=== PATIENT | female | born 1965 ===

== ENCOUNTER 2018-07-28 15:35 | Inpatient (IN) | payer MEDICAID ==
[2018-07-28 15:35] VITALS: BMI 22.4
--- NOTE | 2018-07-28 16:39 | ED PDOC ---
Arrival/HPI - General Chief Complaint: Lower Extremity Problem/Injury Time Seen by Provider: 07/28/18 16:19 Historian: Patient - History of Present Illness Narrative History of Present Illness (Text): 52yo female, comes to Emergency room for evaluation, upon recommendation from Dr. Murray. Patient has gangrene of her left great toe and is scheduled for a surgical intervention tomorrow. Currently, patient denies any fever, chills, foot pain. No other complaints. Symptom Onset: Gradual Past Medical History - Provider Review Nursing Documentation Reviewed: Yes - Infectious Disease Hx of Infectious Diseases: None - Tetanus Immunization Tetanus Immunization: Unknown - Cardiac Hx Pacemaker: No - Pulmonary Hx Respiratory Disorders: No - Neurological Hx Neurological Disorder: No - HEENT Hx HEENT Disorder: No - Renal Hx Renal Disorder: No - Endocrine/Metabolic Hx Diabetes Mellitus Type 2: Yes - Hematological/Oncological Hx Cancer: No - Integumentary Hx Dermatological Disorder: Yes Other/Comment: cellulitis ball of right [id number] x2cm brown dry skin, dried skin between toes right foot, pt had sx last year i and d to right foot abcess, foot healed - Musculoskeletal/Rheumatological Hx Falls: No (last december) - Gastrointestinal Hx Gastrointestinal Disorders: Yes (constipation, gastritis) Hx Gastroesophageal Reflux: Yes - Genitourinary/Gynecological Hx Genitourinary Disorders: Yes Hx Urinary Tract Infection: Yes - Psychiatric Hx Psychophysiologic Disorder: No Hx Substance Use: No - Past Surgical History Past Surgical History: No Previous - Surgical History Hx Amputation: Yes Hx Mastectomy: No - Anesthesia Hx Anesthesia Reactions: No Hx Malignant Hyperthermia: No - Suicidal Assessment Feels Threatened In Home Enviroment: No Family/Social History - Physician Review Nursing Documentation Reviewed: Yes Family/Social History: No Known Family HX Smoking Status: Never Smoked Hx Alcohol Use: No Hx Substance Use: No Hx Substance Use Treatment: No Allergies/Home Meds Allergies/Adverse Reactions: Allergies pantoprazole Allergy (Verified 07/28/18 16:27) RASH Review of Systems - Physician Review All systems were reviewed & negative as marked: Yes - Review of Systems Constitutional: absent: Fevers Musculoskeletal: absent: Other (foot pain) Physical Exam - Physical Exam Narrative Physical Exam (Text): Gen: VS reviewed, alert, well developed, well nourished, nontoxic, mild distress. ENT: normal pharynx Eye: EOMI, PERRL Neck: no JVD, supple, no adenopathy CV: regular rate, regular rhythm, no rubs, no murmur, no gallops, S1, S2, pulses equal and strong Pulm: no distress, clear to auscultation, no wheeze, no rhonchi, breath sounds equal, no rales Abd: soft, nontender, no guarding, no rebound, no rigidity, normal bowel sounds Ext: left foot in surgical shoe with dressing; no streaking extending up the leg. RLE normal, no edema. Skin: good color, no rash, no cyanosis Psych: responds appropriately to questions, normal affect Neuro: oriented x 3, CN2-12 intact grossly, motor intact, sensation intact. Medical Decision Making ED Course and Treatment: Impression: Gangrene of great toe on left foot Plan: -- Labs -- -- Reassess and disposition Progress Notes: 07/28/18 18:[address] campbell, patient to be admitted for symptomatic anemia. at this time patient does not have any rectal bleeding or complaint of melena. - EKG Interpretation EKG Interpretation (Text): 07/28/18 18:04 1728: nsr at 71 bpm, nml qrs, nml axis, no acute sttw abn Interpreted by ED Physician: Yes - Scribe Statement The provider has reviewed the documentation as recorded by the Sherice Lange Provider Scribe Attestation: All medical record entries made by the Daveibaníbal were at my direction and personally dictated by me. I have reviewed the chart and agree that the record accurately reflects my personal performance of the history, physical exam, medical decision making, and the department course for this patient. I have also personally directed, reviewed, and agree with the discharge instructions and dis position. Disposition/Present on Arrival - Present on Arrival Any Indicators Present on Arrival: No History of DVT/PE: No History of Uncontrolled Diabetes: Yes Urinary Catheter: No History of Decub. Ulcer: No History Surgical Site Infection Following: None - Disposition Have Diagnosis and Disposition been Completed?: Yes Diagnosis: Gangrene Disposition: HOSPITALIZED Disposition Time: 09:41 Condition: STABLE
[2018-07-28 17:28] LABS: BASO # 0.06 K/mm3 (0.0-2.0); BASO % 0.7 % (0.0-3.0); EOS # 0.7 (0.0-0.7); EOS % 8.7 % (1.5-5.0); GRAN # 5.11 (1.4-6.5); GRAN % 62.7 % (50.0-68.0); HEMOGLOBIN 9.6 g/dL (12.0-16.0); LYMPH # 1.7 (1.2-3.4); LYMPH % 21.2 % (22.0-35.0); MEAN CELL VOLUME 90.3 fl (80.0-105.0); MEAN CORPUSCULAR HEMOGLOBIN 29.2 pg (25.0-35.0); MEAN CORPUSCULAR HGB CONC 32.3 g/dl (31.0-37.0); MEAN PLATELET VOLUME 8.7 fl (7.0-11.0); MONO # 0.6 (0.1-0.6); MONO % 6.7 % (1.0-6.0); RBC 3.29 10^6/uL (3.5-6.1); WHITE BLOOD COUNT 8.2 10^3/ul (4.5-11.0)
[2018-07-28 17:30] LABS: VENOUS BLOOD GAS BASE EXCESS 9.3 mmol/L (0.0-2.0); VENOUS BLOOD GAS PO2 56 mm/Hg (30-55); VENOUS BLOOD PH 7.42 (7.32-7.43)
--- NOTE | 2018-07-28 17:32 | CP.PCM.HP ---
<ErickAlbina - Last Filed: 07/28/18 18:17> History of Present Illness - History of Present Illness History of Present Illness: PGY-1 Albina Suarez H & P for Dr. Stevenson's service CC: Toe amputation surgery for diabetic foot ulcer Patient is a 52 yo female with a past medical history of congestive heart failure, diabetes mellitus, hypertension, dilated cardiomyopathy with life vest who presented to the ED at the request of Dr. Murray. Patient was in the [facility] approximately a month ago for similar situation. Patient had positive cultures for MSSA with wound culture. MRI on last admission was negative for any osteomyelitis. Patient was to continue outpatient with IV daptomycin for 4 weeks starting from negative blood cultures. Patient had a revasculrization procedure done with IR however it was complicated due to patient developing contrast induced nephropathy. Patient was to followup with Dr. Redding for restarting NOEMÍ and Aldactone because they were held after PATRICIA. Patient's foot ulcer was not healing appropriately with IV Abx (Daptomycin) use so it was planned for podiatry to have the toe amputated. Patient states she had an allergic reaction to the antibiotic after 2 weeks of use. She states her left hand skin was peeling on the distal part of her hand but most likely its due to contact dermatitis. Patient denies fevers, chills, shortness of breath, chest pain, n/v, constipation or diarrhea, dysuria. Patient admits to headaches at time. PMH- congestive heart failure, diabetes mellitus, hypertension, dilated cardiomyopathy PSH-R foot debridement in 2013 FH- Mom and dad both have HTN and DM Meds- Lasix 40mg bid, Lipitor 40mg daily, Coreg 25 bid, Lisinopril 40mg daily, Basagral 10 units bid, Prasagral 10 units bid, Plavix 75 mg daily, Hydralazine 10 tid, Pepcid 10mg Allergies- pantoprazole; no daptomycin Social- denies smoking, EtOH, or substance abuse; lives at home with her daughters PMD- Dr. Armas Code- Full Code Present on Admission - Present on Admission Any Indicators Present on Admission: No Review of Systems - Review of Systems Review of Systems: 12 point ROS obtained and noted in HPI Past Patient History - Infectious Disease Hx of Infectious Diseases: None - Tetanus Immunizations Tetanus Immunization: Unknown - Past Social History Smoking Status: Never Smoked - CARDIAC Hx Pacemaker: No - PULMONARY Hx Respiratory Disorders: No - NEUROLOGICAL Hx Neurological Disorder: No - HEENT Hx HEENT Problems: No - RENAL Hx Chronic Kidney Disease: No - ENDOCRINE/METABOLIC Hx Diabetes Mellitus Type 2: Yes - HEMATOLOGICAL/ONCOLOGICAL Hx Cancer: No - INTEGUMENTARY Hx Dermatological Problems: Yes Other/Comment: cellulitis ball of right [id number] x2cm brown dry skin, dried skin between toes right foot, pt had sx last year i and d to right foot abcess, foot healed - MUSCULOSKELETAL/RHEUMATOLOGICAL Hx Falls: No (last december) - GASTROINTESTINAL Hx Gastrointestinal Disorders: Yes (constipation, gastritis) Hx Gastroesophageal Reflux: Yes - GENITOURINARY/GYNECOLOGICAL Hx Genitourinary Disorders: Yes Hx Urinary Tract Infection: Yes - PSYCHIATRIC Hx Psychophysiologic Disorder: No Hx Substance Use: No - SURGICAL HISTORY Hx Amputation: Yes Hx Mastectomy: No - ANESTHESIA Hx Anesthesia Reactions: No Hx Malignant Hyperthermia: No Meds Allergies/Adverse Reactions: Allergies Allergy/AdvReac Type Severity Reaction Status Date / Time pantoprazole Allergy RASH Verified 07/28/18 16:27 Physical Exam - Constitutional Appears: Non-toxic, No Acute Distress - Head Exam Head Exam: NORMAL INSPECTION, NORMOCEPHALIC - Eye Exam Eye Exam: EOMI, Normal appearance. absent: Nystagmus, Scleral icterus - ENT Exam ENT Exam: Mucous Membranes Moist - Respiratory Exam Respiratory Exam: Clear to Auscultation Bilateral, NORMAL BREATHING PATTERN. absent: Rales, Rhonchi, Wheezes - Cardiovascular Exam Cardiovascular Exam: REGULAR RHYTHM, +S1, +S2 - GI/Abdominal Exam GI & Abdominal Exam: Normal Bowel Sounds, Soft. absent: Distended, Firm, Guarding, Tenderness - Extremities Exam Extremities exam: Positive for: normal inspection. Negative for: calf tenderness, pedal edema Additional comments: Right foot chronic ulcer dressed by Podiatry Inspection shows saturated dressing with sensory neuropathy as patient unable to feel - Neurological Exam Neurological exam: Alert, Oriented x3 - Psychiatric Exam Psychiatric exam: Normal Affect, Normal Mood - Skin Skin Exam: Intact, Normal Color Results - Vital Signs Recent Vital Signs: Last Vital Signs Temp 97.9 F 07/28/18 17:22 Pulse 71 07/28/18 17:22 Resp 19 07/28/18 17:22 BP 174/74 H 10/02/18 17:22 Pulse Ox 95 07/28/18 17:22 - Labs Result Diagrams: 07/28/18 17:15 07/28/18 17:15 Labs: Laboratory Results - last 24 hr 07/28/18 17:15 WBC 8.2 D RBC 3.29 L Hgb 9.6 L Hct 29.7 L MCV 90.3 MCH 29.2 MCHC 32.3 RDW 13.0 Plt Count 429 MPV 8.7 Gran % 62.7 Lymph % (Auto) 21.2 L [place] % (Auto) 6.7 H Eos % (Auto) 8.7 H Baso % (Auto) 0.7 Gran # 5.11 Lymph # (Auto) 1.7 [place] # (Auto) 0.6 Eos # (Auto) 0.7 Baso # (Auto) 0.06 Assessment & Plan - Assessment and Plan (Free Text) Assessment: Patient is a 52 yo female with a past medical history of congestive heart failure, diabetes mellitus, hypertension, dilated cardiomyopathy with life vest who presented to the ED at the request of Dr. Murray. Plan is to have surgery to amputate toe tomorrow Plan: Diabetic Foot Ulcer Podiatry Consulted- Dr. Murray- recommendations appreciated OR tomorrow for toe amputation NPO except meds starting at midnight HTN Carevdilol 25mg po bid Hydralazine 10mg po tid Lisinopril 40 mg and Lasix 40mg held in the setting of elevated Creatinine DM Levemir 5mg for 07/28 while patient NPO Will restart home dose of Levemir 10mg for 07/29 ISS - med dose; ACHS Hx of CAD Lipitor 40mg po din Hx of CHF Patient euvolemic; no signs of JVD On life vest Continue to monitor PPx DVT ppx- Heparin 5000 units sc q8h GI ppx- Pepcid 10mg po HS <Yi Stevenson - Last Filed: 07/29/18 14:27> Results - Vital Signs Recent Vital Signs: Last Vital Signs Temp 98 F 07/29/18 14:00 Pulse 74 07/29/18 14:00 Resp 18 07/29/18 14:00 BP 143/77 07/29/18 14:00 Pulse Ox 98 07/29/18 14:00 - Labs Result Diagrams: 07/29/18 06:15 07/29/18 06:15 Labs: Laboratory Results - last 24 hr 07/28/18 07/28/18 07/28/18 17:15 17:15 17:15 WBC 8.2 D RBC 3.29 L Hgb 9.6 L Hct 29.7 L MCV 90.3 MCH 29.2 MCHC 32.3 RDW 13.0 Plt Count 429 MPV 8.7 Gran % 62.7 Lymph % (Auto) 21.2 L [place] % (Auto) 6.7 H Eos % (Auto) 8.7 H Baso % (Auto) 0.7 Gran # 5.11 Lymph # (Auto) 1.7 [place] # (Auto) 0.6 Eos # (Auto) 0.7 Baso # (Auto) 0.06 PT INR APTT pO2 56 H VBG pH 7.42 VBG pCO2 55.0 VBG HCO3 35.7 H VBG Total CO2 37.4 H VBG O2 Sat (Calc) 91.9 H VBG Base Excess 9.3 H VBG Potassium 4.1 Sodium 136.0 Chloride 100.0 Glucose 227 H Lactate 0.7 FiO2 21.0 Potassium Carbon Dioxide Anion Gap BUN Creatinine Est GFR ( Amer) Est GFR (Non-Af Amer) POC Glucose (mg/dL) Random Glucose Calcium Phosphorus Magnesium Total Bilirubin AST ALT Alkaline Phosphatase Total Creatine Kinase Total Protein Albumin Globulin Albumin/Globulin Ratio Venous Blood Potassium 4.1 Blood Type AB POSITIVE Antibody Screen Negative BBK History Checked Patient has bt 07/28/18 07/28/18 07/29/18 17:15 21:39 06:15 WBC 8.8 RBC 3.58 Hgb 10.1 L Hct 32.6 L MCV 91.1 MCH 28.2 MCHC 31.0 RDW 13.1 Plt Count 477 H MPV 8.8 Gran % 65.6 Lymph % (Auto) 16.6 L [place] % (Auto) 8.0 H Eos % (Auto) 8.3 H Baso % (Auto) 1.5 Gran # 5.77 Lymph # (Auto) 1.5 [place] # (Auto) 0.7 H Eos # (Auto) 0.7 Baso # (Auto) 0.13 PT INR APTT pO2 VBG pH VBG pCO2 VBG HCO3 VBG Total CO2 VBG O2 Sat (Calc) VBG Base Excess VBG Potassium Sodium 137 Chloride 95 L Glucose Lactate FiO2 Potassium 4.1 Carbon Dioxide 32 Anion Gap 14 BUN 35 H Creatinine 2.6 H Est GFR ( Amer) 23 Est GFR (Non-Af Amer) 19 POC Glucose (mg/dL) 260 H Random Glucose 219 H Calcium 8.7 Phosphorus 4.6 H Magnesium 2.3 H Total Bilirubin 0.3 AST 14 ALT 16 Alkaline Phosphatase 103 Total Creatine Kinase Total Protein 7.3 Albumin 3.5 Globulin 3.8 Albumin/Globulin Ratio 0.9 L Venous Blood Potassium Blood Type Antibody Screen BBK History Checked 07/29/18 07/29/18 07/29/18 06:15 06:15 06:54 WBC RBC Hgb Hct MCV MCH MCHC RDW Plt Count MPV Gran % Lymph % (Auto) [place] % (Auto) Eos % (Auto) Baso % (Auto) Gran # Lymph # (Auto) [place] # (Auto) Eos # (Auto) Baso # (Auto) PT 11.9 INR 1.03 APTT 36.9 H pO2 VBG pH VBG pCO2 VBG HCO3 VBG Total CO2 VBG O2 Sat (Calc) VBG Base Excess VBG Potassium Sodium 142 Chloride 99 Glucose Lactate FiO2 Potassium 4.3 Carbon Dioxide 35 H Anion Gap 12 BUN 35 H Creatinine 2.4 H Est GFR ( Amer) 25 Est GFR (Non-Af Amer) 21 POC Glucose (mg/dL) 108 Random Glucose 137 H Calcium 9.1 Phosphorus 4.6 H Magnesium 2.6 H Total Bilirubin 0.3 AST 23 ALT 14 Alkaline Phosphatase 108 Total Creatine Kinase Total Protein 7.5 Albumin 3.5 Globulin 4.0 Albumin/Globulin Ratio 0.9 L Venous Blood Potassium Blood Type Antibody Screen BBK History Checked 07/29/18 07/29/18 07:30 10:25 WBC RBC Hgb Hct MCV MCH MCHC RDW Plt Count MPV Gran % Lymph % (Auto) [place] % (Auto) Eos % (Auto) Baso % (Auto) Gran # Lymph # (Auto) [place] # (Auto) Eos # (Auto) Baso # (Auto) PT INR APTT pO2 VBG pH VBG pCO2 VBG HCO3 VBG Total CO2 VBG O2 Sat (Calc) VBG Base Excess VBG Potassium Sodium Chloride Glucose Lactate FiO2 Potassium Carbon Dioxide Anion Gap BUN Creatinine Est GFR ( Amer) Est GFR (Non-Af Amer) POC Glucose (mg/dL) 172 H Random Glucose Calcium Phosphorus Magnesium Total Bilirubin AST ALT Alkaline Phosphatase Total Creatine Kinase 56 Total Protein Albumin Globulin Albumin/Globulin Ratio Venous Blood Potassium Blood Type Antibody Screen BBK History Checked Attending/Attestation - Attestation I have personally seen and examined this patient.: Yes I have fully participated in the care of the patient.: Yes I have reviewed all pertinent clinical information: Yes Notes (Text): 07/29/18 14:20 Medical record note made by the resident after discussion with my direction and input after the patient was personally seen and examined by me. I have reviewed the chart and agree that the record accurately reflects by personal performance of the history, physical exam, data review, and medical decision-making, in the course for the patient. I have also personally directed the plan of care. 52 year old female with past medical history of cardiomyopathy (EF 29%) on life vest, diabetes and hypertension was admitted last month with with left hallux cellulitis. MRI was negative for osteomyelitis or abscess. Initial blood cultures were positive for MRSA. Repeat cultures are negative.Wound cultures grew MSSA. Patient underwent partial toe amputation. Patient was treated with IV Daptomycin.Echo was negative for any vegetation.Repeat MRI of foot was negative for any osteomylitis or abscess.Patient was discharged home with IV Daptomycin to complete total 4 weeks of starting from negative blood cultures.Last a dmission Patient develop acute on chronic renal failure secondary likely due to contrast induced NephropathyCreatinin has improved to 2.5 from 5.4.NOEMÍ and Aldactone were on hold at the time of discharge due to renal failure is admitted with worsening foot infection and Podiatry is planning for amputation. we will continue IV Daptomycin, will repeat blood cultures and keep patient NPO after midnight .We will also get ID consult.Patient is euvolemic. Management plan was discussed in detail with patient. Education was provided. 07/29/18 14:25
[2018-07-28 17:55] LABS: ALB/GLOB RATIO 0.9 (1.1-1.8); ALBUMIN 3.5 g/dL (3.0-4.8); CALCIUM 8.7 mg/dL (8.4-10.5)
--- NOTE | 2018-07-28 21:06 | CARD ---
APPROVED REPORT Date of service: 07/28/2018 EKG Measurement Heart [id number] <Conclusion> Normal sinus rhythm Nonspecific T wave abnormality Prolonged QT Abnormal ECG
[2018-07-28] MEDS ORDERED: Insulin Detemir 100 units/ml Vial (Levemir) SC ONE (22:00)
[2018-07-28] MEDS: Insulin Lispro (humaLOG) MEDIUM Coverage SC SCH (23:33)
--- NOTE | 2018-07-29 00:49 | CP.PCM.PN ---
<Maame Terry - Last Filed: 07/29/18 00:37> Subjective - Date & Time of Evaluation Date of Evaluation: 07/29/18 Time of Evaluation: 00:37 - Subjective Subjective: PGY-[address] Livingston, Night Hospitalist RN just paged, relaying that the podiatry resident requested medical clearance for podiatry surgery tomorrow at 7am. Just now, I spoke with the podiatry resident, Dr Crys Brand, asking more information regarding the surgery. Is it an urgent surgery? Or, is it an non- emergent surgery? In case the surgery is non-emergent in nature, I recommend cardiac risk stratification for the surgery as pt EF only in 30s and she is on a life vest to decrease the risk of sudden cardiac . Dr Brand will clarify the emergency status of the surgery. I will consult cardiology Objective - Vital Signs/Intake and Output Vital Signs (last 24 hours): Temp Pulse Resp BP Pulse Ox 98.2 F 79 18 163/60 H 96 07/28/18 20:21 07/28/18 22:32 07/28/18 20:21 07/28/18 22:32 07/28/18 20:21 - Medications Medications: Current Medications Atorvastatin Calcium (Lipitor) 40 mg PO DIN [facility] Last Admin: 07/28/18 18:59 Dose: 40 mg Carvedilol (Coreg) 25 mg PO BID [facility] Last Admin: 07/28/18 18:58 Dose: 25 mg Famotidine (Pepcid) 10 mg PO HS [facility] Last Admin: 07/28/18 22:32 Dose: 10 mg Heparin Sodium (Porcine) (Heparin) 5,000 units SC Q8 [facility]; Protocol Last Admin: 07/28/18 22:33 Dose: 5,000 units Hydralazine HCl (Apresoline) 10 mg PO Q8 [facility] Last Admin: 07/28/18 22:32 Dose: 10 mg Insulin Detemir (Levemir) 10 unit SC HS [facility] Insulin Human Lispro (Humalog Med) 0 units SC ACHS [facility]; Protocol Last Admin: 07/28/18 23:33 Dose: Not Given - Labs Labs: 07/28/18 17:15 07/28/18 17:15 <Robi Livingston - Last Filed: 07/29/18 02:07> Objective - Vital Signs/Intake and Output Vital Signs (last 24 hours): Temp Pulse Resp BP Pulse Ox 98 F 79 16 163/60 H 96 07/28/18 21:00 07/28/18 22:32 07/28/18 21:00 07/28/18 22:32 07/28/18 21:00 - Medications Medications: Current Medications Atorvastatin Calcium (Lipitor) 40 mg PO DIN [facility] Last Admin: 07/28/18 18:59 Dose: 40 mg Carvedilol (Coreg) 25 mg PO BID [facility] Last Admin: 07/28/18 18:58 Dose: 25 mg Famotidine (Pepcid) 10 mg PO HS [facility] Last Admin: 07/28/18 22:32 Dose: 10 mg Heparin Sodium (Porcine) (Heparin) 5,000 units SC Q8 [facility]; Protocol Last Admin: 07/28/18 22:33 Dose: 5,000 units Hydralazine HCl (Apresoline) 10 mg PO Q8 [facility] Last Admin: 07/28/18 22:32 Dose: 10 mg Insulin Detemir (Levemir) 10 unit SC HS [facility]UEL Insulin Human Lispro (Humalog Med) 0 units SC ACHS [facility]; Protocol Last Admin: 07/28/18 23:33 Dose: Not Given - Labs Labs: 07/28/18 17:15 07/28/18 17:15 Attending/Attestation - Attestation I have personally seen and examined this patient.: No I have fully participated in the care of the patient.: No I have reviewed all pertinent clinical information, including history, physical exam and plan: No
[2018-07-29 07:08] LABS: BASO # 0.13 K/mm3 (0.0-2.0); BASO % 1.5 % (0.0-3.0); EOS # 0.7 (0.0-0.7); EOS % 8.3 % (1.5-5.0); GRAN # 5.77 (1.4-6.5); GRAN % 65.6 % (50.0-68.0); HEMOGLOBIN 10.1 g/dL (12.0-16.0); INR 1.03; LYMPH # 1.5 (1.2-3.4); LYMPH % 16.6 % (22.0-35.0); MEAN CELL VOLUME 91.1 fl (80.0-105.0); MEAN CORPUSCULAR HEMOGLOBIN 28.2 pg (25.0-35.0); MEAN PLATELET VOLUME 8.8 fl (7.0-11.0); MONO # 0.7 (0.1-0.6); PARTIAL THROMBOPLASTIN TIME 36.9 Seconds (25.1-36.5); PROTHROMBIN TIME 11.9 SECONDS (9.4-12.5); RBC 3.58 10^6/uL (3.5-6.1); RED CELL DISTRIBUTION WIDTH 13.1 % (11.5-14.5); WHITE BLOOD COUNT 8.8 10^3/ul (4.5-11.0)
[2018-07-29 07:20] LABS: ALBUMIN 3.5 g/dL (3.0-4.8); CALCIUM 9.1 mg/dL (8.4-10.5)
[2018-07-29 07:21] LABS: ALB/GLOB RATIO 0.9 (1.1-1.8)
[2018-07-29] MEDS: Insulin Lispro (humaLOG) MEDIUM Coverage SC SCH ×4 (07:44→21:43)
--- NOTE | 2018-07-29 08:22 | CP.PCM.PN ---
Addendum entered and electronically signed by Saida Mock DPM 07/29/18 15:42: Spoke with nurse Sangeeta about obtaining cardiac risk for surgery from Dr. Caldwell. Will follow up Addendum entered and electronically signed by Saida Mock DPM 07/29/18 08 :35: ID consulted; reccs appreciated Original Note: <Saida Mock - Last Filed: 07/29/18 08:32> Subjective - Date & Time of Evaluation Date of Evaluation: 07/29/18 Time of Evaluation: 08:19 - Subjective Subjective: Podiatry Progress Note for Dr. Murray: 52 yo female patient seen and evaluated at bedside s/p L partial hallux amputation (DOS: 07/09/2018). Patient was admitted to the hospital yesterday as per Dr. Murray's request for further L hallux surgical intervention. Patient is resting comfortably in bed. Surgical procedure today (07/29) was postponed and awaiting cardiology clearance. Patient states that she is in no pain today. Patient denies any other pedal complaints at this time. Denies N/V/F/SOB/CP. Objective - Vital Signs/Intake and Output Vital Signs (last 24 hours): Temp Pulse Resp BP Pulse Ox 98 F 69 18 124/65 96 07/29/18 06:00 07/29/18 06:00 07/29/18 06:00 07/29/18 06:00 07/29/18 06:00 - Medications Medications: Current Medications Atorvastatin Calcium (Lipitor) 40 mg PO DIN [facility] Last Admin: 07/28/18 18:59 Dose: 40 mg Carvedilol (Coreg) 25 mg PO BID [facility] Last Admin: 07/28/18 18:58 Dose: 25 mg Famotidine (Pepcid) 10 mg PO HS [facility] Last Admin: 07/28/18 22:32 Dose: 10 mg Heparin Sodium (Porcine) (Heparin) 5,000 units SC Q8 [facility]; Protocol Last Admin: 07/29/18 05:23 Dose: Not Given Hydralazine HCl (Apresoline) 10 mg PO Q8 [facility] Last Admin: 07/29/18 05:22 Dose: Not Given Daptomycin 340 mg/ Sodium (Chloride) 100 mls @ 200 mls/hr IV Q24H [facility]; Protocol Stop: 07/29/18 08:44 Insulin Detemir (Levemir) 10 unit SC [facility] Insulin Human Lispro (Humalog Med) 0 units SC [facility]; Protocol Last Admin: 07/29/18 07:44 Dose: Not Given - Labs Labs: 07/29/18 06:15 07/29/18 06:15 PT 11.9 SECONDS (9.4-12.5) 07/29/18 06:15 INR 1.03 07/29/18 06:15 APTT 36.9 Seconds (25.1-36.5) H 07/29/18 06:15 - Constitutional Appears: Well, Non-toxic, No Acute Distress - Head Exam Head Exam: ATRAUMATIC, NORMOCEPHALIC - Extremities Exam Additional comments: LLE focused exam: Vasc: DP/PT pulses are palpable 2/4. Skin temperature warm to warm from proximal to distal. Cap refill < 3 seconds to all digits. +1 pitting edema noted to amputation site and dorsum of the foot. Ortho: Partial left hallux amputation. Neuro: Gross and protective sensation diminished Derm: Erythema noted to left hallux partial amputation, mild dehiscence noted to surgical site, mild serous drainage, no purulence noted, distal aspect of amputation site with fibrous base, diffuse xerosis noted to dorsal aspect of left foot around surgical site. - Neurological Exam Neurological Exam: Alert, Awake, Oriented x3 - Psychiatric Exam Psychiatric exam: Normal Affect, Normal Mood Assessment and Plan - Assessment and Plan (Free Text) Assessment: 52 y/o female patient, seen and evaluated, for partial left hallux amputation wound (DOS: 07/09/2018) Plan: Patient seen and evaluated with the attending Dr. Murray Labs, chart and vitals reviewed; afebrile, absent leukocytosis (07/29) L hallux wound dressed with DSD and kerlix Please optimize patient for surgical revision of partial amputation, plan for tomorrow morning; cardiology consult placed Intraoperative wound cx: Staph Aureus, Corneybacterium (07/09) Pathology report; gangrenous amputated toe with osteomyelitis and proximal clean margins (07/09) Podiatry will continue to follow up the patient while patient in house <Reshma Murray - Last Filed: 08/02/18 18:17> Objective - Vital Signs/Intake and Output Vital Signs (last 24 hours): Temp Pulse Resp BP Pulse Ox 98.7 F 70 18 140/53 L 97 08/02/18 14:44 08/02/18 14:44 08/02/18 14:44 08/02/18 14:44 08/02/18 14:44 Intake and Output: 08/02/18 08/02/18 06:59 18:59 Intake Total 600 Balance 600 - Medications Medications: Current Medications Acetaminophen (Tylenol 325mg Tab) 650 mg PO Q4H PRN PRN Reason: Pain, Mild (1-3) Last Admin: 08/02/18 03:48 Dose: 650 mg Acetaminophen (Tylenol 325mg Tab) 650 mg PO Q6H PRN PRN Reason: Fever >100.4 F Last Admin: 08/01/18 13:34 Dose: 650 mg Aspirin (Ecotrin) 81 mg PO DAILY [facility] Last Admin: 08/02/18 10:06 Dose: 81 mg Atorvastatin Calcium (Lipitor) 40 mg PO DIN [facility] Last Admin: 08/01/18 17:58 Dose: 40 mg Carvedilol (Coreg) 25 mg PO BID [facility] Last Admin: 08/02/18 10:03 Dose: 25 mg Clopidogrel Bisulfate (Plavix) 75 mg PO DAILY [facility] Last Admin: 08/02/18 09:58 Dose: 75 mg Famotidine (Pepcid) 10 mg PO HS [facility] Last Admin: 08/01/18 22:19 Dose: 10 mg Furosemide (Lasix) 20 mg PO BID [facility] Last Admin: 08/02/18 09:59 Dose: 20 mg Heparin Sodium (Porcine) (Heparin) 5,000 units SC Q8 [facility]; Protocol Last Admin: 08/02/18 13:34 Dose: 5,000 units Hydralazine HCl (Apresoline) 10 mg PO Q8 [facility] Last Admin: 08/02/18 13:34 Dose: Not Given Daptomycin 310 mg/ Sodium (Chloride) 100 mls @ 200 mls/hr IV QOD [facility] Stop: 08/07/18 10:01 Last Admin: 08/02/18 10:08 Dose: 200 mls/hr Meropenem/Sodium Chloride (Merrem Iv 500 Mg/Ns 50 Ml) 500 mg in 50 mls @ 100 mls/hr IVPB Q12 [facility]; Protocol Last Admin: 08/02/18 09:56 Dose: 100 mls/hr Insulin Detemir (Levemir) 10 unit SC [facility] Last Admin: 08/01/18 22:18 Dose: 10 units Insulin Human Lispro (Humalog Med) 0 units SC [facility]; Protocol Last Admin: 08/02/18 12:10 Dose: 5 unit Lisinopril (Zestril) 10 mg PO DAILY [facility] Last Admin: 08/02/18 11:41 Dose: Not Given - Labs Labs: 07/31/18 06:00 07/31/18 06:00 PT 11.9 SECONDS (9.4-12.5) 07/29/18 06:15 INR 1.03 07/29/18 06:15 APTT 36.9 Seconds (25.1-36.5) H 07/29/18 06:15 Attending/Attestation - Attestation I have personally seen and examined this patient.: Yes I have fully participated in the care of the patient.: Yes I have reviewed all pertinent clinical information, including history, physical exam and plan: Yes
--- NOTE | 2018-07-29 12:55 | CP.PCM.PN ---
Subjective - Date & Time of Evaluation Date of Evaluation: 07/29/18 Time of Evaluation: 11:00 - Subjective Subjective: Florentin Allen PGY [address] Stevenson Pt was examined at bedside this morning. She had no complaints. Pt was scheduled for L hallux amputation this morning, however due to PMH required Cardio risk stratification prior to the case which is still pending. Pt reported removing her life vest because the battery needs charging. She claims her daughter will be bringing the battery from home. Pt denied any chest pain, shortness of breath, abdominal plain, nausea vomiting. Objective - Vital Signs/Intake and Output Vital Signs (last 24 hours): Temp Pulse Resp BP Pulse Ox 98 F 68 18 138/65 96 07/29/18 06:00 07/29/18 10:33 07/29/18 06:00 07/29/18 10:33 07/29/18 06:00 Intake and Output: 07/29/18 07/29/18 06:59 18:59 Intake Total 360 Balance 360 - Medications Medications: Current Medications Aspirin (Aspirin Chewable) 81 mg PO ONCE ONE Stop: 07/29/18 13:01 Atorvastatin Calcium (Lipitor) 40 mg PO DIN [facility] Last Admin: 07/28/18 18:59 Dose: 40 mg Carvedilol (Coreg) 25 mg PO BID [facility] Last Admin: 07/29/18 10:33 Dose: 25 mg Famotidine (Pepcid) 10 mg PO HS [facility] Last Admin: 07/28/18 22:32 Dose: 10 mg Heparin Sodium (Porcine) (Heparin) 5,000 units SC Q8 [facility]; Protocol Last Admin: 07/29/18 05:23 Dose: Not Given Hydralazine HCl (Apresoline) 10 mg PO Q8 [facility] Last Admin: 07/29/18 05:22 Dose: Not Given Insulin Detemir (Levemir) 10 unit SC [facility] Insulin Human Lispro (Humalog Med) 0 units SC [facility]; Protocol Last Admin: 07/29/18 12:02 Dose: 1 unit - Labs Labs: 07/29/18 06:15 07/29/18 06:15 PT 11.9 SECONDS (9.4-12.5) 07/29/18 06:15 INR 1.03 07/29/18 06:15 APTT 36.9 Seconds (25.1-36.5) H 07/29/18 06:15 - Constitutional Appears: Well, No Acute Distress - Head Exam Head Exam: ATRAUMATIC, NORMOCEPHALIC - Eye Exam Eye Exam: EOMI, Normal appearance, PERRL Pupil Exam: NORMAL ACCOMODATION - ENT Exam ENT Exam: Mucous Membranes Moist, Normal Exam - Respiratory Exam Respiratory Exam: Clear to Ausculation Bilateral, NORMAL BREATHING PATTERN. absent: Rales, Rhonchi, Wheezes - Cardiovascular Exam Cardiovascular Exam: REGULAR RHYTHM, +S1, +S2. absent: Gallop, Rubs, Murmur - GI/Abdominal Exam GI & Abdominal Exam: Soft, Normal Bowel Sounds. absent: Distended, Tenderness - Extremities Exam Extremities Exam: absent: Pedal Edema Additional comments: partial amputation of L hallux, no drainage or purulence - Neurological Exam Neurological Exam: Alert, Awake, Oriented x3 - Psychiatric Exam Psychiatric exam: Normal Affect, Normal Mood Assessment and Plan - Assessment and Plan (Free Text) Assessment: Patient is a 52 yo female with a past medical history of congestive heart f ailure, diabetes mellitus, hypertension, dilated cardiomyopathy with life vest who presented to the ED at the request of Dr. Murray. Tentative amputation for tomorrow. Plan: Diabetic Foot Ulcer - plan for OR tomorrow for L hallux amputation - NPO except meds starting at midnight - pending cardio risk stratification, Dr. Caldwell consulted - f/u recs - Podiatry Consulted- Dr. Murray- recommendations appreciated HTN - Carevdilol 25mg po bid - Hydralazine 10mg po tid - Lisinopril 40 mg and Lasix 40mg held in the setting of elevated Creatinine DM - Levemir 5mg for 07/28 while patient NPO - Will restart home dose of Levemir 10mg for 07/29 - ISS - med dose; ACHS Hx of CAD - ASA 81 for today, hold tomorrow - Lipitor 40mg po din Hx of CHF - Patient euvolemic; no signs of JVD - On life vest - Continue to monitor PPx DVT ppx- Heparin 5000 units sc q8h GI ppx- Pepcid 10mg po HS Pt seen and case reviewed with Dr. Stevenson
[2018-07-29] MEDS: Insulin Detemir 100 units/ml Vial (Levemir) SC SCH (21:36)
--- NOTE | 2018-07-29 21:57 | CON ---
DATE: 07/29/2018 LOCATION: Patient is seen in room 560, bed 1. CHIEF COMPLAINT: Big toe infection times several days. HISTORY OF PRESENT ILLNESS: This is a 52-year-old female known to me from a previous admission, who was admitted to the emergency room upon the recommendations of Dr. Murray because of a left great toe gangrene. Infectious Disease consultation requested. Patient did have MRSA bacteremia in the last admission, diabetes and hypertension and was given daptomycin because of renal toxicity and was tolerating it well. No nausea, no vomiting. No fevers, no chills. No chest pain or shortness of breath. No headaches or blurred vision. No dysuria or frequency. No abdominal pain, diarrhea or constipation. No bright red blood per rectum. No melena. REVIEW OF SYSTEMS: A 12-point review of systems is performed. PAST MEDICAL HISTORY: Significant for cardiomyopathy with ejection fraction of 35%, had a LifeVest. Patient also has diabetes, hypertension, hyperlipidemia and MRSA bacteremia, was on daptomycin as outpatient, has completed a therapy and patient also with gastritis. PAST SURGICAL HISTORY: Significant for right foot debridement, right foot abscess, incision and drainage. ALLERGIES: PATIENT IS ALLERGIC TO PANTOPRAZOLE. MEDICATIONS AT HOME: Reviewed include Apresoline and insulin. PHYSICAL EXAMINATION: GENERAL: Patient is in bed in no acute distress, answering questions appropriately. VITAL SIGNS: Temperature of 98, blood pressure is 160/60, respiratory rate of 18, heart rate of 69, patient saturating at 98% and is on room air. Patient's BMI is only 22. HEENT: Examination of HEENT is unremarkable. NECK: Supple. LUNGS: Have decreased breath sounds. HEART: Normal S1, S2. ABDOMEN: Soft, nontender. No organomegaly. No rebound. No guarding. No masses. EXTREMITIES: Examination of the left big toe reveals gangrenous big toe, appears to be dry. LABORATORY EXAMINATION: Reveals a white count of 8.2, hemoglobin of 9, platelets of 429. Coagulation is noted. Chemistries reveals a BUN of 35, creatinine is 2.4. LFTs are noted. History and physical examination is reviewed. ASSESSMENT AND PLAN: A 52-year-old female with diabetes, hypertension, hyperlipidemia with cardiomyopathy, ejection fraction of 35%, presenting now with a left big toe gangrene. Patient is going to refer to the OR for amputation. Currently with no fever, no leukocytosis, no tachycardia. We would hold off any antibiotic therapy since the patient is not septic. We will check in the OR cultures and OR pathology and make further recommendations based on that and we will follow with you. Janusz Sparks MD
--- NOTE | 2018-07-29 21:59 | CARD ---
APPROVED REPORT Date of service: 07/29/2018 EXAM: Two-dimensional and M-mode echocardiogram with Doppler and color Doppler. INDICATION Pre-Op 2D DIMENSIONS Left Atrium (2D)4.7 (1.6-4.0cm)IVSd1.5 (0.7-1.1cm) LVDd5.0 (3.9-5.9cm)PWd1.4 (0.7-1.1cm) LVDs4.2 (2.5-4.0cm)FS (%) 15.9 % LVEF (%)33.4 (>50%) M-Mode DIMENSIONS Aortic Root3.10 (2.2-3.7cm)Aortic Cusp Exc.1.90 (1.5-2.0cm) Aortic Valve AoV Peak Qcclhvqn976.0cm/Kate Peak GR.7mmHg Mitral Valve MV E Whaesyhi22.5cm/sMV A Ngkoeynp165.0cm/sE/A ratio0.7 TDI Lateral E' Peak V3.90cm/sMedial E' Peak V3.80cm/sE/Lateral E'20.1 E/Medial E'20.7 Pulmonary Valve PV Peak Xmnmmsxd77.7cm/sPV Peak Grad.2mmHg Tricuspid Valve TR Peak [id number]/sRAP [id number] Peak Gr.27mmHg [id number] LEFT VENTRICLE The left ventricle is normal size. There is mild concentric left ventricular hypertrophy. The systolic function is severely impaired. There is global hypokinesis of the left ventricle. Transmitral Doppler flow pattern is Grade I-abnormal relaxation pattern. No left ventricle thrombus noted on this study. RIGHT VENTRICLE The right ventricle is normal size. There is normal right ventricular wall thickness. The right ventricular systolic function is normal. ATRIA The left atrium is mildly dilated. The right atrium is mildly dilated. AORTIC VALVE The aortic valve is normal in structure. No aortic regurgitation is present. There is no aortic valvular stenosis. MITRAL VALVE The mitral valve is normal in structure. Mitral regurgitation is mild. There is no mitral valve stenosis. TRICUSPID VALVE The tricuspid valve is normal in structure. There is mild tricuspid regurgitation. There is mild pulmonary hypertension. GREAT VESSELS The aortic root is normal in size. PERICARDIAL EFFUSION There is a trace loculated posterior pericardial effusion. <Conclusion> The left ventricle is normal size. There is mild concentric left ventricular hypertrophy. The systolic function is severely impaired. There is global hypokinesis of the left ventricle. Transmitral Doppler flow pattern is Grade I-abnormal relaxation pattern. Mitral regurgitation is mild. There is mild tricuspid regurgitation. There is mild pulmonary hypertension.
[2018-07-30 07:15] LABS: ALB/GLOB RATIO 0.9 (1.1-1.8); ALBUMIN 3.2 g/dL (3.0-4.8); CALCIUM 8.6 mg/dL (8.4-10.5)
[2018-07-30 07:18] LABS: BASO # 0.11 K/mm3 (0.0-2.0); BASO % 1.3 % (0.0-3.0); EOS # 0.6 (0.0-0.7); EOS % 7.5 % (1.5-5.0); GRAN # 5.76 (1.4-6.5); GRAN % 67.9 % (50.0-68.0); HEMOGLOBIN 9.6 g/dL (12.0-16.0); LYMPH # 1.4 (1.2-3.4); LYMPH % 16.9 % (22.0-35.0); MEAN CELL VOLUME 90.8 fl (80.0-105.0); MEAN CORPUSCULAR HEMOGLOBIN 28.6 pg (25.0-35.0); MEAN CORPUSCULAR HGB CONC 31.5 g/dl (31.0-37.0); MONO # 0.5 (0.1-0.6); MONO % 6.4 % (1.0-6.0); RBC 3.36 10^6/uL (3.5-6.1); RED CELL DISTRIBUTION WIDTH 13.1 % (11.5-14.5); WHITE BLOOD COUNT 8.5 10^3/ul (4.5-11.0)
[2018-07-30] MEDS: Insulin Lispro (humaLOG) MEDIUM Coverage SC SCH ×4 (08:20→22:25)
--- NOTE | 2018-07-30 08:30 | CON ---
DATE: 07/30/2018 CARDIOLOGY CONSULTATION HISTORY: The patient is a 52-year-old woman who is here for lower extremity infection. The patient is for surgery today. The patient's past medical history includes documented peripheral vascular disease. Her cardiac history includes a dilated cardiomyopathy with no significant coronary artery disease documented by a cardiac catheterization done at [facility]. No ventricular arrhythmias, no ventricular tachycardia has been noted. The patient is on a LifeVest for questionable reasons. The patient's past medical history also includes a history of diabetes mellitus, hypertension and hypercholesterolemia. She is currently on Plavix at home. SOCIAL HISTORY: The patient does not smoke. REVIEW OF SYSTEMS: Fourteen-point review of systems is reviewed in detail. No angina. Exertional shortness of breath of 1-2 blocks is noted. PHYSICAL EXAMINATION: VITAL SIGNS: Blood pressure is 164/63, the heart rate is in the 70s. NECK: Negative JVD. LUNGS: Decreased breath sounds. HEART: Reveal S1, S2. EXTREMITIES: Bandage in the left lower extremity. Echocardiogram reveals an ejection fraction of 33%. There is mild pulmonary hypertension noted. LABORATORY DATA: Laboratories reveal hemoglobin of 9.6. Chemistries: BUN and creatinine 36 and 2, the glucose is 239. Troponins were not done. IMPRESSION: 1. The patient's cardiac risk is increased at a moderate rate. Her cardiac status is at its baseline. She suffers from a dilated cardiomyopathy. 2. No evidence for coronary artery disease. 3. Diabetes mellitus. 4. Renal insufficiency. 5. Hypertension. 6. Hypercholesterolemia. 7. Peripheral vascular disease. PLAN: Given these findings, the patient's cardiac status is at its maximum despite a markedly depressed LV function. Her pulmonary hypertension is mild. Rodney Caldwell MD
--- NOTE | 2018-07-30 12:34 | CP.PCM.CON ---
<Anna Trejo - Last Filed: 07/30/18 12:56> History of Present Illness - History of Present Illness History of Present Illness: Anna Trejo DO, PGY-2: Nephrology Progress Note for Dr. Redding 52 year old female with a past medical history of congestive heart failure, diabetes mellitus, hypertension, dilated cardiomyopathy with life vest who presented to the ED at the request of Dr. Murray. Patient was in the hospital approximately a month ago for similar situation. Patient had positive cultures for MSSA with wound culture. MRI on last admission was negative for any osteomyelitis. Patient was to continue outpatient with IV daptomycin for 4 weeks starting from negative blood cultures. Patient had a revasculrization procedure done with IR however it was complicated due to patient developing contrast induced nephropathy. Patient was to followup with Dr. Redding for restarting NOEMÍ and Aldactone because they were held after PATRICIA. Patient's foot ulcer was not healing appropriately with IV Abx (Daptomycin) use so it was planned for podiatry to have the toe amputated. She states her left hand skin was peeling on the distal part of her hand. Today she is about to undergo surgery with podiatry for left foot issue. Nephrology was consulted for management PATRICIA. At the time of my examination, the patient denies dysgeusia, anorexia, nausea, vomiting, dyspnea, or pruritus. She further denies fevers, chills, shortness of breath, chest pain, n/v, constipation or diarrhea, dysuria PMH- congestive heart failure, diabetes mellitus, hypertension, dilated cardiomyopathy PSH-R foot debridement in 2013 FH- Mom and dad both have HTN and DM Meds- Lasix 40mg bid, Lipitor 40mg daily, Coreg 25 bid, Lisinopril 40mg daily, Basagral 10 units bid, Prasagral 10 units bid, Plavix 75 mg daily, Hydralazine 10 tid, Pepcid 10mg Allergies- pantoprazole; no daptomycin Social- denies smoking, EtOH, or substance abuse; lives at home with her daughters PMD- Dr. Armas Code- Full Code Review of Systems - Review of Systems All systems: reviewed and no additional remarkable complaints except (as per HPI) Past Patient History - Infectious Disease Hx of Infectious Diseases: None - Tetanus Immunizations Tetanus Immunization: Unknown - Past Social History Smoking Status: Never Smoked - CARDIAC Hx Congestive Heart Failure: Yes Hx Hypertension: Yes Hx Pacemaker: No - PULMONARY Hx Respiratory Disorders: No - NEUROLOGICAL Hx Neurological Disorder: No - HEENT Hx HEENT Problems: No - RENAL Hx Chronic Kidney Disease: No - ENDOCRINE/METABOLIC Hx Diabetes Mellitus Type 2: Yes - HEMATOLOGICAL/ONCOLOGICAL Hx Cancer: No - INTEGUMENTARY Hx Dermatological Problems: Yes Other/Comment: cellulitis ball of right [id number] x2cm brown dry skin, dried skin between toes right foot, pt had sx last year i and d to right foot abcess, foot healed - MUSCULOSKELETAL/RHEUMATOLOGICAL Hx Falls: No (december) - GASTROINTESTINAL Hx Gastrointestinal Disorders: Yes (constipation, gastritis) Hx Gastroesophageal Reflux: Yes - GENITOURINARY/GYNECOLOGICAL Hx Genitourinary Disorders: Yes Hx Urinary Tract Infection: Yes - PSYCHIATRIC Hx Psychophysiologic Disorder: No - SURGICAL HISTORY Hx Surgeries: Yes - ANESTHESIA Hx Anesthesia Reactions: No Meds Allergies/Adverse Reactions: Allergies Allergy/AdvReac Type Severity Reaction Status Date / Time pantoprazole Allergy RASH Verified 07/28/18 16:27 - Medications Medications: Current Medications Atorvastatin Calcium (Lipitor) 40 mg PO DIN [facility] Last Admin: 07/29/18 17:24 Dose: 40 mg Carvedilol (Coreg) 25 mg PO BID [facility] Last Admin: 07/30/18 09:45 Dose: 25 mg Famotidine (Pepcid) 10 mg PO HS [facility] Last Admin: 07/29/18 21:39 Dose: 10 mg Heparin Sodium (Porcine) (Heparin) 5,000 units SC Q8 [facility]; Protocol Last Admin: 07/30/18 06:10 Dose: Not Given Hydralazine HCl (Apresoline) 10 mg PO Q8 [facility] Last Admin: 07/30/18 06:10 Dose: Not Given Insulin Detemir (Levemir) 10 unit SC [facility] Last Admin: 07/29/18 21:36 Dose: 10 units Insulin Human Lispro (Humalog Med) 0 units SC [facility]; Protocol Last Admin: 07/30/18 08:20 Dose: 5 unit Physical Exam - Constitutional Appears: Non-toxic, No Acute Distress - Head Exam Head Exam: ATRAUMATIC, NORMOCEPHALIC - Eye Exam Eye Exam: EOMI, Normal appearance - ENT Exam ENT Exam: Mucous Membranes Moist - Neck Exam Neck exam: Positive for: Normal Inspection - Respiratory Exam Respiratory Exam: Clear to Auscultation Bilateral, NORMAL BREATHING PATTERN. absent: Accessory Muscle Use - Cardiovascular Exam Cardiovascular Exam: RRR, +S1, +S2 - GI/Abdominal Exam GI & Abdominal Exam: Normal Bowel Sounds, Soft - Extremities Exam Extremities exam: Negative for: calf tenderness Additional comments: trace edema - Back Exam Back exam: absent: CVA tenderness (L), CVA tenderness (R) - Neurological Exam Neurological exam: Alert, CN II-XII Intact, Oriented x3 - Psychiatric Exam Psychiatric exam: Normal Affect, Normal Mood - Skin Skin Exam: Dry, Intact, Normal Color, Warm Results - Vital Signs Recent Vital Signs: Last Vital Signs Temp 98 F 07/30/18 06:00 Pulse 75 07/30/18 09:45 Resp 20 07/30/18 06:00 BP 149/60 07/30/18 09:45 Pulse Ox 100 07/30/18 06:00 - Labs Result Diagrams: 07/30/18 06:15 07/30/18 06:15 Labs: Laboratory Results - last 24 hr 07/29/18 07/29/18 07/29/18 16:26 16:54 21:29 WBC RBC Hgb Hct MCV MCH MCHC RDW Plt Count MPV Gran % Lymph % (Auto) [place] % (Auto) Eos % (Auto) Baso % (Auto) Gran # Lymph # (Auto) [place] # (Auto) Eos # (Auto) Baso # (Auto) Sodium Potassium Chloride Carbon Dioxide Anion Gap BUN Creatinine Est GFR ( Amer) Est GFR (Non-Af Amer) POC Glucose (mg/dL) 54 L 131 H 103 Random Glucose Calcium Total Bilirubin AST ALT Alkaline Phosphatase Total Protein Albumin Globulin Albumin/Globulin Ratio 07/29/18 07/30/18 07/30/18 21:39 05:18 06:15 WBC 8.5 RBC 3.36 L Hgb 9.6 L Hct 30.5 L MCV 90.8 MCH 28.6 MCHC 31.5 RDW 13.1 Plt Count 460 H MPV 9.0 Gran % 67.9 Lymph % (Auto) 16.9 L [place] % (Auto) 6.4 H Eos % (Auto) 7.5 H Baso % (Auto) 1.3 Gran # 5.76 Lymph # (Auto) 1.4 [place] # (Auto) 0.5 Eos # (Auto) 0.6 Baso # (Auto) 0.11 Sodium Potassium Chloride Carbon Dioxide Anion Gap BUN Creatinine Est GFR ( Amer) Est GFR (Non-Af Amer) POC Glucose (mg/dL) 342 H 259 H Random Glucose Calcium Total Bilirubin AST ALT Alkaline Phosphatase Total Protein Albumin Globulin Albumin/Globulin Ratio 07/30/18 07/30/18 06:15 11:36 WBC RBC Hgb Hct MCV MCH MCHC RDW Plt Count MPV Gran % Lymph % (Auto) [place] % (Auto) Eos % (Auto) Baso % (Auto) Gran # Lymph # (Auto) [place] # (Auto) Eos # (Auto) Baso # (Auto) Sodium 139 Potassium 4.4 Chloride 98 Carbon Dioxide 34 H Anion Gap 12 BUN 36 H Creatinine 2.0 H Est GFR ( Amer) 31 Est GFR (Non-Af Amer) 26 POC Glucose (mg/dL) 127 H Random Glucose 239 H Calcium 8.6 Total Bilirubin 0.3 AST 20 ALT 13 Alkaline Phosphatase 99 Total Protein 6.9 Albumin 3.2 Globulin 3.8 Albumin/Globulin Ratio 0.9 L Assessment & Plan - Assessment and Plan (Free Text) Assessment: 52 year old female with DCM, DM II, hypertension, left lower extremity issues once treated by an intravascular procedure with contrast that presents for podiatric management of the left foot. Nephrology consulted to assist in the management of CKD. Currently, agree with current medical regimen. As always, avoid nephrotoxins and if antibiotics are to be given, please dose them renally. We will follow up with urine electrolytes. As always, thank you for allowing us to participate in the care of this patient. Case reviewed and discussed with attending physician, Dr. Redding - Date & Time Date: 07/30/18 Time: 12:52 <Ke Redding - Last Filed: 07/30/18 17:40> Meds - Medications Medications: Current Medications Atorvastatin Calcium (Lipitor) 40 mg PO DIN [facility] Last Admin: 07/29/18 17:24 Dose: 40 mg Carvedilol (Coreg) 25 mg PO BID [facility] Last Admin: 07/30/18 09:45 Dose: 25 mg Famotidine (Pepcid) 10 mg PO HS [facility] Last Admin: 07/29/18 21:39 Dose: 10 mg Heparin Sodium (Porcine) (Heparin) 5,000 units SC Q8 [facility]; Protocol Last Admin: 07/30/18 13:19 Dose: Not Given Hydralazine HCl (Apresoline) 10 mg PO Q8 [facility] Last Admin: 07/30/18 13:18 Dose: 10 mg Dextrose/Sodium Chloride (Dextrose 5%/0.45% Ns 1000 Ml) 1,000 mls @ 50 mls/hr IV .Q20H [facility] Last Admin: 07/30/18 13:18 Dose: 50 mls/hr Sodium Chloride (Sodium Chloride 0.9%) 1,000 mls @ 75 mls/hr IV .[id number] [facility] Stop: 07/30/18 18:46 Insulin Detemir (Levemir) 10 unit SC HS [facility] Last Admin: 07/29/18 21:36 Dose: 10 units Insulin Human Lispro (Humalog Med) 0 units SC [facility]; Protocol Last Admin: 07/30/18 13:18 Dose: Not Given Lisinopril (Zestril) 5 mg PO DAILY [facility] Last Admin: 07/30/18 14:14 Dose: 5 mg Results - Vital Signs Recent Vital Signs: Last Vital Signs Temp 98.2 F 07/30/18 16:53 Pulse 73 07/30/18 16:53 Resp 18 07/30/18 16:53 BP 139/65 07/30/18 16:53 Pulse Ox 97 07/30/18 16:53 - Labs Result Diagrams: 07/30/18 06:15 07/30/18 06:15 Labs: Laboratory Results - last 24 hr 07/29/18 07/29/18 07/30/18 21:29 21:39 05:18 WBC RBC Hgb Hct MCV MCH MCHC RDW Plt Count MPV Gran % Lymph % (Auto) [place] % (Auto) Eos % (Auto) Baso % (Auto) Gran # Lymph # (Auto) [place] # (Auto) Eos # (Auto) Baso # (Auto) Sodium Potassium Chloride Carbon Dioxide Anion Gap BUN Creatinine Est GFR ( Amer) Est GFR (Non-Af Amer) POC Glucose (mg/dL) 103 342 H 259 H Random Glucose Calcium Total Bilirubin AST ALT Alkaline Phosphatase Total Protein Albumin Globulin Albumin/Globulin Ratio 07/30/18 07/30/18 07/30/18 06:15 06:15 11:36 WBC 8.5 RBC 3.36 L Hgb 9.6 L Hct 30.5 L MCV 90.8 MCH 28.6 MCHC 31.5 RDW 13.1 Plt Count 460 H MPV 9.0 Gran % 67.9 Lymph % (Auto) 16.9 L [place] % (Auto) 6.4 H Eos % (Auto) 7.5 H Baso % (Auto) 1.3 Gran # 5.76 Lymph # (Auto) 1.4 [place] # (Auto) 0.5 Eos # (Auto) 0.6 Baso # (Auto) 0.11 Sodium 139 Potassium 4.4 Chloride 98 Carbon Dioxide 34 H Anion Gap 12 BUN 36 H Creatinine 2.0 H Est GFR ( Amer) 31 Est GFR (Non-Af Amer) 26 POC Glucose (mg/dL) 127 H Random Glucose 239 H Calcium 8.6 Total Bilirubin 0.3 AST 20 ALT 13 Alkaline Phosphatase 99 Total Protein 6.9 Albumin 3.2 Globulin 3.8 Albumin/Globulin Ratio 0.9 L Attending/Attestation - Attestation I have personally seen and examined this patient.: Yes I have fully participated in the care of the patient.: Yes I have reviewed all pertinent clinical information: Yes Notes (Text): Patient seen and examined; I agree with the resident's note as above with the following additions/edits: 52 yo F w/ pmh of htn, uncontrolled DM, severe PAD s/p extensive lower ext angioplasty/stenting last month, s/p L hallux partial amputation with MRSA bacteremia last month, non-ischemic cardiomyopathy and CKD IIIB, admitted for surgical revision of amputation site; nephrology being consulted for advanced renal insufficiency; Patient with severe contrast induced nephropathy, toxic ATN, following lower ext angioplasty/stenting last month; was very close to requiring dialysis but then recovered renal function; was discharged home on daptomycin; Home med list reviewed and patient apparently was back on full dose NOEMÍ inhibitor as well as lasix 40 mg bid; renal function improving with both of thes e meds held; high serum bicarb also indicative of loop diuretic use; otherwise stable electrolyte status; Baseline serum creatinine 1.6 prior to last month's events; current RADHA represents combination of hemodynamic effect of meds as well as likely incomplete recovery from ATN; Hypertension currently uncontrolled with patient only on coreg 25 mg bid and hydralazine 10 mg q8h; safe to add small dose of lisinopril 10 mg daily; CHF w/ severe systolic dysfunction; currently asymptomatic and euvolemic on exam; can resume lower dose of lasix after OR, 20 mg bid from tomorrow; Mild anemia, secondary to recent illness and CKD; also with iron deficiency component and given IV iron x 5 doses last month; will repeat iron studies; may benefit from aranesp; -Agree with gentle IVF prior to OR (1/2NS at 50 cc/hr); -Avoid nephrotoxic agents (IV contrast, causative antibiotics, NSAIDS, phosphate enema, etc); -Avoid rapid dropping of BP; -Checking PTH level; Thank you for this referral, we will continue to follow closely.
[2018-07-30] MEDS ORDERED: Dextrose 5%/0.45% NS 1,000 ML IV SCH (13:00)
--- NOTE | 2018-07-30 14:04 | CP.PCM.PN ---
<Florentin Allen - Last Filed: 07/30/18 14:01> Subjective - Date & Time of Evaluation Date of Evaluation: 07/30/18 Time of Evaluation: 10:00 - Subjective Subjective: Florentin Allen PGY1 Progress Note for Dr. Stevenson Pt was examined at bedside this morning. She had no complaints. She denied any chest pain, shortness of breath, abdominal pain, nausea, vomiting, diarrhea. Objective - Vital Signs/Intake and Output Vital Signs (last 24 hours): Temp Pulse Resp BP Pulse Ox 98 F 87 18 139/65 96 07/30/18 06:00 07/30/18 13:31 07/30/18 13:31 07/30/18 13:31 07/30/18 13:31 - Medications Medications: Current Medications Atorvastatin Calcium (Lipitor) 40 mg PO DIN [facility] Last Admin: 07/29/18 17:24 Dose: 40 mg Carvedilol (Coreg) 25 mg PO BID [facility] Last Admin: 07/30/18 09:45 Dose: 25 mg Famotidine (Pepcid) 10 mg PO HS [facility] Last Admin: 07/29/18 21:39 Dose: 10 mg Heparin Sodium (Porcine) (Heparin) 5,000 units SC Q8 [facility]; Protocol Last Admin: 07/30/18 13:19 Dose: Not Given Hydralazine HCl (Apresoline) 10 mg PO Q8 [facility] Last Admin: 07/30/18 13:18 Dose: 10 mg Dextrose/Sodium Chloride (Dextrose 5%/0.45% Ns 1000 Ml) 1,000 mls @ 50 mls/hr IV .Q20H [facility] Last Admin: 07/30/18 13:18 Dose: 50 mls/hr Insulin Detemir (Levemir) 10 unit SC HS [facility] Last Admin: 07/29/18 21:36 Dose: 10 units Insulin Human Lispro (Humalog Med) 0 units SC [facility]; Protocol Last Admin: 07/30/18 13:18 Dose: Not Given Lisinopril (Zestril) 5 mg PO DAILY [facility] Last Admin: 07/30/18 13:51 Dose: Not Given - Labs Labs: 07/30/18 06:15 07/30/18 06:15 PT 11.9 SECONDS (9.4-12.5) 07/29/18 06:15 INR 1.03 07/29/18 06:15 APTT 36.9 Seconds (25.1-36.5) H 07/29/18 06:15 - Constitutional Appears: Well, No Acute Distress - Head Exam Head Exam: ATRAUMATIC, NORMOCEPHALIC - Eye Exam Eye Exam: EOMI, Normal appearance - ENT Exam ENT Exam: Mucous Membranes Moist - Neck Exam Neck Exam: Normal Inspection - Respiratory Exam Respiratory Exam: Clear to Ausculation Bilateral, NORMAL BREATHING PATTERN. absent: Rales, Rhonchi, Wheezes, Stridor - Cardiovascular Exam Cardiovascular Exam: REGULAR RHYTHM, +S1, +S2. absent: Gallop, Rubs, Murmur - GI/Abdominal Exam GI & Abdominal Exam: Soft, Normal Bowel Sounds. absent: Distended, Firm, Tenderness - Extremities Exam Extremities Exam: absent: Calf Tenderness, Pedal Edema - Neurological Exam Neurological Exam: Alert, Awake, Oriented x3 - Psychiatric Exam Psychiatric exam: Normal Affect, Normal Mood Assessment and Plan - Assessment and Plan (Free Text) Assessment: Patient is a 52 yo female with a past medical history of congestive heart failure, diabetes mellitus, hypertension, dilated cardiomyopathy with life vest who presented to the ED at the request of Dr. Murray. Pt to have L hallux amputation tomorrow. Plan: Diabetic Foot Ulcer - plan for OR tomorrow for L hallux amputation, will take cultures as per podiatry - NPO except meds - start D5W 1/2NS - pt at moderate cardiac risk, as per Dr. Caldwell - Cardio consulted, Dr. Caldwell consulted - recs appreciated - Podiatry Consulted- Dr. Murray- recommendations appreciated HTN - start lisinopril 5 daily - Carevdilol 25mg po bid - Hydralazine 10mg po tid - Lisinopril 40 mg and Lasix 40mg held in the setting of elevated Creatinine DM - Levemir 5mg for 07/28 while patient NPO - Will restart home dose of Levemir 10mg for 07/29 - ISS - med dose - FSBG q4h Hx of CAD - hold ASA 81 today - Lipitor 40mg po din Hx of CHF - Patient euvolemic; no signs of JVD - On life vest - Continue to monitor PPx DVT ppx- Heparin 5000 units sc q8h GI ppx- Pepcid 10mg po HS Pt seen and case reviewed with Dr. Stevenson <Yi Stevenson - Last Filed: 08/01/18 19:00> Objective - Vital Signs/Intake and Output Vital Signs (last 24 hours): Temp Pulse Resp BP Pulse Ox 101 F H 79 16 132/62 93 L 08/01/18 14:40 08/01/18 17:58 08/01/18 14:40 08/01/18 17:58 08/01/18 14:40 Intake and Output: 08/01/18 08/02/18 18:59 06:59 Intake Total 480 Balance 480 - Medications Medications: Current Medications Acetaminophen (Tylenol 325mg Tab) 650 mg PO Q4H PRN PRN Reason: Pain, Mild (1-3) Acetaminophen (Tylenol 325mg Tab) 650 mg PO Q6H PRN PRN Reason: Fever >100.4 F Last Admin: 08/01/18 13:34 Dose: 650 mg Aspirin (Ecotrin) 81 mg PO DAILY [facility] Last Admin: 08/01/18 10:14 Dose: 81 mg Atorvastatin Calcium (Lipitor) 40 mg PO DIN [facility] Last Admin: 08/01/18 17:58 Dose: 40 mg Carvedilol (Coreg) 25 mg PO BID [facility] Last Admin: 08/01/18 17:58 Dose: 25 mg Clopidogrel Bisulfate (Plavix) 75 mg PO DAILY [facility] Last Admin: 08/01/18 10:14 Dose: 75 mg Famotidine (Pepcid) 10 mg PO HS [facility] Last Admin: 07/31/18 21:39 Dose: 10 mg Furosemide (Lasix) 20 mg PO BID [facility] Last Admin: 08/01/18 17:58 Dose: 20 mg Heparin Sodium (Porcine) (Heparin) 5,000 units SC Q8 [facility]; Protocol Last Admin: 08/01/18 13:41 Dose: 5,000 units Hydralazine HCl (Apresoline) 10 mg PO Q8 [facility] Last Admin: 08/01/18 13:41 Dose: Not Given Daptomycin 310 mg/ Sodium (Chloride) 100 mls @ 200 mls/hr IV QOD [facility] Stop: 08/07/18 10:01 Meropenem/Sodium Chloride (Merrem Iv 500 Mg/Ns 50 Ml) 500 mg in 50 mls @ 100 mls/hr IVPB Q12 [facility]; Protocol Insulin Detemir (Levemir) 10 unit SC HS [facility] Last Admin: 07/31/18 21:39 Dose: 10 units Insulin Human Lispro (Humalog Med) 0 units SC A[facility]; Protocol Last Admin: 08/01/18 17:11 Dose: Not Given Lisinopril (Zestril) 10 mg PO DAILY [facility] Last Admin: 08/01/18 10:14 Dose: 10 mg Oxycodone/Acetaminophen (Percocet 5/325 Mg Tab) 1 tab PO Q4H PRN PRN Reason: Pain, moderate (4-7) Stop: 08/02/18 17:44 Last Admin: 07/30/18 18:15 Dose: 1 tab Oxycodone/Acetaminophen (Percocet 5/325 Mg Tab) 2 tab PO Q4H PRN PRN Reason: Pain, severe (8-10) Stop: 08/02/18 17:44 - Labs Labs: 07/31/18 06:00 07/31/18 06:00 PT 11.9 SECONDS (9.4-12.5) 07/29/18 06:15 INR 1.03 07/29/18 06:15 APTT 36.9 Seconds (25.1-36.5) H 07/29/18 06:15 Attending/Attestation - Attestation I have personally seen and examined this patient.: Yes I have fully participated in the care of the patient.: Yes I have reviewed all pertinent clinical information, including history, physical exam and plan: Yes Notes (Text): 08/01/18 19:00 Medical record note made by the resident after discussion with my direction and input after the patient was personally seen and examined by me. I have reviewed the chart and agree that the record accurately reflects by personal performance of the history, physical exam, data review, and medical decision-making, in the course for the patient. I have also personally directed the plan of care.
[2018-07-30] MEDS ORDERED: Lidocaine 2% Jelly (30 ml) ONE (15:10)
[2018-07-30] MEDS ORDERED: Lidocaine 2% PF (10 ml) Amp ONE (15:12)
[2018-07-30] MEDS ORDERED: Midazolam 2 MG/2 ML VIAL ONE (16:06)
[2018-07-30] MEDS ORDERED: Bupivacaine 0.5% 50 ML IJ ONE (16:23)
[2018-07-30] MEDS ORDERED: Phenylephrine 10 mg/ml Inj ONE (16:28)
[2018-07-30] MEDS ORDERED: Absorbable Gelatin Sponge Size 12-7 ONE (16:30)
[2018-07-30] MEDS ORDERED: Gentamicin 80 mg/2mL Inj. ONE (16:31)
[2018-07-30] MEDS ORDERED: Sodium Chloride 0.9% 1,000 ML IV SCH (16:45)
[2018-07-30] MEDS ORDERED: Oxycodone/Acetaminophen 5/325 mg Tab PO PRN ×2 (17:43)
--- NOTE | 2018-07-30 17:51 | PCM.SURG1 ---
Surgeon's Initial Post Op Note - Surgeon's Notes Surgeon: Dr. Trevor DPM Digital Marketing Manager: Dr. Saida Mock DPM Type of Anesthesia: IV Sedation, Local Anesthesia Administered By: Dr. Mercado Pre-Operative Diagnosis: Left hallux infection, non-healing Operative Findings: See dictation. I: M: 3-0 Nylon, 3-0 Vicryl Post-Operative Diagnosis: Same Operation Performed: Left hallux amputation Specimen/Specimens Removed: Bone and soft tissue Estimated Blood Loss: EBL {In ML}: 10 Blood Products Given: N/A Drains Used: No Drains Post-Op Condition: Good Date of Surgery/Procedure: 07/30/18 Time of Surgery/Procedure: 17:50
[2018-07-30] MEDS ORDERED: Oxycodone/Acetaminophen 5/325 mg Tab ONE (18:18)
[2018-07-30] MEDS: Insulin Detemir 100 units/ml Vial (Levemir) SC SCH (22:25)
--- NOTE | 2018-07-31 02:33 | PN ---
DATE: 07/30/2018 SUBJECTIVE: Patient was seen earlier this morning in room 560. No fevers. No chills. PHYSICAL EXAMINATION: VITAL SIGNS: Temperature is 98, blood pressure is 160/70, respiratory rate of 18. HEENT: Unremarkable. NECK: Supple. LUNGS: Have decreased breath sounds. HEART: Normal S1, S2. ABDOMEN: Soft. LABORATORY EXAMINATION: Reveals a white count of 8.5, hemoglobin 9. Chemistries reveals a BUN of 36, creatinine of 2. Microbiology reveals blood cultures are negative and patient is seen earlier this morning. Patient is scheduled for OR. ASSESSMENT AND PLAN: This is a 52-year-old female with diabetes mellitus, hypertension, hyperlipidemia, cardiomyopathy, ejection fraction 35%, presenting now with the left great toe gangrene. Patient is for the OR. We will check the OR cultures and OR pathology. Patient is for amputation of left great toe. We will follow with you. Janusz Sparks MD
[2018-07-31 06:54] LABS: BASO # 0.06 K/mm3 (0.0-2.0); BASO % 0.5 % (0.0-3.0); EOS # 0.7 (0.0-0.7); EOS % 5.6 % (1.5-5.0); GRAN # 8.95 (1.4-6.5); GRAN % 77.4 % (50.0-68.0); HEMOGLOBIN 9.2 g/dL (12.0-16.0); LYMPH # 1.3 (1.2-3.4); LYMPH % 11.1 % (22.0-35.0); MEAN CELL VOLUME 90.7 fl (80.0-105.0); MEAN CORPUSCULAR HEMOGLOBIN 28.5 pg (25.0-35.0); MEAN CORPUSCULAR HGB CONC 31.4 g/dl (31.0-37.0); MEAN PLATELET VOLUME 8.8 fl (7.0-11.0); MONO # 0.6 (0.1-0.6); MONO % 5.4 % (1.0-6.0); RBC 3.23 10^6/uL (3.5-6.1); RED CELL DISTRIBUTION WIDTH 13.1 % (11.5-14.5); WHITE BLOOD COUNT 11.6 10^3/ul (4.5-11.0)
[2018-07-31 07:51] LABS: ALBUMIN 3.2 g/dL (3.0-4.8); CALCIUM 8.7 mg/dL (8.4-10.5)
[2018-07-31] MEDS: Insulin Lispro (humaLOG) MEDIUM Coverage SC SCH ×4 (08:19→21:40)
--- NOTE | 2018-07-31 08:24 | CP.PCM.PN ---
<Anna Trejo - Last Filed: 07/31/18 15:05> Subjective - Date & Time of Evaluation Date of Evaluation: 07/31/18 Time of Evaluation: 08:45 - Subjective Subjective: Anna Trejo DO, PGY-2: Nephrology Progress Note for Dr. Redding Patient was seen and examined at bedside. Patient reports feeling cold since the procedure and on subsequent visit patient was noted to have oral temperature of 101 F. Patient endorsed no other complaints. Objective - Vital Signs/Intake and Output Vital Signs (last 24 hours): Temp Pulse Resp BP Pulse Ox 98.6 F 72 20 145/61 98 07/31/18 07:57 07/31/18 07:57 07/31/18 07:57 07/31/18 07:57 07/31/18 07:57 Intake and Output: 07/31/18 07/31/18 06:59 18:59 Intake Total 660 Balance 660 - Medications Medications: Current Medications Acetaminophen (Tylenol 325mg Tab) 650 mg PO Q4H PRN PRN Reason: Pain, Mild (1-3) Atorvastatin Calcium (Lipitor) 40 mg PO DIN [facility] Last Admin: 07/30/18 18:09 Dose: Not Given Carvedilol (Coreg) 25 mg PO BID [facility] Last Admin: 07/30/18 09:45 Dose: 25 mg Famotidine (Pepcid) 10 mg PO HS [facility] Last Admin: 07/30/18 22:36 Dose: 10 mg Heparin Sodium (Porcine) (Heparin) 5,000 units SC Q8 [facility]; Protocol Last Admin: 07/31/18 08:19 Dose: Not Given Hydralazine HCl (Apresoline) 10 mg PO Q8 [facility] Last Admin: 07/31/18 05:14 Dose: 10 mg Insulin Detemir (Levemir) 10 unit SC [facility] Last Admin: 07/30/18 22:25 Dose: Not Given Insulin Human Lispro (Humalog Med) 0 units SC [facility]; Protocol Last Admin: 07/31/18 08:19 Dose: Not Given Lisinopril (Zestril) 5 mg PO DAILY [facility] Last Admin: 07/30/18 14:14 Dose: 5 mg Oxycodone/Acetaminophen (Percocet 5/325 Mg Tab) 1 tab PO Q4H PRN PRN Reason: Pain, moderate (4-7) Stop: 08/02/18 17:44 Last Admin: 07/30/18 18:15 Dose: 1 tab Oxycodone/Acetaminophen (Percocet 5/325 Mg Tab) 2 tab PO Q4H PRN PRN Reason: Pain, severe (8-10) Stop: 08/02/18 17:44 - Labs Labs: 07/31/18 06:00 07/31/18 06:00 PT 11.9 SECONDS (9.4-12.5) 07/29/18 06:15 INR 1.03 07/29/18 06:15 APTT 36.9 Seconds (25.1-36.5) H 07/29/18 06:15 - Constitutional Appears: Non-toxic - Head Exam Head Exam: ATRAUMATIC, NORMOCEPHALIC - Eye Exam Eye Exam: EOMI, Normal appearance - ENT Exam ENT Exam: Mucous Membranes Moist - Neck Exam Neck Exam: Normal Inspection - Respiratory Exam Respiratory Exam: Clear to Ausculation Bilateral, NORMAL BREATHING PATTERN. absent: Accessory Muscle Use - Cardiovascular Exam Cardiovascular Exam: RRR, +S1, +S2 - GI/Abdominal Exam GI & Abdominal Exam: Soft, Normal Bowel Sounds - Extremities Exam Extremities Exam: Normal Inspection. absent: Calf Tenderness Additional comments: left foot wrapped - Neurological Exam Neurological Exam: Alert, Awake, Oriented x3 - Psychiatric Exam Psychiatric exam: Normal Affect, Normal Mood - Skin Skin Exam: Dry, Intact, Normal Color, Warm Assessment and Plan - Assessment and Plan (Free Text) Assessment: 52 year old female with DCM, DM II, hypertension, PATRICIA secondary to intravascular procedure with contrast last month who presents for podiatric management of the left foot. Nephrology consulted to assist in the management of CKD. Patient's Lasix should be 20 mg BID and her Lisinopril 10 mg PO daily. Patient's renal function is recovering with todays serum Cr at 1.7. As always, avoid nephrotoxins and if antibiotics are to be given, please dose them renally. As always, thank you for allowing us to participate in the care of this patient. Case reviewed and discussed with attending physician, Dr. Redding <Ke Redding - Last Filed: 08/01/18 03:50> Objective - Vital Signs/Intake and Output Vital Signs (last 24 hours): Temp Pulse Resp BP Pulse Ox 99.0 F 78 18 163/61 H 93 L 07/31/18 22:00 07/31/18 22:00 07/31/18 22:00 07/31/18 22:00 07/31/18 22:00 - Medications Medications: Current Medications Acetaminophen (Tylenol 325mg Tab) 650 mg PO Q4H PRN PRN Reason: Pain, Mild (1-3) Acetaminophen (Tylenol 325mg Tab) 650 mg PO Q6H PRN PRN Reason: Fever >100.4 F Last Admin: 07/31/18 12:27 Dose: 650 mg Aspirin (Ecotrin) 81 mg PO DAILY [facility] Last Admin: 07/31/18 17:18 Dose: Not Given Atorvastatin Calcium (Lipitor) 40 mg PO DIN [facility] Last Admin: 07/31/18 17:19 Dose: Not Given Carvedilol (Coreg) 25 mg PO BID [facility] Last Admin: 07/31/18 17:18 Dose: Not Given Ciprofloxacin (Cipro) 250 mg PO Q12 [facility]; Protocol Stop: 08/01/18 12:32 Last Admin: 07/31/18 21:39 Dose: 250 mg Clopidogrel Bisulfate (Plavix) 75 mg PO DAILY [facility] Famotidine (Pepcid) 10 mg PO HS [facility] Last Admin: 07/31/18 21:39 Dose: 10 mg Furosemide (Lasix) 20 mg PO BID [facility] Last Admin: 07/31/18 17:19 Dose: Not Given Heparin Sodium (Porcine) (Heparin) 5,000 units SC Q8 [facility]; Protocol Last Admin: 07/31/18 21:40 Dose: Not Given Hydralazine HCl (Apresoline) 10 mg PO Q8 [facility] Last Admin: 07/31/18 21:39 Dose: 10 mg Daptomycin 310 mg/ Sodium (Chloride) 100 mls @ 200 mls/hr IV QOD [facility] Stop: 08/07/18 10:01 Insulin Detemir (Levemir) 10 unit SC HS [facility] Last Admin: 07/31/18 21:39 Dose: 10 units Insulin Human Lispro (Humalog Med) 0 units SC ACHS [facility]; Protocol Last Admin: 07/31/18 21:40 Dose: Not Given Lisinopril (Zestril) 10 mg PO DAILY [facility] Oxycodone/Acetaminophen (Percocet 5/325 Mg Tab) 1 tab PO Q4H PRN PRN Reason: Pain, moderate (4-7) Stop: 08/02/18 17:44 Last Admin: 07/30/18 18:15 Dose: 1 tab Oxycodone/Acetaminophen (Percocet 5/325 Mg Tab) 2 tab PO Q4H PRN PRN Reason: Pain, severe (8-10) Stop: 08/02/18 17:44 - Labs Labs: 07/31/18 06:00 07/31/18 06:00 PT 11.9 SECONDS (9.4-12.5) 07/29/18 06:15 INR 1.03 07/29/18 06:15 APTT 36.9 Seconds (25.1-36.5) H 07/29/18 06:15 Attending/Attestation - Attestation I have personally seen and examined this patient.: Yes I have fully participated in the care of the patient.: Yes I have reviewed all pertinent clinical information, including history, physical exam and plan: Yes Notes (Text): Patient seen and examined; I agree with the resident's note as above with the following additions/edits: 52 yo F w/ pmh of htn, uncontrolled DM, severe PAD s/p extensive lower ext angioplasty/stenting last month, s/p L hallux partial amputation with MRSA bacteremia last month, non-ischemic cardiomyopathy and CKD IIIB, admitted for surgical revision of amputation site; nephrology following for RADHA; Renal function improving after holding diuretics; patient also received IVF in OR/post-OP; Currently euvolemic but given her severe CHF history, needs to be on standing dose of diuretic but balanced with decreased renal function; -Restarting PO lasix 20 mg bid; -Increase lisinopril to 10 mg daily; -Continue B-blockers per cardio recs; -Avoid nephrotoxic agents (NSAIDS, phosphate enemia, etc); Thank you for this referral, will continue to follow;
--- NOTE | 2018-07-31 10:14 | RAD ---
Date of service: 07/30/2018 PROCEDURE: Left Foot Radiographs. HISTORY: left foot surgery COMPARISON: None. FINDINGS: BONES: There has been amputation of the big toe. Old fracture deformity of the proximal 5th metatarsal JOINTS: Normal. SOFT TISSUES: Normal. OTHER FINDINGS: None. IMPRESSION: There has been amputation of the big toe. Old fracture deformity of the proximal 5th metatarsal
--- NOTE | 2018-07-31 10:58 | CP.PCM.PN ---
Addendum entered and electronically signed by Saida Mock DPM 07/31/18 12:56: Vitals and labs reviewed; WBC 11.6, Hgb 9.2, Hct 29.3, febrile Patient to remain NWB today Original Note: <Saida Mock - Last Filed: 07/31/18 12:55> Subjective - Date & Time of Evaluation Date of Evaluation: 07/31/18 Time of Evaluation: 10:58 - Subjective Subjective: Podiatry Progress Note for Dr. Laboy/Dr. Murray: 52 yo female patient, seen and evaluated at bedside, 1 day s/p L hallux amputation. Patient is AAOx3 and denies any acute events overnight. She notes that she is experiencing mild pain to the amputation site. She denies any N/V/F/SOB/CP. Objective - Vital Signs/Intake and Output Vital Signs (last 24 hours): Temp Pulse Resp BP Pulse Ox 98.6 F 72 20 145/61 98 07/31/18 07:57 07/31/18 10:51 07/31/18 07:57 07/31/18 10:51 07/31/18 07:57 Intake and Output: 07/31/18 07/31/18 06:59 18:59 Intake Total 660 Balance 660 - Medications Medications: Current Medications Acetaminophen (Tylenol 325mg Tab) 650 mg PO Q4H PRN PRN Reason: Pain, Mild (1-3) Atorvastatin Calcium (Lipitor) 40 mg PO DIN [facility] Last Admin: 07/30/18 18:09 Dose: Not Given Carvedilol (Coreg) 25 mg PO BID [facility] Last Admin: 07/31/18 10:51 Dose: 25 mg Famotidine (Pepcid) 10 mg PO HS [facility] Last Admin: 07/30/18 22:36 Dose: 10 mg Furosemide (Lasix) 20 mg PO BID [facility] Last Admin: 07/31/18 10:51 Dose: 20 mg Heparin Sodium (Porcine) (Heparin) 5,000 units SC Q8 [facility]; Protocol Last Admin: 07/31/18 08:19 Dose: Not Given Hydralazine HCl (Apresoline) 10 mg PO Q8 [facility] Last Admin: 07/31/18 05:14 Dose: 10 mg Insulin Detemir (Levemir) 10 unit SC HS [facility] Last Admin: 07/30/18 22:25 Dose: Not Given Insulin Human Lispro (Humalog Med) 0 units SC ACHS [facility]; Protocol Last Admin: 07/31/18 08:19 Dose: Not Given Lisinopril (Zestril) 5 mg PO DAILY [facility] Last Admin: 07/31/18 10:51 Dose: 5 mg Oxycodone/Acetaminophen (Percocet 5/325 Mg Tab) 1 tab PO Q4H PRN PRN Reason: Pain, moderate (4-7) Stop: 08/02/18 17:44 Last Admin: 07/30/18 18:15 Dose: 1 tab Oxycodone/Acetaminophen (Percocet 5/325 Mg Tab) 2 tab PO Q4H PRN PRN Reason: Pain, severe (8-10) Stop: 08/02/18 17:44 - Labs Labs: 07/31/18 06:00 07/31/18 06:00 PT 11.9 SECONDS (9.4-12.5) 07/29/18 06:15 INR 1.03 07/29/18 06:15 APTT 36.9 Seconds (25.1-36.5) H 07/29/18 06:15 - Constitutional Appears: Well, Non-toxic, No Acute Distress - Head Exam Head Exam: ATRAUMATIC, NORMOCEPHALIC - Extremities Exam Additional comments: LLE focused exam: Vasc: DP/PT pulses are palpable 2/4. Skin temperature warm to warm from proximal to distal. Cap refill < 3 seconds to all digits, no edema noted Ortho: Left hallux amputation, no tenderness upon calf compression Neuro: Gross sensation diminished, protective sensation dimished/absent Derm: Surgical site intact: sutures intact and skin edges well coapted. No evidence of purulence, no drainage, no malodor. Small opening at the proximal aspect of incision to allow for drainage; no evidence of dehiscence. No erythema present periwound. - Neurological Exam Neurological Exam: Alert, Awake, Oriented x3 - Psychiatric Exam Psychiatric exam: Normal Affect, Normal Mood Assessment and Plan - Assessment and Plan (Free Text) Assessment: 52 y/o female patient, seen and evaluated, 1 day s/p L hallux amputation Plan: Patient seen and evaluated with Dr. Narda Owens hallux amputation dressed with adaptic, ABD, DSD, NOEMÍ Intraoperative wound cx (07/30); pending Intraoperative pathology report (07/30); pending Post-op L foot x-ray (07/30); hallux amputation, old fracture deformity of proximal 5th metatarsal Rx: Cipro 250 mg BID PO Will continue to follow while in house <Jamison Laboy - Last Filed: 08/01/18 08:24> Objective - Vital Signs/Intake and Output Vital Signs (last 24 hours): Temp Pulse Resp BP Pulse Ox 98.6 F 74 18 137/60 97 08/01/18 08:00 08/01/18 08:00 08/01/18 08:00 08/01/18 08:00 08/01/18 08:00 - Medications Medications: Current Medications Acetaminophen (Tylenol 325mg Tab) 650 mg PO Q4H PRN PRN Reason: Pain, Mild (1-3) Acetaminophen (Tylenol 325mg Tab) 650 mg PO Q6H PRN PRN Reason: Fever >100.4 F Last Admin: 07/31/18 12:27 Dose: 650 mg Aspirin (Ecotrin) 81 mg PO DAILY [facility] Last Admin: 07/31/18 17:18 Dose: Not Given Atorvastatin Calcium (Lipitor) 40 mg PO DIN [facility] Last Admin: 07/31/18 17:19 Dose: Not Given Carvedilol (Coreg) 25 mg PO BID [facility] Last Admin: 07/31/18 17:18 Dose: Not Given Ciprofloxacin (Cipro) 250 mg PO Q12 [facility]; Protocol Stop: 08/01/18 12:32 Last Admin: 07/31/18 21:39 Dose: 250 mg Clopidogrel Bisulfate (Plavix) 75 mg PO DAILY [facility] Famotidine (Pepcid) 10 mg PO HS [facility] Last Admin: 07/31/18 21:39 Dose: 10 mg Furosemide (Lasix) 20 mg PO BID [facility] Last Admin: 07/31/18 17:19 Dose: Not Given Heparin Sodium (Porcine) (Heparin) 5,000 units SC Q8 [facility]; Protocol Last Admin: 08/01/18 05:06 Dose: Not Given Hydralazine HCl (Apresoline) 10 mg PO Q8 [facility] Last Admin: 08/01/18 05:06 Dose: Not Given Daptomycin 310 mg/ Sodium (Chloride) 100 mls @ 200 mls/hr IV QOD [facility] Stop: 08/07/18 10:01 Insulin Detemir (Levemir) 10 unit SC [facility] Last Admin: 07/31/18 21:39 Dose: 10 units Insulin Human Lispro (Humalog Med) 0 units SC [facility]; Protocol Last Admin: 07/31/18 21:40 Dose: Not Given Lisinopril (Zestril) 10 mg PO DAILY [facility] Oxycodone/Acetaminophen (Percocet 5/325 Mg Tab) 1 tab PO Q4H PRN PRN Reason: Pain, moderate (4-7) Stop: 08/02/18 17:44 Last Admin: 07/30/18 18:15 Dose: 1 tab Oxycodone/Acetaminophen (Percocet 5/325 Mg Tab) 2 tab PO Q4H PRN PRN Reason: Pain, severe (8-10) Stop: 08/02/18 17:44 - Labs Labs: 07/31/18 06:00 07/31/18 06:00 PT 11.9 SECONDS (9.4-12.5) 07/29/18 06:15 INR 1.03 07/29/18 06:15 APTT 36.9 Seconds (25.1-36.5) H 07/29/18 06:15 Attending/Attestation - Attestation I have personally seen and examined this patient.: Yes I have fully participated in the care of the patient.: Yes I have reviewed all pertinent clinical information, including history, physical exam and plan: Yes
--- NOTE | 2018-07-31 13:32 | CP.PCM.PN ---
Subjective - Date & Time of Evaluation Date of Evaluation: 07/31/18 Time of Evaluation: 09:10 - Subjective Subjective: Had surgery yesterday, no fevers, not in distress. No nausea or diarrhea. Objective - Vital Signs/Intake and Output Vital Signs (last 24 hours): Temp Pulse Resp BP Pulse Ox 101.2 F H 84 18 156/65 H 95 07/31/18 12:29 07/31/18 12:29 07/31/18 12:29 07/31/18 12:29 07/31/18 12:29 Intake and Output: 07/31/18 07/31/18 06:59 18:59 Intake Total 660 Balance 660 - Medications Medications: Current Medications Acetaminophen (Tylenol 325mg Tab) 650 mg PO Q4H PRN PRN Reason: Pain, Mild (1-3) Acetaminophen (Tylenol 325mg Tab) 650 mg PO Q6H PRN PRN Reason: Fever >100.4 F Last Admin: 07/31/18 12:27 Dose: 650 mg Atorvastatin Calcium (Lipitor) 40 mg PO DIN [facility] Last Admin: 07/30/18 18:09 Dose: Not Given Carvedilol (Coreg) 25 mg PO BID [facility] Last Admin: 07/31/18 10:51 Dose: 25 mg Ciprofloxacin (Cipro) 250 mg PO Q12 [facility]; Protocol Stop: 08/01/18 12:32 Daptomycin (Cubicin) 310 mg 6 mg/kg (310 mg) IV QOTHERDAY [facility]; Protocol Stop: 08/07/18 10:01 Famotidine (Pepcid) 10 mg PO HS [facility] Last Admin: 07/30/18 22:36 Dose: 10 mg Furosemide (Lasix) 20 mg PO BID [facility] Last Admin: 07/31/18 10:51 Dose: 20 mg Heparin Sodium (Porcine) (Heparin) 5,000 units SC Q8 [facility]; Protocol Last Admin: 07/31/18 08:19 Dose: Not Given Hydralazine HCl (Apresoline) 10 mg PO Q8 [facility] Last Admin: 07/31/18 05:14 Dose: 10 mg Insulin Detemir (Levemir) 10 unit SC HS [facility] Last Admin: 07/30/18 22:25 Dose: Not Given Insulin Human Lispro (Humalog Med) 0 units SC [facility]; Protocol Last Admin: 10/05/18 12:14 Dose: 5 unit Lisinopril (Zestril) 10 mg PO DAILY [facility] Oxycodone/Acetaminophen (Percocet 5/325 Mg Tab) 1 tab PO Q4H PRN PRN Reason: Pain, moderate (4-7) Stop: 08/02/18 17:44 Last Admin: 07/30/18 18:15 Dose: 1 tab Oxycodone/Acetaminophen (Percocet 5/325 Mg Tab) 2 tab PO Q4H PRN PRN Reason: Pain, severe (8-10) Stop: 08/02/18 17:44 - Labs Labs: 07/31/18 06:00 07/31/18 06:00 PT 11.9 SECONDS (9.4-12.5) 07/29/18 06:15 INR 1.03 07/29/18 06:15 APTT 36.9 Seconds (25.1-36.5) H 07/29/18 06:15 - Constitutional Appears: No Acute Distress, Chronically Ill - Head Exam Head Exam: NORMAL INSPECTION - Neck Exam Neck Exam: absent: Meningismus - Respiratory Exam Respiratory Exam: Decreased Breath Sounds - Cardiovascular Exam Cardiovascular Exam: +S1, +S2 - GI/Abdominal Exam GI & Abdominal Exam: Soft. absent: Tenderness - Extremities Exam Additional comments: left foot with bandages and dressings in place Assessment and Plan - Assessment and Plan (Free Text) Plan: Assessment sepsis due to left hallux cellulitis / gangrene with methicillin-resistant Staph aureus bacteremia, toe growing MSSA with osteomyelitis S/P amputation POD #1 cardiomyopathy with EF 35-40% DM HTN dyslipdemia Plan re-started Daptomycin - follow up CK level - completed 25 days of antibiotics - will follow up OR cultures and pathology will monitor clinically
--- NOTE | 2018-07-31 15:03 | CP.PCM.PN ---
<Romaine Henson - Last Filed: 07/31/18 15:48> Subjective - Date & Time of Evaluation Date of Evaluation: 07/31/18 Time of Evaluation: 12:00 - Subjective Subjective: Romaine Henson PGY-1 Progress Note for Hospitalist Service HPI: Patient seen and evaluated at bedside. POD #1 of L hallux amputation. Denies N/V, headaches, dizziness, chest pain, shortness of breath. Minor pain reported at sight but denies numbness and tingling of LLE. Objective - Vital Signs/Intake and Output Vital Signs (last 24 hours): Temp Pulse Resp BP Pulse Ox 101.2 F H 84 18 156/65 H 95 07/31/18 12:29 07/31/18 12:29 07/31/18 12:29 07/31/18 12:29 07/31/18 12:29 Intake and Output: 07/31/18 07/31/18 06:59 18:59 Intake Total 660 Balance 660 - Medications Medications: Current Medications Acetaminophen (Tylenol 325mg Tab) 650 mg PO Q4H PRN PRN Reason: Pain, Mild (1-3) Acetaminophen (Tylenol 325mg Tab) 650 mg PO Q6H PRN PRN Reason: Fever >100.4 F Last Admin: 07/31/18 12:27 Dose: 650 mg Atorvastatin Calcium (Lipitor) 40 mg PO DIN [facility] Last Admin: 07/30/18 18:09 Dose: Not Given Carvedilol (Coreg) 25 mg PO BID [facility] Last Admin: 07/31/18 10:51 Dose: 25 mg Ciprofloxacin (Cipro) 250 mg PO Q12 [facility]; Protocol Stop: 08/01/18 12:32 Famotidine (Pepcid) 10 mg PO HS [facility] Last Admin: 07/30/18 22:36 Dose: 10 mg Furosemide (Lasix) 20 mg PO BID [facility] Last Admin: 07/31/18 10:51 Dose: 20 mg Heparin Sodium (Porcine) (Heparin) 5,000 units SC Q8 [facility]; Protocol Last Admin: 07/31/18 08:19 Dose: Not Given Hydralazine HCl (Apresoline) 10 mg PO Q8 [facility] Last Admin: 07/31/18 05:14 Dose: 10 mg Daptomycin 310 mg/ Sodium (Chloride) 100 mls @ 200 mls/hr IV QOD [facility] Stop: 08/07/18 10:01 Insulin Detemir (Levemir) 10 unit SC [facility] Last Admin: 07/30/18 22:25 Dose: Not Given Insulin Human Lispro (Humalog Med) 0 units SC [facility]; Protocol Last Admin: 07/31/18 12:14 Dose: 5 unit Lisinopril (Zestril) 10 mg PO DAILY [facility] Oxycodone/Acetaminophen (Percocet 5/325 Mg Tab) 1 tab PO Q4H PRN PRN Reason: Pain, moderate (4-7) Stop: 08/02/18 17:44 Last Admin: 07/30/18 18:15 Dose: 1 tab Oxycodone/Acetaminophen (Percocet 5/325 Mg Tab) 2 tab PO Q4H PRN PRN Reason: Pain, severe (8-10) Stop: 08/02/18 17:44 - Labs Labs: 07/31/18 06:00 07/31/18 06:00 PT 11.9 SECONDS (9.4-12.5) 07/29/18 06:15 INR 1.03 07/29/18 06:15 APTT 36.9 Seconds (25.1-36.5) H 07/29/18 06:15 - Constitutional Appears: Well, Non-toxic, No Acute Distress - Head Exam Head Exam: ATRAUMATIC, NORMOCEPHALIC - Eye Exam Eye Exam: EOMI Pupil Exam: PERRL - Neck Exam Neck Exam: Normal Inspection Additional comments: No JVD - Respiratory Exam Respiratory Exam: Clear to Ausculation Bilateral, NORMAL BREATHING PATTERN - Cardiovascular Exam Cardiovascular Exam: RRR, +S1, +S2. absent: Tachycardia, JVD - GI/Abdominal Exam GI & Abdominal Exam: Soft, Normal Bowel Sounds. absent: Tenderness - Extremities Exam Additional comments: LL foot wrapped and bandaged. No jessica blood appreciated through dressings - Back Exam Back Exam: absent: CVA tenderness (L), CVA tenderness (R) - Neurological Exam Neurological Exam: Alert, Awake, Oriented x3 Assessment and Plan - Assessment and Plan (Free Text) Assessment: Assessment: Patient is a 52 yo female with a past medical history of congestive heart failure, diabetes mellitus, hypertension, dilated cardiomyopathy with life vest who presented to the ED at the request of Dr. Murray. Pt completed L hallux amputation. Plan: Diabetic Foot Ulcer - POD#1 L hallux amputation - HHD - Podiatry Consulted- Dr. Murray- recommendation to begin Cipro 250 mg BID PO ID consulted (Dr. Byod) - recommended Daptomycin 310 QOD and CPK level checks, will follow up OR cultures and pathology - Hgb 9.2 continue to monitor HTN - start lisinopril 5 daily, increased to 10 mg daily per nephro - Carvedilol 25mg po bid - Hydralazine 10mg po tid - Lisinopril 40 mg and Lasix 20mg BID continued in the setting of improved Creatinine per nephro. Will continue to monitor DM - home dose of Levemir 10mg for 07/29 - ISS - med dose - FSBG q4h Hx of CAD - continue ASA 81 mg today, resume plavix tomorrow - Lipitor 40mg po din Hx of CHF - Patient euvolemic; no signs of JVD - Life vest - Continue to monitor PPx DVT ppx- Heparin 5000 units sc q8h GI ppx- Pepcid 10mg po HS Disposition: Likely discharge on Friday Pt seen and case reviewed with Dr. Elva Henson, PGY-1 <Yi Stevenson - Last Filed: 08/01/18 19:00> Objective - Vital Signs/Intake and Output Vital Signs (last 24 hours): Temp Pulse Resp BP Pulse Ox 101 F H 79 16 132/62 93 L 08/01/18 14:40 08/01/18 17:58 08/01/18 14:40 08/01/18 17:58 08/01/18 14:40 Intake and Output: 08/01/18 08/01/18 06:59 18:59 Intake Total 480 Balance 480 - Medications Medications: Current Medications Acetaminophen (Tylenol 325mg Tab) 650 mg PO Q4H PRN PRN Reason: Pain, Mild (1-3) Acetaminophen (Tylenol 325mg Tab) 650 mg PO Q6H PRN PRN Reason: Fever >100.4 F Last Admin: 08/01/18 13:34 Dose: 650 mg Aspirin (Ecotrin) 81 mg PO DAILY [facility] Last Admin: 08/01/18 10:14 Dose: 81 mg Atorvastatin Calcium (Lipitor) 40 mg PO DIN [facility] Last Admin: 08/01/18 17:58 Dose: 40 mg Carvedilol (Coreg) 25 mg PO BID [facility] Last Admin: 08/01/18 17:58 Dose: 25 mg Clopidogrel Bisulfate (Plavix) 75 mg PO DAILY [facility] Last Admin: 08/01/18 10:14 Dose: 75 mg Famotidine (Pepcid) 10 mg PO HS [facility] Last Admin: 07/31/18 21:39 Dose: 10 mg Furosemide (Lasix) 20 mg PO BID [facility] Last Admin: 08/01/18 17:58 Dose: 20 mg Heparin Sodium (Porcine) (Heparin) 5,000 units SC Q8 [facility]; Protocol Last Admin: 08/01/18 13:41 Dose: 5,000 units Hydralazine HCl (Apresoline) 10 mg PO Q8 [facility] Last Admin: 08/01/18 13:41 Dose: Not Given Daptomycin 310 mg/ Sodium (Chloride) 100 mls @ 200 mls/hr IV QOD [facility] Stop: 08/07/18 10:01 Meropenem/Sodium Chloride (Merrem Iv 500 Mg/Ns 50 Ml) 500 mg in 50 mls @ 100 mls/hr IVPB Q12 [facility]; Protocol Insulin Detemir (Levemir) 10 unit SC [facility] Last Admin: 07/31/18 21:39 Dose: 10 units Insulin Human Lispro (Humalog Med) 0 units SC ACHS [facility]; Protocol Last Admin: 08/01/18 17:11 Dose: Not Given Lisinopril (Zestril) 10 mg PO DAILY [facility] Last Admin: 08/01/18 10:14 Dose: 10 mg Oxycodone/Acetaminophen (Percocet 5/325 Mg Tab) 1 tab PO Q4H PRN PRN Reason: Pain, moderate (4-7) Stop: 08/02/18 17:44 Last Admin: 07/30/18 18:15 Dose: 1 tab Oxycodone/Acetaminophen (Percocet 5/325 Mg Tab) 2 tab PO Q4H PRN PRN Reason: Pain, severe (8-10) Stop: 08/02/18 17:44 - Labs Labs: 07/31/18 06:00 07/31/18 06:00 PT 11.9 SECONDS (9.4-12.5) 07/29/18 06:15 INR 1.03 07/29/18 06:15 APTT 36.9 Seconds (25.1-36.5) H 07/29/18 06:15 Attending/Attestation - Attestation I have personally seen and examined this patient.: Yes I have fully participated in the care of the patient.: Yes I have reviewed all pertinent clinical information, including history, physical exam and plan: Yes Notes (Text): 08/01/18 18:59 Medical record note made by the resident after discussion with my direction and input after the patient was personally seen and examined by me. I have reviewed the chart and agree that the record accurately reflects by personal performance of the history, physical exam, data review, and medical decision-making, in the course for the patient. I have also personally directed the plan of care.
--- NOTE | 2018-07-31 18:51 | PN ---
DATE: 07/31/2018 CARDIOLOGY FOLLOWUP SUBJECTIVE: The patient tolerated the procedure well. PHYSICAL EXAMINATION: VITAL SIGNS: Blood pressure varies between 145 to 156 systolic, heart rate is in the 80s. NECK: Negative JVD. LUNGS: Without rales. HEART: S1, S2. EXTREMITIES: Left lower extremity is bandaged. LABORATORY DATA: Hemoglobin is 9.2. Chemistries: BUN and creatinine are 31 and 1.7. Glucose is 203. IMPRESSION: 1. Status post surgery of the lower extremities for infection. 2. Peripheral vascular disease. 3. Dilated cardiomyopathy. 4. Mild pulmonary hypertension. Given these findings, the patient is hemodynamically stable. There is no evidence for CHF. Rodney Caldwell MD
[2018-07-31] MEDS: Insulin Detemir 100 units/ml Vial (Levemir) SC SCH (21:39)
[2018-08-01] MEDS: Insulin Lispro (humaLOG) MEDIUM Coverage SC SCH ×4 (08:47→22:04)
--- NOTE | 2018-08-01 10:14 | CP.PCM.PN ---
<Femi Aiken - Last Filed: 08/01/18 10:10> Subjective - Date & Time of Evaluation Date of Evaluation: 08/01/18 Time of Evaluation: 10:10 - Subjective Subjective: Podiatry - Drs. Laboy/Trevor 52F seen and evaluated at bedside this AM POD#2 left hallux amputation. Patient resting comfortably at time of visit, hemodynamically stable and NAD. No acute events overnight. Patient reports pain to surgical site is decreasing, well- controlled. No new complaints to LLE. Denies N/V/F/D/C/SOB/ARTIA/CP. Objective - Vital Signs/Intake and Output Vital Signs (last 24 hours): Temp Pulse Resp BP Pulse Ox 98.6 F 74 18 137/60 97 08/01/18 08:00 08/01/18 08:00 08/01/18 08:00 08/01/18 08:00 08/01/18 08:00 - Medications Medications: Current Medications Acetaminophen (Tylenol 325mg Tab) 650 mg PO Q4H PRN PRN Reason: Pain, Mild (1-3) Acetaminophen (Tylenol 325mg Tab) 650 mg PO Q6H PRN PRN Reason: Fever >100.4 F Last Admin: 07/31/18 12:27 Dose: 650 mg Aspirin (Ecotrin) 81 mg PO DAILY [facility] Last Admin: 07/31/18 17:18 Dose: Not Given Atorvastatin Calcium (Lipitor) 40 mg PO DIN [facility] Last Admin: 07/31/18 17:19 Dose: Not Given Carvedilol (Coreg) 25 mg PO BID [facility] Last Admin: 07/31/18 17:18 Dose: Not Given Ciprofloxacin (Cipro) 250 mg PO Q12 [facility]; Protocol Stop: 08/01/18 12:32 Last Admin: 07/31/18 21:39 Dose: 250 mg Clopidogrel Bisulfate (Plavix) 75 mg PO DAILY [facility] Famotidine (Pepcid) 10 mg PO HS [facility] Last Admin: 07/31/18 21:39 Dose: 10 mg Furosemide (Lasix) 20 mg PO BID [facility] Last Admin: 07/31/18 17:19 Dose: Not Given Heparin Sodium (Porcine) (Heparin) 5,000 units SC Q8 [facility]; Protocol Last Admin: 08/01/18 05:06 Dose: Not Given Hydralazine HCl (Apresoline) 10 mg PO Q8 [facility] Last Admin: 08/01/18 05:06 Dose: Not Given Daptomycin 310 mg/ Sodium (Chloride) 100 mls @ 200 mls/hr IV QOD [facility] Stop: 08/07/18 10:01 Insulin Detemir (Levemir) 10 unit SC [facility] Last Admin: 07/31/18 21:39 Dose: 10 units Insulin Human Lispro (Humalog Med) 0 units SC [facility]; Protocol Last Admin: 08/01/18 08:47 Dose: Not Given Lisinopril (Zestril) 10 mg PO DAILY [facility] Oxycodone/Acetaminophen (Percocet 5/325 Mg Tab) 1 tab PO Q4H PRN PRN Reason: Pain, moderate (4-7) Stop: 08/02/18 17:44 Last Admin: 07/30/18 18:15 Dose: 1 tab Oxycodone/Acetaminophen (Percocet 5/325 Mg Tab) 2 tab PO Q4H PRN PRN Reason: Pain, severe (8-10) Stop: 08/02/18 17:44 - Labs Labs: 07/31/18 06:00 07/31/18 06:00 PT 11.9 SECONDS (9.4-12.5) 07/29/18 06:15 INR 1.03 07/29/18 06:15 APTT 36.9 Seconds (25.1-36.5) H 07/29/18 06:15 - Constitutional Appears: Well, Non-toxic, No Acute Distress - Extremities Exam Additional comments: LLE focused exam: Vasc: DP/PT pulses are palpable 2/4. Skin temperature warm to cool from proximal to distal; surgical site cool to touch. Cap refill < 3 seconds to all digits, no edema noted Ortho: Left hallux amputation, no tenderness upon calf compression Neuro: Gross sensation diminished, protective sensation dimished/absent Derm: Surgical site intact: sutures intact and skin edges well coapted. No evidence of purulence, no drainage, no malodor. Small opening at the proximal aspect of incision to allow for drainage; no evidence of dehiscence. No erythema present periwound. - Neurological Exam Neurological Exam: Alert, Awake, Oriented x3 - Psychiatric Exam Psychiatric exam: Normal Affect, Normal Mood Assessment and Plan - Assessment and Plan (Free Text) Assessment: 52F 2 day s/p L hallux amputation (DOS 07/30/18) Plan: Patient seen and evaluated alongside attending, Dr. Laboy Tmax 101.2 yesterday, afebrile overnight Intraoperative wound cx (07/30); pending Intraoperative pathology report (07/30); pending Post-op L foot x-ray (07/30); hallux amputation, old fracture deformity of proximal 5th metatarsal Continue local wound care L foot: saline cleanse, adaptic, DSD, NOEMÍ ID recs appreciated - re-started Daptomycin completed 25 days of antibiotics - will follow up OR cultures and pathology Podiatry will continue to follow <Jamison Laboy - Last Filed: 08/03/18 09:32> Objective - Vital Signs/Intake and Output Vital Signs (last 24 hours): Temp Pulse Resp BP Pulse Ox 99 F 72 18 120/60 96 08/03/18 08:25 08/03/18 09:28 08/03/18 08:25 08/03/18 09:29 08/03/18 08:25 - Medications Medications: Current Medications Acetaminophen (Tylenol 325mg Tab) 650 mg PO Q4H PRN PRN Reason: Pain, Mild (1-3) Last Admin: 08/02/18 03:48 Dose: 650 mg Acetaminophen (Tylenol 325mg Tab) 650 mg PO Q6H PRN PRN Reason: Fever >100.4 F Last Admin: 08/01/18 13:34 Dose: 650 mg Aspirin (Ecotrin) 81 mg PO DAILY [facility] Last Admin: 08/03/18 09:28 Dose: 81 mg Atorvastatin Calcium (Lipitor) 40 mg PO DIN [facility] Last Admin: 08/02/18 18:23 Dose: 40 mg Carvedilol (Coreg) 25 mg PO BID [facility] Last Admin: 08/03/18 09:28 Dose: 25 mg Clopidogrel Bisulfate (Plavix) 75 mg PO DAILY [facility] Last Admin: 08/03/18 09:29 Dose: 75 mg Famotidine (Pepcid) 10 mg PO HS [facility] Last Admin: 08/02/18 22:05 Dose: 10 mg Furosemide (Lasix) 20 mg PO BID [facility] Last Admin: 08/03/18 09:29 Dose: 20 mg Heparin Sodium (Porcine) (Heparin) 5,000 units SC Q8 [facility]; Protocol Last Admin: 08/03/18 05:24 Dose: 5,000 units Hydralazine HCl (Apresoline) 10 mg PO Q8 [facility] Last Admin: 08/03/18 05:28 Dose: Not Given Daptomycin 310 mg/ Sodium (Chloride) 100 mls @ 200 mls/hr IV QOD [facility] Stop: 08/07/18 10:01 Last Admin: 08/02/18 10:08 Dose: 200 mls/hr Meropenem/Sodium Chloride (Merrem Iv 500 Mg/Ns 50 Ml) 500 mg in 50 mls @ 100 mls/hr IVPB Q12 [facility]; Protocol Last Admin: 08/02/18 22:05 Dose: 100 mls/hr Insulin Detemir (Levemir) 10 unit SC HS [facility] Last Admin: 08/02/18 22:04 Dose: 10 units Insulin Human Lispro (Humalog Med) 0 units SC ACHS [facility]; Protocol Last Admin: 08/03/18 08:02 Dose: Not Given Lisinopril (Zestril) 10 mg PO DAILY [facility] Last Admin: 08/03/18 09:29 Dose: Not Given - Labs Labs: 08/03/18 08:15 08/03/18 08:15 PT 11.9 SECONDS (9.4-12.5) 07/29/18 06:15 INR 1.03 07/29/18 06:15 APTT 36.9 Seconds (25.1-36.5) H 07/29/18 06:15 Attending/Attestation - Attestation I have personally seen and examined this patient.: Yes I have fully participated in the care of the patient.: Yes I have reviewed all pertinent clinical information, including history, physical exam and plan: Yes
--- NOTE | 2018-08-01 13:49 | CP.PCM.PN ---
<Albina Suarez - Last Filed: 08/01/18 13:45> Subjective - Date & Time of Evaluation Date of Evaluation: 08/01/18 Time of Evaluation: 08:00 - Subjective Subjective: PGY-1 Medicine Progress Note for Dr. Stevenson's service Patient was seen and examined at bedside. Patient refused meds last night due to consistent blood work. No labs for tomorrow if patient has no acute complaints. Patient denies fevers, chills, sob, n/v, constipation or diarrhea, dysuria. Objective - Vital Signs/Intake and Output Vital Signs (last 24 hours): Temp Pulse Resp BP Pulse Ox 98.6 F 74 18 137/60 97 08/01/18 08:00 08/01/18 10:14 08/01/18 08:00 08/01/18 10:14 08/01/18 08:00 - Medications Medications: Current Medications Acetaminophen (Tylenol 325mg Tab) 650 mg PO Q4H PRN PRN Reason: Pain, Mild (1-3) Acetaminophen (Tylenol 325mg Tab) 650 mg PO Q6H PRN PRN Reason: Fever >100.4 F Last Admin: 07/31/18 12:27 Dose: 650 mg Aspirin (Ecotrin) 81 mg PO DAILY [facility] Last Admin: 08/01/18 10:14 Dose: 81 mg Atorvastatin Calcium (Lipitor) 40 mg PO DIN [facility] Last Admin: 07/31/18 17:19 Dose: Not Given Carvedilol (Coreg) 25 mg PO BID [facility] Last Admin: 08/01/18 10:13 Dose: 25 mg Clopidogrel Bisulfate (Plavix) 75 mg PO DAILY [facility] Last Admin: 08/01/18 10:14 Dose: 75 mg Famotidine (Pepcid) 10 mg PO HS [facility] Last Admin: 07/31/18 21:39 Dose: 10 mg Furosemide (Lasix) 20 mg PO BID [facility] Last Admin: 08/01/18 10:14 Dose: 20 mg Heparin Sodium (Porcine) (Heparin) 5,000 units SC Q8 [facility]; Protocol Last Admin: 08/01/18 05:06 Dose: Not Given Hydralazine HCl (Apresoline) 10 mg PO Q8 [facility] Last Admin: 08/01/18 05:06 Dose: Not Given Daptomycin 310 mg/ Sodium (Chloride) 100 mls @ 200 mls/hr IV QOD [facility] Stop: 08/07/18 10:01 Insulin Detemir (Levemir) 10 unit SC [facility] Last Admin: 07/31/18 21:39 Dose: 10 units Insulin Human Lispro (Humalog Med) 0 units SC [facility]; Protocol Last Admin: 08/01/18 11:58 Dose: Not Given Lisinopril (Zestril) 10 mg PO DAILY [facility] Last Admin: 08/01/18 10:14 Dose: 10 mg Oxycodone/Acetaminophen (Percocet 5/325 Mg Tab) 1 tab PO Q4H PRN PRN Reason: Pain, moderate (4-7) Stop: 08/02/18 17:44 Last Admin: 07/30/18 18:15 Dose: 1 tab Oxycodone/Acetaminophen (Percocet 5/325 Mg Tab) 2 tab PO Q4H PRN PRN Reason: Pain, severe (8-10) Stop: 08/02/18 17:44 - Labs Labs: 07/31/18 06:00 07/31/18 06:00 PT 11.9 SECONDS (9.4-12.5) 07/29/18 06:15 INR 1.03 07/29/18 06:15 APTT 36.9 Seconds (25.1-36.5) H 07/29/18 06:15 - Additional Findings Additional findings: - Constitutional Appears: Well, Non-toxic, No Acute Distress - Head Exam Head Exam: ATRAUMATIC, NORMOCEPHALIC - Eye Exam Eye Exam: EOMI Pupil Exam: PERRL - Neck Exam Neck Exam: Normal Inspection Additional comments: No JVD - Respiratory Exam Respiratory Exam: Clear to Ausculation Bilateral, NORMAL BREATHING PATTERN - Cardiovascular Exam Cardiovascular Exam: RRR, +S1, +S2. absent: Tachycardia, JVD - GI/Abdominal Exam GI & Abdominal Exam: Soft, Normal Bowel Sounds. absent: Tenderness - Extremities Exam Additional comments: LL foot wrapped and bandaged. No jessica blood appreciated through dressings - Back Exam Back Exam: absent: CVA tenderness (L), CVA tenderness (R) - Neurological Exam Neurological Exam: Alert, Awake, Oriented x3 Assessment and Plan - Assessment and Plan (Free Text) Assessment: Patient is a 52 yo female with a past medical history of congestive heart failure, diabetes mellitus, hypertension, dilated cardiomyopathy with life vest who presented to the ED at the request of Dr. Murray. Pt completed L hallux amputation. Pending OR cultures and pathology. Plan: Diabetic Foot Ulcer POD#2 L hallux amputation Podiatry Consulted- Dr. Murray- recommendation to begin Cipro 250 mg BID PO ID consulted (Dr. Boyd) - recommended Daptomycin 310 QOD and CPK level checks, will follow up OR cultures and pathology Ciprofloxacin Dc'ed today; Daptomycin 310 QOD starting tomorrow HTN Lisinopril 10mg daily Carvedilol 25mg po bid Hydralazine 10mg po tid Lisinopril 10 mg and Lasix 20mg BID continued in the setting of improved Creatinine per nephro DM2 home dose of Levemir 10mg for 07/29 ISS - med dose FSBG q4h Hx of CAD continue ASA 81 mg today Plavix 75mg po daily Lipitor 40mg po din Hx of CHF 07/29/18 Echo- EF of 33% On lasix 20mg po bid; carvedilol 25mg po bid; lisinopril 10mg po daily On life vest Euvolemic PPx DVT ppx- Heparin 5000 units sc q8h GI ppx- Pepcid 10mg po HS Disposition: Likely discharge on Friday Medical Management discussed with Dr. Elva Suarez PGY-1 <Yi Stevenson - Last Filed: 08/01/18 18:59> Objective - Vital Signs/Intake and Output Vital Signs (last 24 hours): Temp Pulse Resp BP Pulse Ox 101 F H 79 16 132/62 93 L 08/01/18 14:40 08/01/18 17:58 08/01/18 14:40 08/01/18 17:58 08/01/18 14:40 Intake and Output: 08/01/18 08/01/18 06:59 18:59 Intake Total 480 Balance 480 - Medications Medications: Current Medications Acetaminophen (Tylenol 325mg Tab) 650 mg PO Q4H PRN PRN Reason: Pain, Mild (1-3) Acetaminophen (Tylenol 325mg Tab) 650 mg PO Q6H PRN PRN Reason: Fever >100.4 F Last Admin: 08/01/18 13:34 Dose: 650 mg Aspirin (Ecotrin) 81 mg PO DAILY [facility] Last Admin: 08/01/18 10:14 Dose: 81 mg Atorvastatin Calcium (Lipitor) 40 mg PO DIN [facility] Last Admin: 08/01/18 17:58 Dose: 40 mg Carvedilol (Coreg) 25 mg PO BID [facility] Last Admin: 08/01/18 17:58 Dose: 25 mg Clopidogrel Bisulfate (Plavix) 75 mg PO DAILY [facility] Last Admin: 08/01/18 10:14 Dose: 75 mg Famotidine (Pepcid) 10 mg PO HS [facility] Last Admin: 07/31/18 21:39 Dose: 10 mg Furosemide (Lasix) 20 mg PO BID [facility] Last Admin: 08/01/18 17:58 Dose: 20 mg Heparin Sodium (Porcine) (Heparin) 5,000 units SC Q8 [facility]; Protocol Last Admin: 08/01/18 13:41 Dose: 5,000 units Hydralazine HCl (Apresoline) 10 mg PO Q8 [facility] Last Admin: 08/01/18 13:41 Dose: Not Given Daptomycin 310 mg/ Sodium (Chloride) 100 mls @ 200 mls/hr IV QOD [facility] Stop: 08/07/18 10:01 Meropenem/Sodium Chloride (Merrem Iv 500 Mg/Ns 50 Ml) 500 mg in 50 mls @ 100 mls/hr IVPB Q12 [facility]; Protocol Insulin Detemir (Levemir) 10 unit SC HS [facility] Last Admin: 07/31/18 21:39 Dose: 10 units Insulin Human Lispro (Humalog Med) 0 units SC ACHS [facility]; Protocol Last Admin: 08/01/18 17:11 Dose: Not Given Lisinopril (Zestril) 10 mg PO DAILY [facility] Last Admin: 08/01/18 10:14 Dose: 10 mg Oxycodone/Acetaminophen (Percocet 5/325 Mg Tab) 1 tab PO Q4H PRN PRN Reason: Pain, moderate (4-7) Stop: 08/02/18 17:44 Last Admin: 07/30/18 18:15 Dose: 1 tab Oxycodone/Acetaminophen (Percocet 5/325 Mg Tab) 2 tab PO Q4H PRN PRN Reason: Pain, severe (8-10) Stop: 08/02/18 17:44 - Labs Labs: 07/31/18 06:00 07/31/18 06:00 PT 11.9 SECONDS (9.4-12.5) 07/29/18 06:15 INR 1.03 07/29/18 06:15 APTT 36.9 Seconds (25.1-36.5) H 07/29/18 06:15 Attending/Attestation - Attestation I have personally seen and examined this patient.: Yes I have fully participated in the care of the patient.: Yes I have reviewed all pertinent clinical information, including history, physical exam and plan: Yes Notes (Text): 08/01/18 18:55 Medical record note made by the resident after discussion with my direction and input after the patient was personally seen and examined by me. I have reviewed the chart and agree that the record accurately reflects by personal performance of the history, physical exam, data review, and medical decision-making, in the course for the patient. I have also personally directed the plan of care. 52 year old female with past medical history of cardiomyopathy (EF 29%) on life vest, diabetes and hypertension was admitted last month with with left hallux cellulitis.MRI was negative for osteomyelitis or abscess. Initial blood cultures were positive for MRSA. Repeat cultures are negative. Wound cultures grew MSSA. Patient underwent partial toe amputation. Patient was treated with IV Daptomycin.Echo was negative for any vegetation.Repeat MRI of foot was negative for any osteomylitis or abscess.Patient was discharged home with IV Daptomycin to complete total 4 weeks of starting from negative blood cultures.Last admission Patient develop acute on chronic renal failure secondary likely due to contrast induced Nephropathy. Creatinin improved to 2.5 from 5.4.NOEMÍ and Aldactone were on hold at the time of discharge due to renal failure is admitted with worsening foot infection underwent Left Hallux Amputation 07/30/18 , awaiting Pathology repeort, on IV Daptomycin and Meroppenem as per ID. We will follow up Pathology repeort. Renal functions are improving.Creatinin is 1.5 , restarted on lasix and NOEMÍ. Management plan was discussed in detail with patient. Education was provided. 08/01/18 18:58
--- NOTE | 2018-08-01 16:43 | CP.PCM.PN ---
Subjective - Date & Time of Evaluation Date of Evaluation: 08/01/18 Time of Evaluation: 13:55 - Subjective Subjective: No fevers, not in distress, comfortable in bed, no increased pain in the left foot. Had fever last night. Objective - Vital Signs/Intake and Output Vital Signs (last 24 hours): Temp Pulse Resp BP Pulse Ox 98.6 F 74 18 137/60 97 08/01/18 08:00 08/01/18 10:14 08/01/18 08:00 08/01/18 10:14 08/01/18 08:00 - Medications Medications: Current Medications Acetaminophen (Tylenol 325mg Tab) 650 mg PO Q4H PRN PRN Reason: Pain, Mild (1-3) Acetaminophen (Tylenol 325mg Tab) 650 mg PO Q6H PRN PRN Reason: Fever >100.4 F Last Admin: 07/31/18 12:27 Dose: 650 mg Aspirin (Ecotrin) 81 mg PO DAILY [facility] Last Admin: 08/01/18 10:14 Dose: 81 mg Atorvastatin Calcium (Lipitor) 40 mg PO DIN [facility] Last Admin: 07/31/18 17:19 Dose: Not Given Carvedilol (Coreg) 25 mg PO BID [facility] Last Admin: 08/01/18 10:13 Dose: 25 mg Clopidogrel Bisulfate (Plavix) 75 mg PO DAILY [facility] Last Admin: 08/01/18 10:14 Dose: 75 mg Famotidine (Pepcid) 10 mg PO HS [facility] Last Admin: 07/31/18 21:39 Dose: 10 mg Furosemide (Lasix) 20 mg PO BID [facility] Last Admin: 08/01/18 10:14 Dose: 20 mg Heparin Sodium (Porcine) (Heparin) 5,000 units SC Q8 [facility]; Protocol Last Admin: 08/01/18 05:06 Dose: Not Given Hydralazine HCl (Apresoline) 10 mg PO Q8 [facility] Last Admin: 08/01/18 05:06 Dose: Not Given Daptomycin 310 mg/ Sodium (Chloride) 100 mls @ 200 mls/hr IV QOD [facility] Stop: 08/07/18 10:01 Insulin Detemir (Levemir) 10 unit SC [facility] Last Admin: 07/31/18 21:39 Dose: 10 units Insulin Human Lispro (Humalog Med) 0 units SC [facility]; Protocol Last Admin: 08/01/18 11:58 Dose: Not Given Lisinopril (Zestril) 10 mg PO DAILY [facility] Last Admin: 08/01/18 10:14 Dose: 10 mg Oxycodone/Acetaminophen (Percocet 5/325 Mg Tab) 1 tab PO Q4H PRN PRN Reason: Pain, moderate (4-7) Stop: 08/02/18 17:44 Last Admin: 07/30/18 18:15 Dose: 1 tab Oxycodone/Acetaminophen (Percocet 5/325 Mg Tab) 2 tab PO Q4H PRN PRN Reason: Pain, severe (8-10) Stop: 08/02/18 17:44 - Labs Labs: 07/31/18 06:00 07/31/18 06:00 PT 11.9 SECONDS (9.4-12.5) 07/29/18 06:15 INR 1.03 07/29/18 06:15 APTT 36.9 Seconds (25.1-36.5) H 07/29/18 06:15 - Constitutional Appears: No Acute Distress, Chronically Ill - Head Exam Head Exam: NORMAL INSPECTION - Respiratory Exam Respiratory Exam: Decreased Breath Sounds - Cardiovascular Exam Cardiovascular Exam: +S1, +S2 - GI/Abdominal Exam GI & Abdominal Exam: Soft. absent: Tenderness Assessment and Plan - Assessment and Plan (Free Text) Plan: Assessment sepsis due to left hallux cellulitis / gangrene with methicillin-resistant Staph aureus bacteremia, toe growing MSSA with osteomyelitis S/P amputation POD #2, with new onset fever/SIRS cardiomyopathy with EF 35-40% DM HTN dyslipdemia Plan continue Daptomycin and will start Merrem pending blood and urine cx - CK level is normal - 26 days of antibiotics - OR cultures showin gram negative bacilli ; follow up OR pathology will continue to monitor clinically
[2018-08-01] MEDS: MEROPENEM 500 MG in NS 500 MG/50 ML BAG IVPB SCH (22:18)
[2018-08-01] MEDS: Insulin Detemir 100 units/ml Vial (Levemir) SC SCH (22:18)
--- NOTE | 2018-08-02 06:27 | CP.PCM.PN ---
Subjective - Date & Time of Evaluation Date of Evaluation: 08/02/18 Time of Evaluation: 12:10 - Subjective Subjective: PGY-1 Medicine Progress Note for Dr. Stevenson's service Patient seen and examined at bedside. Patient reports that hydralazine causes headaches. Patient denies chest pain, sob, n/v, constipation or diarrhea, dysu katlin, fevers and chills. Objective - Vital Signs/Intake and Output Vital Signs (last 24 hours): Temp Pulse Resp BP Pulse Ox 99.8 F H 72 16 120/56 L 93 L 08/01/18 15:30 08/01/18 22:56 08/01/18 14:40 08/01/18 22:56 08/01/18 14:40 Intake and Output: 08/01/18 08/02/18 18:59 06:59 Intake Total 480 360 Balance 480 360 - Medications Medications: Current Medications Acetaminophen (Tylenol 325mg Tab) 650 mg PO Q4H PRN PRN Reason: Pain, Mild (1-3) Last Admin: 08/02/18 03:48 Dose: 650 mg Acetaminophen (Tylenol 325mg Tab) 650 mg PO Q6H PRN PRN Reason: Fever >100.4 F Last Admin: 08/01/18 13:34 Dose: 650 mg Aspirin (Ecotrin) 81 mg PO DAILY [facility] Last Admin: 08/01/18 10:14 Dose: 81 mg Atorvastatin Calcium (Lipitor) 40 mg PO DIN [facility] Last Admin: 08/01/18 17:58 Dose: 40 mg Carvedilol (Coreg) 25 mg PO BID [facility] Last Admin: 08/01/18 17:58 Dose: 25 mg Clopidogrel Bisulfate (Plavix) 75 mg PO DAILY [facility] Last Admin: 08/01/18 10:14 Dose: 75 mg Famotidine (Pepcid) 10 mg PO HS [facility] Last Admin: 08/01/18 22:19 Dose: 10 mg Furosemide (Lasix) 20 mg PO BID [facility] Last Admin: 08/01/18 17:58 Dose: 20 mg Heparin Sodium (Porcine) (Heparin) 5,000 units SC Q8 [facility]; Protocol Last Admin: 08/02/18 06:13 Dose: 5,000 units Hydralazine HCl (Apresoline) 10 mg PO Q8 [facility] Last Admin: 08/02/18 06:11 Dose: Not Given Daptomycin 310 mg/ Sodium (Chloride) 100 mls @ 200 mls/hr IV QOD [facility] Stop: 08/07/18 10:01 Meropenem/Sodium Chloride (Merrem Iv 500 Mg/Ns 50 Ml) 500 mg in 50 mls @ 100 mls/hr IVPB Q12 [facility]; Protocol Last Admin: 08/01/18 22:18 Dose: 100 mls/hr Insulin Detemir (Levemir) 10 unit SC HS [facility] Last Admin: 08/01/18 22:18 Dose: 10 units Insulin Human Lispro (Humalog Med) 0 units SC ACHS [facility]; Protocol Last Admin: 08/01/18 22:04 Dose: Not Given Lisinopril (Zestril) 10 mg PO DAILY [facility] Last Admin: 08/01/18 10:14 Dose: 10 mg Oxycodone/Acetaminophen (Percocet 5/325 Mg Tab) 1 tab PO Q4H PRN PRN Reason: Pain, moderate (4-7) Stop: 08/02/18 17:44 Last Admin: 07/30/18 18:15 Dose: 1 tab Oxycodone/Acetaminophen (Percocet 5/325 Mg Tab) 2 tab PO Q4H PRN PRN Reason: Pain, severe (8-10) Stop: 08/02/18 17:44 - Labs Labs: 07/31/18 06:00 07/31/18 06:00 PT 11.9 SECONDS (9.4-12.5) 07/29/18 06:15 INR 1.03 07/29/18 06:15 APTT 36.9 Seconds (25.1-36.5) H 07/29/18 06:15 - Additional Findings Additional findings: - Constitutional Appears: Well, Non-toxic, No Acute Distress - Head Exam Head Exam: ATRAUMATIC, NORMOCEPHALIC - Eye Exam Eye Exam: EOMI Pupil Exam: PERRL - Neck Exam Neck Exam: Normal Inspection Additional comments: No JVD - Respiratory Exam Respiratory Exam: Clear to Ausculation Bilateral, NORMAL BREATHING PATTERN - Cardiovascular Exam Cardiovascular Exam: RRR, +S1, +S2. absent: Tachycardia, JVD - GI/Abdominal Exam GI & Abdominal Exam: Soft, Normal Bowel Sounds. absent: Tenderness - Extremities Exam Additional comments: LL foot wrapped and bandaged. No jessica blood appreciated through dressings - Back Exam Back Exam: absent: CVA tenderness (L), CVA tenderness (R) - Neurological Exam Neurological Exam: Alert, Awake, Oriented x3 Assessment and Plan - Assessment and Plan (Free Text) Assessment: Patient is a 52 yo female with a past medical history of congestive heart failure, diabetes mellitus, hypertension, dilated cardiomyopathy with life vest who presented to the ED at the request of Dr. Murray. Pt completed L hallux amputation. Pending OR cultures and pathology. Plan: Diabetic Foot Ulcer POD#2 L hallux amputation Podiatry Consulted- Dr. Murray- recommendation to begin Cipro 250 mg BID PO ID consulted (Dr. Boyd) - recommended Daptomycin 310 QOD and CPK level checks, will follow up OR cultures and pathology Daptomycin 310 QOD (7); Meropenem 500mg (10-6) HTN Lisinopril 10mg daily Carvedilol 25mg po bid Hydralazine 10mg po tid Lisinopril 10 mg and Lasix 20mg BID continued in the setting of improved Cr eatinine per nephro DM2 home dose of Levemir 10mg for 07/29 ISS - med dose FSBG q4h Hx of CAD continue ASA 81 mg today Plavix 75mg po daily Lipitor 40mg po din Hx of CHF 07/29/18 Echo- EF of 33% On lasix 20mg po bid; carvedilol 25mg po bid; lisinopril 10mg po daily On life vest Euvolemic PPx DVT ppx- Heparin 5000 units sc q8h GI ppx- Pepcid 10mg po HS Disposition: Likely discharge on Friday Medical Management discussed with Dr. Elva Suarez PGY-1
[2018-08-02] MEDS: Insulin Lispro (humaLOG) MEDIUM Coverage SC SCH ×4 (09:51→22:06)
[2018-08-02] MEDS: MEROPENEM 500 MG in NS 500 MG/50 ML BAG IVPB SCH ×2 (09:56→22:05)
[2018-08-02] MEDS ORDERED: DAPTOmycin 500 mg Inj (Cubicin) IV SCH (10:00)
--- NOTE | 2018-08-02 11:53 | RAD ---
Date of service: 08/02/2018 HISTORY: rule out pneumonia COMPARISON: 07/10/2018 FINDINGS: LUNGS: No active pulmonary disease. PLEURA: No significant pleural effusion identified, no pneumothorax apparent. CARDIOVASCULAR: Mild cardiomegaly OSSEOUS STRUCTURES: No significant abnormalities. VISUALIZED UPPER ABDOMEN: Normal. OTHER FINDINGS: None. IMPRESSION: No active disease.
--- NOTE | 2018-08-02 13:05 | CP.PCM.PN ---
Subjective - Date & Time of Evaluation Date of Evaluation: 08/02/18 Time of Evaluation: 08:00 - Subjective Subjective: Podiatry - Drs. aLboy/Trevor 52F seen and evaluated at bedside this AM POD#3 left hallux amputation. Patient resting comfortably at time of visit, hemodynamically stable and NAD. No acute events overnight. Patient endorses minimal pain to surgical site however admits to occasional numbness/tingling. Patient states she has been working with physical therapy w/o issues. Dressing to LLE clean/dry/intact. Denies n/v/f/d/c/sob/lopez/cp. Objective - Vital Signs/Intake and Output Vital Signs (last 24 hours): Temp Pulse Resp BP Pulse Ox 98 F 70 18 115/68 95 08/02/18 08:09 08/02/18 10:03 08/02/18 08:09 08/02/18 10:03 08/02/18 08:09 Intake and Output: 08/02/18 08/02/18 06:59 18:59 Intake Total 600 Balance 600 - Medications Medications: Current Medications Acetaminophen (Tylenol 325mg Tab) 650 mg PO Q4H PRN PRN Reason: Pain, Mild (1-3) Last Admin: 08/02/18 03:48 Dose: 650 mg Acetaminophen (Tylenol 325mg Tab) 650 mg PO Q6H PRN PRN Reason: Fever >100.4 F Last Admin: 08/01/18 13:34 Dose: 650 mg Aspirin (Ecotrin) 81 mg PO DAILY [facility] Last Admin: 08/02/18 10:06 Dose: 81 mg Atorvastatin Calcium (Lipitor) 40 mg PO DIN [facility] Last Admin: 08/01/18 17:58 Dose: 40 mg Carvedilol (Coreg) 25 mg PO BID [facility] Last Admin: 08/02/18 10:03 Dose: 25 mg Clopidogrel Bisulfate (Plavix) 75 mg PO DAILY [facility] Last Admin: 08/02/18 09:58 Dose: 75 mg Famotidine (Pepcid) 10 mg PO HS [facility] Last Admin: 08/01/18 22:19 Dose: 10 mg Furosemide (Lasix) 20 mg PO BID [facility] Last Admin: 08/02/18 09:59 Dose: 20 mg Heparin Sodium (Porcine) (Heparin) 5,000 units SC Q8 [facility]; Protocol Last Admin: 08/02/18 06:13 Dose: 5,000 units Hydralazine HCl (Apresoline) 10 mg PO Q8 [facility] Last Admin: 08/02/18 06:11 Dose: Not Given Daptomycin 310 mg/ Sodium (Chloride) 100 mls @ 200 mls/hr IV QOD [facility] Stop: 08/07/18 10:01 Last Admin: 08/02/18 10:08 Dose: 200 mls/hr Meropenem/Sodium Chloride (Merrem Iv 500 Mg/Ns 50 Ml) 500 mg in 50 mls @ 100 mls/hr IVPB Q12 [facility]; Protocol Last Admin: 08/02/18 09:56 Dose: 100 mls/hr Insulin Detemir (Levemir) 10 unit SC HS [facility] Last Admin: 08/01/18 22:18 Dose: 10 units Insulin Human Lispro (Humalog Med) 0 units SC ACHS [facility]; Protocol Last Admin: 08/02/18 12:10 Dose: 5 unit Lisinopril (Zestril) 10 mg PO DAILY [facility] Last Admin: 08/02/18 11:41 Dose: Not Given Oxycodone/Acetaminophen (Percocet 5/325 Mg Tab) 1 tab PO Q4H PRN PRN Reason: Pain, moderate (4-7) Stop: 08/02/18 17:44 Last Admin: 07/30/18 18:15 Dose: 1 tab Oxycodone/Acetaminophen (Percocet 5/325 Mg Tab) 2 tab PO Q4H PRN PRN Reason: Pain, severe (8-10) Stop: 08/02/18 17:44 - Labs Labs: 07/31/18 06:00 07/31/18 06:00 PT 11.9 SECONDS (9.4-12.5) 07/29/18 06:15 INR 1.03 07/29/18 06:15 APTT 36.9 Seconds (25.1-36.5) H 07/29/18 06:15 - Constitutional Appears: Well, Non-toxic, No Acute Distress - Extremities Exam Additional comments: LLE focused exam: Vasc: DP/PT pulses are palpable 2/4. Skin temperature warm to cool from proximal to distal; surgical site temp warmer since yesterday. Cap refill < 3 seconds to all digits, no edema noted Ortho: Left hallux amputation, no tenderness upon calf compression Neuro: Gross sensation diminished, protective sensation diminished/absent Derm: Surgical site s/p hallux amputation intact: sutures intact and skin edges well coapted. No evidence of purulence, no drainage, no malodor. Small opening at the proximal aspect of incision to allow for drainage; no evidence of dehisc ence. No erythema present periwound. - Neurological Exam Neurological Exam: Alert, Awake, Oriented x3 - Psychiatric Exam Psychiatric exam: Normal Affect, Normal Mood Assessment and Plan - Assessment and Plan (Free Text) Assessment: 52F 3 days s/p L hallux amputation (DOS 07/30/18) Plan: Patient seen and evaluated Discussed with attending, Dr. Murray Tmax 101 yesterday Intraoperative wound cx (07/30); enterobacter aerogenes Intraoperative pathology report (07/30); pending Post-op L foot x-ray (07/30); hallux amputation, old fracture deformity of proximal 5th metatarsal Continue local wound care L foot: saline cleanse, adaptic, DSD, NOEMÍ ID recs appreciated - continue Daptomycin and will start Merrem pending blood and urine cx 27 days of abx Continue PT Podiatry will continue to follow
--- NOTE | 2018-08-02 15:03 | CP.PCM.PN ---
Subjective - Date & Time of Evaluation Date of Evaluation: 08/02/18 Time of Evaluation: 11:25 - Subjective Subjective: Patient had fever yesterday, but feeling better today, no dysuria, no cough or SOB, no headache, no diarrhea. Objective - Vital Signs/Intake and Output Vital Signs (last 24 hours): Temp Pulse Resp BP Pulse Ox 98 F 70 18 115/68 95 08/02/18 08:09 08/02/18 08:09 08/02/18 08:09 08/02/18 08:09 08/02/18 08:09 Intake and Output: 08/02/18 08/02/18 06:59 18:59 Intake Total 600 Balance 600 - Medications Medications: Current Medications Acetaminophen (Tylenol 325mg Tab) 650 mg PO Q4H PRN PRN Reason: Pain, Mild (1-3) Last Admin: 08/02/18 03:48 Dose: 650 mg Acetaminophen (Tylenol 325mg Tab) 650 mg PO Q6H PRN PRN Reason: Fever >100.4 F Last Admin: 08/01/18 13:34 Dose: 650 mg Aspirin (Ecotrin) 81 mg PO DAILY [facility] Last Admin: 08/01/18 10:14 Dose: 81 mg Atorvastatin Calcium (Lipitor) 40 mg PO DIN [facility] Last Admin: 08/01/18 17:58 Dose: 40 mg Carvedilol (Coreg) 25 mg PO BID [facility] Last Admin: 08/01/18 17:58 Dose: 25 mg Clopidogrel Bisulfate (Plavix) 75 mg PO DAILY [facility] Last Admin: 08/01/18 10:14 Dose: 75 mg Famotidine (Pepcid) 10 mg PO HS [facility] Last Admin: 08/01/18 22:19 Dose: 10 mg Furosemide (Lasix) 20 mg PO BID [facility] Last Admin: 08/01/18 17:58 Dose: 20 mg Heparin Sodium (Porcine) (Heparin) 5,000 units SC Q8 [facility]; Protocol Last Admin: 08/02/18 06:13 Dose: 5,000 units Hydralazine HCl (Apresoline) 10 mg PO Q8 [facility] Last Admin: 08/02/18 06:11 Dose: Not Given Daptomycin 310 mg/ Sodium (Chloride) 100 mls @ 200 mls/hr IV QOD [facility] Stop: 08/07/18 10:01 Meropenem/Sodium Chloride (Merrem Iv 500 Mg/Ns 50 Ml) 500 mg in 50 mls @ 100 mls/hr IVPB Q12 [facility]; Protocol Last Admin: 08/01/18 22:18 Dose: 100 mls/hr Insulin Detemir (Levemir) 10 unit SC HS [facility] Last Admin: 08/01/18 22:18 Dose: 10 units Insulin Human Lispro (Humalog Med) 0 units SC [facility]; Protocol Last Admin: 08/01/18 22:04 Dose: Not Given Lisinopril (Zestril) 10 mg PO DAILY [facility] Last Admin: 08/01/18 10:14 Dose: 10 mg Oxycodone/Acetaminophen (Percocet 5/325 Mg Tab) 1 tab PO Q4H PRN PRN Reason: Pain, moderate (4-7) Stop: 08/02/18 17:44 Last Admin: 07/30/18 18:15 Dose: 1 tab Oxycodone/Acetaminophen (Percocet 5/325 Mg Tab) 2 tab PO Q4H PRN PRN Reason: Pain, severe (8-10) Stop: 08/02/18 17:44 - Labs Labs: 07/31/18 06:00 07/31/18 06:00 PT 11.9 SECONDS (9.4-12.5) 07/29/18 06:15 INR 1.03 07/29/18 06:15 APTT 36.9 Seconds (25.1-36.5) H 07/29/18 06:15 - Constitutional Appears: No Acute Distress, Chronically Ill - Head Exam Head Exam: NORMAL INSPECTION - Neck Exam Neck Exam: absent: Meningismus - Respiratory Exam Respiratory Exam: Decreased Breath Sounds - Cardiovascular Exam Cardiovascular Exam: +S1, +S2 - GI/Abdominal Exam GI & Abdominal Exam: Soft. absent: Tenderness - Extremities Exam Additional comments: left foot with bandages and dressings in place Assessment and Plan - Assessment and Plan (Free Text) Plan: Assessment sepsis due to left hallux cellulitis / gangrene with methicillin-resistant Staph aureus bacteremia, toe growing MSSA and now also Enterobactere with osteomyelitis S/P amputation POD #3, with new onset fever/SIRS cardiomyopathy with EF 35-40% DM HTN dyslipdemia Plan continue Daptomycin and Merrem dya 2 pending repeat blood and urine cx - CK level is normal - 27 days of antibiotics - OR cultures showing Enterobacter; follow up OR pathology will continue to monitor clinically
[2018-08-02 17:38] LABS: URINE BILIRUBIN NEGATIVE (NEGATIVE); URINE BLOOD SMALL (NEGATIVE); URINE GLUCOSE (UA) NEGATIVE (NEGATIVE); URINE LEUKOCYTE ESTERASE SMALL Leu/uL (NEGATIVE); URINE PROTEIN 100 mg/dL (<30 mg/dL); URINE UROBILINOGEN 0.2 E.U./dL (<1 E.U./dL)
[2018-08-02 17:43] LABS: URINE APPEARANCE CLEAR (CLEAR); URINE COLOR YELLOW (YELLOW)
[2018-08-02 17:46] LABS: URINE AMORPHOUS SEDIMENT TRACE; URINE RBC 15 - 20 /hpf (0-2)
[2018-08-02] MEDS: Insulin Detemir 100 units/ml Vial (Levemir) SC SCH (22:04)
[2018-08-03] MEDS: Insulin Lispro (humaLOG) MEDIUM Coverage SC SCH ×4 (08:02→23:41)
[2018-08-03 08:27] LABS: BASO # 0.09 K/mm3 (0.0-2.0); BASO % 0.8 % (0.0-3.0); EOS # 0.4 (0.0-0.7); EOS % 3.4 % (1.5-5.0); GRAN # 8.51 (1.4-6.5); GRAN % 75.5 % (50.0-68.0); HEMOGLOBIN 8.8 g/dL (12.0-16.0); LYMPH # 1.2 (1.2-3.4); LYMPH % 10.3 % (22.0-35.0); MEAN CELL VOLUME 89.4 fl (80.0-105.0); MEAN CORPUSCULAR HGB CONC 32.5 g/dl (31.0-37.0); MEAN PLATELET VOLUME 8.8 fl (7.0-11.0); MONO # 1.1 (0.1-0.6); RBC 3.03 10^6/uL (3.5-6.1); RED CELL DISTRIBUTION WIDTH 13.1 % (11.5-14.5); WHITE BLOOD COUNT 11.3 10^3/ul (4.5-11.0)
[2018-08-03 08:56] LABS: ALB/GLOB RATIO 0.8 (1.1-1.8); ALBUMIN 3.3 g/dL (3.0-4.8); CALCIUM 8.3 mg/dL (8.4-10.5)
[2018-08-03] MEDS: MEROPENEM 500 MG in NS 500 MG/50 ML BAG IVPB SCH ×2 (09:38→22:24)
--- NOTE | 2018-08-03 10:58 | CP.PCM.PN ---
<Harper Ashraf - Last Filed: 08/03/18 14:07> Subjective - Date & Time of Evaluation Date of Evaluation: 08/03/18 Time of Evaluation: 08:45 - Subjective Subjective: PGY-3 Resident ID progress note for Dr. Boyd No overnight acute events. Patient c/o cough, worst when she tries to communicate, + intermittent sputum. Complaining of scratchy throat. Denies fever or chills at this time, no n/v or diarrhea. The lower extremity pain has improved. Objective - Vital Signs/Intake and Output Vital Signs (last 24 hours): Temp Pulse Resp BP Pulse Ox 99 F 72 18 120/60 96 08/03/18 08:25 08/03/18 09:28 08/03/18 08:25 08/03/18 09:29 08/03/18 08:25 - Medications Medications: Current Medications Acetaminophen (Tylenol 325mg Tab) 650 mg PO Q4H PRN PRN Reason: Pain, Mild (1-3) Last Admin: 08/02/18 03:48 Dose: 650 mg Acetaminophen (Tylenol 325mg Tab) 650 mg PO Q6H PRN PRN Reason: Fever >100.4 F Last Admin: 08/01/18 13:34 Dose: 650 mg Aspirin (Ecotrin) 81 mg PO DAILY [facility] Last Admin: 08/03/18 09:28 Dose: 81 mg Atorvastatin Calcium (Lipitor) 40 mg PO DIN [facility] Last Admin: 08/02/18 18:23 Dose: 40 mg Carvedilol (Coreg) 25 mg PO BID [facility] Last Admin: 08/03/18 09:28 Dose: 25 mg Clopidogrel Bisulfate (Plavix) 75 mg PO DAILY [facility] Last Admin: 08/03/18 09:29 Dose: 75 mg Famotidine (Pepcid) 10 mg PO HS [facility] Last Admin: 08/02/18 22:05 Dose: 10 mg Furosemide (Lasix) 20 mg PO BID [facility] Last Admin: 08/03/18 09:29 Dose: 20 mg Heparin Sodium (Porcine) (Heparin) 5,000 units SC Q8 [facility]; Protocol Last Admin: 08/03/18 05:24 Dose: 5,000 units Hydralazine HCl (Apresoline) 10 mg PO Q8 [facility] Last Admin: 08/03/18 05:28 Dose: Not Given Daptomycin 310 mg/ Sodium (Chloride) 100 mls @ 200 mls/hr IV QOD [facility] Stop: 08/07/18 10:01 Last Admin: 08/02/18 10:08 Dose: 200 mls/hr Meropenem/Sodium Chloride (Merrem Iv 500 Mg/Ns 50 Ml) 500 mg in 50 mls @ 100 mls/hr IVPB Q12 [facility]; Protocol Last Admin: 08/03/18 09:38 Dose: 100 mls/hr Insulin Detemir (Levemir) 10 unit SC HS [facility] Last Admin: 08/02/18 22:04 Dose: 10 units Insulin Human Lispro (Humalog Med) 0 units SC ACHS [facility]; Protocol Last Admin: 08/03/18 08:02 Dose: Not Given Lisinopril (Zestril) 10 mg PO DAILY [facility] Last Admin: 08/03/18 09:29 Dose: Not Given - Labs Labs: 08/03/18 08:15 08/03/18 08:15 PT 11.9 SECONDS (9.4-12.5) 07/29/18 06:15 INR 1.03 07/29/18 06:15 APTT 36.9 Seconds (25.1-36.5) H 07/29/18 06:15 - Constitutional Appears: No Acute Distress, Older Than Stated Age, Chronically Ill - Head Exam Head Exam: ATRAUMATIC, NORMAL INSPECTION, NORMOCEPHALIC - Eye Exam Eye Exam: Normal appearance - ENT Exam ENT Exam: Mucous Membranes Moist - Neck Exam Neck Exam: Normal Inspection - Respiratory Exam Respiratory Exam: Clear to Ausculation Bilateral, NORMAL BREATHING PATTERN. absent: Rales, Rhonchi, Wheezes, Respiratory Distress, Stridor - Cardiovascular Exam Cardiovascular Exam: REGULAR RHYTHM, +S1, +S2, Murmur - GI/Abdominal Exam GI & Abdominal Exam: Soft, Normal Bowel Sounds. absent: Distended, Firm, Guarding, Rigid, Tenderness - Extremities Exam Additional comments: Left lower extremity with clean dressing, normal right lower extremity. - Back Exam Back Exam: NORMAL INSPECTION - Neurological Exam Neurological Exam: Alert, Awake, Oriented x3 - Psychiatric Exam Psychiatric exam: Normal Affect, Normal Mood - Skin Skin Exam: Warm Assessment and Plan - Assessment and Plan (Free Text) Assessment: Patient is a 52 y/o female with Sepsis due to left hallux cellulitis / gangrene with methicillin-resistant Staph aureus bacteremia, toe growing MSSA and now also Enterobacter aerogenese with osteomyelitis S/P amputation POD #4, Cough with SIRS - R/O influenza cardiomyopathy with EF 33% RADHA on CKD DM HTN dyslipdemia Plan: Tmax of 99.9, repeat cultures with so far no growth, normal chest x-ray. + mild leukocytosis. Will add rapid flue for persistent cough. intra operative wound culture with enterobacter aerogenese. Continue with daptomycin and merrem pending pathology report of the amputated hallux. Medical management as per primary. Patient seen, examined and case discussed with Dr. Boyd. <Navarro Boyd - Last Filed: 08/03/18 22:03> Objective - Vital Signs/Intake and Output Vital Signs (last 24 hours): Temp Pulse Resp BP Pulse Ox 98.6 F 73 18 140/64 94 L 08/03/18 14:00 08/03/18 14:00 08/03/18 14:00 08/03/18 18:57 08/03/18 14:00 Intake and Output: 08/03/18 08/04/18 18:59 06:59 Intake Total 720 480 Balance 720 480 - Medications Medications: Current Medications Acetaminophen (Tylenol 325mg Tab) 650 mg PO Q4H PRN PRN Reason: Pain, Mild (1-3) Last Admin: 08/03/18 13:19 Dose: 650 mg Acetaminophen (Tylenol 325mg Tab) 650 mg PO Q6H PRN PRN Reason: Fever >100.4 F Last Admin: 08/01/18 13:34 Dose: 650 mg Aspirin (Ecotrin) 81 mg PO DAILY [facility] Last Admin: 08/03/18 09:28 Dose: 81 mg Atorvastatin Calcium (Lipitor) 40 mg PO DIN [facility] Last Admin: 08/03/18 18:58 Dose: 40 mg Carvedilol (Coreg) 25 mg PO BID [facility] Last Admin: 08/03/18 18:57 Dose: Not Given Clopidogrel Bisulfate (Plavix) 75 mg PO DAILY [facility] Last Admin: 08/03/18 09:29 Dose: 75 mg Famotidine (Pepcid) 10 mg PO HS [facility] Last Admin: 08/02/18 22:05 Dose: 10 mg Furosemide (Lasix) 20 mg PO BID [facility] Last Admin: 08/03/18 18:57 Dose: 20 mg Heparin Sodium (Porcine) (Heparin) 5,000 units SC Q8 [facility]; Protocol Last Admin: 08/03/18 13:20 Dose: 5,000 units Hydralazine HCl (Apresoline) 10 mg PO Q8 [facility] Last Admin: 08/03/18 13:20 Dose: 10 mg Daptomycin 310 mg/ Sodium (Chloride) 100 mls @ 200 mls/hr IV QOD [facility] Stop: 08/07/18 10:01 Last Admin: 08/02/18 10:08 Dose: 200 mls/hr Meropenem/Sodium Chloride (Merrem Iv 500 Mg/Ns 50 Ml) 500 mg in 50 mls @ 100 mls/hr IVPB Q12 [facility]; Protocol Last Admin: 08/03/18 09:38 Dose: 100 mls/hr Insulin Detemir (Levemir) 10 unit SC HS [facility] Last Admin: 08/02/18 22:04 Dose: 10 units Insulin Human Lispro (Humalog Med) 0 units SC ACHS [facility]; Protocol Last Admin: 08/03/18 17:04 Dose: Not Given Lisinopril (Zestril) 10 mg PO DAILY [facility] Last Admin: 08/03/18 09:29 Dose: Not Given - Labs Labs: 08/03/18 08:15 08/03/18 08:15 PT 11.9 SECONDS (9.4-12.5) 07/29/18 06:15 INR 1.03 07/29/18 06:15 APTT 36.9 Seconds (25.1-36.5) H 07/29/18 06:15 Assessment and Plan - Assessment and Plan (Free Text) Plan: Infectious Diseases Attending Physician Addendum Patient seen, examined, discussed with regional medical director. I have reviewed the pertinent clinical information. I agree with the above findings, assessment and plan and in addition, continue Daptomycin and Merrem day 27 for patient with left hallux osteomyelitis S/P amputation, previously grew MSSA and MRSA and now also with Enterobacter. Follow up OR pathology to determine duration of therapy. Rapid influenza test is negative.
--- NOTE | 2018-08-03 14:12 | CP.PCM.PN ---
Subjective - Date & Time of Evaluation Date of Evaluation: 08/03/18 Time of Evaluation: 14:11 - Subjective Subjective: Podiatry Progress Note for Dr. Murray: 52 yo female seen and examined at bedside 4 days s/p left hallux amputation. Patient is resting comfortably and denies any acute events overnight. She denies any pain to left surgical site. Denies any other pedal complaints at this time. Denies N/V/F/SOB. Objective - Vital Signs/Intake and Output Vital Signs (last 24 hours): Temp Pulse Resp BP Pulse Ox 99 F 72 18 146/67 96 08/03/18 08:25 08/03/18 09:28 08/03/18 08:25 08/03/18 13:20 08/03/18 08:25 - Medications Medications: Current Medications Acetaminophen (Tylenol 325mg Tab) 650 mg PO Q4H PRN PRN Reason: Pain, Mild (1-3) Last Admin: 08/03/18 13:19 Dose: 650 mg Acetaminophen (Tylenol 325mg Tab) 650 mg PO Q6H PRN PRN Reason: Fever >100.4 F Last Admin: 08/01/18 13:34 Dose: 650 mg Aspirin (Ecotrin) 81 mg PO DAILY [facility] Last Admin: 08/03/18 09:28 Dose: 81 mg Atorvastatin Calcium (Lipitor) 40 mg PO DIN [facility] Last Admin: 08/02/18 18:23 Dose: 40 mg Carvedilol (Coreg) 25 mg PO BID [facility] Last Admin: 08/03/18 09:28 Dose: 25 mg Clopidogrel Bisulfate (Plavix) 75 mg PO DAILY [facility] Last Admin: 08/03/18 09:29 Dose: 75 mg Famotidine (Pepcid) 10 mg PO HS [facility] Last Admin: 08/02/18 22:05 Dose: 10 mg Furosemide (Lasix) 20 mg PO BID [facility] Last Admin: 08/03/18 09:29 Dose: 20 mg Heparin Sodium (Porcine) (Heparin) 5,000 units SC Q8 [facility]; Protocol Last Admin: 08/03/18 13:20 Dose: 5,000 units Hydralazine HCl (Apresoline) 10 mg PO Q8 [facility] Last Admin: 08/03/18 13:20 Dose: 10 mg Daptomycin 310 mg/ Sodium (Chloride) 100 mls @ 200 mls/hr IV QOD [facility] Stop: 08/07/18 10:01 Last Admin: 08/02/18 10:08 Dose: 200 mls/hr Meropenem/Sodium Chloride (Merrem Iv 500 Mg/Ns 50 Ml) 500 mg in 50 mls @ 100 mls/hr IVPB Q12 [facility]; Protocol Last Admin: 08/03/18 09:38 Dose: 100 mls/hr Insulin Detemir (Levemir) 10 unit SC HS [facility] Last Admin: 08/02/18 22:04 Dose: 10 units Insulin Human Lispro (Humalog Med) 0 units SC ACHS [facility]; Protocol Last Admin: 08/03/18 12:47 Dose: 1 unit Lisinopril (Zestril) 10 mg PO DAILY [facility] Last Admin: 08/03/18 09:29 Dose: Not Given - Labs Labs: 08/03/18 08:15 08/03/18 08:15 PT 11.9 SECONDS (9.4-12.5) 07/29/18 06:15 INR 1.03 07/29/18 06:15 APTT 36.9 Seconds (25.1-36.5) H 07/29/18 06:15 - Constitutional Appears: Well, Non-toxic, No Acute Distress - Head Exam Head Exam: ATRAUMATIC, NORMOCEPHALIC - Extremities Exam Additional comments: LLE focused exam: Vasc: DP/PT pulses 2/4. TG WNL, Cap refill < 3 seconds to all digits, no edema noted Ortho: Left hallux amputation, no tenderness upon calf compression Neuro: Gross sensation diminished, protective sensation diminished/absent Derm: Surgical site s/p hallux amputation intact: sutures intact and skin edges well coapted. No evidence of purulence, no drainage, no malodor. Small opening at the proximal aspect of incision to allow for drainage; no evidence of dehiscence. No erythema present periwound. Mild maceration noted to the medial aspect of surgical site. - Neurological Exam Neurological Exam: Alert, Awake Assessment and Plan - Assessment and Plan (Free Text) Assessment: 52yo female, 4 days s/p L hallux amputation (DOS 07/30/18) Plan: Patient seen and evaluated with Dr. Murray Intraoperative wound cx (07/30); enterobacter aerogenes Intraoperative pathology report (07/30); pending Post-op L foot x-ray (07/30); hallux amputation, old fracture deformity of proximal 5th metatarsal Continue local wound care L foot: saline cleanse, acticoat, DSD, NOEMÍ ID recs appreciated; continue Daptomycin and will start Merrem Continue with physical therapy Podiatry will continue to follow, upon d/c patient to follow up in wound care center with Dr. Murray
--- NOTE | 2018-08-03 15:21 | CP.PCM.PN ---
Subjective - Date & Time of Evaluation Date of Evaluation: 08/03/18 Time of Evaluation: 11:20 - Subjective Subjective: PGY-1 Medicine Progress Note for Dr. John's service Patient seen and examined at bedside. Patient offers no acute complaints. Patient denies fevers, chills, chest pain, sob, n/v, constipation or diarrhea, d ysuria. Objective - Vital Signs/Intake and Output Vital Signs (last 24 hours): Temp Pulse Resp BP Pulse Ox 99 F 72 18 146/67 96 08/03/18 08:25 08/03/18 09:28 08/03/18 08:25 08/03/18 13:20 08/03/18 08:25 Intake and Output: 08/03/18 08/03/18 06:59 18:59 Intake Total 720 Balance 720 - Medications Medications: Current Medications Acetaminophen (Tylenol 325mg Tab) 650 mg PO Q4H PRN PRN Reason: Pain, Mild (1-3) Last Admin: 08/03/18 13:19 Dose: 650 mg Acetaminophen (Tylenol 325mg Tab) 650 mg PO Q6H PRN PRN Reason: Fever >100.4 F Last Admin: 08/01/18 13:34 Dose: 650 mg Aspirin (Ecotrin) 81 mg PO DAILY [facility] Last Admin: 08/03/18 09:28 Dose: 81 mg Atorvastatin Calcium (Lipitor) 40 mg PO DIN [facility] Last Admin: 08/02/18 18:23 Dose: 40 mg Carvedilol (Coreg) 25 mg PO BID [facility] Last Admin: 08/03/18 09:28 Dose: 25 mg Clopidogrel Bisulfate (Plavix) 75 mg PO DAILY [facility] Last Admin: 08/03/18 09:29 Dose: 75 mg Famotidine (Pepcid) 10 mg PO HS [facility] Last Admin: 08/02/18 22:05 Dose: 10 mg Furosemide (Lasix) 20 mg PO BID [facility] Last Admin: 08/03/18 09:29 Dose: 20 mg Heparin Sodium (Porcine) (Heparin) 5,000 units SC Q8 [facility]; Protocol Last Admin: 08/03/18 13:20 Dose: 5,000 units Hydralazine HCl (Apresoline) 10 mg PO Q8 [facility] Last Admin: 08/03/18 13:20 Dose: 10 mg Daptomycin 310 mg/ Sodium (Chloride) 100 mls @ 200 mls/hr IV QOD [facility] Stop: 08/07/18 10:01 Last Admin: 08/02/18 10:08 Dose: 200 mls/hr Meropenem/Sodium Chloride (Merrem Iv 500 Mg/Ns 50 Ml) 500 mg in 50 mls @ 100 mls/hr IVPB Q12 [facility]; Protocol Last Admin: 08/03/18 09:38 Dose: 100 mls/hr Insulin Detemir (Levemir) 10 unit SC HS [facility] Last Admin: 08/02/18 22:04 Dose: 10 units Insulin Human Lispro (Humalog Med) 0 units SC ACHS [facility]; Protocol Last Admin: 08/03/18 12:47 Dose: 1 unit Lisinopril (Zestril) 10 mg PO DAILY [facility] Last Admin: 08/03/18 09:29 Dose: Not Given - Labs Labs: 08/03/18 08:15 08/03/18 08:15 PT 11.9 SECONDS (9.4-12.5) 07/29/18 06:15 INR 1.03 07/29/18 06:15 APTT 36.9 Seconds (25.1-36.5) H 07/29/18 06:15 - Additional Findings Additional findings: - Constitutional Appears: Well, Non-toxic, No Acute Distress - Head Exam Head Exam: ATRAUMATIC, NORMOCEPHALIC - Eye Exam Eye Exam: EOMI Pupil Exam: PERRL - Neck Exam Neck Exam: Normal Inspection Additional comments: No JVD - Respiratory Exam Respiratory Exam: Clear to Ausculation Bilateral, NORMAL BREATHING PATTERN - Cardiovascular Exam Cardiovascular Exam: RRR, +S1, +S2. absent: Tachycardia, JVD - GI/Abdominal Exam GI & Abdominal Exam: Soft, Normal Bowel Sounds. absent: Tenderness - Extremities Exam Additional comments: LL foot wrapped and bandaged. No jessica blood appreciated through dressings - Back Exam Back Exam: absent: CVA tenderness (L), CVA tenderness (R) - Neurological Exam Neurological Exam: Alert, Awake, Oriented x3 Assessment and Plan - Assessment and Plan (Free Text) Assessment: Patient is a 52 yo female with a past medical history of congestive heart f ailure, diabetes mellitus, hypertension, dilated cardiomyopathy with life vest who presented to the ED at the request of Dr. Murray. Pt completed L hallux amputation. Pending OR cultures and pathology likely will be available tomorrow. Plan: Diabetic Foot Ulcer POD#2 L hallux amputation Podiatry Consulted- Dr. Murray- recommendation to begin Cipro 250 mg BID PO ID consulted (Dr. Boyd) - recommended Daptomycin 310 QOD and CPK level checks, will follow up OR cultures and pathology Daptomycin 310 QOD (10-7); Meropenem 500mg (10-6) HTN Lisinopril 10mg daily Carvedilol 25mg po bid Hydralazine 10mg po tid Lisinopril 10 mg and Lasix 20mg BID continued in the setting of improved Creatinine per nephro CKD stage III Nephro Consulted- Dr. Redding- recommendations appreciated Creatinine elevated Possible new baseline as patient Cr on admission was 2.4 and has fluctuated up and down DM2 home dose of Levemir 10mg for 07/29 ISS - med dose FSBG q4h Hx of CAD continue ASA 81 mg today Plavix 75mg po daily Lipitor 40mg po din Hx of CHF 07/29/18 Echo- EF of 33% On lasix 20mg po bid; carvedilol 25mg po bid; lisinopril 10mg po daily On life vest Euvolemic PPx DVT ppx- Heparin 5000 units sc q8h GI ppx- Pepcid 10mg po HS Disposition: Likely discharge on Friday Medical Management discussed with Dr. Dora Suarez PGY-1
--- NOTE | 2018-08-03 18:35 | PN ---
DATE: 08/03/2018 CARDIOLOGY FOLLOWUP SUBJECTIVE: The patient is in no acute distress. PHYSICAL EXAMINATION: VITAL SIGNS: Blood pressure is 146/67, heart rates in the 70s. NECK: Negative JVD. LUNGS: Without rales. HEART: S1 and S2. EXTREMITIES: Bandage on lower extremities. LABORATORY DATA: Hemoglobin is 8.8. Chemistries: BUN and creatinine is 47 and 2.4. Blood glucose of 182. IMPRESSION: 1. Dilated cardiomyopathy. 2. Status post surgery of lower extremity wounds. 3. Peripheral vascular disease. 4. Mild pulmonary hypertension. 5. Anemia. PLAN: Given these findings, the patient is hemodynamically stable at this time. Continue IV antibiotics. Rodney Caldwell MD
--- NOTE | 2018-08-03 21:30 | CP.PCM.PN ---
Subjective - Date & Time of Evaluation Date of Evaluation: 08/03/18 Time of Evaluation: 10:00 - Subjective Subjective: Denies any sob; had some dizziness earlier; Objective - Vital Signs/Intake and Output Vital Signs (last 24 hours): Temp Pulse Resp BP Pulse Ox 98.6 F 73 18 140/64 94 L 08/03/18 14:00 08/03/18 14:00 08/03/18 14:00 08/03/18 18:57 08/03/18 14:00 Intake and Output: 08/03/18 08/04/18 18:59 06:59 Intake Total 720 480 Balance 720 480 - Medications Medications: Current Medications Acetaminophen (Tylenol 325mg Tab) 650 mg PO Q4H PRN PRN Reason: Pain, Mild (1-3) Last Admin: 08/03/18 13:19 Dose: 650 mg Acetaminophen (Tylenol 325mg Tab) 650 mg PO Q6H PRN PRN Reason: Fever >100.4 F Last Admin: 08/01/18 13:34 Dose: 650 mg Aspirin (Ecotrin) 81 mg PO DAILY [facility] Last Admin: 08/03/18 09:28 Dose: 81 mg Atorvastatin Calcium (Lipitor) 40 mg PO DIN [facility] Last Admin: 08/03/18 18:58 Dose: 40 mg Carvedilol (Coreg) 25 mg PO BID [facility] Last Admin: 08/03/18 18:57 Dose: Not Given Clopidogrel Bisulfate (Plavix) 75 mg PO DAILY [facility] Last Admin: 08/03/18 09:29 Dose: 75 mg Famotidine (Pepcid) 10 mg PO HS [facility] Last Admin: 08/02/18 22:05 Dose: 10 mg Furosemide (Lasix) 20 mg PO BID [facility] Last Admin: 08/03/18 18:57 Dose: 20 mg Heparin Sodium (Porcine) (Heparin) 5,000 units SC Q8 [facility]; Protocol Last Admin: 08/03/18 13:20 Dose: 5,000 units Hydralazine HCl (Apresoline) 10 mg PO Q8 [facility] Last Admin: 08/03/18 13:20 Dose: 10 mg Daptomycin 310 mg/ Sodium (Chloride) 100 mls @ 200 mls/hr IV QOD [facility] Stop: 08/07/18 10:01 Last Admin: 08/02/18 10:08 Dose: 200 mls/hr Meropenem/Sodium Chloride (Merrem Iv 500 Mg/Ns 50 Ml) 500 mg in 50 mls @ 100 mls/hr IVPB Q12 [facility]; Protocol Last Admin: 08/03/18 09:38 Dose: 100 mls/hr Insulin Detemir (Levemir) 10 unit SC HS [facility] Last Admin: 08/02/18 22:04 Dose: 10 units Insulin Human Lispro (Humalog Med) 0 units SC ACHS [facility]; Protocol Last Admin: 08/03/18 17:04 Dose: Not Given Lisinopril (Zestril) 10 mg PO DAILY [facility] Last Admin: 08/03/18 09:29 Dose: Not Given - Labs Labs: 08/03/18 08:15 08/03/18 08:15 PT 11.9 SECONDS (9.4-12.5) 07/29/18 06:15 INR 1.03 07/29/18 06:15 APTT 36.9 Seconds (25.1-36.5) H 07/29/18 06:15 - Constitutional Appears: Non-toxic, No Acute Distress - Eye Exam Eye Exam: Normal appearance - Respiratory Exam Respiratory Exam: Clear to Ausculation Bilateral. absent: Respiratory Distress - Cardiovascular Exam Cardiovascular Exam: RRR, +S1, +S2. absent: Gallop - GI/Abdominal Exam GI & Abdominal Exam: Soft. absent: Distended, Tenderness - Extremities Exam Additional comments: no leg edema; - Neurological Exam Neurological Exam: Alert, Awake - Psychiatric Exam Psychiatric exam: Normal Mood. absent: Agitated - Skin Skin Exam: Warm. absent: Cyanosis Assessment and Plan (1) Acute kidney injury Assessment & Plan: Increase in serum creatinine from baseline, likely hemodynamically mediated from over-diuresis despite being on relatively low doses of lasix; need to balance diuretics in the setting of dilated cardiomyopathy and CKD; -continue lasix 20 mg daily in am, will change pm dose to q48h; -avoid nephrotoxic agents; Status: Acute (2) Anemia of renal disease Assessment & Plan: Hgb below goal; still awaiting iron studies; will give dose of aranesp; Status: Acute (3) Hypertensive CKD (chronic kidney disease) Assessment & Plan: BP lower than usual, perhaps due to decreased PO intake; decreasing diuretic as above; consider holding hydralazine altogether (patient has been refusing meds anyway); Status: Chronic (4) CHF (congestive heart failure) Assessment & Plan: Euvolemic on exam, see above; Status: Chronic
[2018-08-03] MEDS: Insulin Detemir 100 units/ml Vial (Levemir) SC SCH (22:25)
[2018-08-04 07:57] VITALS: RESP 18
[2018-08-04] MEDS ORDERED: Darbepoetin Alfa 60 mcg/ml Inj SC ONE (08:05)
[2018-08-04] MEDS: Insulin Lispro (humaLOG) MEDIUM Coverage SC SCH ×3 (08:28→17:07)
--- NOTE | 2018-08-04 09:06 | CP.PCM.PN ---
Objective - Vital Signs/Intake and Output Vital Signs (last 24 hours): Temp Pulse Resp BP Pulse Ox 97.6 F 74 18 115/59 L 96 08/04/18 06:00 08/04/18 06:00 08/04/18 06:00 08/04/18 06:00 08/04/18 06:00 Intake and Output: 08/04/18 08/04/18 06:59 18:59 Intake Total 660 Balance 660 - Medications Medications: Current Medications Acetaminophen (Tylenol 325mg Tab) 650 mg PO Q4H PRN PRN Reason: Pain, Mild (1-3) Last Admin: 08/03/18 13:19 Dose: 650 mg Acetaminophen (Tylenol 325mg Tab) 650 mg PO Q6H PRN PRN Reason: Fever >100.4 F Last Admin: 08/01/18 13:34 Dose: 650 mg Aspirin (Ecotrin) 81 mg PO DAILY [facility] Last Admin: 08/03/18 09:28 Dose: 81 mg Atorvastatin Calcium (Lipitor) 40 mg PO DIN [facility] Last Admin: 08/03/18 18:58 Dose: 40 mg Carvedilol (Coreg) 25 mg PO BID [facility] Last Admin: 08/03/18 18:57 Dose: Not Given Clopidogrel Bisulfate (Plavix) 75 mg PO DAILY [facility] Last Admin: 08/03/18 09:29 Dose: 75 mg Famotidine (Pepcid) 10 mg PO HS [facility] Last Admin: 08/03/18 22:25 Dose: 10 mg Furosemide (Lasix) 20 mg PO DAILY [facility] Furosemide (Lasix) 20 mg PO Q48H [facility] Heparin Sodium (Porcine) (Heparin) 5,000 units SC Q8 [facility]; Protocol Last Admin: 08/04/18 05:04 Dose: Not Given Hydralazine HCl (Apresoline) 10 mg PO Q8 [facility] Last Admin: 08/04/18 05:04 Dose: Not Given Daptomycin 310 mg/ Sodium (Chloride) 100 mls @ 200 mls/hr IV QOD [facility] Stop: 08/07/18 10:01 Last Admin: 08/02/18 10:08 Dose: 200 mls/hr Meropenem/Sodium Chloride (Merrem Iv 500 Mg/Ns 50 Ml) 500 mg in 50 mls @ 100 mls/hr IVPB Q12 [facility]; Protocol Last Admin: 08/03/18 22:24 Dose: 100 mls/hr Insulin Detemir (Levemir) 10 unit SC [facility] Last Admin: 08/03/18 22:25 Dose: 10 units Insulin Human Lispro (Humalog Med) 0 units SC [facility]; Protocol Last Admin: 08/04/18 08:28 Dose: 1 unit Lisinopril (Zestril) 10 mg PO DAILY [facility] Last Admin: 08/03/18 09:29 Dose: Not Given - Labs Labs: 08/03/18 08:15 08/03/18 08:15 PT 11.9 SECONDS (9.4-12.5) 07/29/18 06:15 INR 1.03 07/29/18 06:15 APTT 36.9 Seconds (25.1-36.5) H 07/29/18 06:15
[2018-08-04] MEDS: MEROPENEM 500 MG in NS 500 MG/50 ML BAG IVPB SCH (11:50)
--- NOTE | 2018-08-04 12:39 | CP.PCM.PN ---
<Saida Mock - Last Filed: 08/04/18 12:49> Subjective - Date & Time of Evaluation Date of Evaluation: 08/04/18 Time of Evaluation: 12:36 - Subjective Subjective: Podiatry Progress Note for Dr. Laboy: 52 yo female, seen and evaluated at bedside 5 days s/p left hallux amputation. Patient is AAOx3 and resting comfortably. Patient denies any acute events overnight. Denies any pain to LLE. Denies N/V/F/SOB. Objective - Vital Signs/Intake and Output Vital Signs (last 24 hours): Temp Pulse Resp BP Pulse Ox 97.6 F 74 18 150/67 96 08/04/18 06:00 08/04/18 06:00 08/04/18 06:00 08/04/18 11:12 08/04/18 06:00 Intake and Output: 08/04/18 08/04/18 06:59 18:59 Intake Total 660 Balance 660 - Medications Medications: Current Medications Acetaminophen (Tylenol 325mg Tab) 650 mg PO Q4H PRN PRN Reason: Pain, Mild (1-3) Last Admin: 08/03/18 13:19 Dose: 650 mg Acetaminophen (Tylenol 325mg Tab) 650 mg PO Q6H PRN PRN Reason: Fever >100.4 F Last Admin: 08/01/18 13:34 Dose: 650 mg Aspirin (Ecotrin) 81 mg PO DAILY [facility] Last Admin: 08/04/18 11:09 Dose: 81 mg Atorvastatin Calcium (Lipitor) 40 mg PO DIN [facility] Last Admin: 08/03/18 18:58 Dose: 40 mg Carvedilol (Coreg) 25 mg PO BID [facility] Last Admin: 08/04/18 11:11 Dose: Not Given Clopidogrel Bisulfate (Plavix) 75 mg PO DAILY [facility] Last Admin: 08/04/18 11:09 Dose: 75 mg Famotidine (Pepcid) 10 mg PO HS [facility] Last Admin: 08/03/18 22:25 Dose: 10 mg Furosemide (Lasix) 20 mg PO DAILY [facility] Last Admin: 08/04/18 11:12 Dose: 20 mg Furosemide (Lasix) 20 mg PO Q48H [facility] Heparin Sodium (Porcine) (Heparin) 5,000 units SC Q8 [facility]; Protocol Last Admin: 08/04/18 05:04 Dose: Not Given Hydralazine HCl (Apresoline) 10 mg PO Q8 [facility] Last Admin: 08/04/18 05:04 Dose: Not Given Daptomycin 310 mg/ Sodium (Chloride) 100 mls @ 200 mls/hr IV QOD [facility] Stop: 08/07/18 10:01 Last Admin: 08/04/18 11:11 Dose: 200 mls/hr Meropenem/Sodium Chloride (Merrem Iv 500 Mg/Ns 50 Ml) 500 mg in 50 mls @ 100 mls/hr IVPB Q12 [facility]; Protocol Last Admin: 08/04/18 11:50 Dose: 100 mls/hr Insulin Detemir (Levemir) 10 unit SC HS [facility] Last Admin: 08/03/18 22:25 Dose: 10 units Insulin Human Lispro (Humalog Med) 0 units SC ACHS [facility]; Protocol Last Admin: 08/04/18 11:49 Dose: Not Given Lisinopril (Zestril) 10 mg PO DAILY [facility] Last Admin: 08/04/18 11:10 Dose: 10 mg - Labs Labs: 08/03/18 08:15 08/03/18 08:15 PT 11.9 SECONDS (9.4-12.5) 07/29/18 06:15 INR 1.03 07/29/18 06:15 APTT 36.9 Seconds (25.1-36.5) H 07/29/18 06:15 - Constitutional Appears: Well, Non-toxic, No Acute Distress - Head Exam Head Exam: ATRAUMATIC, NORMOCEPHALIC - Extremities Exam Additional comments: LLE focused exam: Vasc: DP/PT pulses palpable. TG WNL, Cap refill < 3 seconds to all remaining digits, no edema noted to surgical site Ortho: Left hallux amputation, no tenderness upon calf compression, no tenderness/pain upon palpation of surgical site Neuro: Gross sensation diminished, protective sensation diminished/absent Derm: Surgical site s/p hallux amputation intact: sutures intact and skin edges well coapted. No evidence of purulence, mild serous drainaged noted from medial aspect of surgical site. Small .5x.5x.5 dehiscence noted to medial aspect of incision site. Mild erythema periwound. - Neurological Exam Neurological Exam: Alert, Awake, Oriented x3 - Psychiatric Exam Psychiatric exam: Normal Affect, Normal Mood Assessment and Plan - Assessment and Plan (Free Text) Assessment: 52yo female 5 days s/p L hallux amputation (DOS 07/30/18) Plan: Patient seen and evaluated with Dr. Narda MART, WBC 11.3 (08/03) Intraoperative wound cx (07/30); enterobacter aerogenes Intraoperative pathology report clean margin (07/30); Benign bone with no evidence of actue OM Post-op L foot x-ray (07/30); hallux amputation, old fracture deformity of proximal 5th metatarsal Continue local wound care L foot: saline cleanse, acticoat, DSD, NOEMÍ Per ID: Daptomycin [id number] QOD and CPK level checks, will follow up OR cultures and pathology Continue with physical therapy Upon d/c patient to follow up in wound care center on with Dr. Murray <Jamison Laboy - Last Filed: 08/04/18 17:04> Objective - Vital Signs/Intake and Output Vital Signs (last 24 hours): Temp Pulse Resp BP Pulse Ox 98.5 F 75 18 122/53 L 97 08/04/18 14:00 08/04/18 14:00 08/04/18 14:00 08/04/18 14:00 08/04/18 14:00 Intake and Output: 08/04/18 08/04/18 06:59 18:59 Intake Total 660 480 Balance 660 480 - Medications Medications: Current Medications Acetaminophen (Tylenol 325mg Tab) 650 mg PO Q4H PRN PRN Reason: Pain, Mild (1-3) Last Admin: 08/04/18 13:03 Dose: 650 mg Acetaminophen (Tylenol 325mg Tab) 650 mg PO Q6H PRN PRN Reason: Fever >100.4 F Last Admin: 08/01/18 13:34 Dose: 650 mg Aspirin (Ecotrin) 81 mg PO DAILY [facility] Last Admin: 08/04/18 11:09 Dose: 81 mg Atorvastatin Calcium (Lipitor) 40 mg PO DIN [facility] Last Admin: 08/03/18 18:58 Dose: 40 mg Carvedilol (Coreg) 25 mg PO BID [facility] Last Admin: 08/04/18 11:11 Dose: Not Given Clopidogrel Bisulfate (Plavix) 75 mg PO DAILY [facility] Last Admin: 08/04/18 11:09 Dose: 75 mg Famotidine (Pepcid) 10 mg PO HS [facility] Last Admin: 08/03/18 22:25 Dose: 10 mg Furosemide (Lasix) 20 mg PO DAILY [facility] Last Admin: 08/04/18 11:12 Dose: 20 mg Furosemide (Lasix) 20 mg PO Q48H [facility] Heparin Sodium (Porcine) (Heparin) 5,000 units SC Q8 [facility]; Protocol Last Admin: 08/04/18 13:03 Dose: 5,000 units Hydralazine HCl (Apresoline) 10 mg PO Q8 [facility] Last Admin: 08/04/18 13:03 Dose: 10 mg Daptomycin 310 mg/ Sodium (Chloride) 100 mls @ 200 mls/hr IV QOD [facility] Stop: 08/07/18 10:01 Last Admin: 08/04/18 11:11 Dose: 200 mls/hr Meropenem/Sodium Chloride (Merrem Iv 500 Mg/Ns 50 Ml) 500 mg in 50 mls @ 100 mls/hr IVPB Q12 [facility]; Protocol Last Admin: 08/04/18 11:50 Dose: 100 mls/hr Insulin Detemir (Levemir) 10 unit SC HS [facility] Last Admin: 08/03/18 22:25 Dose: 10 units Insulin Human Lispro (Humalog Med) 0 units SC ACHS [facility]; Protocol Last Admin: 08/04/18 11:49 Dose: Not Given Lisinopril (Zestril) 10 mg PO DAILY [facility] Last Admin: 08/04/18 11:10 Dose: 10 mg - Labs Labs: 08/03/18 08:15 08/03/18 08:15 PT 11.9 SECONDS (9.4-12.5) 07/29/18 06:15 INR 1.03 07/29/18 06:15 APTT 36.9 Seconds (25.1-36.5) H 07/29/18 06:15 Attending/Attestation - Attestation I have personally seen and examined this patient.: Yes I have fully participated in the care of the patient.: Yes I have reviewed all pertinent clinical information, including history, physical exam and plan: Yes
--- NOTE | 2018-08-04 13:17 | CP.PCM.PN ---
<Harper Ashraf - Last Filed: 08/04/18 14:09> Subjective - Date & Time of Evaluation Date of Evaluation: 08/04/18 Time of Evaluation: 09:00 - Subjective Subjective: PGY-3 Resident ID progress note for Dr. Boyd Patient states the cough has improved, still with scratchy throat. Fever free for over 24 hours. Tolerating po, no nausea, vomiting or diarrhea. Left extremity pain improved. Objective - Vital Signs/Intake and Output Vital Signs (last 24 hours): Temp Pulse Resp BP Pulse Ox 97.6 F 74 18 135/61 96 08/04/18 06:00 08/04/18 06:00 08/04/18 06:00 08/04/18 13:03 08/04/18 06:00 Intake and Output: 08/04/18 08/04/18 06:59 18:59 Intake Total 660 Balance 660 - Medications Medications: Current Medications Acetaminophen (Tylenol 325mg Tab) 650 mg PO Q4H PRN PRN Reason: Pain, Mild (1-3) Last Admin: 08/04/18 13:03 Dose: 650 mg Acetaminophen (Tylenol 325mg Tab) 650 mg PO Q6H PRN PRN Reason: Fever >100.4 F Last Admin: 08/01/18 13:34 Dose: 650 mg Aspirin (Ecotrin) 81 mg PO DAILY [facility] Last Admin: 08/04/18 11:09 Dose: 81 mg Atorvastatin Calcium (Lipitor) 40 mg PO DIN [facility] Last Admin: 08/03/18 18:58 Dose: 40 mg Carvedilol (Coreg) 25 mg PO BID [facility] Last Admin: 08/04/18 11:11 Dose: Not Given Clopidogrel Bisulfate (Plavix) 75 mg PO DAILY [facility] Last Admin: 08/04/18 11:09 Dose: 75 mg Famotidine (Pepcid) 10 mg PO HS [facility] Last Admin: 08/03/18 22:25 Dose: 10 mg Furosemide (Lasix) 20 mg PO DAILY [facility] Last Admin: 08/04/18 11:12 Dose: 20 mg Furosemide (Lasix) 20 mg PO Q48H [facility] Heparin Sodium (Porcine) (Heparin) 5,000 units SC Q8 [facility]; Protocol Last Admin: 08/04/18 13:03 Dose: 5,000 units Hydralazine HCl (Apresoline) 10 mg PO Q8 [facility] Last Admin: 08/04/18 13:03 Dose: 10 mg Daptomycin 310 mg/ Sodium (Chloride) 100 mls @ 200 mls/hr IV QOD [facility] Stop: 08/07/18 10:01 Last Admin: 08/04/18 11:11 Dose: 200 mls/hr Meropenem/Sodium Chloride (Merrem Iv 500 Mg/Ns 50 Ml) 500 mg in 50 mls @ 100 mls/hr IVPB Q12 [facility]; Protocol Last Admin: 08/04/18 11:50 Dose: 100 mls/hr Insulin Detemir (Levemir) 10 unit SC HS [facility] Last Admin: 08/03/18 22:25 Dose: 10 units Insulin Human Lispro (Humalog Med) 0 units SC ACHS [facility]; Protocol Last Admin: 08/04/18 11:49 Dose: Not Given Lisinopril (Zestril) 10 mg PO DAILY [facility] Last Admin: 08/04/18 11:10 Dose: 10 mg - Labs Labs: 08/03/18 08:15 08/03/18 08:15 PT 11.9 SECONDS (9.4-12.5) 07/29/18 06:15 INR 1.03 07/29/18 06:15 APTT 36.9 Seconds (25.1-36.5) H 07/29/18 06:15 - Constitutional Appears: No Acute Distress - Head Exam Head Exam: ATRAUMATIC, NORMAL INSPECTION - Eye Exam Eye Exam: Normal appearance - ENT Exam ENT Exam: Mucous Membranes Moist - Neck Exam Neck Exam: Normal Inspection - Respiratory Exam Respiratory Exam: Clear to Ausculation Bilateral, NORMAL BREATHING PATTERN. absent: Rales, Rhonchi, Wheezes, Respiratory Distress, Stridor - Cardiovascular Exam Cardiovascular Exam: REGULAR RHYTHM, RRR, +S1, +S2 - GI/Abdominal Exam GI & Abdominal Exam: Soft, Normal Bowel Sounds. absent: Distended, Firm, Guarding, Rigid, Tenderness - Extremities Exam Additional comments: Left lower extremity with clean dressing. - Back Exam Back Exam: NORMAL INSPECTION - Neurological Exam Neurological Exam: Alert, Awake, Oriented x3 - Psychiatric Exam Psychiatric exam: Normal Affect, Normal Mood Assessment and Plan - Assessment and Plan (Free Text) Assessment: Patient is a 52 y/o female with: Sepsis due to left hallux cellulites/gangrene with methicillin-resistant Staph aureus bacteremia, toe growing MSSA and now also Enterobacter aerogenese with osteomyelitis S/P amputation with clean margin POD #5, Cough with SIRS - influenza negative cardiomyopathy with EF 33% RADHA on CKD DM HTN dyslipdemia Plan: Afebrile, repeat cultures with so far no growth, normal chest x-ray. + mild l eukocytosis. Urine culture with gram negative enrique, however patient is asymptomatic. influenza negative. S/p daptomycin and merrem for 28 days total. Pathology report of the amputated toe with clean margin, viable and free of inflammation. Will discontinue IV antibiotic. Patient will have to follow up with podiatry for wound care. Medical management as per primary. Patient seen, examined and case discussed with Dr. Boyd. <Navarro Boyd - Last Filed: 08/04/18 21:11> Objective - Vital Signs/Intake and Output Vital Signs (last 24 hours): Temp Pulse Resp BP Pulse Ox 98.5 F 75 18 122/53 L 97 08/04/18 14:00 08/04/18 14:00 08/04/18 14:00 08/04/18 14:00 08/04/18 14:00 Intake and Output: 08/04/18 08/05/18 18:59 06:59 Intake Total 480 Balance 480 - Labs Labs: 08/03/18 08:15 08/03/18 08:15 PT 11.9 SECONDS (9.4-12.5) 07/29/18 06:15 INR 1.03 07/29/18 06:15 APTT 36.9 Seconds (25.1-36.5) H 07/29/18 06:15 Assessment and Plan - Assessment and Plan (Free Text) Plan: Infectious Diseases Attending Physician Addendum Patient seen, examined, discussed with medical physics professor. I have reviewed the pe rtinent clinical information. I agree with the above findings, assessment and plan and in addition, OR pathology is showing clear bone margins - patient has had enough antibiotics - may d/c antibiotics and patient needs to follow up at the wound center with Dr. Murray.
[2018-08-04 15:18] VITALS: BP 122/53; PULSE 75; TEMP 98.5; O2SAT 97
--- NOTE | 2018-08-04 15:45 | OP ---
PROCEDURE DATE: 07/28/2018 SURGEON: Reshma Murray DPM PRECISION MACHINE OPERATOR: Saida Brown, PGY-1. ANESTHESIOLOGIST: Dr. Mercado. ANESTHESIA: IV sedation with local. PREOPERATIVE DIAGNOSIS: Left hallux gangrene with nonhealing previous amputation site. POSTOPERATIVE DIAGNOSIS: Left hallux gangrene with nonhealing previous amputation site. NAME OF PROCEDURE: Left hallux amputation. INDICATIONS: The patient is a 52-year-old female with the above diagnosis. The patient has exhausted all conservative treatments at this time and now required surgical intervention. The patient signed the consent after careful explanation, risks, benefits, complications, and alternatives for surgical procedure. No guarantees were given nor implied. N.p.o. status was confirmed prior to taking the patient to operating room. PREPARATION: The patient was brought to the operating room and placed on the operating room table in the supine position. Time-out was performed for identification of the correct patient and procedure. After induction of IV sedation, the patient received a total of 20 mL of 2% lidocaine plain in a digital block fashion to the left hallux. The left foot was then prepped and draped in the normal sterile manner when procedure began. No tourniquet was utilized during the procedure. PROCEDURE: Attention was drawn to the distal tip of the left hallux where a distal circumferential racquet-type incision was made using #15 blade at the level of the metatarsophalangeal joint. The incision was then extended down to the subcutaneous layers down to the level of bone extending into the metatarsophalangeal joint. Using a bone clamp, stabilized the hallux with proximal phalanx from the first level of the metatarsophalangeal joint and sent to pathology. Using sagittal saw, the cutter was first metatarsal head which was dissected and passed off from the operating field and sent to pathology as a clear margin. Using a #15 blade, all necrotic and nonviable tissue was then excisionally debrided from the surgical site with additional soft tissue removed to allow for adequate skin closure without tension. The wound was then copiously flushed with sterile saline, mixed with gentamicin with a pulse lavage. At this time, a wound closure was began. The surgical site was then sutured close using 3-0 Vicryl subcutaneous sutures and 3-0 nylon skin sutures. The surgical site was then dressed with Adaptic, 4 x 4, gauze, and Kerlix. POSTOPERATIVE CONDITION: The patient tolerated the anesthesia and procedure well and escorted to the recovery room with all vital signs stable and neurovascular status intact in the left foot. The patient is to remain partial weightbearing to the left lower extremity, tolerating the surgical shoe and crutches. The patient is to return to the floor, and Podiatry will continue to follow the patient. On discharge, the patient will follow up with Dr. Murray in her office. SAIDA BROWN Reshma Murray DPM
--- NOTE | 2018-08-04 16:01 | CP.PCM.DIS ---
Provider - Provider Date of Admission: 07/28/18 18:28 Attending physician: Yi Stevenson MD Primary care physician: Diana Armas DO Consults: Dr. Vahid Murray Time Spent in preparation of Discharge (in minutes): 45 Hospital Course - Lab Results Lab Results: Micro Results 08/01/18 14:10 Blood-Venous Blood Culture - Preliminary NO GROWTH AFTER 3 DAYS 08/01/18 13:45 Blood-Venous Blood Culture - Preliminary NO GROWTH AFTER 3 DAYS 08/02/18 17:30 Urine,Catheterized Urine Culture - Preliminary Gram Negative Evaristo Yeast Species 07/29/18 06:10 Blood-Venous Blood Culture - Final NO GROWTH AFTER 5 DAYS 07/29/18 06:10 Blood-Venous Gram Stain - Final TEST NOT PERFORMED 07/29/18 06:20 Blood-Venous Blood Culture - Final NO GROWTH AFTER 5 DAYS 07/29/18 06:20 Blood-Venous Gram Stain - Final TEST NOT PERFORMED 07/30/18 17:49 Other: Please Indicate Gram Stain - Final 07/30/18 17:49 Other: Please Indicate Wound Culture - Final Enterobacter Aerogenes Most Recent Lab Values WBC 11.3 10^3/ul (4.5-11.0) H 08/03/18 08:15 RBC 3.03 10^6/uL (3.5-6.1) L 08/03/18 08:15 Hgb 8.8 g/dL (12.0-16.0) L 08/03/18 08:15 Hct 27.1 % (36.0-48.0) L 08/03/18 08:15 MCV 89.4 fl (80.0-105.0) 08/03/18 08:15 MCH 29.0 pg (25.0-35.0) 08/03/18 08:15 MCHC 32.5 g/dl (31.0-37.0) 08/03/18 08:15 RDW 13.1 % (11.5-14.5) 08/03/18 08:15 Plt Count 523 10^3/uL (120.0-450.0) H 08/03/18 08:15 MPV 8.8 fl (7.0-11.0) 08/03/18 08:15 Gran % 75.5 % (50.0-68.0) H 08/03/18 08:15 Lymph % (Auto) 10.3 % (22.0-35.0) L 08/03/18 08:15 [place] % (Auto) 10.0 % (1.0-6.0) H 08/03/18 08:15 Eos % (Auto) 3.4 % (1.5-5.0) 08/03/18 08:15 Baso % (Auto) 0.8 % (0.0-3.0) 08/03/18 08:15 Gran # 8.51 (1.4-6.5) H 08/03/18 08:15 Lymph # (Auto) 1.2 (1.2-3.4) 08/03/18 08:15 [place] # (Auto) 1.1 (0.1-0.6) H 08/03/18 08:15 Eos # (Auto) 0.4 (0.0-0.7) 08/03/18 08:15 Baso # (Auto) 0.09 K/mm3 (0.0-2.0) 08/03/18 08:15 PT 11.9 SECONDS (9.4-12.5) 07/29/18 06:15 INR 1.03 07/29/18 06:15 APTT 36.9 Seconds (25.1-36.5) H 07/29/18 06:15 pO2 56 mm/Hg (30-55) H 07/28/18 17:15 VBG pH 7.42 (7.32-7.43) 07/28/18 17:15 VBG pCO2 55.0 (40-60) 07/28/18 17:15 VBG HCO3 35.7 mmol/l (21-28) H 07/28/18 17:15 VBG Total CO2 37.4 mmol.L (22-28) H 07/28/18 17:15 VBG O2 Sat (Calc) 91.9 % (40-65) H 07/28/18 17:15 VBG Base Excess 9.3 mmol/L (0.0-2.0) H 07/28/18 17:15 VBG Potassium 4.1 mmol/L (3.6-5.2) 07/28/18 17:15 Sodium 136.0 mmol/L (132-148) 07/28/18 17:15 Chloride 100.0 mmol/L (98-107) 07/28/18 17:15 Glucose 227 mg/dl (65-105) H 07/28/18 17:15 Lactate 0.7 mmol/L (0.7-2.1) 07/28/18 17:15 FiO2 21.0 % 07/28/18 17:15 Sodium 139 mmol/L (132-148) 08/03/18 08:15 Potassium 4.0 mmol/L (3.6-5.0) 08/03/18 08:15 Chloride 98 mmol/L (98-107) 08/03/18 08:15 Carbon Dioxide 32 mmol/L (21-33) 08/03/18 08:15 Anion Gap 13 (10-20) 08/03/18 08:15 BUN 47 mg/dL (7-21) H 08/03/18 08:15 Creatinine 2.4 mg/dl (0.7-1.2) H 08/03/18 08:15 Est GFR ( Amer) 25 08/03/18 08:15 Est GFR (Non-Af Amer) 21 08/03/18 08:15 POC Glucose (mg/dL) 148 mg/dL (65-110) H 08/04/18 15:49 Random Glucose 71 mg/dL (70-110) 08/03/18 08:15 Calcium 8.3 mg/dL (8.4-10.5) L 08/03/18 08:15 Phosphorus 4.6 mg/dL (2.5-4.5) H 07/29/18 06:15 Magnesium 2.6 mg/dL (1.7-2.2) H 07/29/18 06:15 Total Bilirubin 0.5 mg/dL (0.2-1.3) 08/03/18 08:15 AST 22 U/L (14-36) 08/03/18 08:15 ALT 16 U/L (7-56) 08/03/18 08:15 Alkaline Phosphatase 110 U/L (38-126) 08/03/18 08:15 Total Creatine Kinase 56 U/L (35-230) 07/29/18 07:30 Total Protein 7.3 g/dL (5.8-8.3) 08/03/18 08:15 Albumin 3.3 g/dL (3.0-4.8) 08/03/18 08:15 Globulin 3.9 gm/dL 08/03/18 08:15 Albumin/Globulin Ratio 0.8 (1.1-1.8) L 08/03/18 08:15 Venous Blood Potassium 4.1 mmol/L (3.6-5.2) 07/28/18 17:15 Urine Color Yellow (YELLOW) 08/02/18 17:30 Urine Appearance Clear (CLEAR) 08/02/18 17:30 Urine pH 6.0 (4.7-8.0) 08/02/18 17:30 Ur Specific [place] 1.020 (1.005-1.035) 08/02/18 17:30 Urine Protein 100 mg/dL (<30 mg/dL) H 08/02/18 17:30 Urine Glucose (UA) Negative mg/dL (NEGATIVE) 08/02/18 17:30 Urine Ketones Negative mg/dL (NEGATIVE) 08/02/18 17:30 Urine Blood Small (NEGATIVE) H 08/02/18 17:30 Urine Nitrate Positive (NEGATIVE) H 08/02/18 17:30 Urine Bilirubin Negative (NEGATIVE) 08/02/18 17:30 Urine Urobilinogen 0.2 E.U./dL (<1 E.U./dL) 08/02/18 17:30 Ur Leukocyte Esterase Small Estefanía/uL (NEGATIVE) H 08/02/18 17:30 Urine RBC 15 - 20 /hpf (0-2) 08/02/18 17:30 Urine WBC 5 - 10 /hpf (0-6) 08/02/18 17:30 Ur Epithelial Cells 10 - 12 /hpf (0-5) 08/02/18 17:30 Amorphous Sediment Trace 08/02/18 17:30 Ur Random Urea Nitrogn 456 mg/dL 08/02/18 17:30 Influenza Typ A,B (EIA) Negative for flu a/b (NEGATIVE) 08/03/18 15:16 Blood Type AB POSITIVE 07/28/18 17:15 Antibody Screen Negative 07/28/18 17:15 BBK History Checked Patient has bt 07/28/18 17:15 - Hospital Course Hospital Course: Upon admission Patient is a 52 yo female with a past medical history of congestive heart failure, diabetes mellitus, hypertension, dilated cardiomyopathy with life vest who presented to the ED at the request of Dr. Murray. Patient was in the hospital approximately a month ago for similar situation. Patient had positive cultures for MSSA with wound culture. MRI on last admission was negative for any osteomyelitis. Patient was to continue outpatient with IV daptomycin for 4 weeks starting from negative blood cultures. Patient had a revasculrization procedure done with IR however it was complicated due to patient developing contrast induced nephropathy. Patient was to followup with Dr. Redding for restarting NOEMÍ and Aldactone because they were held after PATRICIA. Patient's foot ulcer was not healing appropriately with IV Abx (Daptomycin) use so it was planned for podiatry to have the toe amputated. Patient states she had an allergic reaction to the antibiotic after 2 weeks of use. She states her left hand skin was peeling on the distal part of her hand but most likely its due to contact dermatitis. Patient denies fevers, chills, shortness of breath, chest pain, n/v, constipation or diarrhea, dysuria. Patient admits to headaches at time. Hospital Course 52 year old female admitted for left hallux amputation. Due to cardiac history, cardiology was consulted. Echo performed on 07/29/2018 resulted cardiomyopathy with EF 35-40%. Patient stratified as moderate risk for toe amputation procedure. Nephrology was consulted to assist in management of CKD. Nephrology noted improvement in renal function, recommended that patient be on 20mg Lasix BID and 10 mg Lisinopril, and that all abx be renally dosed. Podiatry, Dr. Murray, consulted. Patient had left hallux amputation on 07/30/2018. Podiatry recommended beginning 250 mg Cipro BID PO. ID was consulted for sepsis due to left hallux cellulitis/gangrene with MRSA bacteremia, toe growing MSSA with osteomyelitis s/p amputation post-op day 1; recommended re-starting Daptomycin and CPK level checks. Cipro was discontinued after 1 day. Patient was started on Daptomycin on 08/02/2018 and Meropenem 500mg 08/01/2018. Patient was given 28 days of Daptomycin and Merrem. Blood cultures resulted no growth. Wound culture from operation resulted Enterobacter Aerogenes. ID recommended discontinuing IV abx as intraoperative pathology resulted clean margin (07/30); benign bone with no evidence of acute OM. Post-op foot XR resulted hallux amputation, old fracture deformity of proximal 5th metatarsal. CXR performed on 08/02 resulted no active disease. On 08/02/2018, UA resulted gram negative rods, yeast species. As per ID, patient is asymptomatic and does not abx. Nephrology re-evaluated patient post-op and noted an increase in serum creatinine from baseline, likely hemodynamically from over-diuresis; continue Lasix 20 mg daily in am, change evening Lasix dose to q48h, patient given dose of Aranesp; recommended holding hydralazine because patients BP lower than usual. Patient cleared for discharge by cardiology, podiatry, nephrology, and ID. Patient was seen by PT, and cleared for discharge. Discharge plan Patient is stable for discharge to home as per Dr. John. She was counseled to return to the emergency department if symptoms return or worsen. Patient is to follow up with primary medical doctor, Dr. Diana Armas, within 3-5 days of discharge. Patient is to follow up with podiatry, Dr. Murray, within 3-5 days of discharge. Patient is to follow up with nephrology, Dr. Redding, as scheduled. Patient to follow up with cardiology, Dr. Caldwell, as scheduled. Patient counseled on wound care and keeping dressing clean. Patient is to take home medications as prescribed and instructed in discharge instructions. Reviewed all medications with patient, and she understands instructions. Patient understands and agrees with discharge plan. Disclaimer: Written above is a synopsis of patients current hospital admission. For full admission refer to EMR. Discharge Exam - Additional Findings Additional findings: - Constitutional Appears: Well, Non-toxic, No Acute Distress - Head Exam Head Exam: ATRAUMATIC, NORMOCEPHALIC - Eye Exam Eye Exam: EOMI Pupil Exam: PERRL - Neck Exam Neck Exam: Normal Inspection Additional comments: No JVD - Respiratory Exam Respiratory Exam: Clear to Ausculation Bilateral, NORMAL BREATHING PATTERN - Cardiovascular Exam Cardiovascular Exam: RRR, +S1, +S2. absent: Tachycardia, JVD - GI/Abdominal Exam GI & Abdominal Exam: Soft, Normal Bowel Sounds. absent: Tenderness - Extremities Exam Additional comments: LL foot wrapped and bandaged. No jessica blood appreciated through dressings - Back Exam Back Exam: absent: CVA tenderness (L), CVA tenderness (R) - Neurological Exam Neurological Exam: Alert, Awake, Oriented x3 Discharge Plan - Discharge Medications Prescriptions: RX: Lisinopril [Prinivil] 10 mg PO DAILY #30 tablet - Follow Up Plan Condition: STABLE Disposition: HOME/ ROUTINE Instructions: Heart Healthy Diet, Methicillin-Resistant Staphylococcus aureus (MRSA), Heart Failure, Adult (DC), Wound Care (DC), Pneumococcal Polysaccharide Vaccine (23-Valent), Flu Vaccine Additional Instructions: 1. Patient is stable for discharge as per Dr. John 2. Patient is to followup with primary medical doctor, Dr. Armas, within 3-7 days of discharge from hospital. Patient is to followup with podiatry, Dr. Murray, within 3-7 days of discharge from hospital. Patient is to followup with cloth seconds sorter, Dr. Redding, within 3-7 days of discharge from hospital for continued management. 3. Patient will continue the following medications as listed: Aspirin 81mg once by mouth daily, Lipitor 40mg once by mouth daily, Carvedilol 25mg twice by mouth daily, Ergocalciferol 1 cap by mouth once a week, Pepcid 40mg by mouth once daily, Lasix 20mg in the morning once daily, Lasix 20mg at night every other day, Home insulin as prescribed, Lisinopril 10mg by mouth once daily. Patient will not continue taking her hydralazine. Patient will not require oral antibiotics based on ID recommendations and final OR pathology report. 4. Patient will return to the hospital if symptoms worsen or recur. 5. Patient understands the plan as above and agrees. Referrals: Reshma Murray DPM [Staff Provider] - Ke Redding MD [Staff Provider] - Diana Armas DO [Primary Care Provider] -
[2018-08-04] MEDS ORDERED: Influenza Vaccine 60 mcg/0.5 mL SYR (4YR UP) IM ONE (16:19)
== END 2018-08-04 18:15 | disposition home or self-care (01) | DRG 550 ==
LOC: ED 15:35 → ERH 18:28 → 5RNO 21:55
PROVIDERS: ADMIT Internal Medicine; ATTEND Internal Medicine
PROC: 0Y6Q0Z0 Detachment at Left 1st Toe, Complete, Open Approach (ICD-10-PCS; principal; 2018-07-30 07:30)
DX: E11.52 Type 2 diabetes mellitus with diabetic peripheral angiopathy with gangrene (principal); M86.172 Other acute osteomyelitis, left ankle and foot; I50.20 Unspecified systolic (congestive) heart failure; N17.9 Acute kidney failure, unspecified; R65.10 Systemic inflammatory response syndrome (SIRS) of non-infectious origin without acute organ dysfunction; I13.0 Hypertensive heart and chronic kidney disease with heart failure and stage 1 through stage 4 chronic kidney disease, or unspecified chronic kidney disease; N18.3 Chronic kidney disease, stage 3 (moderate); I42.0 Dilated cardiomyopathy; L97.529 Non-pressure chronic ulcer of other part of left foot with unspecified severity; E11.621 Type 2 diabetes mellitus with foot ulcer; E11.69 Type 2 diabetes mellitus with other specified complication; E11.22 Type 2 diabetes mellitus with diabetic chronic kidney disease; D63.1 Anemia in chronic kidney disease; L03.032 Cellulitis of left toe; E78.00 Pure hypercholesterolemia, unspecified; I27.20 Pulmonary hypertension, unspecified; D50.9 Iron deficiency anemia, unspecified; K21.9 Gastro-esophageal reflux disease without esophagitis; L25.9 Unspecified contact dermatitis, unspecified cause; K29.70 Gastritis, unspecified, without bleeding; E78.5 Hyperlipidemia, unspecified; B96.89 Other specified bacterial agents as the cause of diseases classified elsewhere; Z79.4 Long term (current) use of insulin; Z86.14 Personal history of Methicillin resistant Staphylococcus aureus infection; Z87.410 Personal history of cervical dysplasia; Z79.02 Long term (current) use of antithrombotics/antiplatelets; Z82.49 Family history of ischemic heart disease and other diseases of the circulatory system; Z83.3 Family history of diabetes mellitus

== ENCOUNTER 2018-09-01 11:12 | Inpatient (IN) | payer MEDICAID ==
--- NOTE | 2018-09-01 12:35 | ED PDOC ---
Arrival/HPI - General Chief Complaint: Lower Extremity Problem/Injury Time Seen by Provider: 09/01/18 11:52 Historian: Patient - History of Present Illness Narrative History of Present Illness (Text): 09/01/18 13:05 52-year-old female with a history of diabetes and left great toe amputation presents today sent in by Dr. Murray for admission for a nonhealing wound to the left great toe. Patient was being followed in the wound care center and was advised to come to the emergency room for admission for diabetic nonhealing wound. Patient denies pain. Denies fevers or chills. Patient states she is a diabetic and forgot to take her insulin today. She denies chest pain or shortness of breath. Patient states that she has a life vest. Past Medical History - Provider Review Nursing Documentation Reviewed: Yes - Travel History Have you recently traveled outside [place] w/in the past 3 mons?: No - Infectious Disease Hx of Infectious Diseases: None - Tetanus Immunization Tetanus Immunization: Unknown - Cardiac Hx Cardiac Disorders: Yes Hx Congestive Heart Failure: Yes - Pulmonary Hx Respiratory Disorders: No - Neurological Hx Neurological Disorder: No - HEENT Hx HEENT Disorder: No - Renal Hx Renal Disorder: No - Endocrine/Metabolic Hx Endocrine Disorders: Yes Hx Diabetes Mellitus Type 2: Yes - Hematological/Oncological Hx Blood Disorders: No - Integumentary Hx Dermatological Disorder: Yes Other/Comment: cellulitis ball of right [id number] x2cm brown dry skin, dried skin between toes right foot, pt had sx last year i and d to right foot abcess, foot healed - Musculoskeletal/Rheumatological Hx Musculoskeletal Disorders: Yes Hx Falls: Yes (last december) - Gastrointestinal Hx Gastrointestinal Disorders: Yes (constipation, gastritis) Hx Gastroesophageal Reflux: Yes - Genitourinary/Gynecological Hx Genitourinary Disorders: Yes Hx Urinary Tract Infection: Yes - Psychiatric Hx Psychophysiologic Disorder: No Hx Substance Use: No - Past Surgical History Past Surgical History: No Previous - Surgical History Hx Amputation: Yes - Anesthesia Hx Anesthesia Reactions: No Hx Malignant Hyperthermia: No - Suicidal Assessment Feels Threatened In Home Enviroment: No Family/Social History - Physician Review Nursing Documentation Reviewed: Yes Family/Social History: Unknown Family HX Smoking Status: Never Smoked Hx Alcohol Use: No Hx Substance Use: No Hx Substance Use Treatment: No Allergies/Home Meds Allergies/Adverse Reactions: Allergies pantoprazole Allergy (Verified 09/01/18 11:52) RASH Review of Systems - Review of Systems Constitutional: absent: Fatigue, Fevers Respiratory: absent: SOB, Cough Cardiovascular: absent: Chest Pain, Palpitations Gastrointestinal: absent: Abdominal Pain, Constipation, Diarrhea, Nausea, Vomiting Genitourinary Female: absent: Dysuria, Frequency Musculoskeletal: absent: Arthralgias, Back Pain, Neck Pain Skin: Other (wound) Neurological: absent: Headache, Dizziness Psychiatric: absent: Anxiety, Depression Physical Exam Vital Signs Reviewed: Yes Vital Signs Temp Pulse Resp BP Pulse Ox 09/01/18 11:46 99.3 F 92 H 18 164/83 H 97 Temperature: Afebrile Blood Pressure: Hypertensive Pulse: Regular Respiratory Rate: Normal Appearance: Positive for: Well-Appearing, Non-Toxic, Comfortable Pain Distress: None Mental Status: Positive for: Alert and Oriented X 3 - Systems Exam Head: Present: Atraumatic Mouth: Present: Moist Mucous Membranes Respiratory/Chest: Present: Clear to Auscultation Cardiovascular: Present: Regular Rate and Rhythm Abdomen: No: Tenderness, Rebound, Guarding Lower Extremity: Present: NORMAL PULSES, Tenderness (left foot; there is a wound noted to the left 1st MTP with erythema and discharge. + warmth. DP papable. cap refill <2. no ankle tenderness. ), Swelling, Erythema, Neurovascularly Intact, Capillary Refill < 2 s. No: CALF TENDERNESS Neurological: Present: GCS=15, Speech Normal Skin: Present: Warm, Dry Psychiatric: Present: Alert, Oriented x 3 Medical Decision Making ED Course and Treatment: 09/01/18 13:49 52-year-old diabetic female sent in by music therapy specialist for admission for a nonhealing wound to the left foot. CBC: wbc; 13.9 CMP: glucose; 239 Blood cultures pending; pending ekg: Normal sinus rhythm at 86 bpm normal axis no ST elevations X-rays of the left foot: no fracture Case discussed with Dr. Murray and the podiatry resident anahi. will start teflaro IV. consult dr. woo and dr. baker. pt was seen by dr. Laboy at bedside. will admit patient to tele as she has life vest. case discussed with dr. Greenwood who accepts admission. impression; diabetic, foot wound, foot infection admit to tele - RAD Interpretation Radiology Orders: 09/01/18 12:17 FOOT LEFT 3 VIEWS ROUTINE [RAD] Stat 09/01/18 12:25 CHEST PORTABLE [RAD] Stat Disposition/Present on Arrival - Present on Arrival Any Indicators Present on Arrival: Yes History of DVT/PE: No History of Uncontrolled Diabetes: Yes Urinary Catheter: No History of Decub. Ulcer: No History Surgical Site Infection Following: None - Disposition Have Diagnosis and Disposition been Completed?: Yes Diagnosis: Foot infection, Wound, open, foot Disposition: HOSPITALIZED Disposition Time: 12:45 Patient Plan: Admission Patient Problems: Current Active Problems Problem Status Onset Foot infection Acute Wound, open, foot Acute Condition: FAIR
[2018-09-01 13:30] LABS: BASO # 0.13 K/mm3 (0.0-2.0); BASO % 0.9 % (0.0-3.0); EOS # 0.6 (0.0-0.7); EOS % 4.1 % (1.5-5.0); GRAN # 10.36 (1.4-6.5); GRAN % 74.5 % (50.0-68.0); LYMPH # 2.1 (1.2-3.4); LYMPH % 15.3 % (22.0-35.0); MEAN CORPUSCULAR HEMOGLOBIN 28.1 pg (25.0-35.0); MEAN CORPUSCULAR HGB CONC 31.3 g/dl (31.0-37.0); MEAN PLATELET VOLUME 8.8 fl (7.0-11.0); MONO # 0.7 (0.1-0.6); MONO % 5.2 % (1.0-6.0); RBC 3.2 10^6/uL (3.5-6.1); RED CELL DISTRIBUTION WIDTH 14.1 % (11.5-14.5); WHITE BLOOD COUNT 13.9 10^3/uL (4.5-11.0)
[2018-09-01 14:51] LABS: ALB/GLOB RATIO 0.9 (1.1-1.8); ALBUMIN 3.4 g/dL (3.0-4.8); CALCIUM 8.6 mg/dL (8.4-10.5)
--- NOTE | 2018-09-01 14:56 | CP.PCM.CON ---
<Guy Hester - Last Filed: 09/01/18 14:51> History of Present Illness - History of Present Illness History of Present Illness: 52 yo female with pmhx of congestive heart failure, diabetes mellitus, hypertension, dilated cardiomyopathy presents to the ED with a wound on the distal aspect of her left foot s/p left great toe amputation. She was seen by Dr. Murray in the wound care clinic yesterday and was told to present to the ED to be admitted as there is evidence of infection and dehiscence. She understands she will need to be taken to the OR for debridement. She states that she is in some pain to the area and she does feel a little cold but denies N/V/F/C/SOB. Denies any acute events overnight and has no other pedal complaints. PMHx - congestive heart failure, diabetes mellitus, hypertension, dilated cardiomyopathy PSHx- L great toe amputation All - pantoprazole Past Patient History - Infectious Disease Hx of Infectious Diseases: None - Tetanus Immunizations Tetanus Immunization: Unknown - Past Social History Smoking Status: Never Smoked - CARDIAC Hx Cardiac Disorders: Yes Hx Congestive Heart Failure: Yes - PULMONARY Hx Respiratory Disorders: No - NEUROLOGICAL Hx Neurological Disorder: No - HEENT Hx HEENT Problems: No - RENAL Hx Chronic Kidney Disease: No - ENDOCRINE/METABOLIC Hx Endocrine Disorders: Yes Hx Diabetes Mellitus Type 2: Yes - HEMATOLOGICAL/ONCOLOGICAL Hx Blood Disorders: No - INTEGUMENTARY Hx Dermatological Problems: Yes Other/Comment: cellulitis ball of right [id number] x2cm brown dry skin, dried skin between toes right foot, pt had sx last year i and d to right foot abcess, foot healed - MUSCULOSKELETAL/RHEUMATOLOGICAL Hx Musculoskeletal Disorders: Yes Hx Falls: Yes (last december) - GASTROINTESTINAL Hx Gastrointestinal Disorders: Yes (constipation, gastritis) Hx Gastroesophageal Reflux: Yes - GENITOURINARY/GYNECOLOGICAL Hx Genitourinary Disorders: Yes Hx Urinary Tract Infection: Yes - PSYCHIATRIC Hx Psychophysiologic Disorder: No Hx Substance Use: No - SURGICAL HISTORY Hx Amputation: Yes - ANESTHESIA Hx Anesthesia Reactions: No Hx Malignant Hyperthermia: No Meds Allergies/Adverse Reactions: Allergies Allergy/AdvReac Type Severity Reaction Status Date / Time pantoprazole Allergy RASH Verified 09/01/18 11:52 Physical Exam - Constitutional Appears: Well, Non-toxic, No Acute Distress - Head Exam Head Exam: ATRAUMATIC, NORMOCEPHALIC - Extremities Exam Additional comments: LLE focused exam: Vasc: DP/PT pulses palpable. TG WNL, Cap refill < 3 seconds to all remaining digits, no edema noted to surgical site Ortho: Left hallux amputation, no tenderness upon calf compression, mild tenderness upon palpation of surgical site Neuro: Gross sensation diminished, protective sensation diminished/absent Derm: hallux amputation site shows evidence of dehiscence, 100% fibrotic with purulent discharge and slough present, erythema present periwound with no streaking present, probe to bone positive, no tunneling or tracking noted - Neurological Exam Neurological exam: Alert, Oriented x3 - Psychiatric Exam Psychiatric exam: Normal Affect, Normal Mood Results - Vital Signs Recent Vital Signs: Last Vital Signs Temp 99.3 F 09/01/18 11:46 Pulse 92 H 09/01/18 11:46 Resp 18 09/01/18 11:46 BP 164/83 H 09/01/18 11:46 Pulse Ox 97 09/01/18 11:46 - Labs Result Diagrams: 09/01/18 12:52 Labs: Laboratory Results - last 24 hr 09/01/18 12:52 WBC 13.9 H RBC 3.20 L Hgb 9.0 L Hct 28.8 L MCV 90.0 MCH 28.1 MCHC 31.3 RDW 14.1 Plt Count 602 H MPV 8.8 Gran % 74.5 H Lymph % (Auto) 15.3 L [place] % (Auto) 5.2 Eos % (Auto) 4.1 Baso % (Auto) 0.9 Gran # 10.36 H Lymph # (Auto) 2.1 [place] # (Auto) 0.7 H Eos # (Auto) 0.6 Baso # (Auto) 0.13 Assessment & Plan - Assessment and Plan (Free Text) Assessment: 52 yo female with pmhx of congestive heart failure, diabetes mellitus, hypertension, dilated cardiomyopathy seen and evaluated for left foot diabetic ulceration and dehiscence Plan: Patient seen and evaluated with Dr. Laboy at bedside Charts and labs reviewed: leukocytosis present, afebrile Wound cleansed with sterile saline and dressed with xeroform and DSD X-rays of foot taken - f/u OR 09/03 at 7:30AM for debridement of left hallux amputation site Dr. Morin vascular on consult - evaluate for patency of vascular procedure site in left leg, rec appreciated Dr. Caldwell consulted cardio - clearance for surgery f/u, recs appreciated Patient will be followed in house by podiatry - Date & Time Date: 09/01/18 Time: 15:06 <Jamison Laboy - Last Filed: 09/01/18 15:30> Meds - Medications Medications: Current Medications Ceftaroline Fosamil 400 mg/ (Sodium Chloride) 100 mls @ 100 mls/hr IVPB STAT ONE Stop: 09/01/18 16:14 Results - Vital Signs Recent Vital Signs: Last Vital Signs Temp 99 F 09/01/18 14:13 Pulse 84 09/01/18 14:13 Resp 18 09/01/18 14:13 BP 162/85 H 09/01/18 14:13 Pulse Ox 98 09/01/18 14:13 - Labs Result Diagrams: 09/01/18 12:52 09/01/18 14:30 Labs: Laboratory Results - last 24 hr 09/01/18 09/01/18 09/01/18 12:52 14:30 14:40 WBC 13.9 H RBC 3.20 L Hgb 9.0 L Hct 28.8 L MCV 90.0 MCH 28.1 MCHC 31.3 RDW 14.1 Plt Count 602 H MPV 8.8 Gran % 74.5 H Lymph % (Auto) 15.3 L [place] % (Auto) 5.2 Eos % (Auto) 4.1 Baso % (Auto) 0.9 Gran # 10.36 H Lymph # (Auto) 2.1 [place] # (Auto) 0.7 H Eos # (Auto) 0.6 Baso # (Auto) 0.13 Sodium 140 Potassium 5.2 H Chloride 108 H Carbon Dioxide 25 Anion Gap 13 BUN 21 Creatinine 1.2 Est GFR ( Amer) 57 Est GFR (Non-Af Amer) 47 Random Glucose 239 H Calcium 8.6 Total Bilirubin 0.3 AST 17 ALT 22 Alkaline Phosphatase 129 H Total Protein 7.3 Albumin 3.4 Globulin 3.8 Albumin/Globulin Ratio 0.9 L Urine Color Yellow Urine Appearance Clear Urine pH 6.5 Ur Specific [place] 1.020 Urine Protein 100 H Urine Glucose (UA) >=1000 Urine Ketones Negative Urine Blood Small H Urine Nitrate Positive H Urine Bilirubin Negative Urine Urobilinogen 0.2 Ur Leukocyte Esterase Trace H Attending/Attestation - Attestation I have personally seen and examined this patient.: Yes I have fully participated in the care of the patient.: Yes I have reviewed all pertinent clinical information: Yes
[2018-09-01 15:02] LABS: PH,URINE 6.5 (4.7-8.0); URINE APPEARANCE CLEAR (CLEAR); URINE BILIRUBIN NEGATIVE (NEGATIVE); URINE BLOOD SMALL (NEGATIVE); URINE COLOR YELLOW (YELLOW); URINE GLUCOSE (UA) >=1000 mg/dL (NEGATIVE); URINE LEUKOCYTE ESTERASE TRACE Leu/uL (NEGATIVE); URINE PROTEIN 100 mg/dL (<30 mg/dL); URINE UROBILINOGEN 0.2 E.U./dL (<1 E.U./dL)
[2018-09-01] MEDS ORDERED: Ceftaroline 400 mg Inj IVPB STA (15:05)
[2018-09-01 15:36] LABS: URINE BACTERIA LARGE (NEG)
--- NOTE | 2018-09-01 16:00 | CP.PCM.HP ---
<Maame Terry - Last Filed: 09/01/18 19:03> History of Present Illness - History of Present Illness History of Present Illness: PGY-[address] Greenwood CC: Non healing surgical wound in uncontrolled dm Ms Hernandez, 52 F, PMHx diabetes and left great toe amputation, uncontrolled DM, severe cardiomyopathy on life vest, CKD stage 3, PAD s/p stents LLE recently, sent in by Dr. Murray for nonhealing wound to the left great toe. Pt sustained a minor cut on L toe in Jun 2018, which turned gangrene 2 days later. She went to hospital, got i&D, and discharged home with 4 weeks of IV daptomycin. Haysaníbal angulo, her L great toe got reinfected, failed daptomycin, and she was admitted to hospital again in Jul 2018 for MSSA with wound culture. She had L toe amputation in Jul 2018. She was discharged without any antibiotics per ID and OR culture. She has been following up with Dr Murray, podiatry, for 1 month. The wound has not healed well. For the past 3 days, she noticed heavy drainage from the wound with increased smell. Today she visited Dr Murray for routine dressing change, and Dr Murray sent her to hospital for surgical wound infection. Pt uses insulin at home. Patient states she is a diabetic and forgot to take her insulin today. She checks sugar at least twice daily. AM sugar in low 100, and it may dip to 50-60. HS sugar in high 200s. She had eye doctor visit last year and will do diabetic eye exam soon. T 99.3. HR 92. 164/83. POx 97. CBC: WBC 13.9 with granulocute, Hb 9 (baseline 9), MCV 90. Plt 602 Coag is normal CMP: Na 140, K 5.2, Cl 108, bicarb 25, BUN 21, cre 1.2 (last cre was 2.4), glucose 239 U/A: Epithelial 4-5, WBC 5-10, Estefanía est (+), nitrate (+) ED obtained U Cx, B Cx. Give cetraroline CXR _normal pending offical read_ EKG NSR 86. No specific ST/TW changes. QTc 447. L foot x-ray. - Pending read Arterial doppler LE - Pending ROS - Denies pain. Denies fevers or chills. Denies chest pain or shortness of breath. Denies N/V/D. (+) constipation, last BM 4 days ago. (+) n/t on legs, chronic. (+) urinary freuqntcy, chronic. denies dysura PMH Systolic congestive heart failure due to dilated cardiomyopathy requiring life vest since December 2017 (Echo 07/2018, LVEF 33, RVSP 37) (Life vest never fired. Outpt Cardiology renewed her life vest for now for the next 3 month. No immediate plan to do AICD) HTN Insulin dependent diabetes s/p L toe amputatuin, A1C 9.5 (07/13/2018) CKD stage 3; Hx contrast nephropathy Hx unsteady gait. Denied falls constipation, gastritis Hx abnormal SPEP (high [place] and lambda) PSH LLE Drug eluting stents (JAMES) placement at distal L SFA, popliteal, anterior tibial, and perineal artery, Jun 2018 L great toe amputation Jul 2018 R foot debridement in 2013 FH Mom and dad both have HTN and DM SH denies smoking, EtOH, or substance abuse; lives at home with her daughters Ambulating rollator All Protonix - rash Med Lisinopril 10 daily Basaglar kwikpen 10 BID Novolog flexpen 3 AC Pepcid 40 HS Ergocalfiderol [id number] Weekly plavix lipitor 40 HS ASA [address] Armas Nephro: Mughni Card: Dr Castillo, [place] Glass Sander: Dr Cotter, [address] [place] [address] Present on Admission - Present on Admission Any Indicators Present on Admission: No History of Uncontrolled Diabetes: Yes Past Patient History - Infectious Disease Hx of Infectious Diseases: None - Tetanus Immunizations Tetanus Immunization: Unknown - Past Social History Smoking Status: Never Smoked - CARDIAC Hx Cardiac Disorders: Yes Hx Congestive Heart Failure: Yes - PULMONARY Hx Respiratory Disorders: No - NEUROLOGICAL Hx Neurological Disorder: No - HEENT Hx HEENT Problems: No - RENAL Hx Chronic Kidney Disease: No - ENDOCRINE/METABOLIC Hx Endocrine Disorders: Yes Hx Diabetes Mellitus Type 2: Yes - HEMATOLOGICAL/ONCOLOGICAL Hx Blood Disorders: No - INTEGUMENTARY Hx Dermatological Problems: Yes Other/Comment: cellulitis ball of right [id number] x2cm brown dry skin, dried skin between toes right foot, pt had sx last year i and d to right foot abcess, foot healed - MUSCULOSKELETAL/RHEUMATOLOGICAL Hx Musculoskeletal Disorders: Yes Hx Falls: Yes (last december) - GASTROINTESTINAL Hx Gastrointestinal Disorders: Yes (constipation, gastritis) Hx Gastroesophageal Reflux: Yes - GENITOURINARY/GYNECOLOGICAL Hx Genitourinary Disorders: Yes Hx Urinary Tract Infection: Yes - PSYCHIATRIC Hx Psychophysiologic Disorder: No Hx Substance Use: No - SURGICAL HISTORY Hx Amputation: Yes - ANESTHESIA Hx Anesthesia Reactions: No Hx Malignant Hyperthermia: No Meds Allergies/Adverse Reactions: Allergies Allergy/AdvReac Type Severity Reaction Status Date / Time pantoprazole Allergy RASH Verified 09/01/18 11:52 Physical Exam - Constitutional Appears: No Acute Distress - Head Exam Head Exam: ATRAUMATIC, NORMAL INSPECTION, NORMOCEPHALIC - Eye Exam Eye Exam: EOMI, Normal appearance - ENT Exam ENT Exam: Mucous Membranes Moist - Neck Exam Neck exam: Positive for: Normal Inspection - Respiratory Exam Respiratory Exam: Clear to Auscultation Bilateral, NORMAL BREATHING PATTERN. absent: Rales, Rhonchi, Wheezes - Cardiovascular Exam Cardiovascular Exam: REGULAR RHYTHM, +S1, +S2. absent: Systolic Murmur Additional comments: S3 - GI/Abdominal Exam GI & Abdominal Exam: Normal Bowel Sounds, Soft. absent: Distended, Firm, Guarding, Rigid, Tenderness - Extremities Exam Extremities exam: Positive for: normal capillary refill, pedal pulses present. Negative for: calf tenderness, pedal edema, tenderness Additional comments: LLE dressing d/c/i, no strike-through - Back Exam Back exam: absent: CVA tenderness (L), CVA tenderness (R) - Neurological Exam Neurological exam: Alert, CN II-XII Intact, Oriented x3, Reflexes Normal Additional comments: motor sensory grossing intact motor 5/5 all extremities - Psychiatric Exam Psychiatric exam: Normal Affect, Normal Mood - Skin Skin Exam: Dry, Warm Results - Vital Signs Recent Vital Signs: Last Vital Signs Temp 99 F 09/01/18 14:13 Pulse 89 09/01/18 15:28 Resp 18 09/01/18 15:28 BP 167/71 H 09/01/18 15:28 Pulse Ox 97 09/01/18 15:28 - Labs Result Diagrams: 09/01/18 12:52 09/01/18 14:30 Labs: Laboratory Results - last 24 hr 09/01/18 09/01/18 09/01/18 12:52 14:30 14:40 WBC 13.9 H RBC 3.20 L Hgb 9.0 L Hct 28.8 L MCV 90.0 MCH 28.1 MCHC 31.3 RDW 14.1 Plt Count 602 H MPV 8.8 Gran % 74.5 H Lymph % (Auto) 15.3 L [place] % (Auto) 5.2 Eos % (Auto) 4.1 Baso % (Auto) 0.9 Gran # 10.36 H Lymph # (Auto) 2.1 [place] # (Auto) 0.7 H Eos # (Auto) 0.6 Baso # (Auto) 0.13 Sodium 140 Potassium 5.2 H Chloride 108 H Carbon Dioxide 25 Anion Gap 13 BUN 21 Creatinine 1.2 Est GFR ( Amer) 57 Est GFR (Non-Af Amer) 47 Random Glucose 239 H Calcium 8.6 Total Bilirubin 0.3 AST 17 ALT 22 Alkaline Phosphatase 129 H Total Protein 7.3 Albumin 3.4 Globulin 3.8 Albumin/Globulin Ratio 0.9 L Urine Color Yellow Urine Appearance Clear Urine pH 6.5 Ur Specific [place] 1.020 Urine Protein 100 H Urine Glucose (UA) >=1000 Urine Ketones Negative Urine Blood Small H Urine Nitrate Positive H Urine Bilirubin Negative Urine Urobilinogen 0.2 Ur Leukocyte Esterase Trace H Urine RBC 10 - 15 Urine WBC 5 - 10 Ur Epithelial Cells 4 - 5 Urine Bacteria Large Urine Other Uyeast Assessment & Plan - Assessment and Plan (Free Text) Plan: Ms Hernandez, 52 F, PMHx uncontrolled diabetes s/p left great toe amputation, severe cardiomyopathy on life vest since December 2017, CKD 3, peripheral artery disease s/p recent JAMES(s) placement at [facility] admitted for nonhealing surgical wound s/p left great toe amputation (Jul 2018) possibly due to uncontrolled diabetes and poor circulation secondary to PAD. The non-healing wound recently got infected with heavy exudates, causing wound dehiscence. She will require IV antibiotics & I&D for cellulitis R/O osteomyelitis. E Cellulitis R/O osteomyelitis with leukocytosis (SIRS 1/4) - Teflaro renal dose - ID consult - follow on blood culture - trend WBC. Thrombocytosis likely reactive to infection - To R/O Osteomyelitis: ESR, CRP; follow on LLE x-ray; Ask podiatry whether the wound dishiscence probed to bone or not - OR for debridement on 09/03 at 7:30AM, per podiatry - No urinary symptoms, follow on urine culture Non-healing wound possibly due to poor circulation Peripheral artery disease s/p JAMES placement - Follow on arterial doppler LLE - Consult Dr. Morin vascular to evaluate for patency of vascular procedure site in left leg Severe Cardiomyopathy on life vest - Dr. Caldwell consulted for [facility] risk assessment for surgery - Telemetry - For HTN: Continue home lisinopril, lasix - For PAD s/p recent JAMES stents: continue ASA, plavix, lipitor CKD stage 3 Creatinine clearance 38 - Continue to trend creatinine - If creatinine decreases, will consult nephro Uncontrolled DM, A1C 9 - ISSS; Diabetic education; dietitian consult PAD s/p recent JAMES stents - continue ASA, plavix, lipitor Constipation - Senokot-S daily. Will consider Lactulose PRN if necessary (pt states that this works for her in the past) Unstead gait - Will consult PT after I&D; Check with podiatry re: wt bearing status K 5.2 - recheck cmp tomorrow. PVX - heparin SC, pepcid BID s/r/d/w Dr Greenwood <Tessy Greenwood R - Last Filed: 09/02/18 15:53> Results - Vital Signs Recent Vital Signs: Last Vital Signs Temp 97.1 F L 09/02/18 12:00 Pulse 75 09/02/18 12:00 Resp 20 09/02/18 12:00 BP 180/84 H 09/02/18 12:00 Pulse Ox 100 09/02/18 06:00 - Labs Result Diagrams: 09/02/18 06:50 09/01/18 14:30 Labs: Laboratory Results - last 24 hr 09/01/18 09/01/18 09/02/18 12:47 22:11 05:00 WBC RBC Hgb Hct MCV MCH MCHC RDW Plt Count MPV Gran % Lymph % (Auto) [place] % (Auto) Eos % (Auto) Baso % (Auto) Gran # Lymph # (Auto) [place] # (Auto) Eos # (Auto) Baso # (Auto) ESR PT INR APTT POC Glucose (mg/dL) 293 H 193 H C-Reactive Protein 16.10 H 09/02/18 09/02/18 09/02/18 06:50 08:11 09:00 WBC 10.1 D RBC 3.00 L Hgb 8.3 L Hct 26.5 L MCV 88.3 MCH 27.7 MCHC 31.3 RDW 14.3 Plt Count 545 H MPV 8.4 Gran % 72.7 H Lymph % (Auto) 15.2 L [place] % (Auto) 7.3 H Eos % (Auto) 4.3 Baso % (Auto) 0.5 Gran # 7.32 H Lymph # (Auto) 1.5 [place] # (Auto) 0.7 H Eos # (Auto) 0.4 Baso # (Auto) 0.05 ESR 104 H PT 12.3 INR 1.07 APTT 42.4 H POC Glucose (mg/dL) 130 H C-Reactive Protein 09/02/18 11:18 WBC RBC Hgb Hct MCV MCH MCHC RDW Plt Count MPV Gran % Lymph % (Auto) [place] % (Auto) Eos % (Auto) Baso % (Auto) Gran # Lymph # (Auto) [place] # (Auto) Eos # (Auto) Baso # (Auto) ESR PT INR APTT POC Glucose (mg/dL) 175 H C-Reactive Protein Attending/Attestation - Attestation I have personally seen and examined this patient.: Yes I have fully participated in the care of the patient.: Yes I have reviewed all pertinent clinical information: Yes Notes (Text): Patient seen and examined by me with resident at 4:30PM with resident 09/01/18. Case including HPI, physical exam, and assessment and plan discussed with resident. Agree with above with following additions/corrections. Patient is a 52-year-old female with past medical history significant for diabetes and left great toe amputation, insulin-dependent type 2 diabetes, severe cardiomyopathy with LifeVest, systolic CHF, hypertension, chronic kidney disease stage III, and peripheral artery disease status post stents of left lower extremity that presented to the emergency room after being sent in by her cigarette lighter repairer, Dr. Murray, for a nonhealing wound of the left great toe. Patient states that this all began in June 2018. States that she had a little cut from using a nailer machine on her left great toe. She states it then became black and she came to the hospital for for I&D and antibiotics. Patient then had the great toe amputated in July 2018. At that time, patient went home on no antibiotics. Patient states since then, her daughter has been helping her with dressing changes daily. She states that she went for a routine check up with her cigarette lighter repairer yesterday 08/31/18. At that time she states the cigarette lighter repairer noticed bone and drainage from the site. Patient states that her cigarette lighter repairer also noticed a foul smell from the area. Patient states that prior to her check up on 08/31/18, patient noticed approximately 3 days of drainage on her dressing . No blood. She denies any pain in the area. However, she states she is having "tingling and numbness" in the areas. Patient states that she uses a walker at home to walk. Patient also complains of some constipation since 08/29/2018. She denies any chest pain or shortness of breath. No nausea, vomiting, abdominal pain. No fevers or chills. No headaches or dizziness. No neck pain or back pain. No dysuria. Patient does state that she tends to take her LifeVest off when she is at home and puts it back on when she goes out. Importance of keeping her LifeVest on at all times was discussed at length with patient. 12 point review of systems reviewed by me. See above HPI, all other systems negative. Family History. Mother and father both and both had diabetes and hypertension. Physical exam: General: Awake and lying in bed in no acute distress HEENT: Normocephalic, atraumatic. Extraocular muscles intact, pupils equal and r eactive, no scleral icterus. Oropharynx is pink. Positive dry mucous membranes. Neck is supple. Hearing grossly intact. Ears and nose externally unremarkable. Cardiovascular: Regular rhythm. Normal S1 and S2. Positive S3. No murmurs, rubs, or gallops appreciated Pulmonary: Normal respiratory effort. No rhonchi, rales, or wheezing appreciated. Gastrointestinal: Soft, nondistended. Nontender. Positive bowel sounds all 4 quadrants. No guarding. Musculoskeletal: Moves all extremities. No calf tenderness. No CVA tenderness. Positive LLE edema. Positive left foot dressing clean, dry, and intact. Central nervous system: AAO x3, CN 2-12 grossly intact. Dermatologic: Skin warm and dry. LifeVest in place. Assessment and plan: Patient is a 52-year-old female with past medical history significant for diabetes and left great toe amputation, insulin-dependent type 2 diabetes, severe cardiomyopathy with LifeVest, systolic CHF, hypertension, chronic kidney disease stage III, and peripheral artery disease status post stents of left lower extremity that presented to the emergency room after being sent in by her cigarette lighter repairer, Dr. Murray, for a nonhealing wound of the left great toe. 1. Nonhealing wound of left great toe. Likely with osteomylelitis. Started on Teflaro as recommended by patient's cigarette lighter repairer Dr. Moore. Podiatry consulted, recommendations appreciated. ID consulted, follow up recommendations. Left foot xray per radiologist showed probable osteomyelitis in the head of the first metatarsal. Follow-up arterial Doppler of left lower extremity. Interventional radiologist, Dr. Morin, consulted, follow-up recommendations. Patient for possible OR 09/03/18 for debridement. Follow up blood cultures. Follow up ESR and CRP. 2. Thrombocytosis. Likely reactive secondary to infection. Continue to monitor. 3. Leukocytosis. Likely secondary to #1. Started on Teflaro. Blood cultures pending. Patient afebrile. Continue to monitor. 4. PAD S/P stent placement. IR consulted, follow up recommendations. Continue home ASA, plavix, and lipitor. 5. Severe cardiomyopathy. Chronic systolic CHF. Continue with LifeVest. Continue home Coreg, Lasix, Lipitor, and Lisinopril. Monitor on telemetry 6. Insulin-dependent type 2 diabetes. Placed on insulind sliding scale. Monitor accuchecks and add long acting insulin if needed. 7. CKD Stage 3. BUN/Cr 21/1.2. Improved from previous. Continue to monitor for now. 8. Constipation. Patient started on Senokot. Monitor for bowel movement. 9. Essential Hypertnsion. Continue home lasix, coreg, and lisinopril. 10. GI/DVT prophylaxis. Pepcid/Heparin 11. Patient is a full code. Case was discussed in detail with the patient regarding current diagnosis and treatment plan. All questions answered.
--- NOTE | 2018-09-01 16:54 | RAD ---
Date of service: 09/01/2018 HISTORY: foot infection, admission COMPARISON: 08/02/2018 FINDINGS: LUNGS: No active pulmonary disease. PLEURA: No significant pleural effusion identified, no pneumothorax apparent. CARDIOVASCULAR: Aortic calcification Moderate cardiomegaly no pulmonary vascular congestion. OSSEOUS STRUCTURES: No significant abnormalities. VISUALIZED UPPER ABDOMEN: Normal. OTHER FINDINGS: None. IMPRESSION: No active disease.
--- NOTE | 2018-09-01 16:57 | RAD ---
Date of service: 09/01/2018 PROCEDURE: Left Foot Radiographs. HISTORY: left foot infection, 1st MTP COMPARISON: 07/30/2018 FINDINGS: BONES: There is new lucency in the head of the 1st metatarsal suspicious for osteomyelitis. A surgical dressing is seen at this site. Previous amputation at this site JOINTS: Normal. SOFT TISSUES: Normal. OTHER FINDINGS: None. IMPRESSION: Probable osteomyelitis in the head of the 1st metatarsal
--- NOTE | 2018-09-01 19:30 | US ---
PROCEDURE: Lower extremity SURJIT exam HISTORY: Severe peripheral vascular disease. Previous left lower extremity intervention. Left great toe amputation. Failure to heal PHYSICIAN(S): Rodney Morin MD. FINDINGS: The left resting SURJIT is borderline normal, 0.92. The right resting SURJIT is mildly abnormal, 0.7 The brachial systolic pressures are symmetric. The high thigh pressures are noncompressible. The high thigh PVR waveforms are normal and symmetric The calf PVR waveforms are relatively normal and symmetric. The left ankle and metatarsal PVR waveforms are much improved compared to the prior study. The right ankle and metatarsal waveforms are severely blunted. Findings are consistent with right popliteal, trifurcation, and tibial occlusive disease IMPRESSION: 1. The left resting SURJIT and distal waveforms are much improved from the pre intervention images in 2018
--- NOTE | 2018-09-01 19:48 | CARD ---
APPROVED REPORT Date of service: 09/01/2018 EKG Measurement Heart [id number] <Conclusion> Normal sinus rhythm Nonspecific ST and T wave abnormality Abnormal ECG
[2018-09-01] MEDS: Insulin Reg-MEDIUM-Coverage SC SCH (22:17)
[2018-09-02 00:20] VITALS: BMI 21.7
[2018-09-02] MEDS ORDERED: Piperacillin/Tazobact 3.375 gm 100 ML IVPB SCH (06:30)
[2018-09-02 07:14] LABS: BASO # 0.05 K/mm3 (0.0-2.0); BASO % 0.5 % (0.0-3.0); EOS # 0.4 (0.0-0.7); EOS % 4.3 % (1.5-5.0); GRAN # 7.32 (1.4-6.5); GRAN % 72.7 % (50.0-68.0); HEMOGLOBIN 8.3 g/dL (12.0-16.0); LYMPH # 1.5 (1.2-3.4); LYMPH % 15.2 % (22.0-35.0); MEAN CELL VOLUME 88.3 fl (80.0-105.0); MEAN CORPUSCULAR HEMOGLOBIN 27.7 pg (25.0-35.0); MEAN CORPUSCULAR HGB CONC 31.3 g/dl (31.0-37.0); MEAN PLATELET VOLUME 8.4 fl (7.0-11.0); MONO # 0.7 (0.1-0.6); MONO % 7.3 % (1.0-6.0); RED CELL DISTRIBUTION WIDTH 14.3 % (11.5-14.5); WHITE BLOOD COUNT 10.1 10^3/uL (4.5-11.0)
[2018-09-02 09:28] LABS: INR 1.07; PROTHROMBIN TIME 12.3 SECONDS (9.4-12.5)
[2018-09-02 09:29] LABS: PARTIAL THROMBOPLASTIN TIME 42.4 Seconds (25.1-36.5)
[2018-09-02] MEDS: Linezolid 600 mg in D5W 300 ml 600 MG/300 ML BAG IVPB SCH ×2 (10:50→22:22)
[2018-09-02] MEDS: Docusate-Senna 50 mg-8.6 mg Tab PO SCH (10:55)
--- NOTE | 2018-09-02 11:12 | CP.PCM.PN ---
<Guy Hester - Last Filed: 09/02/18 10:44> Subjective - Date & Time of Evaluation Date of Evaluation: 09/02/18 Time of Evaluation: 10:32 - Subjective Subjective: Podiatry progress note for Dr. Murray 52 yo female seen and evaluated at bedside with Dr. Murray resting comfortably. States she was seen by Dr. Morin regarding her past blood flow procedure. States she is in no pain today. Reports no ambulation out of bed and has no acute complaints today. She denies N/V/F/C/SOB/CP Objective - Vital Signs/Intake and Output Vital Signs (last 24 hours): Temp Pulse Resp BP Pulse Ox 98.2 F 82 18 174/85 H 100 09/02/18 06:00 09/02/18 06:00 09/02/18 06:00 09/02/18 06:00 09/02/18 06:00 Intake and Output: 09/02/18 09/02/18 06:59 18:59 Intake Total 120 Output Total 400 Balance -280 - Medications Medications: Current Medications Aspirin (Aspirin Chewable) 81 mg PO DAILY [facility] Atorvastatin Calcium (Lipitor) 40 mg PO DIN [facility] Carvedilol (Coreg) 25 mg PO BID [facility] Clopidogrel Bisulfate (Plavix) 75 mg PO DAILY [facility] Famotidine (Pepcid) 10 mg PO 1000,2200 [facility] Last Admin: 09/01/18 22:14 Dose: 10 mg Furosemide (Lasix) 20 mg PO DAILY [facility] Heparin Sodium (Porcine) (Heparin) 5,000 units SC Q8 [facility]; Protocol Last Admin: 09/02/18 06:28 Dose: 5,000 units Linezolid (Zyvox 600mg/300ml D5w) 600 mg in 300 mls @ 200 mls/hr IVPB Q12 [facility]; Protocol Stop: 09/09/18 06:27 Piperacillin Sod/Tazobactam Sod (Zosyn 3.375 In Ns 100ml) 100 mls @ 25 mls/hr IVPB Q8 [facility]; Protocol Stop: 09/09/18 06:31 Last Admin: 09/02/18 06:45 Dose: 25 mls/hr Insulin Human Regular (Humulin R Med) 0 units SC ACHS [facility]; Protocol Last Admin: 09/01/18 22:17 Dose: Not Given Lisinopril (Zestril) 10 mg PO DAILY [facility] Senna/Docusate Sodium (Senokot S 50 Mg-8.6 Mg) 1 tab PO DAILY [facility] - Labs Labs: 09/02/18 06:50 09/01/18 14:30 PT 12.3 SECONDS (9.4-12.5) 09/02/18 09:00 INR 1.07 09/02/18 09:00 APTT 42.4 Seconds (25.1-36.5) H 09/02/18 09:00 - Constitutional Appears: Well, Non-toxic, No Acute Distress - Head Exam Head Exam: ATRAUMATIC, NORMOCEPHALIC - Extremities Exam Additional comments: LLE focused exam: Vasc: DP/PT pulses palpable. TG WNL, Cap refill < 3 seconds to all remaining digits, no edema noted to surgical site Ortho: Left hallux amputation, no tenderness upon calf compression, mild tenderness upon palpation of surgical site Neuro: Gross sensation diminished, protective sensation diminished/absent Derm: hallux amputation site shows evidence of dehiscence, 100% fibrotic with purulent discharge and slough present, erythema present periwound with no streaking present, probe to bone positive, no tunneling or tracking noted - Neurological Exam Neurological Exam: Alert, Awake, Oriented x3 - Psychiatric Exam Psychiatric exam: Normal Affect, Normal Mood Assessment and Plan - Assessment and Plan (Free Text) Assessment: 52 yo female evaluated for left foot diabetic ulceration and surgical site dehiscence Plan: Patient seen and evaluated at bedside with Dr. Murray Charts and labs reviewed - afebrile, absent leukocytosis Discussed surgical revision of previous amputation site including resecting a small portion of bone and debriding the tissue at the site Patient demonstrated understanding Patient aware surgery cannot be performed until 5 days after stopping Plavix Dr. Rodney Morin consulted - spoke with Dr. Murray, aware of the extent of revision, gave OK to stop Plavix today for sx Friday - Dr. Greenwood and medicine team aware Plan for OR Friday 09/07 in afternoon Can resume diet Wound cleansed with normal saline and dressed with betadine and DSD Can weight bear to LLE Continue medications per medicine Will continue to follow patient while in house <Reshma Murray - Last Filed: 09/03/18 11:38> Objective - Vital Signs/Intake and Output Vital Signs (last 24 hours): Temp Pulse Resp BP Pulse Ox 98.4 F 66 19 150/60 100 09/03/18 06:00 09/03/18 06:00 09/03/18 00:01 09/03/18 10:30 09/02/18 06:00 Intake and Output: 09/03/18 09/03/18 06:59 18:59 Intake Total 540 Output Total 1600 Balance -1060 - Medications Medications: Current Medications Aspirin (Aspirin Chewable) 81 mg PO DAILY [facility] Last Admin: 09/03/18 10:29 Dose: 81 mg Atorvastatin Calcium (Lipitor) 40 mg PO DIN [facility] Last Admin: 09/02/18 18:50 Dose: 40 mg Carvedilol (Coreg) 25 mg PO BID [facility] Last Admin: 09/03/18 10:29 Dose: Not Given Famotidine (Pepcid) 10 mg PO 1000,2200 [facility] Last Admin: 09/03/18 10:31 Dose: 10 mg Furosemide (Lasix) 20 mg PO DAILY [facility] Last Admin: 09/03/18 10:30 Dose: 20 mg Gabapentin (Neurontin) 100 mg PO TID [facility]; Protocol Last Admin: 09/03/18 10:31 Dose: 100 mg Heparin Sodium (Porcine) (Heparin) 5,000 units SC Q8 [facility]; Protocol Last Admin: 09/03/18 05:49 Dose: 5,000 units Linezolid (Zyvox 600mg/300ml D5w) 600 mg in 300 mls @ 200 mls/hr IVPB Q12 [facility]; Protocol Stop: 09/09/18 06:27 Last Admin: 09/03/18 10:32 Dose: 200 mls/hr Piperacillin Sod/Tazobactam Sod (Zosyn 2.25 Gm In 0.9% 100 Ml) 2.25 gm in 100 mls @ 100 mls/hr IVPB Q8H [facility]; Protocol Last Admin: 09/03/18 05:48 Dose: 100 mls/hr Insulin Human Regular (Humulin R Med) 0 units SC ACHS [facility]; Protocol Last Admin: 09/03/18 08:17 Dose: 3 units Lactulose (Enulose) 10 gm PO STAT [facility] Last Admin: 09/02/18 18:47 Dose: 10 gm Lisinopril (Zestril) 20 mg PO DAILY [facility] Last Admin: 09/03/18 10:32 Dose: 20 mg Polyethylene Glycol (Miralax) 17 gm PO BID PRN PRN Reason: Constipation Senna/Docusate Sodium (Senokot S 50 Mg-8.6 Mg) 1 tab PO DAILY [facility] Last Admin: 09/03/18 10:32 Dose: 1 tab - Labs Labs: 09/03/18 06:00 09/03/18 06:00 PT 12.3 SECONDS (9.4-12.5) 09/02/18 09:00 INR 1.07 09/02/18 09:00 APTT 42.4 Seconds (25.1-36.5) H 09/02/18 09:00 Attending/Attestation - Attestation I have personally seen and examined this patient.: Yes I have fully participated in the care of the patient.: Yes I have reviewed all pertinent clinical information, including history, physical exam and plan: Yes
[2018-09-02] MEDS: Insulin Reg-MEDIUM-Coverage SC SCH ×4 (11:30→22:21)
--- NOTE | 2018-09-02 12:28 | CP.PCM.CON ---
<Shabnam Wing - Last Filed: 09/02/18 12:12> History of Present Illness - History of Present Illness History of Present Illness: Infectious Disease Consult Note for Anabela Covarrubias PGY3 This is a 52yo female with past medical history of IDDM, dilated cardiomopathy- has life vest since 12/2017, HTN, CKD IIIb, Osteomyelitis of L 1st toe + for Klebsiella/Enterobacter who came to ED for drainage and foul smell of L first toe stump x 3 days. Patient has had osteomyelitis in that toe before with partial amputation and IV antibiotics with daptomycin. She failed therapy and was hospitalized again for MSSA in the same toe and had further amputation. She has been seeing Dr. Murray as outpatient regularly. She denies recent travel, working outside and reports she has been taking care of the area as well. She denies fever/chills, chest pain, shortness of breath, nausea/vomiting/diarrhea, numbness/tingling, dysuria or hematuria. Past medical history: IDDM, dilated cardiomopathy- has life vest since 12/2017, HTN, CKD IIIb, Osteomyelitis of L 1st toe + for Klebsiella/Enterobacter Past surgical history: L 1st toe amputation, multiple stent in L LE Home meds: Reviewed Allergies: Pantoprazole Social history: Denies EtOH, drug or tobacco use Family history: HTN, DM Review of Systems - Review of Systems All systems: reviewed and no additional remarkable complaints except Review of Systems: 12 point ROS reviewed as per HPI and is otherwise negative. Past Patient History - Infectious Disease Hx of Infectious Diseases: None - Tetanus Immunizations Tetanus Immunization: Unknown - Past Social History Smoking Status: Never Smoked - CARDIAC Hx Cardiac Disorders: Yes (severe cardiomyopathy, life vest) Hx Angina: No Hx Cardia Arrhythmia: No Hx Circulatory Problems: No Hx Congestive Heart Failure: Yes Hx Heart Murmur: No Hx Heart Transplant: No Hx Hypercholesterolemia: Yes Hx Hypertension: Yes Hx Internal Defibrillator: No Hx Mitral Valve Prolapse: No Hx Pacemaker: No Hx Peripheral Edema: No Hx Peripheral Vascular Disease: No - PULMONARY Hx Respiratory Disorders: No Hx Asthma: No Hx Bronchitis: No Hx Chronic Obstructive Pulmonary Disease (COPD): No Hx Emphysema: No Hx Pneumonia: No Hx Respiratory Aspiration: No Hx Respiratory Tract Infection: No Hx Sleep Apnea: No Hx Tuberculosis: No - NEUROLOGICAL Hx Neurological Disorder: No Hx Alzheimer's Disease: No HX Cerebrovascular Accident: No Hx Dementia: No Hx Dizziness: No Hx Meningitis: No Hx Migraine: No Hx Parkinson's Disease: No Hx Seizures: No Hx Transient Ischemic Attacks (TIA): No - HEENT Hx HEENT Problems: Yes (blurred vision in right eye) Hx Blind: No Hx Cataracts: Yes Hx Deafness: No Hx Difficulty Chewing: No Hx Epistaxis: No Hx Glaucoma: No Hx Macular Degeneration: No - RENAL Hx Chronic Kidney Disease: No Hx Dialysis: No Hx Kidney Stones: No Hx Neurogenic Bladder: No Hx Pyelonephritis: No Hx Renal (Kidney) Cancer: No Hx Renal Failure: No - ENDOCRINE/METABOLIC Hx Endocrine Disorders: Yes Hx Adrenal Cancer: No Hx Diabetes Insipidus: No Hx Diabetes Mellitus Type 1: No Hx Diabetes Mellitus Type 2: Yes Hx Hyperthyroidism: No Hx Hypothyroidism: No Hx Systemic Lupus Erythematosus: No - HEMATOLOGICAL/ONCOLOGICAL Hx Blood Disorders: Yes Hx AIDS: No Hx Anemia: Yes Hx Cancer: No Hx Chemotherapy: No Hx Cirrhosis: No Hx Hemophilia: No Hx Hepatitis A: No Hx Hepatitis B: No Hx Hepatitis C: No Hx Human Immunodeficiency Virus (HIV): No Hx Metastesis: No Hx Shingles: No Hx Sickle Cell Disease: No Hx Unexplained Bleeding: No - INTEGUMENTARY Hx Dermatological Problems: Yes (non healing foot wound left foot) Hx Basil Cell: No Hx Eczema: No Hx Melanoma: No Hx Psoriasis: No Hx Squamous Cell: No - MUSCULOSKELETAL/RHEUMATOLOGICAL Hx Musculoskeletal Disorders: Yes Hx Arthritis: No Hx Back Pain: No Hx Degenerative Joint Disease: No Hx Falls: No Hx Fractures: No Hx Gout: No Hx Herniated Disk: No Hx Myasthenia Gravis: No Hx Osteoarthritis: No Hx Osteomyelitis: Yes Hx Osteoporosis: No Hx Rhabdomyolysis: No Hx Spinal Stenosis: No Hx Unsteady Gait: No - GASTROINTESTINAL Hx Gastrointestinal Disorders: Yes (gastriris) Hx Colostomy: No Hx Crohn's Disease: No Hx Diverticulitis: No Hx Gall Bladder Disease: No Hx Gastroesophageal Reflux: Yes Hx Ileostomy: No Hx Liver Failure: No Hx Pancreatitis: No HX Swallowing Problems: No Hx Ulcer: No - GENITOURINARY/GYNECOLOGICAL Hx Genitourinary Disorders: Yes Hx Hematuria: No Hx Incontinence: No Hx Sexually Transmitted Disorders: No Hx Urinary Tract Infection: Yes - PSYCHIATRIC Hx Psychophysiologic Disorder: No Hx Anxiety: No Hx Bipolar Disorder: No Hx Depression: No Hx Emotional Abuse: No Hx Hallucinations: No Hx Panic Symptoms: No Hx Paranoia: No Hx Post Traumatic Stress Disorder: No Hx Psychosis: No Hx Physical Abuse: No Hx Schizophrenia: No Hx Sexual Abuse: No - SURGICAL HISTORY Hx Surgeries: Yes Hx Amputation: Yes (great toe left foot) Hx Appendectomy: No Hx Cardiac Catheterization: No Hx Cholecystectomy: No Hx Coronary Stent: No Hx Gastric Bypass Surgery: No Hx Hysterectomy: No Hx Joint Replacement: No Hx Kidney Transplant: No Hx Liver Transplant: No Hx Mastectomy: No Hx Musculoskeletal Surgery: No Hx Open Heart Surgery: No Hx Orthopedic Surgery: No Hx Splenectomy: No Hx Valve Replacement: No - ANESTHESIA Hx Anesthesia Reactions: No Hx Malignant Hyperthermia: No Meds Allergies/Adverse Reactions: Allergies Allergy/AdvReac Type Severity Reaction Status Date / Time pantoprazole Allergy RASH Verified 09/01/18 11:52 - Medications Medications: Current Medications Aspirin (Aspirin Chewable) 81 mg PO DAILY [facility] Last Admin: 09/02/18 10:55 Dose: 81 mg Atorvastatin Calcium (Lipitor) 40 mg PO DIN [facility] Carvedilol (Coreg) 25 mg PO BID [facility] Last Admin: 09/02/18 10:55 Dose: 25 mg Famotidine (Pepcid) 10 mg PO 1000,2200 [facility] Last Admin: 09/02/18 10:55 Dose: 10 mg Furosemide (Lasix) 20 mg PO DAILY [facility] Last Admin: 09/02/18 10:55 Dose: 20 mg Heparin Sodium (Porcine) (Heparin) 5,000 units SC Q8 [facility]; Protocol Last Admin: 09/02/18 06:28 Dose: 5,000 units Linezolid (Zyvox 600mg/300ml D5w) 600 mg in 300 mls @ 200 mls/hr IVPB Q12 [facility]; Protocol Stop: 09/09/18 06:27 Last Admin: 09/02/18 10:50 Dose: 200 mls/hr Piperacillin Sod/Tazobactam Sod (Zosyn 3.375 In Ns 100ml) 100 mls @ 25 mls/hr IVPB Q8 [facility]; Protocol Stop: 09/09/18 06:31 Last Admin: 09/02/18 06:45 Dose: 25 mls/hr Insulin Human Regular (Humulin R Med) 0 units SC ACHS [facility]; Protocol Last Admin: 09/02/18 11:30 Dose: Not Given Lisinopril (Zestril) 10 mg PO DAILY [facility] Last Admin: 09/02/18 10:55 Dose: 10 mg Senna/Docusate Sodium (Senokot S 50 Mg-8.6 Mg) 1 tab PO DAILY [facility] Last Admin: 09/02/18 10:55 Dose: 1 tab Physical Exam - Constitutional Appears: No Acute Distress - Head Exam Head Exam: ATRAUMATIC, NORMAL INSPECTION, NORMOCEPHALIC - Eye Exam Eye Exam: Normal appearance, PERRL Pupil Exam: NORMAL ACCOMODATION, PERRL - ENT Exam ENT Exam: Mucous Membranes Moist - Neck Exam Neck exam: Positive for: Normal Inspection - Respiratory Exam Respiratory Exam: Clear to Auscultation Bilateral, NORMAL BREATHING PATTERN. absent: Rales, Rhonchi, Wheezes - Cardiovascular Exam Cardiovascular Exam: REGULAR RHYTHM, +S1, +S2. absent: Gallop, Rubs, Systolic Murmur Additional comments: L vest in place - GI/Abdominal Exam GI & Abdominal Exam: Normal Bowel Sounds, Soft. absent: Mass, Rebound, Rigid, T enderness - Extremities Exam Additional comments: L toe shows bone with pus drainage - Neurological Exam Neurological exam: Alert, CN II-XII Intact, Oriented x3 - Psychiatric Exam Psychiatric exam: Normal Affect, Normal Mood - Skin Skin Exam: Dry, Warm Results - Vital Signs Recent Vital Signs: Last Vital Signs Temp 98.2 F 09/02/18 06:00 Pulse 79 09/02/18 10:55 Resp 18 09/02/18 06:00 BP 172/86 H 09/02/18 10:55 Pulse Ox 100 09/02/18 06:00 - Labs Result Diagrams: 09/02/18 06:50 09/01/18 14:30 Labs: Laboratory Results - last 24 hr 09/01/18 09/01/18 09/01/18 12:47 12:52 14:30 WBC 13.9 H RBC 3.20 L Hgb 9.0 L Hct 28.8 L MCV 90.0 MCH 28.1 MCHC 31.3 RDW 14.1 Plt Count 602 H MPV 8.8 Gran % 74.5 H Lymph % (Auto) 15.3 L [place] % (Auto) 5.2 Eos % (Auto) 4.1 Baso % (Auto) 0.9 Gran # 10.36 H Lymph # (Auto) 2.1 [place] # (Auto) 0.7 H Eos # (Auto) 0.6 Baso # (Auto) 0.13 ESR PT INR APTT Sodium 140 Potassium 5.2 H Chloride 108 H Carbon Dioxide 25 Anion Gap 13 BUN 21 Creatinine 1.2 Est GFR ( Amer) 57 Est GFR (Non-Af Amer) 47 POC Glucose (mg/dL) 293 H Random Glucose 239 H Calcium 8.6 Total Bilirubin 0.3 AST 17 ALT 22 Alkaline Phosphatase 129 H Total Protein 7.3 Albumin 3.4 Globulin 3.8 Albumin/Globulin Ratio 0.9 L Urine Color Urine Appearance Urine pH Ur Specific [place] Urine Protein Urine Glucose (UA) Urine Ketones Urine Blood Urine Nitrate Urine Bilirubin Urine Urobilinogen Ur Leukocyte Esterase Urine RBC Urine WBC Ur Epithelial Cells Urine Bacteria Urine Other 09/01/18 09/01/18 09/02/18 14:40 22:11 06:50 WBC 10.1 D RBC 3.00 L Hgb 8.3 L Hct 26.5 L MCV 88.3 MCH 27.7 MCHC 31.3 RDW 14.3 Plt Count 545 H MPV 8.4 Gran % 72.7 H Lymph % (Auto) 15.2 L [place] % (Auto) 7.3 H Eos % (Auto) 4.3 Baso % (Auto) 0.5 Gran # 7.32 H Lymph # (Auto) 1.5 [place] # (Auto) 0.7 H Eos # (Auto) 0.4 Baso # (Auto) 0.05 ESR 104 H PT INR APTT Sodium Potassium Chloride Carbon Dioxide Anion Gap BUN Creatinine Est GFR ( Amer) Est GFR (Non-Af Amer) POC Glucose (mg/dL) 193 H Random Glucose Calcium Total Bilirubin AST ALT Alkaline Phosphatase Total Protein Albumin Globulin Albumin/Globulin Ratio Urine Color Yellow Urine Appearance Clear Urine pH 6.5 Ur Specific [place] 1.020 Urine Protein 100 H Urine Glucose (UA) >=1000 Urine Ketones Negative Urine Blood Small H Urine Nitrate Positive H Urine Bilirubin Negative Urine Urobilinogen 0.2 Ur Leukocyte Esterase Trace H Urine RBC 10 - 15 Urine WBC 5 - 10 Ur Epithelial Cells 4 - 5 Urine Bacteria Large Urine Other Uyeast 09/02/18 09/02/18 09/02/18 08:11 09:00 11:18 WBC RBC Hgb Hct MCV MCH MCHC RDW Plt Count MPV Gran % Lymph % (Auto) [place] % (Auto) Eos % (Auto) Baso % (Auto) Gran # Lymph # (Auto) [place] # (Auto) Eos # (Auto) Baso # (Auto) ESR PT 12.3 INR 1.07 APTT 42.4 H Sodium Potassium Chloride Carbon Dioxide Anion Gap BUN Creatinine Est GFR ( Amer) Est GFR (Non-Af Amer) POC Glucose (mg/dL) 130 H 175 H Random Glucose Calcium Total Bilirubin AST ALT Alkaline Phosphatase Total Protein Albumin Globulin Albumin/Globulin Ratio Urine Color Urine Appearance Urine pH Ur Specific [place] Urine Protein Urine Glucose (UA) Urine Ketones Urine Blood Urine Nitrate Urine Bilirubin Urine Urobilinogen Ur Leukocyte Esterase Urine RBC Urine WBC Ur Epithelial Cells Urine Bacteria Urine Other Assessment & Plan - Assessment and Plan (Free Text) Assessment: 1. Osteomyelitis of 1st toe stump - XR showed osteo and is clinically osteomyelitis 2. IDDM 3. HTN 4. Dilated cardiomyopathy 5. CKD IIIb Plan: Labs and imagine reviewed. Podiatry plans for surgical debridement and bone biopsy for culture and pathology. Cultures reviewed which showed Enterobacter and staph aureus (+MSSA). Will continue Zosyn and Zyvox renally dosed. Will follow clinically. Case seen, discussed and reviewed with Dr. Deb Wing PGY3 - Date & Time Date: 09/02/18 Time: 12:44 <Navarro Boyd - Last Filed: 09/02/18 17:27> Meds - Medications Medications: Current Medications Aspirin (Aspirin Chewable) 81 mg PO DAILY [facility] Last Admin: 09/02/18 10:55 Dose: 81 mg Atorvastatin Calcium (Lipitor) 40 mg PO DIN [facility] Carvedilol (Coreg) 25 mg PO BID [facility] Last Admin: 09/02/18 10:55 Dose: 25 mg Famotidine (Pepcid) 10 mg PO 1000,2200 [facility] Last Admin: 09/02/18 10:55 Dose: 10 mg Furosemide (Lasix) 20 mg PO DAILY [facility] Last Admin: 09/02/18 10:55 Dose: 20 mg Gabapentin (Neurontin) 100 mg PO TID [facility]; Protocol Last Admin: 09/02/18 14:54 Dose: 100 mg Heparin Sodium (Porcine) (Heparin) 5,000 units SC Q8 [facility]; Protocol Last Admin: 09/02/18 14:54 Dose: 5,000 units Linezolid (Zyvox 600mg/300ml D5w) 600 mg in 300 mls @ 200 mls/hr IVPB Q12 [facility]; Protocol Stop: 09/09/18 06:27 Last Admin: 09/02/18 10:50 Dose: 200 mls/hr Piperacillin Sod/Tazobactam Sod (Zosyn 2.25 Gm In 0.9% 100 Ml) 2.25 gm in 100 mls @ 100 mls/hr IVPB Q8H [facility]; Protocol Last Admin: 09/02/18 14:55 Dose: 100 mls/hr Insulin Human Regular (Humulin R Med) 0 units SC ACHS [facility]; Protocol Last Admin: 09/02/18 12:33 Dose: 1 units Lactulose (Enulose) 10 gm PO STAT [facility] Lisinopril (Zestril) 20 mg PO DAILY [facility] Polyethylene Glycol (Miralax) 17 gm PO BID PRN PRN Reason: Constipation Senna/Docusate Sodium (Senokot S 50 Mg-8.6 Mg) 1 tab PO DAILY [facility] Last Admin: 09/02/18 10:55 Dose: 1 tab Results - Vital Signs Recent Vital Signs: Last Vital Signs Temp 97.1 F L 09/02/18 12:00 Pulse 75 09/02/18 12:00 Resp 20 09/02/18 12:00 BP 180/84 H 09/02/18 12:00 Pulse Ox 100 09/02/18 06:00 - Labs Result Diagrams: 09/02/18 06:50 09/01/18 14:30 Labs: Laboratory Results - last 24 hr 09/01/18 09/01/18 09/02/18 12:47 22:11 05:00 WBC RBC Hgb Hct MCV MCH MCHC RDW Plt Count MPV Gran % Lymph % (Auto) [place] % (Auto) Eos % (Auto) Baso % (Auto) Gran # Lymph # (Auto) [place] # (Auto) Eos # (Auto) Baso # (Auto) ESR PT INR APTT POC Glucose (mg/dL) 293 H 193 H C-Reactive Protein 16.10 H 09/02/18 09/02/18 09/02/18 06:50 08:11 09:00 WBC 10.1 D RBC 3.00 L Hgb 8.3 L Hct 26.5 L MCV 88.3 MCH 27.7 MCHC 31.3 RDW 14.3 Plt Count 545 H MPV 8.4 Gran % 72.7 H Lymph % (Auto) 15.2 L [place] % (Auto) 7.3 H Eos % (Auto) 4.3 Baso % (Auto) 0.5 Gran # 7.32 H Lymph # (Auto) 1.5 [place] # (Auto) 0.7 H Eos # (Auto) 0.4 Baso # (Auto) 0.05 ESR 104 H PT 12.3 INR 1.07 APTT 42.4 H POC Glucose (mg/dL) 130 H C-Reactive Protein 09/02/18 11:18 WBC RBC Hgb Hct MCV MCH MCHC RDW Plt Count MPV Gran % Lymph % (Auto) [place] % (Auto) Eos % (Auto) Baso % (Auto) Gran # Lymph # (Auto) [place] # (Auto) Eos # (Auto) Baso # (Auto) ESR PT INR APTT POC Glucose (mg/dL) 175 H C-Reactive Protein Assessment & Plan - Assessment and Plan (Free Text) Plan: Infectious Diseases Attending Physician Attestation Patient seen and examined, discussed with medical device assembler. I have reviewed the patient's history of present illness, past medical, family and social histories, personal history, physical exam, lab findings and imaging studies. I agree with the above findings, assessment and plan. In addition, we have started Zyvox and Zosyn for left first toe stump cellulitis with clinical osteomyelitis. Follow up wound and blood cx and patient is for OR.
[2018-09-02] MEDS: Piperacillin/Tazobact 2.25gm 2.25 GM/100 ML BAG IVPB SCH ×2 (14:55→20:47)
--- NOTE | 2018-09-02 15:02 | CON ---
DATE: 09/02/2018 TIME: 10 a.m. CHIEF COMPLAINT AND HISTORY OF PRESENT ILLNESS: I am familiar with Ms. Hernandez from an arteriogram performed in June 2018. At that time she had nonhealing ulcer and early gangrene of her left great toe. She underwent a complex left trifurcation and tibial intervention. She had two-vessel runoff with significant small vessel disease in the foot. Subsequently she underwent a left great toe amputation. She has been followed by Dr. Laboy and Dr. Murray. Her wound has not healed and looks ischemic. She has been readmitted for further evaluation. Her SURJIT/PVR exam on this admission is much improved compared to her previous study (before the June arteriogram). Her SURJIT is 0.92 and significantly increased. Her left PVR waveforms are normal to the ankle and the metatarsal waveforms are pulsatile. PHYSICAL EXAMINATION: She has a palpable left dorsalis pedis pulse which is the primary supply to her foot. I do not think a repeat arteriogram is necessary at this point given the SURJIT results and physical exam. Her failure to heal is likely related to small vessel disease and diabetes. I believe revision of the amputation site and conservative treatment are appropriate this time. I will speak with Dr. Laboy and Dr. Murray. Rodney Morin MD MTDD
--- NOTE | 2018-09-02 16:00 | CP.PCM.PN ---
<Cyril Del Cid - Last Filed: 09/02/18 15:53> Subjective - Date & Time of Evaluation Date of Evaluation: 09/02/18 Time of Evaluation: 15:54 - Subjective Subjective: Resident Cyril Del Cid DO PGY-1 Hospitalist Progress Note for Dr. Tiburcio Greenwood: Pt was seen and examined this morning at bedside. Pt is having no acute complaints and states that she is here because her doctor told her to come and that she might need to have surgery. She states that she is currently not having any chest pain, fevers, chills, n/v, c/d, abd pain, dysuria, hematuria, frequency or L foot pain. She denies any acute overnight events. Objective - Vital Signs/Intake and Output Vital Signs (last 24 hours): Temp Pulse Resp BP Pulse Ox 97.1 F L 75 20 180/84 H 100 09/02/18 12:00 09/02/18 12:00 09/02/18 12:00 09/02/18 12:00 09/02/18 06:00 Intake and Output: 09/02/18 09/02/18 06:59 18:59 Intake Total 120 Output Total 400 Balance -280 - Medications Medications: Current Medications Aspirin (Aspirin Chewable) 81 mg PO DAILY [facility] Last Admin: 09/02/18 10:55 Dose: 81 mg Atorvastatin Calcium (Lipitor) 40 mg PO DIN [facility] Carvedilol (Coreg) 25 mg PO BID [facility] Last Admin: 09/02/18 10:55 Dose: 25 mg Famotidine (Pepcid) 10 mg PO 1000,2200 [facility] Last Admin: 09/02/18 10:55 Dose: 10 mg Furosemide (Lasix) 20 mg PO DAILY [facility] Last Admin: 09/02/18 10:55 Dose: 20 mg Gabapentin (Neurontin) 100 mg PO TID [facility]; Protocol Last Admin: 09/02/18 14:54 Dose: 100 mg Heparin Sodium (Porcine) (Heparin) 5,000 units SC Q8 [facility]; Protocol Last Admin: 09/02/18 14:54 Dose: 5,000 units Linezolid (Zyvox 600mg/300ml D5w) 600 mg in 300 mls @ 200 mls/hr IVPB Q12 [facility]; Protocol Stop: 09/09/18 06:27 Last Admin: 09/02/18 10:50 Dose: 200 mls/hr Piperacillin Sod/Tazobactam Sod (Zosyn 2.25 Gm In 0.9% 100 Ml) 2.25 gm in 100 mls @ 100 mls/hr IVPB Q8H [facility]; Protocol Last Admin: 09/02/18 14:55 Dose: 100 mls/hr Insulin Human Regular (Humulin R Med) 0 units SC ACHS [facility]; Protocol Last Admin: 09/02/18 12:33 Dose: 1 units Lisinopril (Zestril) 20 mg PO DAILY [facility] Senna/Docusate Sodium (Senokot S 50 Mg-8.6 Mg) 1 tab PO DAILY [facility] Last Admin: 09/02/18 10:55 Dose: 1 tab - Labs Labs: 09/02/18 06:50 PT 12.3 SECONDS (9.4-12.5) 09/02/18 09:00 INR 1.07 09/02/18 09:00 APTT 42.4 Seconds (25.1-36.5) H 09/02/18 09:00 - Constitutional Appears: Well, Non-toxic, No Acute Distress - Head Exam Head Exam: ATRAUMATIC, NORMAL INSPECTION, NORMOCEPHALIC - Eye Exam Eye Exam: EOMI, Normal appearance, PERRL - ENT Exam ENT Exam: Mucous Membranes Moist - Respiratory Exam Respiratory Exam: Clear to Ausculation Bilateral, NORMAL BREATHING PATTERN. absent: Accessory Muscle Use, Rales, Rhonchi, Wheezes, Respiratory Distress - Cardiovascular Exam Cardiovascular Exam: Gallop (S3 gallop noted), REGULAR RHYTHM, +S1, +S2. absent: Rubs - GI/Abdominal Exam GI & Abdominal Exam: Soft, Normal Bowel Sounds. absent: Firm, Guarding, Rigid, Tenderness - Extremities Exam Extremities Exam: absent: Calf Tenderness Additional comments: Pt has covering over L foot and is s/p L transmetatarsal amputation, no edema noted at ankle and dressing is clean, dry and intact. - Back Exam Back Exam: NORMAL INSPECTION. absent: CVA tenderness (L), CVA tenderness (R) - Neurological Exam Neurological Exam: Alert, Awake, Oriented x3 - Psychiatric Exam Psychiatric exam: Normal Affect, Normal Mood - Skin Skin Exam: Dry, Intact (except where noted above), Normal Color, Warm Assessment and Plan - Assessment and Plan (Free Text) Assessment: Ms Hernandez, 52 F, PMHx uncontrolled diabetes s/p left great toe amputation, severe cardiomyopathy on life vest since December 2017, CKD 3, peripheral artery disease s/p recent JAMES(s) placement at [facility] admitted for nonhealing surgical wound s/p left great toe amputation (Jul 2018) possibly due to uncontrolled diabetes and poor circulation secondary to PAD. The non-healing wound recently got infected with heavy exudates, causing wound dehiscence. She will require IV antibiotics & I&D for cellulitis R/O osteomyelitis. L foot XR came back probably for osteo in the head of the 1st metatarsal. Plan: 1. LLE Cellulitis R/O osteomyelitis with leukocytosis s/p L transmetatarsal surgery - Teflaro renal dose - ID consult - Follow on blood culture - Trend WBC. Thrombocytosis likely reactive to infection - L Foot XR: Probable osteo at head of 1st metatarsal - OR for debridement on Friday 09/07 per podiatry 2. Non-healing wound possibly due to poor circulation - Extermity US: report states that L SURJIT is improved from previous ones on record. - IR: Dr. Morin consulted 3. Severe Cardiomyopathy on life vest - Dr. Caldwell consulted for [facility] risk assessment for surgery - Telemetry 4. HTN: - Continue home lisinopril, lasix 5.PAD s/p recent JAMES stents: - continue ASA, plavix, lipitor 6. CKD stage 3 - Cr clearance 38 - Continue to trend creatinine - If creatinine decreases, will consult nephro 7. Uncontrolled DM: - A1C 9 - ISSS - Diabetic education - Dietitian consult 8. Constipation - Senokot-S daily. - Will consider Lactulose PRN if necessary (pt states that this works for her in the past) 9. Hyperkalemia: - K 5.2 - Will recheck cmp tomorrow. 10. PPX: DVT: heparin SC GI: pepcid BID Case seen and discussed with Dr. Tiburcio Del Cid DO PGY1 <Tessy Greenwood R - Last Filed: 09/04/18 07:15> Objective - Vital Signs/Intake and Output Vital Signs (last 24 hours): Temp Pulse Resp BP Pulse Ox 98.0 F 76 18 172/73 H 96 09/04/18 01:15 09/04/18 01:15 09/04/18 01:15 09/04/18 01:15 09/04/18 01:15 Intake and Output: 09/04/18 09/04/18 06:59 18:59 Intake Total 1200 Output Total 1250 Balance -50 - Medications Medications: Current Medications Aspirin (Aspirin Chewable) 81 mg PO DAILY [facility] Last Admin: 09/03/18 10:29 Dose: 81 mg Atorvastatin Calcium (Lipitor) 40 mg PO DIN [facility] Last Admin: 09/03/18 17:54 Dose: 40 mg Carvedilol (Coreg) 25 mg PO BID [facility] Last Admin: 09/03/18 17:53 Dose: Not Given Famotidine (Pepcid) 10 mg PO 1000,2200 [facility] Last Admin: 09/03/18 22:27 Dose: 10 mg Furosemide (Lasix) 20 mg PO DAILY [facility] Last Admin: 09/03/18 10:30 Dose: 20 mg Gabapentin (Neurontin) 200 mg PO TID [facility]; Protocol Last Admin: 09/03/18 17:54 Dose: 200 mg Heparin Sodium (Porcine) (Heparin) 5,000 units SC Q8 [facility]; Protocol Last Admin: 09/04/18 05:49 Dose: 5,000 units Linezolid (Zyvox 600mg/300ml D5w) 600 mg in 300 mls @ 200 mls/hr IVPB Q12 [facility]; Protocol Stop: 09/09/18 06:27 Last Admin: 09/03/18 22:29 Dose: 200 mls/hr Piperacillin Sod/Tazobactam Sod (Zosyn 2.25 Gm In 0.9% 100 Ml) 2.25 gm in 100 mls @ 100 mls/hr IVPB Q8H [facility]; Protocol Last Admin: 09/04/18 04:31 Dose: 100 mls/hr Insulin Human Regular (Humulin R Med) 0 units SC ACHS [facility]; Protocol Last Admin: 09/04/18 00:56 Dose: Not Given Lactulose (Enulose) 10 gm PO STAT [facility] Last Admin: 09/03/18 17:53 Dose: 10 gm Lisinopril (Zestril) 20 mg PO DAILY [facility] Last Admin: 09/03/18 10:32 Dose: 20 mg Polyethylene Glycol (Miralax) 17 gm PO BID PRN PRN Reason: Constipation Senna/Docusate Sodium (Senokot S 50 Mg-8.6 Mg) 1 tab PO DAILY [facility] Last Admin: 09/03/18 10:32 Dose: 1 tab - Labs Labs: 09/03/18 06:00 09/04/18 05:00 PT 12.3 SECONDS (9.4-12.5) 09/02/18 09:00 INR 1.07 09/02/18 09:00 APTT 42.4 Seconds (25.1-36.5) H 09/02/18 09:00 Attending/Attestation - Attestation I have personally seen and examined this patient.: Yes I have fully participated in the care of the patient.: Yes I have reviewed all pertinent clinical information, including history, physical exam and plan: Yes Notes (Text): Patient seen and examined by me with resident at 10:10AM with resident 09/02/18. Case including HPI, physical exam, and assessment and plan discussed with resident. Agree with above with following additions/corrections. Patient is a 52-year-old female with past medical history significant for diabetes and left great toe amputation, insulin-dependent type 2 diabetes, severe cardiomyopathy with LifeVest, systolic CHF, hypertension, chronic kidney disease stage III, and peripheral artery disease status post stents of left lower extremity that presented to the emergency room after being sent in by her editor index, Dr. Murray, for a nonhealing wound of the left great toe. Patient states she is feeling ok. States she still has some numbness and tingling in her left foot. She denies any pain in her left foot. No chest pain or shortness of breath. No nausea, vomiting, or abdominal pain. No headaches or dizziness. No fevers or chills. No dysuria. Patient states she has not had a bowel movement. Physical exam: General: Awake and lying in bed in no acute distress HEENT: Normocephalic, atraumatic. Extraocular muscles intact, pupils equal and reactive, no scleral icterus. Oropharynx is pink and moist. Neck is supple. Cardiovascular: Regular rhythm. Normal S1 and S2. Positive S3. No murmurs, rubs, or gallops appreciated Pulmonary: Normal respiratory effort. No rhonchi, rales, or wheezing appreciated. Gastrointestinal: Soft, nondistended. Nontender. Positive bowel sounds all 4 quadrants. No guarding. Musculoskeletal: Moves all extremities. No calf tenderness. No CVA tenderness. Positive LLE edema. Positive left foot dressing clean, dry, and intact. Central nervous system: AAO x3, CN 2-12 grossly intact. Dermatologic: Skin warm and dry. LifeVest in place. Assessment and plan: Patient is a 52-year-old female with past medical history significant for diabetes and left great toe amputation, insulin-dependent type 2 diabetes, severe cardiomyopathy with LifeVest, systolic CHF, hypertension, chronic kidney disease stage III, and peripheral artery disease status post stents of left lower extremity that presented to the emergency room after being sent in by her editor index, Dr. Murray, for a nonhealing wound of the left great toe. 1. Nonhealing wound of left great toe. Likely with osteomylelitis. Podiatry following, Dr. Murray, recommendations appreciated. ID following, recommendations appreciated. Continue Zosyn and Zyvox. Patient likely for OR on Friday09/07/18 for debridement. Left foot xray per radiologist showed probable osteomyelitis in the head of the first metatarsal. Arterial Doppler of left lower extremity per radiologist showed left resting SURJIT and distal waveforms are much improved from preintervention images in 2018. Interventional radiologist, Dr. Morin, following, recommendations appreciated. Blood cultures with no growth to date. ESR 104. 2. Thrombocytosis. Likely reactive secondary to infection. Improving. Continue to monitor. 3. Leukocytosis. Likely secondary to #1. Resolved. Blood cultures with no growth to date. Urine culture pending. Patient afebrile. Continue Zyvox and Zosyn. Continue to monitor. 4. PAD S/P stent placement. Continue home ASA, plavix, and lipitor. 5. Severe cardiomyopathy. Chronic systolic CHF. Continue with LifeVest. Continue home Coreg, Lasix, Lipitor, and Lisinopril. Continue to monitor on telemetry 6. Insulin-dependent type 2 diabetes. Continue insulin sliding scale. Continue to monitor accuchecks and add long acting insulin if needed. 7. CKD Stage 3. Improved from previous renal function. Continue to monitor for now. 8. Constipation. Patient started on Senokot. Paitent given lactulose. Continue to monitor for bowel movement. 9. Essential Hypertnsion. Continue home lasix, coreg, and lisinopril. 10. GI/DVT prophylaxis. Pepcid/Heparin 11. Patient is a full code. Case was discussed in detail with the patient regarding current diagnosis and treatment plan. All questions answered.
[2018-09-02] MEDS ORDERED: POLYETHYLENE GLYCOL 3350 17 GM/Dose PACKET PO PRN (16:07)
--- NOTE | 2018-09-02 20:02 | CON ---
DATE: 09/02/2018 CARDIOLOGY CONSULTATION HISTORY OF PRESENT ILLNESS: The patient is a 52-year-old woman who presents with unhealed foot ulcer. PAST MEDICAL HISTORY: Includes dilated cardiomyopathy, nonischemic; diabetes mellitus; hypertension; hypercholesterolemia and severe peripheral vascular disease. According to her, the cardiac catheterization done at [place] revealed no significant coronary artery disease. She was placed on a LifeVest, which intent was to be on for 3 months to evaluate ventricular arrhythmias. She has had it on over 6 months in which she has not been followed up by her garment mender who ordered to test. There have been no documented shocks. No arrhythmias noted. SOCIAL HISTORY: The patient does not smoke. REVIEW OF SYSTEMS: A 14-point review of systems is reviewed in detail. No dyspnea. No syncope. No palpitations. No edema in the lower extremities noted. PHYSICAL EXAMINATION: VITAL SIGNS: Blood pressure is 180/84, heart rates in the 70s. NECK: Negative JVD. LUNGS: Without rales. HEART: With S1 and S2. EXTREMITIES: No edema noted. LABORATORY DATA: BUN and creatinine is 21 and 1.2. Troponins are negative. Hemoglobin is 8.3. IMPRESSION: 1. Unhealed foot ulcer. 2. Peripheral vascular disease. 3. Dilated cardiomyopathy. 4. Severe pulmonary hypertension. 5. Anemia. 6. Hypertension. 7. Hypercholesterolemia. 8. Diabetes mellitus. 9. No evidence for ventricular tachycardia. PLAN: Given these findings, the patient's blood pressure needs better control. We will increase her lisinopril. We will discontinue her LifeVest. have LifeVest whether the patient had any cardiac arrhythmias. Rodney Caldwell MD
[2018-09-03] MEDS: Piperacillin/Tazobact 2.25gm 2.25 GM/100 ML BAG IVPB SCH ×3 (05:48→22:28)
--- NOTE | 2018-09-03 06:51 | CP.PCM.PN ---
<Shabnam Wing - Last Filed: 09/03/18 08:29> Subjective - Date & Time of Evaluation Date of Evaluation: 09/03/18 Time of Evaluation: 07:00 - Subjective Subjective: Infectious Disease Progress Note for Anabela Covarrubisa PGY3 Patient seen and examined at bedside. There were no acute overnight events as per nursing staff. Patient reports feeling well. Denies pain in feet, chest pain, nausea/vomiting/diarrhea, dysuria, hematuria or urinary frequency. Patient does complain of constipation. Objective - Vital Signs/Intake and Output Vital Signs (last 24 hours): Temp Pulse Resp BP Pulse Ox 98.4 F 66 19 167/92 H 100 09/03/18 06:00 09/03/18 06:00 09/03/18 00:01 09/03/18 06:00 09/02/18 06:00 Intake and Output: 09/02/18 09/03/18 18:59 06:59 Intake Total 700 540 Output Total 1600 Balance 700 -1060 - Medications Medications: Current Medications Aspirin (Aspirin Chewable) 81 mg PO DAILY [facility] Last Admin: 09/02/18 10:55 Dose: 81 mg Atorvastatin Calcium (Lipitor) 40 mg PO DIN [facility] Last Admin: 09/02/18 18:50 Dose: 40 mg Carvedilol (Coreg) 25 mg PO BID [facility] Last Admin: 09/02/18 18:46 Dose: 25 mg Famotidine (Pepcid) 10 mg PO 1000,2200 [facility] Last Admin: 09/02/18 22:22 Dose: 10 mg Furosemide (Lasix) 20 mg PO DAILY [facility] Last Admin: 09/02/18 10:55 Dose: 20 mg Gabapentin (Neurontin) 100 mg PO TID [facility]; Protocol Last Admin: 09/02/18 18:51 Dose: 100 mg Heparin Sodium (Porcine) (Heparin) 5,000 units SC Q8 [facility]; Protocol Last Admin: 09/03/18 05:49 Dose: 5,000 units Linezolid (Zyvox 600mg/300ml D5w) 600 mg in 300 mls @ 200 mls/hr IVPB Q12 [facility]; Protocol Stop: 09/09/18 06:27 Last Admin: 09/02/18 22:22 Dose: 200 mls/hr Piperacillin Sod/Tazobactam Sod (Zosyn 2.25 Gm In 0.9% 100 Ml) 2.25 gm in 100 mls @ 100 mls/hr IVPB Q8H [facility]; Protocol Last Admin: 09/03/18 05:48 Dose: 100 mls/hr Insulin Human Regular (Humulin R Med) 0 units SC ACHS [facility]; Protocol Last Admin: 09/02/18 22:21 Dose: Not Given Lactulose (Enulose) 10 gm PO STAT [facility] Last Admin: 09/02/18 18:47 Dose: 10 gm Lisinopril (Zestril) 20 mg PO DAILY [facility] Polyethylene Glycol (Miralax) 17 gm PO BID PRN PRN Reason: Constipation Senna/Docusate Sodium (Senokot S 50 Mg-8.6 Mg) 1 tab PO DAILY [facility] Last Admin: 09/02/18 10:55 Dose: 1 tab - Labs Labs: 09/02/18 06:50 PT 12.3 SECONDS (9.4-12.5) 09/02/18 09:00 INR 1.07 09/02/18 09:00 APTT 42.4 Seconds (25.1-36.5) H 09/02/18 09:00 - Constitutional Appears: No Acute Distress - Head Exam Head Exam: ATRAUMATIC, NORMAL INSPECTION, NORMOCEPHALIC - Eye Exam Eye Exam: Normal appearance, PERRL Pupil Exam: NORMAL ACCOMODATION, PERRL - ENT Exam ENT Exam: Mucous Membranes Moist - Respiratory Exam Respiratory Exam: Clear to Ausculation Bilateral, NORMAL BREATHING PATTERN. absent: Rales, Rhonchi, Wheezes - Cardiovascular Exam Cardiovascular Exam: REGULAR RHYTHM, +S1, +S2. absent: Gallop, Rubs, Murmur - GI/Abdominal Exam GI & Abdominal Exam: Soft, Normal Bowel Sounds. absent: Rigid, Tenderness, Mass, Rebound - Extremities Exam Extremities Exam: absent: Calf Tenderness, Pedal Edema Additional comments: R foot dressing in place- clean and dry - Neurological Exam Neurological Exam: Alert, Awake - Psychiatric Exam Psychiatric exam: Normal Affect, Normal Mood - Skin Skin Exam: Dry, Warm Assessment and Plan - Assessment and Plan (Free Text) Assessment: 1. Osteomyelitis of 1st toe stump - XR showed osteo and is clinically osteomyelitis 2. UTI 3. IDDM 4. HTN 5. Dilated cardiomyopathy 6. CKD IIIb Plan: Labs and imagine reviewed. Urine culture positive for gram negative enrique. Awaiting final result. Wound cultures showed Enterobacter and staph aureus (+MSSA). Continue Zosyn and Zyvox day # 2 renally dosed. Patient will have d ebridement and bone biopsy on Friday. Will need pathology on specimen once procedure is done. Will continue to follow clinically. Case seen, discussed and reviewed with Dr. Deb Wing PGY3 <Navarro Boyd - Last Filed: 09/03/18 14:56> Objective - Vital Signs/Intake and Output Vital Signs (last 24 hours): Temp Pulse Resp BP Pulse Ox 98.6 F 70 18 175/74 H 100 09/03/18 12:00 09/03/18 12:00 09/03/18 12:00 09/03/18 12:00 09/02/18 06:00 Intake and Output: 09/03/18 09/03/18 06:59 18:59 Intake Total 540 Output Total 1600 Balance -1060 - Medications Medications: Current Medications Aspirin (Aspirin Chewable) 81 mg PO DAILY [facility] Last Admin: 09/03/18 10:29 Dose: 81 mg Atorvastatin Calcium (Lipitor) 40 mg PO DIN [facility] Last Admin: 09/02/18 18:50 Dose: 40 mg Carvedilol (Coreg) 25 mg PO BID [facility] Last Admin: 09/03/18 10:29 Dose: Not Given Famotidine (Pepcid) 10 mg PO 1000,2200 [facility] Last Admin: 09/03/18 10:31 Dose: 10 mg Furosemide (Lasix) 20 mg PO DAILY [facility] Last Admin: 09/03/18 10:30 Dose: 20 mg Gabapentin (Neurontin) 200 mg PO TID [facility]; Protocol Last Admin: 09/03/18 14:14 Dose: 200 mg Heparin Sodium (Porcine) (Heparin) 5,000 units SC Q8 [facility]; Protocol Last Admin: 09/03/18 14:13 Dose: 5,000 units Linezolid (Zyvox 600mg/300ml D5w) 600 mg in 300 mls @ 200 mls/hr IVPB Q12 [facility]; Protocol Stop: 09/09/18 06:27 Last Admin: 09/03/18 10:32 Dose: 200 mls/hr Piperacillin Sod/Tazobactam Sod (Zosyn 2.25 Gm In 0.9% 100 Ml) 2.25 gm in 100 mls @ 100 mls/hr IVPB Q8H [facility]; Protocol Last Admin: 09/03/18 14:14 Dose: 100 mls/hr Insulin Human Regular (Humulin R Med) 0 units SC ACHS [facility]; Protocol Last Admin: 09/03/18 12:23 Dose: 3 units Lactulose (Enulose) 10 gm PO STAT [facility] Last Admin: 09/02/18 18:47 Dose: 10 gm Lisinopril (Zestril) 20 mg PO DAILY [facility] Last Admin: 09/03/18 10:32 Dose: 20 mg Polyethylene Glycol (Miralax) 17 gm PO BID PRN PRN Reason: Constipation Senna/Docusate Sodium (Senokot S 50 Mg-8.6 Mg) 1 tab PO DAILY [facility] Last Admin: 09/03/18 10:32 Dose: 1 tab - Labs Labs: 09/03/18 06:00 09/03/18 06:00 PT 12.3 SECONDS (9.4-12.5) 09/02/18 09:00 INR 1.07 09/02/18 09:00 APTT 42.4 Seconds (25.1-36.5) H 09/02/18 09:00 Assessment and Plan - Assessment and Plan (Free Text) Plan: Infectious Diseases Attending Physician Attestation Patient seen and examined, discussed with medical insurance biller. I have reviewed the patient's history of present illness, past medical, family and social histories, personal history, physical exam, lab findings and imaging studies. I agree with the above findings, assessment and plan. In addition, we will continue Zyvox and Zosyn for left first toe stump cellulitis with clinical osteomyelitis. Follow up wound and blood cx and patient is for OR - more importantly will await for OR cx prior to de-escalating antibiotics.
[2018-09-03 06:54] LABS: BASO # 0.06 K/mm3 (0.0-2.0); BASO % 0.6 % (0.0-3.0); EOS # 0.5 (0.0-0.7); EOS % 5.4 % (1.5-5.0); GRAN # 7.12 (1.4-6.5); GRAN % 73.8 % (50.0-68.0); HEMOGLOBIN 8.5 g/dL (12.0-16.0); LYMPH # 1.3 (1.2-3.4); LYMPH % 13.8 % (22.0-35.0); MEAN CELL VOLUME 88.7 fl (80.0-105.0); MEAN CORPUSCULAR HEMOGLOBIN 28.2 pg (25.0-35.0); MEAN CORPUSCULAR HGB CONC 31.8 g/dl (31.0-37.0); MEAN PLATELET VOLUME 8.7 fl (7.0-11.0); MONO # 0.6 (0.1-0.6); MONO % 6.4 % (1.0-6.0); RBC 3.01 10^6/uL (3.5-6.1); RED CELL DISTRIBUTION WIDTH 14.1 % (11.5-14.5); WHITE BLOOD COUNT 9.7 10^3/uL (4.5-11.0)
[2018-09-03 07:19] LABS: ALB/GLOB RATIO 0.8 (1.1-1.8); ALBUMIN 2.9 g/dL (3.0-4.8); CALCIUM 8.3 mg/dL (8.4-10.5)
[2018-09-03] MEDS: Insulin Reg-MEDIUM-Coverage SC SCH ×3 (08:17→17:27)
[2018-09-03] MEDS: Docusate-Senna 50 mg-8.6 mg Tab PO SCH (10:32)
[2018-09-03] MEDS: Linezolid 600 mg in D5W 300 ml 600 MG/300 ML BAG IVPB SCH ×2 (10:32→22:29)
--- NOTE | 2018-09-03 10:50 | PN ---
DATE: 09/03/2018 CARDIOLOGY FOLLOWUP SUBJECTIVE: The patient is comfortable. There are no arrhythmias noted on her monitor. Echocardiogram performed in 06/2018 reveals an ejection fraction of 31%. PHYSICAL EXAMINATION: VITAL SIGNS: Blood pressure is 148/66, heart rate is in the 60s. NECK: Negative JVD. LUNGS: Without rales. HEART: Reveals S1, S2. EXTREMITIES: Bandage on the lower extremities. LABORATORY DATA: Hemoglobin is 8.5, BUN and creatinine are 23 and 16 with a glucose of 219. IMPRESSION: 1. Cardiomyopathy. 2. Diabetes mellitus. 3. Renal insufficiency. 4. Foot ulcers. PLAN: Given these findings, the patient has been on a LifeVest for more than 9 months for questionable reasons. We will discontinue the LifeVest. There has been no arrhythmias noted. We will discontinue telemetry today. I have instructed the patient to follow up with her cryptanalyst who placed her on the LifeVest. Rodney Caldwell MD
--- NOTE | 2018-09-03 11:40 | CP.PCM.PN ---
Subjective - Date & Time of Evaluation Date of Evaluation: 09/03/18 Time of Evaluation: 11:37 - Subjective Subjective: Podiatry progress note for Dr. Murray 52 yo female seen and evaluated at bedside with Dr. Murray. Seen resting comfortably. States she is in no pain to the her left digit and denies any systemic symptoms of infection. Denies N/V/F/C/SOB. Is aware of surgery for Monday 09/03. Reports no other acute pedal complaints today. Objective - Vital Signs/Intake and Output Vital Signs (last 24 hours): Temp Pulse Resp BP Pulse Ox 98.4 F 66 19 150/60 100 09/03/18 06:00 09/03/18 06:00 09/03/18 00:01 09/03/18 10:30 09/02/18 06:00 Intake and Output: 09/03/18 09/03/18 06:59 18:59 Intake Total 540 Output Total 1600 Balance -1060 - Medications Medications: Current Medications Aspirin (Aspirin Chewable) 81 mg PO DAILY [facility] Last Admin: 09/03/18 10:29 Dose: 81 mg Atorvastatin Calcium (Lipitor) 40 mg PO DIN [facility] Last Admin: 09/02/18 18:50 Dose: 40 mg Carvedilol (Coreg) 25 mg PO BID [facility] Last Admin: 09/03/18 10:29 Dose: Not Given Famotidine (Pepcid) 10 mg PO 1000,2200 [facility] Last Admin: 09/03/18 10:31 Dose: 10 mg Furosemide (Lasix) 20 mg PO DAILY [facility] Last Admin: 09/03/18 10:30 Dose: 20 mg Gabapentin (Neurontin) 100 mg PO TID [facility]; Protocol Last Admin: 09/03/18 10:31 Dose: 100 mg Heparin Sodium (Porcine) (Heparin) 5,000 units SC Q8 [facility]; Protocol Last Admin: 09/03/18 05:49 Dose: 5,000 units Linezolid (Zyvox 600mg/300ml D5w) 600 mg in 300 mls @ 200 mls/hr IVPB Q12 [facility]; Protocol Stop: 09/09/18 06:27 Last Admin: 09/03/18 10:32 Dose: 200 mls/hr Piperacillin Sod/Tazobactam Sod (Zosyn 2.25 Gm In 0.9% 100 Ml) 2.25 gm in 100 mls @ 100 mls/hr IVPB Q8H [facility]; Protocol Last Admin: 09/03/18 05:48 Dose: 100 mls/hr Insulin Human Regular (Humulin R Med) 0 units SC ACHS [facility]; Protocol Last Admin: 09/03/18 08:17 Dose: 3 units Lactulose (Enulose) 10 gm PO STAT [facility] Last Admin: 09/02/18 18:47 Dose: 10 gm Lisinopril (Zestril) 20 mg PO DAILY [facility] Last Admin: 09/03/18 10:32 Dose: 20 mg Polyethylene Glycol (Miralax) 17 gm PO BID PRN PRN Reason: Constipation Senna/Docusate Sodium (Senokot S 50 Mg-8.6 Mg) 1 tab PO DAILY [facility] Last Admin: 09/03/18 10:32 Dose: 1 tab - Labs Labs: 09/03/18 06:00 09/03/18 06:00 PT 12.3 SECONDS (9.4-12.5) 09/02/18 09:00 INR 1.07 09/02/18 09:00 APTT 42.4 Seconds (25.1-36.5) H 09/02/18 09:00 - Constitutional Appears: Well, Non-toxic, No Acute Distress - Head Exam Head Exam: ATRAUMATIC, NORMOCEPHALIC - Extremities Exam Additional comments: LLE focused exam: Vasc: DP/PT pulses palpable. TG WNL, Cap refill < 3 seconds to all remaining digits, no edema noted to surgical site Ortho: Left hallux amputation, no tenderness upon calf compression, mild tenderness upon palpation of surgical site Neuro: Gross sensation diminished, protective sensation diminished/absent Derm: hallux amputation site shows evidence of dehiscence, 100% fibrotic with purulent discharge and slough present, erythema present periwound with no streaking present, probe to bone positive, no tunneling or tracking noted - Neurological Exam Neurological Exam: Alert, Awake, Oriented x3 - Psychiatric Exam Psychiatric exam: Normal Affect, Normal Mood Assessment and Plan - Assessment and Plan (Free Text) Assessment: 52 yo female evaluated for left foot diabetic ulceration and surgical site dehiscence Plan: Patient seen and evaluated at bedside with Dr. Murray Charts and labs reviewed - afebrile, absent leukocytosis Plavix stopped 09/02 - Dr. Greenwood and medicine team aware Plan for OR Friday 09/07 in afternoon Wound cleansed with normal saline and dressed with betadine and DSD Can weight bear to LLE Continue medications per medicine Will continue to follow patient while in house
--- NOTE | 2018-09-03 17:49 | CP.PCM.PN ---
<Cyril Del Cid - Last Filed: 09/03/18 17:45> Subjective - Date & Time of Evaluation Date of Evaluation: 09/03/18 Time of Evaluation: 17:45 - Subjective Subjective: Resident Cyril Del Cid DO PGY-1 Hospitalist Progress Note for Dr. Tiburcio Greenwood: Pt was seen and examined this morning at bedside. She denies any acute overnight events. She states that she is currently not having any chest pain, fevers, chills, n/v, c/d, abd pain, dysuria, hematuria, frequency or L foot pain. She states that her pins and needles sensation is improved since being on the gabapentin. Objective - Vital Signs/Intake and Output Vital Signs (last 24 hours): Temp Pulse Resp BP Pulse Ox 98.6 F 70 18 175/74 H 100 09/03/18 12:00 09/03/18 12:00 09/03/18 12:00 09/03/18 12:00 09/02/18 06:00 Intake and Output: 09/03/18 09/03/18 06:59 18:59 Intake Total 540 Output Total 1600 Balance -1060 - Medications Medications: Current Medications Aspirin (Aspirin Chewable) 81 mg PO DAILY [facility] Last Admin: 09/03/18 10:29 Dose: 81 mg Atorvastatin Calcium (Lipitor) 40 mg PO DIN [facility] Last Admin: 09/02/18 18:50 Dose: 40 mg Carvedilol (Coreg) 25 mg PO BID [facility] Last Admin: 09/03/18 10:29 Dose: Not Given Famotidine (Pepcid) 10 mg PO 1000,2200 [facility] Last Admin: 09/03/18 10:31 Dose: 10 mg Furosemide (Lasix) 20 mg PO DAILY [facility] Last Admin: 09/03/18 10:30 Dose: 20 mg Gabapentin (Neurontin) 200 mg PO TID [facility]; Protocol Last Admin: 09/03/18 14:14 Dose: 200 mg Heparin Sodium (Porcine) (Heparin) 5,000 units SC Q8 [facility]; Protocol Last Admin: 09/03/18 14:13 Dose: 5,000 units Linezolid (Zyvox 600mg/300ml D5w) 600 mg in 300 mls @ 200 mls/hr IVPB Q12 [facility]; Protocol Stop: 09/09/18 06:27 Last Admin: 09/03/18 10:32 Dose: 200 mls/hr Piperacillin Sod/Tazobactam Sod (Zosyn 2.25 Gm In 0.9% 100 Ml) 2.25 gm in 100 mls @ 100 mls/hr IVPB Q8H [facility]; Protocol Last Admin: 09/03/18 14:14 Dose: 100 mls/hr Insulin Human Regular (Humulin R Med) 0 units SC ACHS [facility]; Protocol Last Admin: 09/03/18 17:27 Dose: Not Given Lactulose (Enulose) 10 gm PO STAT [facility] Last Admin: 09/02/18 18:47 Dose: 10 gm Lisinopril (Zestril) 20 mg PO DAILY [facility] Last Admin: 09/03/18 10:32 Dose: 20 mg Polyethylene Glycol (Miralax) 17 gm PO BID PRN PRN Reason: Constipation Senna/Docusate Sodium (Senokot S 50 Mg-8.6 Mg) 1 tab PO DAILY [facility] Last Admin: 09/03/18 10:32 Dose: 1 tab - Labs Labs: 09/03/18 06:00 09/03/18 06:00 PT 12.3 SECONDS (9.4-12.5) 09/02/18 09:00 INR 1.07 09/02/18 09:00 APTT 42.4 Seconds (25.1-36.5) H 09/02/18 09:00 - Constitutional Appears: Well, Non-toxic, No Acute Distress - Head Exam Head Exam: ATRAUMATIC, NORMAL INSPECTION, NORMOCEPHALIC - Eye Exam Eye Exam: EOMI, Normal appearance, PERRL - ENT Exam ENT Exam: Mucous Membranes Moist - Respiratory Exam Respiratory Exam: Clear to Ausculation Bilateral, NORMAL BREATHING PATTERN. absent: Accessory Muscle Use, Rales, Rhonchi, Wheezes, Respiratory Distress, Stridor - Cardiovascular Exam Cardiovascular Exam: Gallop (S3), RRR, +S1, +S2. absent: Rubs - GI/Abdominal Exam GI & Abdominal Exam: Soft, Normal Bowel Sounds. absent: Tenderness - Extremities Exam Additional comments: Pt has covering over L foot and is s/p L transmetatarsal amputation, no edema noted at ankle and dressing shows yellow discoloration and odor 2/2 discharge. - Back Exam Back Exam: NORMAL INSPECTION. absent: CVA tenderness (L), CVA tenderness (R) - Neurological Exam Neurological Exam: Alert, Awake, Oriented x3 - Psychiatric Exam Psychiatric exam: Normal Affect, Normal Mood - Skin Skin Exam: Dry, Intact (except where noted above), Normal Color, Warm Assessment and Plan - Assessment and Plan (Free Text) Assessment: Ms Hernandez, 52 F, PMHx uncontrolled diabetes s/p left great toe amputation, severe cardiomyopathy on life vest since December 2017, CKD 3, peripheral artery disease s/p recent JAMES(s) placement at [facility] admitted for nonhealing surgical wound s/p left great toe amputation (Jul 2018) possibly due to uncontrolled diabetes and poor circulation secondary to PAD. \She will require IV antibiotics & I&D for cellulitis. L foot XR came back probable for osteo in the head of the 1st metatarsal. Will undergo surgery per podiatry on friday. Plan: 1. LLE Cellulitis R/O osteomyelitis with leukocytosis s/p L transmetatarsal surgery - Zyvoc and zosyn on board - ID consult - Follow on blood culture - Trend WBC. Thrombocytosis improving - L Foot XR: Probable osteo at head of 1st metatarsal - OR for debridement on Friday 09/07 per podiatry 2. Non-healing wound possibly due to poor circulation - Extermity US: report states that L SURJIT is improved from previous ones on record. - IR: Dr. Morin consulted 3. Severe Cardiomyopathy on life vest - Dr. Caldwell: D/tiffanie life vest, consulted for [facility] risk assessment for surgery - Telemetry 4. 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 HTN: - Continue home lisinopril, lasix 6.PAD s/p recent JAMES stents: - d/c plavix for surgery 7. CKD stage 3 - Cr clearance 38 - Continue to trend creatinine - If creatinine decreases, will consult nephro 8. Uncontrolled DM: - A1C 9 - ISSS - Diabetic education - Dietitian consult 9. Constipation - Senokot-S daily. - Will consider Lactulose PRN if necessary (pt states that this works for her in the past) 10. Hyperkalemia: - K 5.2 - Will recheck cmp tomorrow. 11. PPX: DVT: heparin SC GI: pepcid BID Case seen and discussed with Dr. Tiburcio Del Cid DO PGY1 <Tessy Greenwood R - Last Filed: 09/04/18 07:23> Objective - Vital Signs/Intake and Output Vital Signs (last 24 hours): Temp Pulse Resp BP Pulse Ox 98.0 F 76 18 172/73 H 96 09/04/18 01:15 09/04/18 01:15 09/04/18 01:15 09/04/18 01:15 09/04/18 01:15 Intake and Output: 09/04/18 09/04/18 06:59 18:59 Intake Total 1200 Output Total 1250 Balance -50 - Medications Medications: Current Medications Aspirin (Aspirin Chewable) 81 mg PO DAILY [facility] Last Admin: 09/03/18 10:29 Dose: 81 mg Atorvastatin Calcium (Lipitor) 40 mg PO DIN [facility] Last Admin: 09/03/18 17:54 Dose: 40 mg Carvedilol (Coreg) 25 mg PO BID [facility] Last Admin: 09/03/18 17:53 Dose: Not Given Famotidine (Pepcid) 10 mg PO 1000,2200 [facility] Last Admin: 09/03/18 22:27 Dose: 10 mg Furosemide (Lasix) 20 mg PO DAILY [facility] Last Admin: 09/03/18 10:30 Dose: 20 mg Gabapentin (Neurontin) 200 mg PO TID [facility]; Protocol Last Admin: 09/03/18 17:54 Dose: 200 mg Heparin Sodium (Porcine) (Heparin) 5,000 units SC Q8 [facility]; Protocol Last Admin: 09/04/18 05:49 Dose: 5,000 units Linezolid (Zyvox 600mg/300ml D5w) 600 mg in 300 mls @ 200 mls/hr IVPB Q12 [facility]; Protocol Stop: 09/09/18 06:27 Last Admin: 09/03/18 22:29 Dose: 200 mls/hr Piperacillin Sod/Tazobactam Sod (Zosyn 2.25 Gm In 0.9% 100 Ml) 2.25 gm in 100 m ls @ 100 mls/hr IVPB Q8H [facility]; Protocol Last Admin: 09/04/18 04:31 Dose: 100 mls/hr Insulin Human Regular (Humulin R Med) 0 units SC ACHS [facility]; Protocol Last Admin: 09/04/18 00:56 Dose: Not Given Lactulose (Enulose) 10 gm PO STAT [facility] Last Admin: 09/03/18 17:53 Dose: 10 gm Lisinopril (Zestril) 20 mg PO DAILY [facility] Last Admin: 09/03/18 10:32 Dose: 20 mg Polyethylene Glycol (Miralax) 17 gm PO BID PRN PRN Reason: Constipation Senna/Docusate Sodium (Senokot S 50 Mg-8.6 Mg) 1 tab PO DAILY [facility] Last Admin: 09/03/18 10:32 Dose: 1 tab - Labs Labs: 09/03/18 06:00 09/04/18 05:00 PT 12.3 SECONDS (9.4-12.5) 09/02/18 09:00 INR 1.07 09/02/18 09:00 APTT 42.4 Seconds (25.1-36.5) H 09/02/18 09:00 Attending/Attestation - Attestation I have personally seen and examined this patient.: Yes I have fully participated in the care of the patient.: Yes I have reviewed all pertinent clinical information, including history, physical exam and plan: Yes Notes (Text): Patient seen and examined by me with resident at 9:35AM with resident 09/03/18. Case including HPI, physical exam, and assessment and plan discussed with resid ent. Agree with above with following additions/corrections. Patient is a 52-year-old female with past medical history significant for diabetes and left great toe amputation, insulin-dependent type 2 diabetes, severe cardiomyopathy with LifeVest, systolic CHF, hypertension, chronic kidney disease stage III, and peripheral artery disease status post stents of left lower extremity that presented to the emergency room after being sent in by her stores assistant, Dr. Murray, for a nonhealing wound of the left great toe. Patient states she is feeling better. Tingling and numbness in the left foot has improved with gabapentin. Patients lifevest was removed by cardiology. Patient states she feels much better with it off as it felt heavy and made her sweat. Patient denies any pain in her left foot. She denies chest pain or shortness of breath. No nausea, vomiting, or abdominal pain. No headaches or dizziness. No fevers or chills. No dysuria. Still with no bowel movement. Physical exam: General: Awake and lying in bed in no acute distress HEENT: Normocephalic, atraumatic. Extraocular muscles intact, pupils equal and reactive, no scleral icterus. Oropharynx is pink and moist. Neck is supple. Cardiovascular: Regular rhythm. Normal S1 and S2. Positive S3. No murmurs, rubs, or gallops appreciated Pulmonary: Normal respiratory effort. No rhonchi, rales, or wheezing appreciated. Gastrointestinal: Soft, nondistended. Nontender. Positive bowel sounds all 4 quadrants. No guarding. Musculoskeletal: Moves all extremities. No calf tenderness. No CVA tenderness. Positive LLE edema. Positive left foot dressing clean, dry, and intact. Central nervous system: AAO x3, CN 2-12 grossly intact. Dermatologic: Skin warm and dry. Assessment and plan: Patient is a 52-year-old female with past medical history significant for diabetes and left great toe amputation, insulin-dependent type 2 diabetes, severe cardiomyopathy with LifeVest, systolic CHF, hypertension, chronic kidney disease stage III, and peripheral artery disease status post stents of left lower extremity that presented to the emergency room after being sent in by her stores assistant, Dr. Murray, for a nonhealing wound of the left great toe. 1. Nonhealing wound of left great toe. Likely with osteomylelitis. Podiatry following, Dr. Murray, recommendations appreciated. ID following, recommendations appreciated. Continue Zosyn and Zyvox. Patient likely for OR on Friday09/07/18 for debridement. Wound culture pending. ESR 104. Patient afebrile. No leukocytosis. Left foot xray per radiologist showed probable osteomyelitis in the head of the first metatarsal. Arterial Doppler of left lower extremity per radiologist showed left resting SURJIT and distal waveforms are much improved from preintervention images in 2018. Interventional radiologist, Dr. Morin, following, recommendations appreciated. Blood cultures with no growth to date. 2. Thrombocytosis. Likely reactive secondary to infection. Downtrending. Continue to monitor. 3. Leukocytosis. Likely secondary to #1. Resolved. Blood cultures with no growth to date. Urine culture positive for E. Coli. Patient afebrile. Continue Zyvox and Zosyn. Continue to monitor. 4. PAD S/P stent placement. Continue home ASA and lipitor. PLavix held by podiatry. 5. Severe cardiomyopathy. Chronic systolic CHF. LifeVest stopped by cardiology Dr. Caldwell. Continue home Coreg, Lasix, Lipitor, and Lisinopril. Continue to monitor on telemetry 6. Insulin-dependent type 2 diabetes. Continue insulin sliding scale. Continue to monitor accuchecks and add long acting insulin if needed. 7. CKD Stage 3. Creatinine uptrending. Continue to monitor for now. 8. Constipation. Continue Senokot and miralax. Paitent given lactulose. Continue to monitor for bowel movement. 9. Essential Hypertnsion. Continue home lasix, coreg, and lisinopril. 10. GI/DVT prophylaxis. Pepcid/Heparin 11. Patient is a full code. Case was discussed in detail with the patient regarding current diagnosis and treatment plan. All questions answered.
[2018-09-04] MEDS: Insulin Reg-MEDIUM-Coverage SC SCH ×5 (00:56→22:14)
[2018-09-04] MEDS: Piperacillin/Tazobact 2.25gm 2.25 GM/100 ML BAG IVPB SCH ×3 (04:31→21:06)
--- NOTE | 2018-09-04 06:34 | CP.PCM.PN ---
<Shabnam Wing - Last Filed: 09/04/18 11:36> Subjective - Date & Time of Evaluation Date of Evaluation: 09/04/18 Time of Evaluation: 07:00 - Subjective Subjective: Infectious Disease Progress Note for Anabela Covarrubias PGY3 Patient seen and examined at bedside. Patient is resting comfortably in bed. She is complaining of diarrhea. She was having constipation yesterday and was given lactulose. Otherwise she feels well. She is afebrile with no other complaints. Objective - Vital Signs/Intake and Output Vital Signs (last 24 hours): Temp Pulse Resp BP Pulse Ox 98.0 F 76 18 172/73 H 96 09/04/18 01:15 09/04/18 01:15 09/04/18 01:15 09/04/18 01:15 09/04/18 01:15 Intake and Output: 09/03/18 09/04/18 18:59 06:59 Intake Total 1200 Output Total 1250 Balance -50 - Medications Medications: Current Medications Aspirin (Aspirin Chewable) 81 mg PO DAILY [facility] Last Admin: 09/03/18 10:29 Dose: 81 mg Atorvastatin Calcium (Lipitor) 40 mg PO DIN [facility] Last Admin: 09/03/18 17:54 Dose: 40 mg Carvedilol (Coreg) 25 mg PO BID [facility] Last Admin: 09/03/18 17:53 Dose: Not Given Famotidine (Pepcid) 10 mg PO 1000,2200 [facility] Last Admin: 09/03/18 22:27 Dose: 10 mg Furosemide (Lasix) 20 mg PO DAILY [facility] Last Admin: 09/03/18 10:30 Dose: 20 mg Gabapentin (Neurontin) 200 mg PO TID [facility]; Protocol Last Admin: 09/03/18 17:54 Dose: 200 mg Heparin Sodium (Porcine) (Heparin) 5,000 units SC Q8 [facility]; Protocol Last Admin: 09/04/18 05:49 Dose: 5,000 units Linezolid (Zyvox 600mg/300ml D5w) 600 mg in 300 mls @ 200 mls/hr IVPB Q12 [facility]; Protocol Stop: 09/09/18 06:27 Last Admin: 09/03/18 22:29 Dose: 200 mls/hr Piperacillin Sod/Tazobactam Sod (Zosyn 2.25 Gm In 0.9% 100 Ml) 2.25 gm in 100 mls @ 100 mls/hr IVPB Q8H [facility]; Protocol Last Admin: 09/04/18 04:31 Dose: 100 mls/hr Insulin Human Regular (Humulin R Med) 0 units SC ACHS [facility]; Protocol Last Admin: 09/04/18 00:56 Dose: Not Given Lactulose (Enulose) 10 gm PO STAT [facility] Last Admin: 09/03/18 17:53 Dose: 10 gm Lisinopril (Zestril) 20 mg PO DAILY [facility] Last Admin: 09/03/18 10:32 Dose: 20 mg Polyethylene Glycol (Miralax) 17 gm PO BID PRN PRN Reason: Constipation Senna/Docusate Sodium (Senokot S 50 Mg-8.6 Mg) 1 tab PO DAILY [facility] Last Admin: 09/03/18 10:32 Dose: 1 tab - Labs Labs: 09/03/18 06:00 09/03/18 06:00 PT 12.3 SECONDS (9.4-12.5) 09/02/18 09:00 INR 1.07 09/02/18 09:00 APTT 42.4 Seconds (25.1-36.5) H 09/02/18 09:00 - Constitutional Appears: No Acute Distress - Head Exam Head Exam: ATRAUMATIC, NORMAL INSPECTION, NORMOCEPHALIC - Eye Exam Eye Exam: Normal appearance, PERRL Pupil Exam: NORMAL ACCOMODATION, PERRL - ENT Exam ENT Exam: Mucous Membranes Moist - Respiratory Exam Respiratory Exam: Clear to Ausculation Bilateral, NORMAL BREATHING PATTERN. absent: Rales, Rhonchi, Wheezes - Cardiovascular Exam Cardiovascular Exam: REGULAR RHYTHM, +S1, +S2. absent: Gallop, Rubs, Murmur - GI/Abdominal Exam GI & Abdominal Exam: Soft, Hyperactive Bowel Sounds. absent: Rigid, Tenderness, Mass, Rebound - Extremities Exam Extremities Exam: absent: Calf Tenderness, Pedal Edema Additional comments: L foot dressing in place- clean and dry - Neurological Exam Neurological Exam: Alert, Awake, CN II-XII Intact, Oriented x3 - Psychiatric Exam Psychiatric exam: Normal Affect, Normal Mood - Skin Skin Exam: Dry, Warm Assessment and Plan - Assessment and Plan (Free Text) Assessment: 1. Osteomyelitis of 1st toe stump - XR showed osteo and is clinically osteomyelitis 2. UTI 3. IDDM 4. HTN 5. Dilated cardiomyopathy 6. CKD IIIb Plan: Labs and imagine reviewed. Urine culture + for E.Coli. Wound cultures showed Enterobacter and staph aureus (+MSSA). Will continue Zosyn and Zyvox day # 3. Awaiting OR on Friday. Will need pathology and cultures of specimen to determine length of antibiotic regimen. Will d/c lactulose. If diarrhea continues, will check for C.diff. Will continue to monitor clinically. Case seen, discussed and reviewed with Dr. Deb Wing PGY3 <Navarro Boyd S - Last Filed: 09/04/18 14:00> Objective - Vital Signs/Intake and Output Vital Signs (last 24 hours): Temp Pulse Resp BP Pulse Ox 98 F 72 20 171/64 H 95 09/04/18 06:00 09/04/18 06:00 09/04/18 06:00 09/04/18 09:37 09/04/18 06:00 Intake and Output: 09/04/18 09/04/18 06:59 18:59 Intake Total 1200 Output Total 1250 Balance -50 - Medications Medications: Current Medications Aspirin (Aspirin Chewable) 81 mg PO DAILY [facility] Last Admin: 09/04/18 09:36 Dose: 81 mg Atorvastatin Calcium (Lipitor) 40 mg PO DIN [facility] Last Admin: 09/03/18 17:54 Dose: 40 mg Carvedilol (Coreg) 25 mg PO BID [facility] Last Admin: 09/04/18 09:37 Dose: Not Given Famotidine (Pepcid) 10 mg PO 1000,2200 [facility] Last Admin: 09/04/18 09:36 Dose: 10 mg Furosemide (Lasix) 20 mg PO DAILY [facility] Last Admin: 09/04/18 09:37 Dose: 20 mg Gabapentin (Neurontin) 200 mg PO TID [facility]; Protocol Last Admin: 09/04/18 09:36 Dose: 200 mg Heparin Sodium (Porcine) (Heparin) 5,000 units SC Q8 [facility]; Protocol Last Admin: 09/04/18 05:49 Dose: 5,000 units Hydralazine HCl (Apresoline) 10 mg PO QID PRN PRN Reason: Systolic Blood Pressure Linezolid (Zyvox 600mg/300ml D5w) 600 mg in 300 mls @ 200 mls/hr IVPB Q12 [facility]; Protocol Stop: 09/09/18 06:27 Last Admin: 09/04/18 09:35 Dose: 200 mls/hr Piperacillin Sod/Tazobactam Sod (Zosyn 2.25 Gm In 0.9% 100 Ml) 2.25 gm in 100 mls @ 100 mls/hr IVPB Q8H [facility]; Protocol Last Admin: 09/04/18 04:31 Dose: 100 mls/hr Sodium Chloride (Sodium Chloride 0.9%) 1,000 mls @ 75 mls/hr IV .[id number] [facility] Stop: 09/05/18 01:04 Last Admin: 09/04/18 11:54 Dose: 75 mls/hr Insulin Human Regular (Humulin R Med) 0 units SC ACHS [facility]; Protocol Last Admin: 09/04/18 11:54 Dose: 5 units Insulin Human Regular (Humulin R High) 0 units SC ACHS [facility]; Protocol Lactulose (Enulose) 10 gm PO STAT [facility] Last Admin: 09/03/18 17:53 Dose: 10 gm Lactulose (Enulose) 10 gm PO DAILY PRN PRN Reason: Constipation Lisinopril (Zestril) 20 mg PO DAILY [facility] Last Admin: 09/04/18 09:37 Dose: 20 mg Non-Formulary Medication (Insulin Glargine,Hum.Rec.Anlog [Basaglar Kwikpen U- 100]) 10 unit SQ BID [facility] - Labs Labs: 09/04/18 05:00 09/04/18 05:00 PT 12.3 SECONDS (9.4-12.5) 09/02/18 09:00 INR 1.07 09/02/18 09:00 APTT 42.4 Seconds (25.1-36.5) H 09/02/18 09:00 Assessment and Plan - Assessment and Plan (Free Text) Plan: Infectious Diseases Attending Physician Attestation Patient seen and examined, discussed with medical economics consultant. I have reviewed the patient's history of present illness, past medical, family and social histories, personal history, physical exam, lab findings and imaging studies. I agree with the above findings, assessment and plan. In addition, we will continue Zyvox and Zosyn for left first toe stump cellulitis with clinical osteomyelitis. Follow up wound and blood cx and patient is for OR next week - more importantly will await for OR cx prior to de-escalating antibiotics.
[2018-09-04 06:40] LABS: ALB/GLOB RATIO 0.8 (1.1-1.8); CALCIUM 8.5 mg/dL (8.4-10.5)
[2018-09-04 07:20] LABS: BASO # 0.08 K/mm3 (0.0-2.0); BASO % 0.8 % (0.0-3.0); EOS # 0.6 (0.0-0.7); EOS % 5.8 % (1.5-5.0); GRAN # 7.62 (1.4-6.5); GRAN % 74.3 % (50.0-68.0); HEMOGLOBIN 8.4 g/dL (12.0-16.0); LYMPH # 1.4 (1.2-3.4); LYMPH % 13.1 % (22.0-35.0); MEAN CELL VOLUME 89.5 fl (80.0-105.0); MEAN CORPUSCULAR HEMOGLOBIN 27.6 pg (25.0-35.0); MEAN CORPUSCULAR HGB CONC 30.9 g/dl (31.0-37.0); MEAN PLATELET VOLUME 8.9 fl (7.0-11.0); MONO # 0.6 (0.1-0.6); RBC 3.04 10^6/uL (3.5-6.1); RED CELL DISTRIBUTION WIDTH 14.3 % (11.5-14.5); WHITE BLOOD COUNT 10.3 10^3/uL (4.5-11.0)
[2018-09-04] MEDS: Linezolid 600 mg in D5W 300 ml 600 MG/300 ML BAG IVPB SCH ×2 (09:35→22:15)
[2018-09-04] MEDS: Docusate-Senna 50 mg-8.6 mg Tab PO SCH (09:36)
--- NOTE | 2018-09-04 09:52 | CP.PCM.PN ---
Subjective - Date & Time of Evaluation Date of Evaluation: 09/04/18 Time of Evaluation: 09:50 - Subjective Subjective: Podiatry progress note for Dr. Murray 52 yo female seen and evaluated at bedside with Dr. Murray. Seen resting comfortably. States she is in no pain to the her left digit and denies any systemic symptoms of infection. Denies N/V/F/C/SOB. Is aware of surgery for Monday 09/03. Reports no other acute pedal complaints today. Objective - Vital Signs/Intake and Output Vital Signs (last 24 hours): Temp Pulse Resp BP Pulse Ox 98 F 72 20 171/64 H 95 09/04/18 06:00 09/04/18 06:00 09/04/18 06:00 09/04/18 09:37 09/04/18 06:00 Intake and Output: 09/04/18 09/04/18 06:59 18:59 Intake Total 1200 Output Total 1250 Balance -50 - Medications Medications: Current Medications Aspirin (Aspirin Chewable) 81 mg PO DAILY [facility] Last Admin: 09/04/18 09:36 Dose: 81 mg Atorvastatin Calcium (Lipitor) 40 mg PO DIN [facility] Last Admin: 09/03/18 17:54 Dose: 40 mg Carvedilol (Coreg) 25 mg PO BID [facility] Last Admin: 09/04/18 09:37 Dose: Not Given Famotidine (Pepcid) 10 mg PO 1000,2200 [facility] Last Admin: 09/04/18 09:36 Dose: 10 mg Furosemide (Lasix) 20 mg PO DAILY [facility] Last Admin: 09/04/18 09:37 Dose: 20 mg Gabapentin (Neurontin) 200 mg PO TID [facility]; Protocol Last Admin: 09/04/18 09:36 Dose: 200 mg Heparin Sodium (Porcine) (Heparin) 5,000 units SC Q8 [facility]; Protocol Last Admin: 09/04/18 05:49 Dose: 5,000 units Hydralazine HCl (Apresoline) 10 mg PO QID PRN PRN Reason: Systolic Blood Pressure Linezolid (Zyvox 600mg/300ml D5w) 600 mg in 300 mls @ 200 mls/hr IVPB Q12 [facility]; Protocol Stop: 09/09/18 06:27 Last Admin: 09/04/18 09:35 Dose: 200 mls/hr Piperacillin Sod/Tazobactam Sod (Zosyn 2.25 Gm In 0.9% 100 Ml) 2.25 gm in 100 mls @ 100 mls/hr IVPB Q8H [facility]; Protocol Last Admin: 09/04/18 04:31 Dose: 100 mls/hr Insulin Human Regular (Humulin R Med) 0 units SC ACHS [facility]; Protocol Last Admin: 09/04/18 08:48 Dose: 3 units Lactulose (Enulose) 10 gm PO STAT [facility] Last Admin: 09/03/18 17:53 Dose: 10 gm Lisinopril (Zestril) 20 mg PO DAILY [facility] Last Admin: 09/04/18 09:37 Dose: 20 mg Polyethylene Glycol (Miralax) 17 gm PO BID PRN PRN Reason: Constipation Senna/Docusate Sodium (Senokot S 50 Mg-8.6 Mg) 1 tab PO DAILY [facility] Last Admin: 09/04/18 09:36 Dose: 1 tab - Labs Labs: 09/04/18 05:00 09/04/18 05:00 PT 12.3 SECONDS (9.4-12.5) 09/02/18 09:00 INR 1.07 09/02/18 09:00 APTT 42.4 Seconds (25.1-36.5) H 09/02/18 09:00 - Constitutional Appears: Well, Non-toxic, No Acute Distress - Extremities Exam Additional comments: LLE focused exam: Vasc: DP/PT pulses palpable. TG WNL, Cap refill < 3 seconds to all remaining digits, no edema noted to surgical site Ortho: Left hallux amputation, no tenderness upon calf compression, mild tend erness upon palpation of surgical site Neuro: Gross sensation diminished, protective sensation diminished/absent Derm: hallux amputation site shows evidence of dehiscence, 100% fibrotic with purulent discharge and slough present, erythema present periwound with no streaking present, probe to bone positive, no tunneling or tracking noted - Neurological Exam Neurological Exam: Alert, Awake, Oriented x3 - Psychiatric Exam Psychiatric exam: Normal Affect, Normal Mood Assessment and Plan - Assessment and Plan (Free Text) Assessment: 52 yo female evaluated for left foot diabetic ulceration and surgical site dehiscence Plan: Patient seen and evaluated at bedside with Dr. Murray Charts and labs reviewed - afebrile, absent leukocytosis Plavix stopped 11/7, can stop ASA 09/05 - medicine team aware Plan for OR Friday 09/07 in afternoon Wound cleansed with normal saline and dressed with DSD Can weight bear to LLE Continue medications per medicine Will continue to follow patient while in house
--- NOTE | 2018-09-04 11:29 | CP.PCM.CON ---
<Poncho Carolina - Last Filed: 09/04/18 20:26> History of Present Illness - History of Present Illness History of Present Illness: Nephrology Consult Note for Dr. Westbrook covering for Dr. Redding Patient is a 52 yo F with PMH of left hallux amputation, uncontrolled DM, severe dilated cardiomyopathy, CHFrEF (33%), CKD IIIB, PAD s/p stents LLE, and HTN presented to [facility] due to outpatient antibiotic failure on daptomycin for osteomyelitis of the left hallux s/p partial amputation. Nephrology is being consulted for acute renal failure. Patient was admitted twice in Jun/Jul of this year for osteomyelitis of the left hallux that was complicated by severe contrast induced nephropathy and toxic ATN following lower extremity angioplasty, which was nearly required dialysis, but renal function recovered. On the second admission, RADHA was likely a combination of hemodynamic effect of medications as well as likely incomplete recovery from ATN. Prior to these events baseline creatinine was ~1.6. Currently, patient offers no complaints. Patient denies CP, SOB, n/v/d, abdominal pain, fever, chills, ARITA, or dizziness. PMH: Left hallux amputation, uncontrolled DM, severe dilated cardiomyopathy, CHFrEF (33%), CKD IIIB, contrast-induced nephropathy, PAD s/p stents LLE, and HTN Surg: LLE Drug eluting stents (JAMES) placement at distal L SFA, popliteal, anterior tibial, and perineal artery, L great toe amputation, R foot debridement All: Protonix SH: Denied tobacco, EtOH, and illicit drug use FHx: Mom and dad both have HTN and DM Review of Systems - Review of Systems All systems: reviewed and no additional remarkable complaints except (12 point ROS reviewed and is negative other than what is stated in HPI.) Past Patient History - Infectious Disease Hx of Infectious Diseases: None - Tetanus Immunizations Tetanus Immunization: Unknown - Past Social History Smoking Status: Never Smoked - CARDIAC Hx Cardiac Disorders: Yes (severe cardiomyopathy, life vest) Hx Congestive Heart Failure: Yes Hx Hypercholesterolemia: Yes Hx Hypertension: Yes - PULMONARY Hx Chronic Obstructive Pulmonary Disease (COPD): No - NEUROLOGICAL HX Cerebrovascular Accident: No - HEENT Hx HEENT Problems: Yes (blurred vision in right eye) Hx Blind: No Hx Cataracts: Yes Hx Deafness: No Hx Difficulty Chewing: No Hx Epistaxis: No Hx Glaucoma: No Hx Macular Degeneration: No - RENAL Hx Renal Failure: No - ENDOCRINE/METABOLIC Hx Diabetes Mellitus Type 1: No Hx Diabetes Mellitus Type 2: Yes Hx Hypothyroidism: No - HEMATOLOGICAL/ONCOLOGICAL Hx Blood Disorders: Yes Hx AIDS: No Hx Anemia: Yes Hx Cancer: No Hx Chemotherapy: No Hx Cirrhosis: No Hx Hemophilia: No Hx Hepatitis A: No Hx Hepatitis B: No Hx Hepatitis C: No Hx Human Immunodeficiency Virus (HIV): No Hx Metastesis: No Hx Shingles: No Hx Sickle Cell Disease: No Hx Unexplained Bleeding: No - INTEGUMENTARY Hx Dermatological Problems: Yes (non healing foot wound left foot) Hx Basil Cell: No Hx Eczema: No Hx Melanoma: No Hx Psoriasis: No Hx Squamous Cell: No - MUSCULOSKELETAL/RHEUMATOLOGICAL Hx Arthritis: No - GASTROINTESTINAL Hx Gastrointestinal Disorders: Yes (gastriris) Hx Colostomy: No Hx Crohn's Disease: No Hx Diverticulitis: No Hx Gall Bladder Disease: No Hx Gastroesophageal Reflux: Yes Hx Ileostomy: No Hx Liver Failure: No Hx Pancreatitis: No HX Swallowing Problems: No Hx Ulcer: No - GENITOURINARY/GYNECOLOGICAL Hx Genitourinary Disorders: Yes Hx Hematuria: No Hx Incontinence: No Hx Sexually Transmitted Disorders: No Hx Urinary Tract Infection: Yes - PSYCHIATRIC Hx Psychophysiologic Disorder: No Hx Anxiety: No Hx Bipolar Disorder: No Hx Depression: No Hx Emotional Abuse: No Hx Hallucinations: No Hx Panic Symptoms: No Hx Paranoia: No Hx Post Traumatic Stress Disorder: No Hx Psychosis: No Hx Physical Abuse: No Hx Schizophrenia: No Hx Sexual Abuse: No - SURGICAL HISTORY Hx Surgeries: Yes - ANESTHESIA Hx Anesthesia Reactions: No Hx Malignant Hyperthermia: No Meds Allergies/Adverse Reactions: Allergies Allergy/AdvReac Type Severity Reaction Status Date / Time pantoprazole Allergy RASH Verified 09/01/18 11:52 - Medications Medications: Current Medications Aspirin (Aspirin Chewable) 81 mg PO DAILY [facility] Last Admin: 09/04/18 09:36 Dose: 81 mg Atorvastatin Calcium (Lipitor) 40 mg PO DIN [facility] Last Admin: 09/03/18 17:54 Dose: 40 mg Carvedilol (Coreg) 25 mg PO BID [facility] Last Admin: 09/04/18 09:37 Dose: Not Given Famotidine (Pepcid) 10 mg PO 1000,2200 [facility] Last Admin: 09/04/18 09:36 Dose: 10 mg Furosemide (Lasix) 20 mg PO DAILY [facility] Last Admin: 09/04/18 09:37 Dose: 20 mg Gabapentin (Neurontin) 200 mg PO TID [facility]; Protocol Last Admin: 09/04/18 09:36 Dose: 200 mg Heparin Sodium (Porcine) (Heparin) 5,000 units SC Q8 [facility]; Protocol Last Admin: 09/04/18 05:49 Dose: 5,000 units Hydralazine HCl (Apresoline) 10 mg PO QID PRN PRN Reason: Systolic Blood Pressure Linezolid (Zyvox 600mg/300ml D5w) 600 mg in 300 mls @ 200 mls/hr IVPB Q12 [facility]; Protocol Stop: 09/09/18 06:27 Last Admin: 09/04/18 09:35 Dose: 200 mls/hr Piperacillin Sod/Tazobactam Sod (Zosyn 2.25 Gm In 0.9% 100 Ml) 2.25 gm in 100 mls @ 100 mls/hr IVPB Q8H [facility]; Protocol Last Admin: 09/04/18 04:31 Dose: 100 mls/hr Insulin Human Regular (Humulin R Med) 0 units SC ACHS [facility]; Protocol Last Admin: 09/04/18 08:48 Dose: 3 units Lactulose (Enulose) 10 gm PO STAT [facility] Last Admin: 09/03/18 17:53 Dose: 10 gm Lactulose (Enulose) 10 gm PO DAILY PRN PRN Reason: Constipation Lisinopril (Zestril) 20 mg PO DAILY [facility] Last Admin: 09/04/18 09:37 Dose: 20 mg Physical Exam - Constitutional Appears: No Acute Distress - Head Exam Head Exam: NORMAL INSPECTION - Eye Exam Eye Exam: Normal appearance - ENT Exam ENT Exam: Mucous Membranes Moist - Neck Exam Neck exam: Positive for: Normal Inspection - Respiratory Exam Respiratory Exam: Clear to Auscultation Bilateral. absent: Rales, Rhonchi, Whee zes - Cardiovascular Exam Cardiovascular Exam: RRR, +S1, +S2. absent: Gallop, Rubs, Systolic Murmur - GI/Abdominal Exam GI & Abdominal Exam: Soft. absent: Distended, Guarding, Rebound, Tenderness - Extremities Exam Additional comments: LLE dressing c/d/i - Back Exam Back exam: NORMAL INSPECTION - Neurological Exam Neurological exam: Alert, Oriented x3 - Psychiatric Exam Psychiatric exam: Normal Affect, Normal Mood - Skin Skin Exam: Normal Color, Warm Results - Vital Signs Recent Vital Signs: Last Vital Signs Temp 98 F 09/04/18 06:00 Pulse 72 09/04/18 06:00 Resp 20 09/04/18 06:00 BP 171/64 H 09/04/18 09:37 Pulse Ox 95 09/04/18 06:00 - Labs Result Diagrams: 09/04/18 05:00 09/04/18 05:00 Labs: Laboratory Results - last 24 hr 09/03/18 09/03/18 09/03/18 11:06 16:29 21:15 WBC RBC Hgb Hct MCV MCH MCHC RDW Plt Count MPV Gran % Lymph % (Auto) [place] % (Auto) Eos % (Auto) Baso % (Auto) Gran # Lymph # (Auto) [place] # (Auto) Eos # (Auto) Baso # (Auto) Sodium Potassium Chloride Carbon Dioxide Anion Gap BUN Creatinine Est GFR ( Amer) Est GFR (Non-Af Amer) POC Glucose (mg/dL) 222 H 125 H 203 H Random Glucose Calcium Total Bilirubin AST ALT Alkaline Phosphatase Total Protein Albumin Globulin Albumin/Globulin Ratio 09/04/18 09/04/18 09/04/18 05:00 05:00 06:48 WBC 10.3 RBC 3.04 L Hgb 8.4 L Hct 27.2 L MCV 89.5 MCH 27.6 MCHC 30.9 L RDW 14.3 Plt Count 530 H MPV 8.9 Gran % 74.3 H Lymph % (Auto) 13.1 L [place] % (Auto) 6.0 Eos % (Auto) 5.8 H Baso % (Auto) 0.8 Gran # 7.62 H Lymph # (Auto) 1.4 [place] # (Auto) 0.6 Eos # (Auto) 0.6 Baso # (Auto) 0.08 Sodium 141 Potassium 5.0 Chloride 107 Carbon Dioxide 29 Anion Gap 9 L BUN 20 Creatinine 1.8 H Est GFR ( Amer) 35 Est GFR (Non-Af Amer) 29 POC Glucose (mg/dL) 225 H Random Glucose 255 H Calcium 8.5 Total Bilirubin 0.3 AST 21 ALT 17 Alkaline Phosphatase 98 Total Protein 6.5 Albumin 3.0 Globulin 3.5 Albumin/Globulin Ratio 0.8 L Assessment & Plan - Assessment and Plan (Free Text) Assessment: 52 yo F with PMH of left hallux amputation, uncontrolled DM, severe dilated cardiomyopathy, CHFrEF (33%), CKD IIIB, PAD s/p stents LLE, and HTN admitted to [facility] for failed outpatient antibiotic therapy for left hallux osteomyelitis. Nephrology consulted for acute renal failure. Plan: 1. Acute Renal Failure on CKD stage IIIB - Hold Lasix - NS at 75 cc/hr x 1 L - Avoid nephrotoxic agents 2. LLE osteomyelitis - Scheduled for OR on Friday - Abx per ID - ID and podiatry following 3. Hypertensive CKD - Cont Coreg and Lisinopril - Lower BP slowly and avoid acute drops in BP as hypoperfusion could occur due to her chronic HTN 4. IDDM - A1c 9% - Cont medical management per primary 5. CHFrEF - Currently holding lasix - Euvolemic on exam - Cardiology following Patient discussed in detail with attending. Jez Carolina, DO PGY2 <Vicente Westbrook - Last Filed: 09/05/18 10:51> Meds - Medications Medications: Current Medications Aspirin (Aspirin Chewable) 81 mg PO DAILY [facility] Last Admin: 09/05/18 09:48 Dose: Not Given Atorvastatin Calcium (Lipitor) 40 mg PO DIN [facility] Last Admin: 09/04/18 17:12 Dose: 40 mg Carvedilol (Coreg) 25 mg PO BID [facility] Last Admin: 09/05/18 09:46 Dose: Not Given Famotidine (Pepcid) 10 mg PO 1000,2200 [facility] Last Admin: 09/05/18 09:49 Dose: 10 mg Furosemide (Lasix) 20 mg PO DAILY [facility] Last Admin: 09/04/18 09:37 Dose: 20 mg Gabapentin (Neurontin) 200 mg PO TID [facility]; Protocol Last Admin: 09/05/18 09:48 Dose: 200 mg Heparin Sodium (Porcine) (Heparin) 5,000 units SC Q8 [facility]; Protocol Last Admin: 09/05/18 07:12 Dose: 5,000 units Hydralazine HCl (Apresoline) 10 mg PO QID PRN PRN Reason: Systolic Blood Pressure Last Admin: 09/04/18 17:13 Dose: 10 mg Linezolid (Zyvox 600mg/300ml D5w) 600 mg in 300 mls @ 200 mls/hr IVPB Q12 [facility]; Protocol Stop: 09/09/18 06:27 Last Admin: 09/05/18 09:50 Dose: 200 mls/hr Piperacillin Sod/Tazobactam Sod (Zosyn 2.25 Gm In 0.9% 100 Ml) 2.25 gm in 100 mls @ 100 mls/hr IVPB Q8H [facility]; Protocol Last Admin: 09/05/18 07:11 Dose: 100 mls/hr Insulin Human Regular (Humulin R Med) 0 units SC ACHS [facility]; Protocol Last Admin: 09/05/18 08:12 Dose: 1 units Lactulose (Enulose) 10 gm PO DAILY PRN PRN Reason: Constipation Lisinopril (Zestril) 20 mg PO BID [facility] Results - Vital Signs Recent Vital Signs: Last Vital Signs Temp 98.0 F 09/05/18 06:00 Pulse 75 09/05/18 09:49 Resp 20 09/05/18 06:00 BP 169/74 H 09/05/18 09:49 Pulse Ox 96 09/05/18 06:00 - Labs Result Diagrams: 09/05/18 07:00 09/05/18 07:00 Labs: Laboratory Results - last 24 hr 09/04/18 09/04/18 09/04/18 11:17 16:15 18:40 WBC RBC Hgb Hct MCV MCH MCHC RDW Plt Count MPV Gran % Lymph % (Auto) [place] % (Auto) Eos % (Auto) Baso % (Auto) Gran # Lymph # (Auto) [place] # (Auto) Eos # (Auto) Baso # (Auto) Sodium Potassium Chloride Carbon Dioxide Anion Gap BUN Creatinine Est GFR ( Amer) Est GFR (Non-Af Amer) POC Glucose (mg/dL) 265 H 74 114 H Random Glucose Calcium Total Bilirubin AST ALT Alkaline Phosphatase Total Protein Albumin Globulin Albumin/Globulin Ratio 09/04/18 09/05/18 09/05/18 21:27 06:38 07:00 WBC 8.2 D RBC 3.00 L Hgb 8.6 L Hct 26.7 L MCV 89.0 MCH 28.7 MCHC 32.2 RDW 14.2 Plt Count 482 H MPV 8.7 Gran % 62.8 Lymph % (Auto) 21.1 L [place] % (Auto) 6.4 H Eos % (Auto) 8.2 H Baso % (Auto) 1.5 Gran # 5.14 Lymph # (Auto) 1.7 [place] # (Auto) 0.5 Eos # (Auto) 0.7 Baso # (Auto) 0.12 Sodium Potassium Chloride Carbon Dioxide Anion Gap BUN Creatinine Est GFR ( Amer) Est GFR (Non-Af Amer) POC Glucose (mg/dL) 134 H 165 H Random Glucose Calcium Total Bilirubin AST ALT Alkaline Phosphatase Total Protein Albumin Globulin Albumin/Globulin Ratio 09/05/18 07:00 WBC RBC Hgb Hct MCV MCH MCHC RDW Plt Count MPV Gran % Lymph % (Auto) [place] % (Auto) Eos % (Auto) Baso % (Auto) Gran # Lymph # (Auto) [place] # (Auto) Eos # (Auto) Baso # (Auto) Sodium 139 Potassium 4.5 Chloride 104 Carbon Dioxide 29 Anion Gap 10 BUN 18 Creatinine 1.6 H Est GFR ( Amer) 41 Est GFR (Non-Af Amer) 34 POC Glucose (mg/dL) Random Glucose 153 H Calcium 8.4 Total Bilirubin 0.2 AST 27 ALT 22 Alkaline Phosphatase 95 Total Protein 6.5 Albumin 3.0 Globulin 3.5 Albumin/Globulin Ratio 0.8 L Assessment & Plan - Assessment and Plan (Free Text) Plan: Pt seen and examined by me. I reviewed the note of the biomedical manager and agree with it. I reviewed the labs and medications. See also my note from today.
[2018-09-04] MEDS ORDERED: Sodium Chloride 0.9% 1,000 ML IV SCH (11:45)
--- NOTE | 2018-09-04 14:31 | PN ---
DATE: 09/04/2018 FOLLOWUP SUBJECTIVE: The patient denies any chest pain. Shortness of breath has improved. PHYSICAL EXAMINATION: VITAL SIGNS: Blood pressure 171/64, heart rate 72, temperature 98, respirations 20. HEENT: Pale conjunctivae. CHEST: Clear. HEART: S1 and S2 regular. EXTREMITIES: Dressings applied to the left foot cellulitis. LABORATORY DATA: Hemoglobin and hematocrit 8.4 and 27.2, white count 10.3, platelet count 530,000. Today's SMA-7 is within normal limit except for glucose of 255, anion gap of 9 and creatinine of 1.8. ASSESSMENT: 1. Cardiomyopathy. 2. Uncontrolled diabetes mellitus. 3. Chronic renal insufficiency. 4. Left foot ulcer. RECOMMENDATIONS: Continue hydralazine 10 mg four times a day p.r.n. Continue Coreg 25 mg twice a day, aspirin 81 mg once a day, subcutaneous heparin 5000 units every 8 hours, Lasix 20 mg p.o. once a day, Zestril 20 mg once a day. Continue IV Zyvox and IV Zosyn. The patient can go for debridement from the cardiac point of view on Friday. Nba Fajardo MD
[2018-09-04] MEDS ORDERED: Insulin Reg-HIGH-Coverage SC SCH (16:30)
--- NOTE | 2018-09-04 17:13 | CP.PCM.PN ---
<Cyril Del Cid - Last Filed: 09/04/18 18:05> Subjective - Date & Time of Evaluation Date of Evaluation: 09/04/18 Time of Evaluation: 17:09 - Subjective Subjective: Resident Cyril Del Cid DO PGY-1 Hospitalist Progress Note for Dr. Tiburcio Greenwood: Pt was seen and examined this morning at bedside. She denies any acute overnight events. She states that she is currently not having any chest pain, fevers, chills, n/v, c/d, abd pain, dysuria, hematuria, frequency or L foot pain. She states that her pins and needles sensation is improved since being on the gabapentin. She was able to have a BM today using lactulose. Objective - Vital Signs/Intake and Output Vital Signs (last 24 hours): Temp Pulse Resp BP Pulse Ox 98.0 F 78 18 174/76 H 97 09/04/18 14:00 09/04/18 14:00 09/04/18 14:00 09/04/18 14:00 09/04/18 14:00 Intake and Output: 09/04/18 09/04/18 06:59 18:59 Intake Total 1200 Output Total 1250 Balance -50 - Medications Medications: Current Medications Aspirin (Aspirin Chewable) 81 mg PO DAILY [facility] Last Admin: 09/04/18 09:36 Dose: 81 mg Atorvastatin Calcium (Lipitor) 40 mg PO DIN [facility] Last Admin: 09/03/18 17:54 Dose: 40 mg Carvedilol (Coreg) 25 mg PO BID [facility] Last Admin: 09/04/18 09:37 Dose: Not Given Famotidine (Pepcid) 10 mg PO 1000,2200 [facility] Last Admin: 09/04/18 09:36 Dose: 10 mg Furosemide (Lasix) 20 mg PO DAILY [facility] Last Admin: 09/04/18 09:37 Dose: 20 mg Gabapentin (Neurontin) 200 mg PO TID [facility]; Protocol Last Admin: 09/04/18 13:57 Dose: 200 mg Heparin Sodium (Porcine) (Heparin) 5,000 units SC Q8 [facility]; Protocol Last Admin: 09/04/18 13:58 Dose: 5,000 units Hydralazine HCl (Apresoline) 10 mg PO QID PRN PRN Reason: Systolic Blood Pressure Linezolid (Zyvox 600mg/300ml D5w) 600 mg in 300 mls @ 200 mls/hr IVPB Q12 [facility]; Protocol Stop: 09/09/18 06:27 Last Admin: 09/04/18 09:35 Dose: 200 mls/hr Piperacillin Sod/Tazobactam Sod (Zosyn 2.25 Gm In 0.9% 100 Ml) 2.25 gm in 100 mls @ 100 mls/hr IVPB Q8H [facility]; Protocol Last Admin: 09/04/18 13:57 Dose: 100 mls/hr Sodium Chloride (Sodium Chloride 0.9%) 1,000 mls @ 75 mls/hr IV .[id number] [facility] Stop: 09/05/18 01:04 Last Admin: 09/04/18 11:54 Dose: 75 mls/hr Insulin Human Regular (Humulin R Med) 0 units SC ACHS [facility]; Protocol Last Admin: 09/04/18 16:31 Dose: Not Given Lactulose (Enulose) 10 gm PO DAILY PRN PRN Reason: Constipation Lisinopril (Zestril) 20 mg PO DAILY [facility] Last Admin: 09/04/18 09:37 Dose: 20 mg - Labs Labs: 09/04/18 05:00 09/04/18 05:00 PT 12.3 SECONDS (9.4-12.5) 09/02/18 09:00 INR 1.07 09/02/18 09:00 APTT 42.4 Seconds (25.1-36.5) H 09/02/18 09:00 - Constitutional Appears: Well, Non-toxic, No Acute Distress - Head Exam Head Exam: ATRAUMATIC, NORMAL INSPECTION, NORMOCEPHALIC - Eye Exam Eye Exam: EOMI, Normal appearance, PERRL - Respiratory Exam Respiratory Exam: Clear to Ausculation Bilateral, NORMAL BREATHING PATTERN. absent: Accessory Muscle Use, Decreased Breath Sounds, Rales, Rhonchi, Wheezes, Respiratory Distress, Stridor - Cardiovascular Exam Cardiovascular Exam: Gallop (S3), REGULAR RHYTHM, +S1, +S2. absent: Rubs - GI/Abdominal Exam GI & Abdominal Exam: Soft, Normal Bowel Sounds. absent: Guarding, Rigid, Tenderness - Extremities Exam Additional comments: Pt has covering over L foot and is s/p L transmetatarsal amputation, no edema noted at ankle and dressing shows yellow discoloration and odor 2/2 discharge. - Back Exam Back Exam: NORMAL INSPECTION. absent: CVA tenderness (L), CVA tenderness (R) - Neurological Exam Neurological Exam: Alert, Awake, Oriented x3 - Psychiatric Exam Psychiatric exam: Normal Affect, Normal Mood - Skin Skin Exam: Dry, Intact (except where noted above), Normal Color, Warm Assessment and Plan - Assessment and Plan (Free Text) Assessment: Ms Hernandez, 52 F, PMHx uncontrolled diabetes s/p left great toe amputation, severe cardiomyopathy on life vest since December 2017, CKD 3, peripheral artery disease s/p recent JAMES(s) placement at [facility] admitted for nonhealing surgical wound s/p left great toe amputation (Jul 2018) possibly due to uncontrolled diabetes and poor circulation secondary to PAD. She will require IV antibiotics & I&D for cellulitis. L foot XR came back probable for osteo in the head of the 1st metatarsal. Will undergo surgery per podiatry on friday. Plan: 1. LLE Cellulitis R/O osteomyelitis with leukocytosis s/p L transmetatarsal surg zaida - Zyvoc and zosyn on board - ID consult - Follow on blood culture - Trend WBC. WBC is 10.3 and wnl now - L Foot XR: Probable osteo at head of 1st metatarsal - Arterial doppler of L lower extremity shows improvement compared to prior studies. - OR for debridement on Friday 09/07 per podiatry 2. Non-healing wound possibly due to poor circulation - Extermity US: report states that L SURJIT is improved from previous ones on record. - IR: Dr. Morin consulted 3. Severe Cardiomyopathy on life vest - Dr. Caldwell: D/tiffanie life vest, consulted for [facility] risk assessment for surgery - Telemetry 4. 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 HTN: - Continue home lisinopril, lasix 6.PAD s/p recent JAMES stents: - d/c plavix for surgery 7. CKD stage 3 - Cr clearance 38 - Continue to trend creatinine - If creatinine decreases, will consult nephro 8. Uncontrolled DM: - A1C 9 - ISSS - Diabetic education - Dietitian consult 9. Constipation - Pt responded to lactulose, will D/C other bowel regiment but lactulose 10. Hyperkalemia: Improving - K 5.0 - Will recheck cmp tomorrow. 11. PPX: DVT: heparin SC GI: pepcid BID Case seen and discussed with Dr. Tiburcio Del Cid DO PGY1 <Tessy Greenwood R - Last Filed: 09/05/18 13:57> Objective - Vital Signs/Intake and Output Vital Signs (last 24 hours): Temp Pulse Resp BP Pulse Ox 98.0 F 75 20 169/74 H 96 09/05/18 06:00 09/05/18 09:49 09/05/18 06:00 09/05/18 09:49 09/05/18 06:00 Intake and Output: 09/05/18 09/05/18 06:59 18:59 Intake Total 200 Balance 200 - Medications Medications: Current Medications Aspirin (Aspirin Chewable) 81 mg PO DAILY [facility] Last Admin: 09/05/18 09:48 Dose: Not Given Atorvastatin Calcium (Lipitor) 40 mg PO DIN [facility] Last Admin: 09/04/18 17:12 Dose: 40 mg Carvedilol (Coreg) 25 mg PO BID [facility] Last Admin: 09/05/18 09:46 Dose: Not Given Famotidine (Pepcid) 10 mg PO 1000,2200 [facility] Last Admin: 09/05/18 09:49 Dose: 10 mg Furosemide (Lasix) 20 mg PO DAILY [facility] Last Admin: 09/04/18 09:37 Dose: 20 mg Gabapentin (Neurontin) 200 mg PO TID [facility]; Protocol Last Admin: 09/05/18 09:48 Dose: 200 mg Heparin Sodium (Porcine) (Heparin) 5,000 units SC Q8 [facility]; Protocol Last Admin: 09/05/18 07:12 Dose: 5,000 units Hydralazine HCl (Apresoline) 10 mg PO QID PRN PRN Reason: Systolic Blood Pressure Last Admin: 09/04/18 17:13 Dose: 10 mg Linezolid (Zyvox 600mg/300ml D5w) 600 mg in 300 mls @ 200 mls/hr IVPB Q12 [facility]; Protocol Stop: 09/09/18 06:27 Last Admin: 09/05/18 09:50 Dose: 200 mls/hr Insulin Human Regular (Humulin R Med) 0 units SC ACHS [facility]; Protocol Last Admin: 09/05/18 12:32 Dose: 5 units Lactulose (Enulose) 10 gm PO DAILY PRN PRN Reason: Constipation Lisinopril (Zestril) 20 mg PO BID [facility] - Labs Labs: 09/05/18 07:00 09/05/18 07:00 PT 12.3 SECONDS (9.4-12.5) 09/02/18 09:00 INR 1.07 09/02/18 09:00 APTT 42.4 Seconds (25.1-36.5) H 09/02/18 09:00 Attending/Attestation - Attestation I have personally seen and examined this patient.: Yes I have fully participated in the care of the patient.: Yes I have reviewed all pertinent clinical information, including history, physical exam and plan: Yes Notes (Text): Patient seen and examined by me with resident at 10:25AM with resident 09/04/18. Case including HPI, physical exam, and assessment and plan discussed with resident. Agree with above with following additions/corrections. Patient is a 52-year-old female with past medical history significant for diabetes and left great toe amputation, insulin-dependent type 2 diabetes, severe cardiomyopathy with LifeVest, systolic CHF, hypertension, chronic kidney disease stage III, and peripheral artery disease status post stents of left lower extremity that presented to the emergency room after being sent in by her assembly hand, Dr. Murray, for a nonhealing wound of the left great toe. Patient states she is feels ok. Tingling and numbness in the left foot is much better. Patient states that the gabapentin is really helping. Patient states she is also having bowel movements with the lactulose. She denies pain in her left foot. No chest pain or shortness of breath. No nausea, vomiting, or abdominal pain. No headaches or dizziness. No fevers or chills. No dysuria. Physical exam: General: Awake and lying in bed in no acute distress HEENT: Normocephalic, atraumatic. Extraocular muscles intact, pupils equal and reactive, no scleral icterus. Oropharynx is pink and moist. Neck is supple. Cardiovascular: Regular rhythm. Normal S1 and S2. Positive S3. No murmurs, rubs, or gallops appreciated Pulmonary: Normal respiratory effort. No rhonchi, rales, or wheezing appreciated. Gastrointestinal: Soft, nondistended. Nontender. Positive bowel sounds all 4 quadrants. No guarding. Musculoskeletal: Moves all extremities. No calf tenderness. No CVA tenderness. Positive LLE edema. Positive left foot dressing clean, dry, and intact. Central nervous system: AAO x3, CN 2-12 grossly intact. Dermatologic: Skin warm and dry. Assessment and plan: Patient is a 52-year-old female with past medical history significant for diabetes and left great toe amputation, insulin-dependent type 2 diabetes, severe cardiomyopathy with LifeVest, systolic CHF, hypertension, chronic kidney disease stage III, and peripheral artery disease status post stents of left lower extremity that presented to the emergency room after being sent in by her assembly hand, Dr. Murray, for a nonhealing wound of the left great toe. 1. Nonhealing wound of left great toe. Likely with osteomylelitis. Podiatry following, Dr. Murray, recommendations appreciated. ID following, recommendat ions appreciated. Continue Zosyn and Zyvox. Patient likely for OR on Friday09/07/18 for debridement. Continue gabapentin for neuropathic pain. ESR 104. Patient afebrile. No leukocytosis. Left foot xray per radiologist showed probable osteomyelitis in the head of the first metatarsal. Arterial Doppler of left lower extremity per radiologist showed left resting SURJIT and distal waveforms are much improved from preintervention images in 2018. Interventional radiologist, Dr. Morin, following, recommendations appreciated. Blood cultures with no growth to date. 2. Thrombocytosis. Likely reactive secondary to infection. Stable. Continue to monitor. 3. Leukocytosis. Likely secondary to #1. Resolved. Blood cultures with no growth to date. Urine culture positive for E. Coli. Patient afebrile. Continue Zyvox and Zosyn. Continue to monitor. 4. PAD S/P stent placement. Continue lipitor. ASA and Plavix on hold for OR. 5. Severe cardiomyopathy. Chronic systolic CHF. LifeVest stopped by cardiology Magdalena Caldwell. Continue home Coreg, Lasix, Lipitor, and Lisinopril. Continue to monitor on telemetry 6. Insulin-dependent type 2 diabetes. Continue insulin sliding scale. Continue to monitor accuchecks and add long acting insulin if needed. 7. CKD Stage 3. Creatinine uptrending. Nephrology consulted, follow up recommendations. Continue to monitor. 8. Constipation. Resolved. Continue Lactulose as needed. Continue to monitor 9. Essential Hypertnsion. Continue Lasix, coreg, and lisinopril. 10. GI/DVT prophylaxis. Pepcid/Heparin 11. Patient is a full code. Case was discussed in detail with the patient regarding current diagnosis and treatment plan. All questions answered.
[2018-09-04] MEDS ORDERED: [UNRECOGNIZED DRUG - OTHER] SQ SCH (18:00)
[2018-09-04] MEDS ORDERED: INSULIN GLARGINE HUM REC ANLOG 10 UNIT SQ SCH (18:00)
[2018-09-05] MEDS: Piperacillin/Tazobact 2.25gm 2.25 GM/100 ML BAG IVPB SCH ×2 (07:11→12:33)
[2018-09-05 08:03] LABS: BASO # 0.12 K/mm3 (0.0-2.0); BASO % 1.5 % (0.0-3.0); EOS # 0.7 (0.0-0.7); EOS % 8.2 % (1.5-5.0); GRAN # 5.14 (1.4-6.5); GRAN % 62.8 % (50.0-68.0); HEMOGLOBIN 8.6 g/dL (12.0-16.0); LYMPH # 1.7 (1.2-3.4); LYMPH % 21.1 % (22.0-35.0); MEAN CORPUSCULAR HEMOGLOBIN 28.7 pg (25.0-35.0); MEAN CORPUSCULAR HGB CONC 32.2 g/dl (31.0-37.0); MEAN PLATELET VOLUME 8.7 fl (7.0-11.0); MONO # 0.5 (0.1-0.6); MONO % 6.4 % (1.0-6.0); RED CELL DISTRIBUTION WIDTH 14.2 % (11.5-14.5); WHITE BLOOD COUNT 8.2 10^3/uL (4.5-11.0)
[2018-09-05] MEDS: Insulin Reg-MEDIUM-Coverage SC SCH ×4 (08:12→22:02)
[2018-09-05 08:17] LABS: ALB/GLOB RATIO 0.8 (1.1-1.8); CALCIUM 8.4 mg/dL (8.4-10.5)
[2018-09-05] MEDS: Linezolid 600 mg in D5W 300 ml 600 MG/300 ML BAG IVPB SCH ×2 (09:50→22:53)
--- NOTE | 2018-09-05 11:55 | CP.PCM.PN ---
Subjective - Date & Time of Evaluation Date of Evaluation: 09/05/18 Time of Evaluation: 11:49 - Subjective Subjective: Podiatry progress note for Dr. Murray 52 yo female seen and evaluated at bedside with Dr. Murray. Patient seen resting comfortably in bed and NAD. She states she is in no pain to the her left foot. She denies any other pedal complaint. She denies any overnight N/V/F/C/SOB. Patient is aware of surgery for Monday 09/03. Objective - Vital Signs/Intake and Output Vital Signs (last 24 hours): Temp Pulse Resp BP Pulse Ox 98.0 F 75 20 169/74 H 96 09/05/18 06:00 09/05/18 09:49 09/05/18 06:00 09/05/18 09:49 09/05/18 06:00 Intake and Output: 09/05/18 09/05/18 06:59 18:59 Intake Total 200 Balance 200 - Medications Medications: Current Medications Aspirin (Aspirin Chewable) 81 mg PO DAILY [facility] Last Admin: 09/05/18 09:48 Dose: Not Given Atorvastatin Calcium (Lipitor) 40 mg PO DIN [facility] Last Admin: 09/04/18 17:12 Dose: 40 mg Carvedilol (Coreg) 25 mg PO BID [facility] Last Admin: 09/05/18 09:46 Dose: Not Given Famotidine (Pepcid) 10 mg PO 1000,2200 [facility] Last Admin: 09/05/18 09:49 Dose: 10 mg Furosemide (Lasix) 20 mg PO DAILY [facility] Last Admin: 09/04/18 09:37 Dose: 20 mg Gabapentin (Neurontin) 200 mg PO TID [facility]; Protocol Last Admin: 09/05/18 09:48 Dose: 200 mg Heparin Sodium (Porcine) (Heparin) 5,000 units SC Q8 [facility]; Protocol Last Admin: 09/05/18 07:12 Dose: 5,000 units Hydralazine HCl (Apresoline) 10 mg PO QID PRN PRN Reason: Systolic Blood Pressure Last Admin: 09/04/18 17:13 Dose: 10 mg Linezolid (Zyvox 600mg/300ml D5w) 600 mg in 300 mls @ 200 mls/hr IVPB Q12 [facility]; Protocol Stop: 09/09/18 06:27 Last Admin: 09/05/18 09:50 Dose: 200 mls/hr Piperacillin Sod/Tazobactam Sod (Zosyn 2.25 Gm In 0.9% 100 Ml) 2.25 gm in 100 mls @ 100 mls/hr IVPB Q8H [facility]; Protocol Last Admin: 09/05/18 07:11 Dose: 100 mls/hr Insulin Human Regular (Humulin R Med) 0 units SC ACHS [facility]; Protocol Last Admin: 09/05/18 08:12 Dose: 1 units Lactulose (Enulose) 10 gm PO DAILY PRN PRN Reason: Constipation Lisinopril (Zestril) 20 mg PO BID [facility] - Labs Labs: 09/05/18 07:00 09/05/18 07:00 PT 12.3 SECONDS (9.4-12.5) 09/02/18 09:00 INR 1.07 09/02/18 09:00 APTT 42.4 Seconds (25.1-36.5) H 09/02/18 09:00 - Constitutional Appears: Well, Non-toxic, No Acute Distress - Head Exam Head Exam: ATRAUMATIC, NORMOCEPHALIC - Extremities Exam Additional comments: LLE focused exam: Vasc: DP/PT pulses palpable. Temp gradient warm to cool from proximal to distal, Cap refill < 3 seconds to all remaining digits, no edema noted to surgical site. Neuro: Gross sensation diminished, protective sensation diminished/absent Derm: hallux amputation site shows evidence of dehiscence, 100% fibrotic with purulent discharge and slough present, erythema present periwound with no s treaking present, probe to bone positive, no tunneling or tracking noted. No malodor as well MSK: Left hallux amputation, no tenderness upon calf compression, mild tenderness upon palpation of surgical site. Muscle power intact 5/5 to all groups. - Neurological Exam Neurological Exam: Alert, Awake, Oriented x3 - Psychiatric Exam Psychiatric exam: Normal Affect, Normal Mood Assessment and Plan - Assessment and Plan (Free Text) Assessment: 52 yo female evaluated for left foot diabetic ulceration and surgical site dehis cence Plan: Patient seen and evaluated at bedside Plan discussed with attending Dr. Murray Charts and labs reviewed - afebrile, absent leukocytosis Medicine team aware Plan for OR Friday 09/07 in afternoon for partial L 1st met resection. Wound cleansed with betadine and dressed with DSD Can weight bear to LLE in a surgical shoe ASA put on hold starting from today (09/05) Podiatry will continue to follow up the patient while in house
--- NOTE | 2018-09-05 13:09 | PCM.FALL ---
<Stepan Nair - Last Filed: 09/05/18 13:05> Post Fall Progress Note - Post Fall Fall Date: 09/05/18 Fall Time: 01:45 Description of Fall: Patient was attempting to get of bed and use the camode next to the bed and slid to the ground. She states she fell slowly by bracing her back against the mattress and landed on one knee onto the floor. She states that she did not fall and denies any traumatic impact on the ground. She did not hit her head or neck and denies any complaints at this time. She denies headaches, chest pain, SOB, back pain, numbness, tingling, swelling, urinary complaints, knee pain, back pain, leg pain or any other MSK tenderness at this time. - Post Fall Exam Vital Sign: Temp Pulse Resp BP Pulse Ox 98.0 F 75 20 169/74 H 96 09/05/18 06:00 09/05/18 09:49 09/05/18 06:00 09/05/18 09:49 09/05/18 06:00 Skull Exam: Negative for: Scalp wound, Scalp hematoma Eye Exam: Positive for: Pupils equal Ear Exam: Negative for: Bleeding Nose Exam: Negative for: Bleeding Skin Exam: Negative for: Lacerations, Bruising Mouth Exam: Negative for: Tongue bitten Neck Exam: Negative for: Tenderness Spinal Exam: Negative for: Tenderness Chest Exam: Negative for: Difficulty breathing Abdomen Exam: Negative for: Tenderness Pelvic Exam: Negative for: Tenderness Arm Exam: Negative for: Deformity, Alteration in range of movement Leg Exam: Negative for: Deformity, Alteration in range of movement Other pertinent findings: No knee tenderness appreciated B/L, sensation in tact B/L in upper and lower extremities, muscle strength 5/5 in upper and lower extremities B/L Impression/Plan: Due to non traumatic event, stability of patient and no acute complaints from patient, there is no concern for acute injury or concern at this time. Please continue to medically treat patient as per medical care team. <Tessy Greenwood - Last Filed: 09/07/18 16:01> Post Fall Progress Note - Post Fall Exam Vital Sign: Temp Pulse Resp BP Pulse Ox 98.2 F 75 18 141/69 98 09/07/18 14:00 09/07/18 14:00 09/07/18 14:00 09/07/18 14:00 09/07/18 14:00 Attending/Attestation - Attestation I have personally seen and examined this patient.: Yes I have fully participated in the care of the patient.: Yes I have reviewed all pertinent clinical information, including history, physical exam and plan: Yes Notes (Text): Patient seen and examined by me with resident at 1:47PM on 09/05/18. Case discussed with resident. Agree with above with following additions/corrections. Called for fall. Patient states she was on the bedside commode and tried to get up on her own. She states her dressing on her left foot was "slippery" and she slid on her knees. She denies any trauma or pain. No loss of consciousness. Patient did not feel dizzy or lightheaded at time of fall. Patient helped back to bed with no issues. Continue to maintain fall precautions.
--- NOTE | 2018-09-05 13:36 | CON ---
DATE: 09/05/2018 NEPHROLOGY CONSULTATION This is a coverage for Dr. Redding. CHIEF COMPLAINT AND HISTORY OF PRESENT ILLNESS: This is a Nephrology consultation requested by Dr. Greenwood for acute kidney injury. Briefly the patient is a 52-year-old who had the left hallux amputation, has uncontrolled diabetes. She has CHF with EF of 33%. The patient had failed outpatient therapy with her antibiotics and is going to the OR for amputation. The patient has worsening of her creatinine, but the patient does have underlying CKD. The baseline creatinine is 1.6; the patient's creatinine had increased to 1.8. She had been on diabetic therapy. Overnight the patient was given IV fluids and the creatinine has improved this morning. I did review the consultation that was done by the resident yesterday. I went over the case. I reviewed the patient's history, medications, labs. I agree with the assessment and plan. Please refer to the initial consultation that was done yesterday on 09/04/2018. Patient is currently optimized for her procedure. Patient's blood pressure is mildly elevated. We will continue to address the blood pressure by adjusting the patient's medications. Vicente Westbrook MD
--- NOTE | 2018-09-05 14:40 | CP.PCM.PN ---
Subjective - Date & Time of Evaluation Date of Evaluation: 09/05/18 Time of Evaluation: 12:35 - Subjective Subjective: No fevers, not in distress, less pain in the left foot. Objective - Vital Signs/Intake and Output Vital Signs (last 24 hours): Temp Pulse Resp BP Pulse Ox 98 F 72 20 171/64 H 95 09/04/18 06:00 09/04/18 06:00 09/04/18 06:00 09/04/18 09:37 09/04/18 06:00 Intake and Output: 09/04/18 09/04/18 06:59 18:59 Intake Total 1200 Output Total 1250 Balance -50 - Medications Medications: Current Medications Aspirin (Aspirin Chewable) 81 mg PO DAILY [facility] Last Admin: 09/04/18 09:36 Dose: 81 mg Atorvastatin Calcium (Lipitor) 40 mg PO DIN [facility] Last Admin: 09/03/18 17:54 Dose: 40 mg Carvedilol (Coreg) 25 mg PO BID [facility] Last Admin: 09/04/18 09:37 Dose: Not Given Famotidine (Pepcid) 10 mg PO 1000,2200 [facility] Last Admin: 09/04/18 09:36 Dose: 10 mg Furosemide (Lasix) 20 mg PO DAILY [facility] Last Admin: 09/04/18 09:37 Dose: 20 mg Gabapentin (Neurontin) 200 mg PO TID [facility]; Protocol Last Admin: 09/04/18 09:36 Dose: 200 mg Heparin Sodium (Porcine) (Heparin) 5,000 units SC Q8 [facility]; Protocol Last Admin: 09/04/18 05:49 Dose: 5,000 units Hydralazine HCl (Apresoline) 10 mg PO QID PRN PRN Reason: Systolic Blood Pressure Linezolid (Zyvox 600mg/300ml D5w) 600 mg in 300 mls @ 200 mls/hr IVPB Q12 [facility]; Protocol Stop: 09/09/18 06:27 Last Admin: 09/04/18 09:35 Dose: 200 mls/hr Piperacillin Sod/Tazobactam Sod (Zosyn 2.25 Gm In 0.9% 100 Ml) 2.25 gm in 100 mls @ 100 mls/hr IVPB Q8H [facility]; Protocol Last Admin: 09/04/18 04:31 Dose: 100 mls/hr Sodium Chloride (Sodium Chloride 0.9%) 1,000 mls @ 75 mls/hr IV .[id number] [facility] Stop: 09/05/18 01:04 Last Admin: 09/04/18 11:54 Dose: 75 mls/hr Insulin Human Regular (Humulin R Med) 0 units SC ACHS [facility]; Protocol Last Admin: 09/04/18 11:54 Dose: 5 units Insulin Human Regular (Humulin R High) 0 units SC ACHS [facility]; Protocol Lactulose (Enulose) 10 gm PO STAT [facility] Last Admin: 09/03/18 17:53 Dose: 10 gm Lactulose (Enulose) 10 gm PO DAILY PRN PRN Reason: Constipation Lisinopril (Zestril) 20 mg PO DAILY [facility] Last Admin: 09/04/18 09:37 Dose: 20 mg Non-Formulary Medication (Insulin Glargine,Hum.Rec.Anlog [Basaglar Kwikpen U- 100]) 10 unit SQ BID [facility] - Labs Labs: 09/04/18 05:00 09/04/18 05:00 PT 12.3 SECONDS (9.4-12.5) 09/02/18 09:00 INR 1.07 09/02/18 09:00 APTT 42.4 Seconds (25.1-36.5) H 09/02/18 09:00 - Constitutional Appears: Chronically Ill - Head Exam Head Exam: NORMAL INSPECTION - ENT Exam ENT Exam: Mucous Membranes Moist - Neck Exam Neck Exam: absent: Meningismus - Respiratory Exam Respiratory Exam: Decreased Breath Sounds - Cardiovascular Exam Cardiovascular Exam: +S1, +S2 - GI/Abdominal Exam GI & Abdominal Exam: Soft. absent: Tenderness - Extremities Exam Additional comments: left foot with dressings in place Assessment and Plan - Assessment and Plan (Free Text) Plan: Assessment left first toe stump cellulitis with clinical osteomyelitis history of sepsis due to left hallux cellulitis / gangrene with methicillin- resistant Staph aureus bacteremia, toe growing MSSA and now also Enterobactere with osteomyelitis S/P amputation cardiomyopathy with EF 35-40% DM HTN dyslipdemia Plan continue Zyvox and Zosyn Follow up wound and blood cx and patient is for OR next week - more importantly will await for OR cx prior to de-escalating antibiotics
--- NOTE | 2018-09-05 15:25 | CP.PCM.PN ---
<Stepan Nair - Last Filed: 09/05/18 15:22> Subjective - Date & Time of Evaluation Date of Evaluation: 09/05/18 Time of Evaluation: 10:45 - Subjective Subjective: Stepan Nair, PGY 1 Medicine Progress Note Patient seen and examined at bedside this morning. No acute events overnight. Patient is having regular bowel movements and is tolerating food well. Code star called today for patient sliding off bed; no trauma or acute injury noted. Offers no new complaints at this time. Numbness and tingling improved with gabapentin. Denies CP, SOB, fevers, urinary complaints, swelling, cough, abdominal pain, numbness and tingling. Objective - Vital Signs/Intake and Output Vital Signs (last 24 hours): Temp Pulse Resp BP Pulse Ox 98.0 F 75 20 169/74 H 96 09/05/18 06:00 09/05/18 09:49 09/05/18 06:00 09/05/18 09:49 09/05/18 06:00 Intake and Output: 09/05/18 09/05/18 06:59 18:59 Intake Total 200 Balance 200 - Medications Medications: Current Medications Aspirin (Aspirin Chewable) 81 mg PO DAILY [facility] Last Admin: 09/05/18 09:48 Dose: Not Given Atorvastatin Calcium (Lipitor) 40 mg PO DIN [facility] Last Admin: 09/04/18 17:12 Dose: 40 mg Carvedilol (Coreg) 25 mg PO BID [facility] Last Admin: 09/05/18 09:46 Dose: Not Given Famotidine (Pepcid) 10 mg PO 1000,2200 [facility] Last Admin: 09/05/18 09:49 Dose: 10 mg Furosemide (Lasix) 20 mg PO DAILY [facility] Last Admin: 09/04/18 09:37 Dose: 20 mg Gabapentin (Neurontin) 200 mg PO TID [facility]; Protocol Last Admin: 09/05/18 14:40 Dose: 200 mg Heparin Sodium (Porcine) (Heparin) 5,000 units SC Q8 [facility]; Protocol Last Admin: 09/05/18 14:51 Dose: Not Given Hydralazine HCl (Apresoline) 10 mg PO QID PRN PRN Reason: Systolic Blood Pressure Last Admin: 09/04/18 17:13 Dose: 10 mg Linezolid (Zyvox 600mg/300ml D5w) 600 mg in 300 mls @ 200 mls/hr IVPB Q12 [facility]; Protocol Stop: 09/09/18 06:27 Last Admin: 09/05/18 09:50 Dose: 200 mls/hr Insulin Human Regular (Humulin R Med) 0 units SC ACHS [facility]; Protocol Last Admin: 09/05/18 12:32 Dose: 5 units Lactulose (Enulose) 10 gm PO DAILY PRN PRN Reason: Constipation Lisinopril (Zestril) 20 mg PO BID [facility] - Labs Labs: 09/05/18 07:00 09/05/18 07:00 PT 12.3 SECONDS (9.4-12.5) 09/02/18 09:00 INR 1.07 09/02/18 09:00 APTT 42.4 Seconds (25.1-36.5) H 09/02/18 09:00 - Additional Findings Additional findings: - Constitutional Appears: Well, Non-toxic, No Acute Distress - Head Exam Head Exam: ATRAUMATIC, NORMAL INSPECTION, NORMOCEPHALIC - Eye Exam Eye Exam: EOMI, Normal appearance, PERRL - Respiratory Exam Respiratory Exam: Clear to Ausculation Bilateral, NORMAL BREATHING PATTERN. absent: Accessory Muscle Use, Decreased Breath Sounds, Wheezes, Respiratory Distress - Cardiovascular Exam Cardiovascular Exam: Gallop (S3), REGULAR RHYTHM, +S1, +S2. - GI/Abdominal Exam GI & Abdominal Exam: Soft, Normal Bowel Sounds. absent: Guarding, Rigid, Tende rness - Extremities Exam Additional comments: Left foot has dressing that is no bleeding/draining/puss appreciated. S/p L transmetatarsal amputation - Back Exam Back Exam: NORMAL INSPECTION. absent: CVA tenderness (L), CVA tenderness (R) - Neurological Exam Neurological Exam: Alert, Awake, Oriented x3 - Psychiatric Exam Psychiatric exam: Normal Affect, Normal Mood - Skin Skin Exam: Dry, Intact (except where noted above), Normal Color, Warm Assessment and Plan - Assessment and Plan (Free Text) Assessment: Ms Hernandez, 52 F, PMHx uncontrolled diabetes s/p left great toe amputation, severe cardiomyopathy on life vest since December 2017, CKD 3, peripheral artery disease s/p recent JAMES(s) placement at [facility] admitted for nonhealing surgical wound s/p left great toe amputation (Jul 2018) possibly due to uncontrolled diabetes and poor circulation secondary to PAD. She will require IV antibiotics & I&D for cellulitis. L foot XR came back probable for osteo in the head of the 1st metatarsal. Plan for surgery by podiatry on Friday for debridement. Plan: LLE non healing wound s/[ transmetatarsal surgery -L Foot XR: Probable osteo at head of 1st metatarsal -ESR is 104 -continue Zyvoc and zosyn -ID on consult -Follow on blood culture -WBC is 8.2 today, afebrile -Doppler of LLE showed left resting SURJIT and distal waveforms are much improved from preintervention images in 2018. -Plan for OR debridement on Friday 09/07, Dr. 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: -continue gabapentin to 200mg TID -patient's neuropathy symptoms are improved today PAD s/p recent JAMES stents: -holding plavix, ASA for planned surgery on friday -continue lipitor CKD stage 3 -monitoring creatinine, 1.6 today from 1.8 yesterday -holding lasix for now -consider nephrology consult if worsening Constipation -responding well to lactulase -endorses regular BM Hx of DM: -insulin regular ACHS -A1C 9 -Diabetic education, solar resource assessor eval Severe Cardiomyopathy -Cardiology discontinues life vest, HTN: -Continue home lisinopril, coreg Hyperkalemia -K 4.5 today -continue to monitor PPX with pepcid and heparin Patient seen and case discussed with attending, Dr. Tessy Greenwood <Tessy Greenwood R - Last Filed: 09/06/18 07:52> Objective - Vital Signs/Intake and Output Vital Signs (last 24 hours): Temp Pulse Resp BP Pulse Ox 97.6 F 71 16 153/78 H 96 09/05/18 22:00 09/05/18 22:00 09/05/18 22:00 09/05/18 22:00 09/05/18 22:00 Intake and Output: 09/06/18 09/06/18 06:59 18:59 Intake Total 180 Balance 180 - Medications Medications: Current Medications Aspirin (Aspirin Chewable) 81 mg PO DAILY [facility] Last Admin: 09/05/18 09:48 Dose: Not Given Atorvastatin Calcium (Lipitor) 40 mg PO DIN [facility] Last Admin: 09/05/18 18:13 Dose: 40 mg Carvedilol (Coreg) 25 mg PO BID [facility] Last Admin: 09/05/18 18:14 Dose: Not Given Famotidine (Pepcid) 10 mg PO 1000,2200 [facility] Last Admin: 09/05/18 22:54 Dose: 10 mg Furosemide (Lasix) 20 mg PO DAILY [facility] Last Admin: 09/04/18 09:37 Dose: 20 mg Gabapentin (Neurontin) 200 mg PO TID [facility]; Protocol Last Admin: 09/05/18 18:07 Dose: 200 mg Heparin Sodium (Porcine) (Heparin) 5,000 units SC Q8 [facility]; Protocol Last Admin: 09/06/18 06:11 Dose: Not Given Hydralazine HCl (Apresoline) 10 mg PO QID PRN PRN Reason: Systolic Blood Pressure Last Admin: 09/04/18 17:13 Dose: 10 mg Linezolid (Zyvox 600mg/300ml D5w) 600 mg in 300 mls @ 200 mls/hr IVPB Q12 [facility]; Protocol Stop: 09/09/18 06:27 Last Admin: 09/05/18 22:53 Dose: 200 mls/hr Insulin Human Regular (Humulin R Med) 0 units SC ACHS [facility]; Protocol Last Admin: 09/05/18 18:01 Dose: 1 units Lactulose (Enulose) 10 gm PO DAILY PRN PRN Reason: Constipation Lisinopril (Zestril) 20 mg PO BID [facility] Last Admin: 09/05/18 18:07 Dose: 20 mg - Labs Labs: 09/05/18 07:00 09/05/18 07:00 PT 12.3 SECONDS (9.4-12.5) 09/02/18 09:00 INR 1.07 09/02/18 09:00 APTT 42.4 Seconds (25.1-36.5) H 09/02/18 09:00 Attending/Attestation - Attestation I have personally seen and examined this patient.: Yes I have fully participated in the care of the patient.: Yes I have reviewed all pertinent clinical information, including history, physical exam and plan: Yes Notes (Text): Patient seen and examined by me with resident at 10:30AM with resident 09/05/18. Case including HPI, physical exam, and assessment and plan discussed with resi dent. Agree with above with following additions/corrections. Patient is a 52-year-old female with past medical history significant for diabetes and left great toe amputation, insulin-dependent type 2 diabetes, severe cardiomyopathy with LifeVest, systolic CHF, hypertension, chronic kidney disease stage III, and peripheral artery disease status post stents of left lower extremity that presented to the emergency room after being sent in by her scalp specialist, Dr. Murray, for a nonhealing wound of the left great toe. Patient states she is feeling ok. Tingling and numbness in the left foot is better with gabapentin. Patient states is having bowel movements with the lactulose. No pain in her left foot. No chest pain or shortness of breath. No nausea, vomiting, or abdominal pain. No headaches or dizziness. No fevers or chills. No dysuria. Physical exam: General: Awake and lying in bed in no acute distress HEENT: Normocephalic, atraumatic. Extraocular muscles intact, pupils equal and reactive, no scleral icterus. Oropharynx is pink and moist. Neck is supple. Cardiovascular: Regular rhythm. Normal S1 and S2. Positive S3. No murmurs, rubs, or gallops appreciated Pulmonary: Normal respiratory effort. No rhonchi, rales, or wheezing appreciated. Gastrointestinal: Soft, nondistended. Nontender. Positive bowel sounds all 4 quadrants. No guarding. Musculoskeletal: Moves all extremities. No calf tenderness. No CVA tenderness. Positive LLE edema. Positive left foot dressing clean, dry, and intact. Central nervous system: AAO x3, CN 2-12 grossly intact. Dermatologic: Skin warm and dry. Assessment and plan: Patient is a 52-year-old female with past medical history significant for diabetes and left great toe amputation, insulin-dependent type 2 diabetes, severe cardiomyopathy with LifeVest, systolic CHF, hypertension, chronic kidney disease stage III, and peripheral artery disease status post stents of left lower extremity that presented to the emergency room after being sent in by her scalp specialist, Dr. Murray, for a nonhealing wound of the left great toe. 1. Nonhealing wound of left great toe. Likely with osteomyelitis. Podiatry following, Dr. Murray, recommendations appreciated. ID following, recommendations appreciated. Continue Zosyn and Zyvox. Patient for OR on Friday09/07/18 for debridement. ASA and plavix held. Continue gabapentin for neuropathic pain. ESR 104. Patient afebrile. No leukocytosis. Left foot xray per radiologist showed probable osteomyelitis in the head of the first metatarsal. Arterial Doppler of left lower extremity per radiologist showed left resting SURJIT and distal waveforms are much improved from preintervention images in 2018. Interventional radiologist, Dr. Morin, following, recommendations appreciated. Blood cultures with no growth to date. 2. Thrombocytosis. Likely reactive secondary to infection. Downtrending. Continue to monitor. 3. Leukocytosis. Likely secondary to #1. Resolved. Blood cultures with no growth to date. Urine culture positive for E. Coli. Patient afebrile. Continue Zyvox and Zosyn. Continue to monitor. 4. PAD S/P stent placement. Continue lipitor. ASA and Plavix on hold for OR. 5. Severe cardiomyopathy. Chronic systolic CHF. LifeVest stopped by cardiology Dr. Caldwell. Continue home Coreg, Lipitor, and Lisinopril. Lasix held. Continue to monitor on telemetry 6. Insulin-dependent type 2 diabetes. Continue insulin sliding scale. Continue to monitor accuchecks and add long acting insulin if needed. 7. CKD Stage 3. Creatinine downtrending. Nephrology follwing, recommendations appreciated. Lasix held. Continue to monitor. 8. Constipation. Resolved. Continue Lactulose as needed. Continue to monitor 9. Essential Hypertnsion. Continue Coreg. Lisinopril dose increased. Lasix held. 10. GI/DVT prophylaxis. Pepcid/Heparin 11. Patient is a full code. Case was discussed in detail with the patient regarding current diagnosis and treatment plan. All questions answered.
--- NOTE | 2018-09-05 19:03 | PN ---
DATE: 09/05/2018 SUBJECTIVE: The patient denies any chest pain or shortness of breath. PHYSICAL EXAMINATION VITAL SIGNS: Blood pressure 169/74, heart rate 75, temperature 98, respirations 20. HEENT: Pale conjunctivae. CHEST: Clear. HEART: S1 and S2 regular. EXTREMITIES: Bracing is applied to the left foot. LABORATORY DATA: Hemoglobin and hematocrit 8.6 and 26.7, white count 8.2, platelet count 482,000. Today's SMA-7 is within normal limits except for glucose of 153 and creatinine of 1.6. ASSESSMENT: 1. Cardiomyopathy. 2. Left foot ulcer. 3. Uncontrolled diabetes mellitus. 4. Chronic renal insufficiency. RECOMMENDATIONS: Continue current hydralazine 10 mg q.i.d. p.r.n., Coreg 25 mg twice a day, subcutaneous heparin 5000 units every 8 hours, Lasix 20 mg p.o. once a day, Zestril 20 mg once a day, Zyvox 600 mg intravenously every 12 hours. Nba Fajardo MD
[2018-09-06 08:13] LABS: BASO # 0.08 K/mm3 (0.0-2.0); BASO % 0.9 % (0.0-3.0); EOS # 0.4 (0.0-0.7); EOS % 4.9 % (1.5-5.0); GRAN # 6.09 (1.4-6.5); GRAN % 68.6 % (50.0-68.0); LYMPH # 1.8 (1.2-3.4); LYMPH % 20.2 % (22.0-35.0); MEAN CELL VOLUME 89.3 fl (80.0-105.0); MEAN CORPUSCULAR HEMOGLOBIN 28.4 pg (25.0-35.0); MEAN CORPUSCULAR HGB CONC 31.8 g/dl (31.0-37.0); MEAN PLATELET VOLUME 8.7 fl (7.0-11.0); MONO # 0.5 (0.1-0.6); MONO % 5.4 % (1.0-6.0); RBC 3.17 10^6/uL (3.5-6.1); RED CELL DISTRIBUTION WIDTH 14.3 % (11.5-14.5); WHITE BLOOD COUNT 8.9 10^3/uL (4.5-11.0)
[2018-09-06 08:50] LABS: ALB/GLOB RATIO 0.8 (1.1-1.8); ALBUMIN 3.1 g/dL (3.0-4.8); CALCIUM 8.7 mg/dL (8.4-10.5)
[2018-09-06] MEDS: Linezolid 600 mg in D5W 300 ml 600 MG/300 ML BAG IVPB SCH ×2 (09:21→21:31)
[2018-09-06] MEDS: Insulin Reg-MEDIUM-Coverage SC SCH ×4 (09:22→22:30)
--- NOTE | 2018-09-06 12:12 | CP.PCM.PN ---
Subjective - Date & Time of Evaluation Date of Evaluation: 09/06/18 Time of Evaluation: 12:10 - Subjective Subjective: Podiatry progress note for Dr. Murray 52 yo female seen and evaluated at bedside with Dr. Murray. Patient seen resting comfortably in bed and NAD. She states she is in no pain to the her left foot. She denies any other pedal complaint. She denies any overnight N/V/F/C/SOB. Patient is aware of surgery for Monday 09/03. Objective - Vital Signs/Intake and Output Vital Signs (last 24 hours): Temp Pulse Resp BP Pulse Ox 98.4 F 76 18 162/80 H 97 09/06/18 08:04 09/06/18 09:19 09/06/18 08:04 09/06/18 09:19 09/06/18 08:04 Intake and Output: 09/06/18 09/06/18 06:59 18:59 Intake Total 180 Balance 180 - Medications Medications: Current Medications Aspirin (Aspirin Chewable) 81 mg PO DAILY [facility] Last Admin: 09/05/18 09:48 Dose: Not Given Atorvastatin Calcium (Lipitor) 40 mg PO DIN [facility] Last Admin: 09/05/18 18:13 Dose: 40 mg Carvedilol (Coreg) 25 mg PO BID [facility] Last Admin: 09/06/18 09:18 Dose: 25 mg Famotidine (Pepcid) 10 mg PO 1000,2200 [facility] Last Admin: 09/06/18 09:18 Dose: 10 mg Furosemide (Lasix) 20 mg PO DAILY [facility] Last Admin: 09/04/18 09:37 Dose: 20 mg Gabapentin (Neurontin) 200 mg PO TID [facility]; Protocol Last Admin: 09/06/18 09:18 Dose: 200 mg Heparin Sodium (Porcine) (Heparin) 5,000 units SC Q8 [facility]; Protocol Last Admin: 09/06/18 06:11 Dose: Not Given Hydralazine HCl (Apresoline) 10 mg PO QID PRN PRN Reason: Systolic Blood Pressure Last Admin: 09/04/18 17:13 Dose: 10 mg Linezolid (Zyvox 600mg/300ml D5w) 600 mg in 300 mls @ 200 mls/hr IVPB Q12 [facility]; Protocol Stop: 09/09/18 06:27 Last Admin: 09/06/18 09:21 Dose: 200 mls/hr Insulin Human Regular (Humulin R Med) 0 units SC ACHS [facility]; Protocol Last Admin: 09/06/18 11:55 Dose: 3 units Lactulose (Enulose) 10 gm PO DAILY PRN PRN Reason: Constipation Lisinopril (Zestril) 20 mg PO BID [facility] Last Admin: 09/06/18 09:19 Dose: 20 mg - Labs Labs: 09/06/18 07:00 09/06/18 07:00 PT 12.3 SECONDS (9.4-12.5) 09/02/18 09:00 INR 1.07 09/02/18 09:00 APTT 42.4 Seconds (25.1-36.5) H 09/02/18 09:00 - Constitutional Appears: Well, Non-toxic, No Acute Distress - Head Exam Head Exam: ATRAUMATIC, NORMOCEPHALIC - Extremities Exam Additional comments: LLE focused exam: Vasc: DP/PT pulses palpable. Temp gradient warm to cool from proximal to distal, Cap refill < 3 seconds to all remaining digits, no edema noted to surgical site. Neuro: Gross sensation diminished, protective sensation diminished/absent Derm: hallux amputation site shows evidence of dehiscence, 100% fibrotic with purulent discharge and slough present, Mild erythema present periwound with no streaking present, probe to bone positive, no tunneling or tracking noted. No malodor as well MSK: Left hallux amputation, no tenderness upon calf compression, mild tenderness upon palpation of surgical site. Muscle power intact 5/5 to all groups. - Neurological Exam Neurological Exam: Alert, Awake, Oriented x3 - Psychiatric Exam Psychiatric exam: Normal Affect, Normal Mood Assessment and Plan - Assessment and Plan (Free Text) Assessment: 52 yo female evaluated for left foot diabetic ulceration and surgical site dehiscence Plan: Patient seen and evaluated at bedside Plan discussed with attending Dr. Murray Charts and labs reviewed - afebrile, absent leukocytosis Medicine team aware Plan for OR Friday 09/07 in afternoon for partial L 1st met resection. Pending medicine/cardiac clearance Wound cleansed with betadine and dressed with DSD Can weight bear to LLE in a surgical shoe ASA put on hold starting from today (09/05) Heparin ASA put on hold starting from today (09/06) Podiatry will continue to follow up the patient while in house
[2018-09-06 12:14] LABS: IRON 90 ug/dL (45-180)
[2018-09-06 12:23] LABS: % IRON SATURATION 46 % (20-55); TOTAL IRON BINDING CAPACITY 196 ug/dL (265-497)
--- NOTE | 2018-09-06 13:43 | CP.PCM.PN ---
Subjective - Date & Time of Evaluation Date of Evaluation: 09/06/18 Time of Evaluation: 12:05 - Subjective Subjective: No fevers, no increased pain in her left foot, no nausea or diarrhea. Objective - Vital Signs/Intake and Output Vital Signs (last 24 hours): Temp Pulse Resp BP Pulse Ox 98.0 F 75 20 169/74 H 96 09/05/18 06:00 09/05/18 09:49 09/05/18 06:00 09/05/18 09:49 09/05/18 06:00 Intake and Output: 09/05/18 09/05/18 06:59 18:59 Intake Total 200 Balance 200 - Medications Medications: Current Medications Aspirin (Aspirin Chewable) 81 mg PO DAILY [facility] Last Admin: 09/05/18 09:48 Dose: Not Given Atorvastatin Calcium (Lipitor) 40 mg PO DIN [facility] Last Admin: 09/04/18 17:12 Dose: 40 mg Carvedilol (Coreg) 25 mg PO BID [facility] Last Admin: 09/05/18 09:46 Dose: Not Given Famotidine (Pepcid) 10 mg PO 1000,2200 [facility] Last Admin: 09/05/18 09:49 Dose: 10 mg Furosemide (Lasix) 20 mg PO DAILY [facility] Last Admin: 09/04/18 09:37 Dose: 20 mg Gabapentin (Neurontin) 200 mg PO TID [facility]; Protocol Last Admin: 09/05/18 09:48 Dose: 200 mg Heparin Sodium (Porcine) (Heparin) 5,000 units SC Q8 [facility]; Protocol Last Admin: 09/05/18 07:12 Dose: 5,000 units Hydralazine HCl (Apresoline) 10 mg PO QID PRN PRN Reason: Systolic Blood Pressure Last Admin: 09/04/18 17:13 Dose: 10 mg Linezolid (Zyvox 600mg/300ml D5w) 600 mg in 300 mls @ 200 mls/hr IVPB Q12 [facility]; Protocol Stop: 09/09/18 06:27 Last Admin: 09/05/18 09:50 Dose: 200 mls/hr Insulin Human Regular (Humulin R Med) 0 units SC ACHS [facility]; Protocol Last Admin: 09/05/18 12:32 Dose: 5 units Lactulose (Enulose) 10 gm PO DAILY PRN PRN Reason: Constipation Lisinopril (Zestril) 20 mg PO BID [facility] - Labs Labs: 09/05/18 07:00 09/05/18 07:00 PT 12.3 SECONDS (9.4-12.5) 09/02/18 09:00 INR 1.07 09/02/18 09:00 APTT 42.4 Seconds (25.1-36.5) H 09/02/18 09:00 - Constitutional Appears: Chronically Ill - Head Exam Head Exam: NORMAL INSPECTION - Neck Exam Neck Exam: absent: Meningismus - Respiratory Exam Respiratory Exam: Decreased Breath Sounds - Cardiovascular Exam Cardiovascular Exam: +S1, +S2 - GI/Abdominal Exam GI & Abdominal Exam: Soft. absent: Tenderness Assessment and Plan - Assessment and Plan (Free Text) Plan: Assessment left first toe stump cellulitis with clinical osteomyelitis history of sepsis due to left hallux cellulitis / gangrene with methicillin- resistant Staph aureus bacteremia, toe growing MSSA and now also Enterobactere with osteomyelitis S/P amputation cardiomyopathy with EF 35-40% DM HTN dyslipdemia Plan continue Zyvox and Zosyn Follow up wound and blood cx and patient is for OR this week - more importantly will await for OR cx prior to de-escalating antibiotics
--- NOTE | 2018-09-06 14:42 | PN ---
DATE: 09/06/2018 SUBJECTIVE: The patient has no complaints of any chest pain. No shortness of breath. No headache. T- 98.6 P 84 RR 12 GENERAL: The patient is lying in bed, flat, comfortable. HEENT: No oral lesion. Anicteric sclerae. Moist mucosa. NECK: No JVD, adenopathy, or thyromegaly. CARDIOVASCULAR: S1 and S2, regular. No murmurs, rubs, or gallops. LUNGS: Clear to auscultation bilaterally. No wheeze, rales, or rhonchi. ABDOMEN: Bowel sounds are positive, soft, nontender and nondistended. EXTREMITIES: No cyanosis or edema. LABORATORY DATA: Hemoglobin is 9.0. Creatinine is 1.8. ASSESSMENT: 1. Diabetic nephropathy. 2. Chronic kidney disease, last stage. 3. Left first toe osteomyelitis. 4. Diabetes type 2 with neuropathy. 5. Peripheral arterial disease. 6. Hypertension. PLAN: The patient is currently comfortable. The patient has a baseline creatinine, stable. She is currently on carvedilol. She is on heparin for DVT prophylaxis. She is on medication for neuropathy. She is on lisinopril for her hypertension and CKD. We will get iron studies. Vicente Westbrook MD MTDD
[2018-09-06] MEDS: Piperacillin/Tazobact 3.375 gm 100 ML IVPB SCH ×2 (14:58→21:30)
--- NOTE | 2018-09-06 16:27 | CP.PCM.PN ---
<Stepan Nair - Last Filed: 09/06/18 16:18> Subjective - Date & Time of Evaluation Date of Evaluation: 09/06/18 Time of Evaluation: 10:00 - Subjective Subjective: Stepan Nair, PGY 1 Medicine Progress Note Patient seen and examined at bedside this morning. No acute events overnight. Patient is tolerating food well. Plan for surgery debridement tomorrow by podiatry. Denies CP, SOB, fevers, urinary complaints, swelling, cough, abdominal pain, numbness and tingling. Objective - Vital Signs/Intake and Output Vital Signs (last 24 hours): Temp Pulse Resp BP Pulse Ox 98.4 F 76 18 169/68 H 99 09/06/18 14:43 09/06/18 14:43 09/06/18 14:43 09/06/18 14:43 09/06/18 14:43 Intake and Output: 09/06/18 09/06/18 06:59 18:59 Intake Total 180 Balance 180 - Medications Medications: Current Medications Aspirin (Aspirin Chewable) 81 mg PO DAILY [facility] Last Admin: 09/05/18 09:48 Dose: Not Given Atorvastatin Calcium (Lipitor) 40 mg PO DIN [facility] Last Admin: 09/05/18 18:13 Dose: 40 mg Carvedilol (Coreg) 25 mg PO BID [facility] Last Admin: 09/06/18 09:18 Dose: 25 mg Famotidine (Pepcid) 10 mg PO 1000,2200 [facility] Last Admin: 09/06/18 09:18 Dose: 10 mg Furosemide (Lasix) 20 mg PO DAILY [facility] Last Admin: 09/04/18 09:37 Dose: 20 mg Gabapentin (Neurontin) 200 mg PO TID [facility]; Protocol Last Admin: 09/06/18 13:40 Dose: 200 mg Heparin Sodium (Porcine) (Heparin) 5,000 units SC Q8 [facility]; Protocol Last Admin: 09/06/18 14:58 Dose: Not Given Hydralazine HCl (Apresoline) 10 mg PO QID PRN PRN Reason: Systolic Blood Pressure Last Admin: 09/04/18 17:13 Dose: 10 mg Linezolid (Zyvox 600mg/300ml D5w) 600 mg in 300 mls @ 200 mls/hr IVPB Q12 [facility]; Protocol Stop: 11/14/18 06:27 Last Admin: 09/06/18 09:21 Dose: 200 mls/hr Piperacillin Sod/Tazobactam Sod (Zosyn 3.375 In Ns 100ml) 100 mls @ 25 mls/hr IVPB Q8 [facility]; Protocol Stop: 09/13/18 14:01 Last Admin: 09/06/18 14:58 Dose: 25 mls/hr Insulin Human Regular (Humulin R Med) 0 units SC ACHS [facility]; Protocol Last Admin: 09/06/18 11:55 Dose: 3 units Lactulose (Enulose) 10 gm PO DAILY PRN PRN Reason: Constipation Lisinopril (Zestril) 20 mg PO BID [facility] Last Admin: 09/06/18 09:19 Dose: 20 mg - Labs Labs: 09/06/18 07:00 09/06/18 07:00 PT 12.3 SECONDS (9.4-12.5) 09/02/18 09:00 INR 1.07 09/02/18 09:00 APTT 42.4 Seconds (25.1-36.5) H 09/02/18 09:00 - Additional Findings Additional findings: - Constitutional Appears: Well, Non-toxic, No Acute Distress - Head Exam Head Exam: ATRAUMATIC, NORMAL INSPECTION, NORMOCEPHALIC - Eye Exam Eye Exam: EOMI, Normal appearance, PERRL - Respiratory Exam Respiratory Exam: Clear to Ausculation Bilateral, NORMAL BREATHING PATTERN. absent: Accessory Muscle Use, Decreased Breath Sounds, Wheezes, Respiratory Distress - Cardiovascular Exam Cardiovascular Exam: Gallop (S3), REGULAR RHYTHM, +S1, +S2. - GI/Abdominal Exam GI & Abdominal Exam: Soft, Normal Bowel Sounds. absent: Guarding, Rigid, Tenderness - Extremities Exam Additional comments: Left foot has dressing that is no bleeding/draining/puss appreciated. S/p L transmetatarsal amputation - Back Exam Back Exam: NORMAL INSPECTION. absent: CVA tenderness (L), CVA tenderness (R) - Neurological Exam Neurological Exam: Alert, Awake, Oriented x3 - Psychiatric Exam Psychiatric exam: Normal Affect, Normal Mood - Skin Skin Exam: Dry, Intact (except where noted above), Normal Color, Warm Assessment and Plan - Assessment and Plan (Free Text) Assessment: This is a 52 year old female with PMH of uncontrolled diabetes s/p left great t oe amputation, severe cardiomyopathy on life vest since December 2017, CKD 3, peripheral artery disease s/p recent JAMES(s) placement at [facility] admitted for nonhealing surgical wound s/p left great toe amputation (Jul 2018) possibly due to uncontrolled diabetes and poor circulation secondary to PAD. She will require IV antibiotics & I&D for cellulitis. L foot XR came back probable for osteo in the head of the 1st metatarsal. Plan for surgery by podiatry on Friday for surgery debridement of foot. Plan: LLE non healing wound -s/p transmetatarsal surgery -scheduled for surgery debridement tomorrow on Friday 09/[address] Murray -aspirin, heparin on hold for now -L Foot XR: Probable osteo at head of 1st metatarsal -continue Zyvoc and zosyn -ID on consult -blood culture shows no growth after 5 days -WBC is 8.9 today, afebrile -Doppler of LLE showed left resting SURJIT and distal waveforms are much improved from preintervention images in 2018. 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: -continue gabapentin to 200mg TID -patient's neuropathy symptoms are improved today PAD s/p recent JAMES stents: -holding plavix, ASA for planned surgery on friday -continue lipitor CKD stage 3 -monitoring creatinine, 1.6 today from 1.8 yesterday -holding lasix for now -consider nephrology consult if worsening Constipation -admits to regular bowel movements -responding to lactulase Hx of DM: -insulin regular ACHS -A1C 9%, given diabetic education and discount clerk sarah Severe Cardiomyopathy -Cardiology discontinued life vest HTN: -Continue home lisinopril, coreg Hyperkalemia -K WNL today, continue to monitor PPX with pepcid and heparin Patient seen and case discussed with attending, Dr. Tessy Greenwood <Tessy Greenwood R - Last Filed: 09/06/18 17:20> Objective - Vital Signs/Intake and Output Vital Signs (last 24 hours): Temp Pulse Resp BP Pulse Ox 98.4 F 76 18 169/68 H 99 09/06/18 14:43 09/06/18 14:43 09/06/18 14:43 09/06/18 14:43 09/06/18 14:43 Intake and Output: 09/06/18 09/06/18 06:59 18:59 Intake Total 180 Balance 180 - Medications Medications: Current Medications Aspirin (Aspirin Chewable) 81 mg PO DAILY [facility] Last Admin: 09/05/18 09:48 Dose: Not Given Atorvastatin Calcium (Lipitor) 40 mg PO DIN [facility] Last Admin: 09/05/18 18:13 Dose: 40 mg Carvedilol (Coreg) 25 mg PO BID [facility] Last Admin: 09/06/18 09:18 Dose: 25 mg Famotidine (Pepcid) 10 mg PO 1000,2200 [facility] Last Admin: 09/06/18 09:18 Dose: 10 mg Furosemide (Lasix) 20 mg PO DAILY [facility] Last Admin: 09/04/18 09:37 Dose: 20 mg Gabapentin (Neurontin) 200 mg PO TID [facility]; Protocol Last Admin: 09/06/18 13:40 Dose: 200 mg Heparin Sodium (Porcine) (Heparin) 5,000 units SC Q8 [facility]; Protocol Last Admin: 09/06/18 14:58 Dose: Not Given Hydralazine HCl (Apresoline) 10 mg PO QID PRN PRN Reason: Systolic Blood Pressure Last Admin: 09/04/18 17:13 Dose: 10 mg Linezolid (Zyvox 600mg/300ml D5w) 600 mg in 300 mls @ 200 mls/hr IVPB Q12 [facility]; Protocol Stop: 09/09/18 06:27 Last Admin: 09/06/18 09:21 Dose: 200 mls/hr Piperacillin Sod/Tazobactam Sod (Zosyn 3.375 In Ns 100ml) 100 mls @ 25 mls/hr IVPB Q8 [facility]; Protocol Stop: 09/13/18 14:01 Last Admin: 09/06/18 14:58 Dose: 25 mls/hr Insulin Human Regular (Humulin R Med) 0 units SC ACHS [facility]; Protocol Last Admin: 09/06/18 11:55 Dose: 3 units Lactulose (Enulose) 10 gm PO DAILY PRN PRN Reason: Constipation Lisinopril (Zestril) 20 mg PO BID [facility] Last Admin: 09/06/18 09:19 Dose: 20 mg - Labs Labs: 09/06/18 07:00 09/06/18 07:00 PT 12.3 SECONDS (9.4-12.5) 09/02/18 09:00 INR 1.07 09/02/18 09:00 APTT 42.4 Seconds (25.1-36.5) H 09/02/18 09:00 Attending/Attestation - Attestation I have personally seen and examined this patient.: Yes I have fully participated in the care of the patient.: Yes I have reviewed all pertinent clinical information, including history, physical exam and plan: Yes Notes (Text): Patient seen and examined by me with resident at 10 AM with resident 09/06/18. Case including HPI, physical exam, and assessment and plan discussed with resident. Agree with above with following additions/corrections. Patient is a 52-year-old female with past medical history significant for diabetes and left great toe amputation, insulin-dependent type 2 diabetes, severe cardiomyopathy with LifeVest, systolic CHF, hypertension, chronic kidney disease stage III, and peripheral artery disease status post stents of left lower extremity that presented to the emergency room after being sent in by her government affairs specialist, Dr. Murray, for a nonhealing wound of the left great toe. Patient states she is feels ok. States she can no longer get out of bed by herself. Patient states that yesterday, she was on the bedside commode and tried to get up on her own. She states her dressing on her left foot was "slippery" and she slid on her knees. She denies any trauma or pain. Tingling and numbness resolved with gabapentin. No bowel movements today. No pain in her left foot. No chest pain or shortness of breath. No nausea, vomiting, or abdominal pain. No headaches or dizziness. No fevers or chills. No dysuria. Physical exam: General: Awake and lying in bed in no acute distress HEENT: Normocephalic, atraumatic. Extraocular muscles intact, pupils equal and reactive, no scleral icterus. Oropharynx is pink and moist. Neck is supple. Cardiovascular: Regular rhythm. Normal S1 and S2. Positive S3. No murmurs, rubs, or gallops appreciated Pulmonary: Normal respiratory effort. No rhonchi, rales, or wheezing appreciated. Gastrointestinal: Soft, nondistended. Nontender. Positive bowel sounds all 4 quadrants. No guarding. Musculoskeletal: Moves all extremities. No calf tenderness. No CVA tenderness. Positive LLE edema. Positive left foot dressing clean, dry, and intact. Central nervous system: AAO x3, CN 2-12 grossly intact. Dermatologic: Skin warm and dry. Assessment and plan: Patient is a 52-year-old female with past medical history significant for diabetes and left great toe amputation, insulin-dependent type 2 diabetes, severe cardiomyopathy with LifeVest, systolic CHF, hypertension, chronic kidney disease stage III, and peripheral artery disease status post stents of left lower extremity that presented to the emergency room after being sent in by her government affairs specialist, Dr. Murray, for a nonhealing wound of the left great toe. 1. Nonhealing wound of left great toe. Likely has osteomylelitis. Podiatry fo demarco, recommendations appreciated. ID following, recommendations appreciated. Continue Zosyn and Zyvox. Patient for OR tomorrow Friday09/07/18 for debridement. ASA and plavix held. Continue gabapentin for neuropathic pain. ESR 104. Patient afebrile. No leukocytosis. Left foot xray per radiologist showed probable osteomyelitis in the head of the first metatarsal. Arterial Doppler of left lower extremity per radiologist showed left resting SURJIT and distal waveforms are much improved from preintervention images in 2018. Interventional radiologist, Dr. Morin, following, recommendations appreciated. Blood cultures with no growth to date. 2. Thrombocytosis. Likely reactive secondary to infection. Uptrending today. Continue to monitor. 3. Leukocytosis. Likely secondary to #1. Resolved. Blood cultures with no growth to date. Urine culture positive for E. Coli. Patient afebrile. Continue Zyvox and Zosyn. Continue to monitor. 4. PAD S/P stent placement. Continue lipitor. ASA and Plavix on hold for OR tomorrow. 5. Severe cardiomyopathy. Chronic systolic CHF. LifeVest stopped by cardiology Dr. Caldwell. Continue home Coreg, Lipitor, and Lisinopril. Lasix held. Continue to monitor on telemetry 6. Insulin-dependent type 2 diabetes. Continue insulin sliding scale. Continue to monitor accuchecks and add long acting insulin if needed. 7. CKD Stage 3. Creatinine stable. Nephrology following, recommendations appreciated. Lasix held. Continue to monitor. 8. Constipation. Continue Lactulose as needed. Continue to monitor 9. Essential Hypertnsion. Continue Coreg. Continue lisinopril. Lasix held. 10. GI/DVT prophylaxis. Pepcid/Heparin 11. Patient is a full code. According to the revised cardiac risk index for preoperative risk, patient has a class III risk with a 6.6% risk of major cardiac event for noncardiac surgery. Case was discussed in detail with the patient regarding current diagnosis and treatment plan. All questions answered.
[2018-09-07] MEDS: Piperacillin/Tazobact 3.375 gm 100 ML IVPB SCH ×3 (06:21→22:05)
[2018-09-07 07:54] LABS: BASO # 0.09 K/mm3 (0.0-2.0); EOS # 0.5 (0.0-0.7); EOS % 5.4 % (1.5-5.0); GRAN # 5.88 (1.4-6.5); LYMPH # 1.6 (1.2-3.4); LYMPH % 18.8 % (22.0-35.0); MEAN CELL VOLUME 89.4 fl (80.0-105.0); MEAN CORPUSCULAR HGB CONC 31.3 g/dl (31.0-37.0); MEAN PLATELET VOLUME 8.7 fl (7.0-11.0); MONO # 0.6 (0.1-0.6); MONO % 6.8 % (1.0-6.0); RBC 3.22 10^6/uL (3.5-6.1); RED CELL DISTRIBUTION WIDTH 14.3 % (11.5-14.5); WHITE BLOOD COUNT 8.7 10^3/uL (4.5-11.0)
[2018-09-07 08:08] LABS: ALB/GLOB RATIO 0.8 (1.1-1.8); ALBUMIN 3.1 g/dL (3.0-4.8)
--- NOTE | 2018-09-07 08:28 | PN ---
DATE: 09/06/2018 SUBJECTIVE: The patient denies any chest pain or shortness of breath. PHYSICAL EXAMINATION VITAL SIGNS: Blood pressure 162/80, heart rate 76, temperature 98.4, and respirations 18. HEENT: Normocephalic. CHEST: Minimal rhonchi. HEART: S1 and S2 regular. EXTREMITIES: Bracing is applied to the left foot. LABORATORY DATA: Hemoglobin and hematocrit 9 and 28.3, platelet count is 504,000. SMA-7 is within normal limit, except glucose of 154 and creatinine 1.8. ASSESSMENT: 1. Cardiomyopathy. 2. Left foot ulcer. 3. Uncontrolled diabetes mellitus. 4. Chronic renal insufficiency. RECOMMENDATIONS: Continue hydralazine 10 mg q.i.d. Heparin 5000 units every 8 hours, has been hold. Continue Lasix 20 mg orally daily. Lipitor 20 mg once a day. Zestril 20 mg orally daily. Zyvox 600 mg intravenous every 12 hours. The patient can undergo debridement tomorrow from the cardiac point. Nba Fajardo MD
[2018-09-07] MEDS ORDERED: Sod Polystyrene Sulf 15 gm/60 ml Susp PO ONE (09:10)
[2018-09-07] MEDS: Insulin Reg-MEDIUM-Coverage SC SCH ×4 (10:14→22:03)
[2018-09-07] MEDS ORDERED: Darbepoetin Alfa 100 mcg/ml Inj SC ONE (10:50)
--- NOTE | 2018-09-07 12:27 | CP.PCM.PN ---
Subjective - Date & Time of Evaluation Date of Evaluation: 09/07/18 Time of Evaluation: 12:25 - Subjective Subjective: Nephrology Progress Note for Dr. Red[place] Patient seen and examined at bedside. No acute overnight events. Patient scheduled for surgical debridment of left hallux today. Patient denies CP, SOB, n/v/d, abdominal pain, fever, chills. Objective - Vital Signs/Intake and Output Vital Signs (last 24 hours): Temp Pulse Resp BP Pulse Ox 98.2 F 76 18 150/76 98 09/07/18 06:00 09/07/18 06:00 09/07/18 06:00 09/07/18 10:17 09/07/18 12:13 Intake and Output: 09/07/18 09/07/18 06:59 18:59 Intake Total 240 Balance 240 - Medications Medications: Current Medications Aspirin (Aspirin Chewable) 81 mg PO DAILY [facility] Last Admin: 09/05/18 09:48 Dose: Not Given Atorvastatin Calcium (Lipitor) 40 mg PO DIN [facility] Last Admin: 09/06/18 17:51 Dose: 40 mg Carvedilol (Coreg) 25 mg PO BID [facility] Last Admin: 09/07/18 10:19 Dose: Not Given Famotidine (Pepcid) 10 mg PO 1000,2200 [facility] Last Admin: 09/07/18 10:10 Dose: 10 mg Furosemide (Lasix) 20 mg PO DAILY [facility] Last Admin: 09/04/18 09:37 Dose: 20 mg Gabapentin (Neurontin) 200 mg PO TID [facility]; Protocol Last Admin: 09/07/18 10:10 Dose: 200 mg Heparin Sodium (Porcine) (Heparin) 5,000 units SC Q8 [facility]; Protocol Last Admin: 09/06/18 14:58 Dose: Not Given Hydralazine HCl (Apresoline) 10 mg PO QID PRN PRN Reason: Systolic Blood Pressure Last Admin: 09/04/18 17:13 Dose: 10 mg Piperacillin Sod/Tazobactam Sod (Zosyn 3.375 In Ns 100ml) 100 mls @ 25 mls/hr IVPB Q8 [facility]; Protocol Stop: 09/13/18 14:01 Last Admin: 09/07/18 06:21 Dose: 25 mls/hr Insulin Human Regular (Humulin R Med) 0 units SC ACHS [facility]; Protocol Last Admin: 09/07/18 10:14 Dose: 1 units Lactulose (Enulose) 10 gm PO DAILY PRN PRN Reason: Constipation Lisinopril (Zestril) 20 mg PO DAILY [facility] - Labs Labs: 09/07/18 07:20 09/07/18 07:20 PT 12.3 SECONDS (9.4-12.5) 09/02/18 09:00 INR 1.07 09/02/18 09:00 APTT 42.4 Seconds (25.1-36.5) H 09/02/18 09:00 - Constitutional Appears: No Acute Distress - Head Exam Head Exam: NORMAL INSPECTION - Eye Exam Eye Exam: Normal appearance - ENT Exam ENT Exam: Mucous Membranes Moist, Normal Exam - Neck Exam Neck Exam: Normal Inspection - Respiratory Exam Respiratory Exam: Clear to Ausculation Bilateral. absent: Rales, Rhonchi, Wheezes - Cardiovascular Exam Cardiovascular Exam: RRR. absent: Gallop, Rubs, Murmur - GI/Abdominal Exam GI & Abdominal Exam: Soft. absent: Distended, Guarding, Tenderness, Rebound - Extremities Exam Extremities Exam: Normal Inspection - Neurological Exam Neurological Exam: Alert, Awake, Oriented x3 - Psychiatric Exam Psychiatric exam: Normal Affect, Normal Mood - Skin Skin Exam: Dry, Intact, Normal Color, Warm Assessment and Plan - Assessment and Plan (Free Text) Assessment: 52 yo F with PMH of left hallux amputation, uncontrolled DM, severe dilated cardiomyopathy, CHFrEF (33%), CKD IIIB, PAD s/p stents LLE, and HTN admitted to [facility] [place] for failed outpatient antibiotic therapy for left hallux osteomyelitis. Nephrology consulted for acute renal failure. Plan: 1. CKD stage IIIB - Cont to hold Lasix - Creatinine at baseline, will continue to monitor - Will assess for CKD mineral bone disease; PTH, phos, vitamin D ordered - Avoid nephrotoxic agents 2. LLE osteomyelitis - Scheduled for OR today - Abx per ID - ID and podiatry following 3. Hyperkalemia - K 5.5 - Likely 2/2 to increased dose of Lisinopril - Lisinopril dose decreased - One dose of kayexelate given, would avoid frequent use due to high sodium content in HTN, CHF patient - Cont to monitor 4. Hypertensive CKD - Cont Coreg - Lisinopril dose lowered to daily dosing to avoid hyperkalemia; will take some time for BP to be therapeutic on Lisinopril 5. IDDM - A1c 9% - Cont medical management per primary 6. CHFrEF - Currently holding lasix - Euvolemic on exam - Cardiology following 7. Anemia of Renal Disease - Iron studies consistent with chronic disease - Hemoglobin stable - Will likely give a dose of Aranesp tomorrow Patient discussed in detail with attending. Jez Carolina, DO PGY2
--- NOTE | 2018-09-07 13:59 | PN ---
DATE: 09/07/2018 CARDIOLOGY FOLLOWUP SUBJECTIVE: The patient is scheduled for foot surgery. The patient denies shortness of breath. Denies chest pain. PHYSICAL EXAMINATION: VITAL SIGNS: Stable. NECK: Negative JVD. LUNGS: Without rales. HEART: Reveals S1, S2. EXTREMITIES: Bandaged. LABORATORY DATA: Hemoglobin is 9, BUN and creatinine are 23 and 1.5. IMPRESSION: 1. Foot ulcers. 2. Peripheral vascular disease. 3. Diabetes mellitus. 4. Cardiomyopathy. 5. Hypercholesterolemia. 6. Severe pulmonary hypertension. 7. Anemia. 8. Hypercholesterolemia. PLAN: Given these findings, the patient is hemodynamically stable. Her anesthesia and operative risks are high given her cardiac and pulmonary issues. However, the patient is at her optimum at this time. Rodney Caldwell MD
--- NOTE | 2018-09-07 14:26 | CP.PCM.PN ---
<Cyril Del Cid - Last Filed: 09/07/18 14:23> Subjective - Date & Time of Evaluation Date of Evaluation: 09/07/18 Time of Evaluation: 14:26 - Subjective Subjective: Resident Cyril Del Cid DO PGY-1 Hospitalist Progress Note for Dr. Cesar: Pt was seen and examined this morning at bedside. She denies any acute overnight events. She states that she is currently not having any chest pain, fevers, chil ls, n/v, c/d, abd pain, dysuria, hematuria, frequency or L foot pain. She states that her pins and needles sensation is improved since being on the gabapentin. She will be going to OR today (09/07) at 3:30 PM with podiatry. Objective - Vital Signs/Intake and Output Vital Signs (last 24 hours): Temp Pulse Resp BP Pulse Ox 98.2 F 76 18 150/76 98 09/07/18 06:00 09/07/18 06:00 09/07/18 06:00 09/07/18 10:17 09/07/18 12:13 Intake and Output: 09/07/18 09/07/18 06:59 18:59 Intake Total 240 Balance 240 - Medications Medications: Current Medications Aspirin (Aspirin Chewable) 81 mg PO DAILY [facility] Last Admin: 09/05/18 09:48 Dose: Not Given Atorvastatin Calcium (Lipitor) 40 mg PO DIN [facility] Last Admin: 09/06/18 17:51 Dose: 40 mg Carvedilol (Coreg) 25 mg PO BID [facility] Last Admin: 09/07/18 10:19 Dose: Not Given Famotidine (Pepcid) 10 mg PO 1000,2200 [facility] Last Admin: 09/07/18 10:10 Dose: 10 mg Furosemide (Lasix) 20 mg PO DAILY [facility] Last Admin: 09/04/18 09:37 Dose: 20 mg Gabapentin (Neurontin) 200 mg PO TID [facility]; Protocol Last Admin: 09/07/18 13:34 Dose: Not Given Heparin Sodium (Porcine) (Heparin) 5,000 units SC Q8 [facility]; Protocol Last Admin: 09/06/18 14:58 Dose: Not Given Hydralazine HCl (Apresoline) 10 mg PO QID PRN PRN Reason: Systolic Blood Pressure Last Admin: 09/04/18 17:13 Dose: 10 mg Piperacillin Sod/Tazobactam Sod (Zosyn 3.375 In Ns 100ml) 100 mls @ 25 mls/hr IVPB Q8 [facility]; Protocol Stop: 09/13/18 14:01 Last Admin: 09/07/18 13:34 Dose: 25 mls/hr Insulin Human Regular (Humulin R Med) 0 units SC ACHS [facility]; Protocol Last Admin: 09/07/18 13:38 Dose: 3 units Lactulose (Enulose) 10 gm PO DAILY PRN PRN Reason: Constipation Lisinopril (Zestril) 20 mg PO DAILY [facility] - Labs Labs: 09/07/18 07:20 09/07/18 07:20 PT 12.3 SECONDS (9.4-12.5) 09/02/18 09:00 INR 1.07 09/02/18 09:00 APTT 42.4 Seconds (25.1-36.5) H 09/02/18 09:00 - Constitutional Appears: Well, Non-toxic, No Acute Distress - Head Exam Head Exam: ATRAUMATIC, NORMAL INSPECTION, NORMOCEPHALIC - Eye Exam Eye Exam: EOMI, Normal appearance, PERRL - Respiratory Exam Respiratory Exam: Clear to Ausculation Bilateral, NORMAL BREATHING PATTERN. absent: Accessory Muscle Use, Decreased Breath Sounds, Rales, Rhonchi, Wheezes, Respiratory Distress, Stridor - Cardiovascular Exam Cardiovascular Exam: RRR, +S1, +S2. absent: Gallop, Rubs - GI/Abdominal Exam GI & Abdominal Exam: Soft, Normal Bowel Sounds. absent: Guarding, Rigid, Tenderness - Extremities Exam Additional comments: Pt has covering over L foot and is s/p L transmetatarsal amputation, no edema noted at ankle and dressing shows yellow discoloration and odor 2/2 discharge. - Back Exam Back Exam: NORMAL INSPECTION. absent: CVA tenderness (L), CVA tenderness (R) - Neurological Exam Neurological Exam: Alert, Awake, Oriented x3 - Psychiatric Exam Psychiatric exam: Normal Affect, Normal Mood - Skin Skin Exam: Dry, Intact (except where noted above.), Normal Color, Warm Assessment and Plan - Assessment and Plan (Free Text) Assessment: Ms Hernnadez, 52 F, PMHx uncontrolled diabetes s/p left great toe amputation, severe cardiomyopathy on life vest since December 2017, CKD 3, peripheral artery disease s/p recent JAMES(s) placement at [facility] admitted for nonhealing surgical wound s/p left great toe amputation (Jul 2018) possibly due to uncontrolled diabetes and poor circulation secondary to PAD. She will require IV antibiotics & I&D for cellulitis. L foot XR came back probable for osteo in the head of the 1st metatarsal. Will undergo surgery per podiatry today 09/07. Plan: 1. LLE Cellulitis R/O osteomyelitis with leukocytosis s/p L transmetatarsal surgery - Zyvoc and zosyn on board - ID consult - Follow on blood culture - Trend WBC. WBC is 10.3 and wnl now - L Foot XR: Probable osteo at head of 1st metatarsal - Arterial doppler of L lower extremity shows improvement compared to prior studies. - As per cardio pt is high risk given her cardiac and pulm issues, but is optimized at this time for OR. - OR for debridement today 09/07 @ 3:30 pm per podiatry 2. Non-healing wound possibly due to poor circulation - Extermity US: report states that L SURJIT is improved from previous ones on record. - IR: Dr. Morin consulted 3. Severe Cardiomyopathy on life vest - Dr. Caldwell: D/tiffanie life vest, consulted for [facility] risk assessment for surgery - Telemetry 4. 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 HTN: - Continue home lisinopril, lasix 6.PAD s/p recent JAMES stents: - d/c plavix for surgery 7. CKD stage 3 - Cr clearance 38 - Continue to trend creatinine - If creatinine decreases, will consult nephro 8. Uncontrolled DM: - A1C 9 - ISSS - Diabetic education - Dietitian consult 9. Constipation - Pt responded to lactulose, will D/C other bowel regiment but lactulose 10. Hyperkalemia: - K 5.5 - Kayexalate given - Will recheck cmp tomorrow. 11. PPX: DVT: heparin SC GI: pepcid BID Case seen and discussed with Dr. Arsenio Del Cid DO PGY1 <Ihsan Cesar - Last Filed: 09/07/18 18:05> Objective - Vital Signs/Intake and Output Vital Signs (last 24 hours): Temp Pulse Resp BP Pulse Ox 98.2 F 75 18 141/69 98 09/07/18 14:00 09/07/18 14:00 09/07/18 14:00 09/07/18 14:00 09/07/18 14:00 Intake and Output: 09/07/18 09/07/18 06:59 18:59 Intake Total 240 Balance 240 - Medications Medications: Current Medications Aspirin (Aspirin Chewable) 81 mg PO DAILY [facility] Last Admin: 09/05/18 09:48 Dose: Not Given Atorvastatin Calcium (Lipitor) 40 mg PO DIN [facility] Last Admin: 09/06/18 17:51 Dose: 40 mg Carvedilol (Coreg) 25 mg PO BID [facility] Last Admin: 09/07/18 10:19 Dose: Not Given Famotidine (Pepcid) 10 mg PO 1000,2200 [facility] Last Admin: 09/07/18 10:10 Dose: 10 mg Furosemide (Lasix) 20 mg PO DAILY [facility] Last Admin: 09/04/18 09:37 Dose: 20 mg Gabapentin (Neurontin) 200 mg PO TID [facility]; Protocol Last Admin: 09/07/18 13:34 Dose: Not Given Heparin Sodium (Porcine) (Heparin) 5,000 units SC Q8 [facility]; Protocol Last Admin: 09/06/18 14:58 Dose: Not Given Hydralazine HCl (Apresoline) 10 mg PO QID PRN PRN Reason: Systolic Blood Pressure Last Admin: 09/04/18 17:13 Dose: 10 mg Piperacillin Sod/Tazobactam Sod (Zosyn 3.375 In Ns 100ml) 100 mls @ 25 mls/hr IVPB Q8 [facility]; Protocol Stop: 09/13/18 14:01 Last Admin: 09/07/18 13:34 Dose: 25 mls/hr Insulin Human Regular (Humulin R Med) 0 units SC ACHS [facility]; Protocol Last Admin: 09/07/18 13:38 Dose: 3 units Lactulose (Enulose) 10 gm PO DAILY PRN PRN Reason: Constipation Lisinopril (Zestril) 20 mg PO DAILY [facility] - Labs Labs: 09/07/18 07:20 09/07/18 07:20 PT 12.3 SECONDS (9.4-12.5) 09/02/18 09:00 INR 1.07 09/02/18 09:00 APTT 42.4 Seconds (25.1-36.5) H 09/02/18 09:00 Attending/Attestation - Attestation I have personally seen and examined this patient.: Yes I have fully participated in the care of the patient.: Yes I have reviewed all pertinent clinical information, including history, physical exam and plan: Yes Notes (Text): Possbile OM of the left toe Pt was scheduled for amputation today, but procedure was postponed as pt had breakfast this morning will c/w abx for now ID on board 09/07/18 18:04
--- NOTE | 2018-09-07 17:12 | CP.PCM.PN ---
Subjective - Date & Time of Evaluation Date of Evaluation: 09/07/18 Time of Evaluation: 11:05 - Subjective Subjective: Patient is for surgery today. No fevers. Objective - Vital Signs/Intake and Output Vital Signs (last 24 hours): Temp Pulse Resp BP Pulse Ox 98.4 F 76 18 162/80 H 97 09/06/18 08:04 09/06/18 09:19 09/06/18 08:04 09/06/18 09:19 09/06/18 08:04 Intake and Output: 09/06/18 09/06/18 06:59 18:59 Intake Total 180 Balance 180 - Medications Medications: Current Medications Aspirin (Aspirin Chewable) 81 mg PO DAILY [facility] Last Admin: 09/05/18 09:48 Dose: Not Given Atorvastatin Calcium (Lipitor) 40 mg PO DIN [facility] Last Admin: 09/05/18 18:13 Dose: 40 mg Carvedilol (Coreg) 25 mg PO BID [facility] Last Admin: 09/06/18 09:18 Dose: 25 mg Famotidine (Pepcid) 10 mg PO 1000,2200 [facility] Last Admin: 09/06/18 09:18 Dose: 10 mg Furosemide (Lasix) 20 mg PO DAILY [facility] Last Admin: 09/04/18 09:37 Dose: 20 mg Gabapentin (Neurontin) 200 mg PO TID [facility]; Protocol Last Admin: 09/06/18 13:40 Dose: 200 mg Heparin Sodium (Porcine) (Heparin) 5,000 units SC Q8 [facility]; Protocol Last Admin: 09/06/18 06:11 Dose: Not Given Hydralazine HCl (Apresoline) 10 mg PO QID PRN PRN Reason: Systolic Blood Pressure Last Admin: 09/04/18 17:13 Dose: 10 mg Linezolid (Zyvox 600mg/300ml D5w) 600 mg in 300 mls @ 200 mls/hr IVPB Q12 [facility]; Protocol Stop: 09/09/18 06:27 Last Admin: 09/06/18 09:21 Dose: 200 mls/hr Piperacillin Sod/Tazobactam Sod (Zosyn 3.375 In Ns 100ml) 100 mls @ 25 mls/hr I VPB Q8 [facility]; Protocol Stop: 09/13/18 14:01 Insulin Human Regular (Humulin R Med) 0 units SC ACHS [facility]; Protocol Last Admin: 09/06/18 11:55 Dose: 3 units Lactulose (Enulose) 10 gm PO DAILY PRN PRN Reason: Constipation Lisinopril (Zestril) 20 mg PO BID [facility] Last Admin: 09/06/18 09:19 Dose: 20 mg - Labs Labs: 09/06/18 07:00 09/06/18 07:00 PT 12.3 SECONDS (9.4-12.5) 09/02/18 09:00 INR 1.07 09/02/18 09:00 APTT 42.4 Seconds (25.1-36.5) H 09/02/18 09:00 - Constitutional Appears: Chronically Ill - Head Exam Head Exam: NORMAL INSPECTION - Respiratory Exam Respiratory Exam: Decreased Breath Sounds - Cardiovascular Exam Cardiovascular Exam: +S1, +S2 - GI/Abdominal Exam GI & Abdominal Exam: Soft. absent: Tenderness - Extremities Exam Additional comments: left foot with dressings in place Assessment and Plan - Assessment and Plan (Free Text) Plan: Assessment left first toe stump cellulitis with clinical osteomyelitis history of sepsis due to left hallux cellulitis / gangrene with methicillin- resistant Staph aureus bacteremia, toe growing MSSA and now also Enterobactere with osteomyelitis S/P amputation cardiomyopathy with EF 35-40% DM HTN dyslipdemia Plan continue Zyvox and Zosyn Follow up wound and blood cx and patient is for OR this week - more importantly will await for OR cx prior to de-escalating antibiotics
[2018-09-07] MEDS ORDERED: Dextrose 50% SYRINGE Inj (50 ml) IVP ONE (18:27)
[2018-09-07] MEDS ORDERED: Dextrose 50% SYRINGE Inj (50 ml) ONE (18:32)
[2018-09-08 07:19] LABS: BASO # 0.11 K/mm3 (0.0-2.0); BASO % 1.3 % (0.0-3.0); EOS # 0.2 (0.0-0.7); EOS % 2.8 % (1.5-5.0); GRAN # 5.85 (1.4-6.5); GRAN % 71.6 % (50.0-68.0); HEMOGLOBIN 9.3 g/dL (12.0-16.0); LYMPH # 1.5 (1.2-3.4); LYMPH % 18.2 % (22.0-35.0); MEAN CELL VOLUME 88.6 fl (80.0-105.0); MEAN CORPUSCULAR HGB CONC 31.6 g/dl (31.0-37.0); MEAN PLATELET VOLUME 8.2 fl (7.0-11.0); MONO # 0.5 (0.1-0.6); MONO % 6.1 % (1.0-6.0); RBC 3.32 10^6/uL (3.5-6.1); RED CELL DISTRIBUTION WIDTH 14.4 % (11.5-14.5); WHITE BLOOD COUNT 8.2 10^3/uL (4.5-11.0)
--- NOTE | 2018-09-08 07:22 | CP.PCM.PN ---
<Shabnam Wing - Last Filed: 09/08/18 11:21> Subjective - Date & Time of Evaluation Date of Evaluation: 09/08/18 Time of Evaluation: 07:00 - Subjective Subjective: Infectious Disease Progress Note for nAabela Covarrubias PGY3 Patient seen and examined at bedside. She is resting comfortably in bed. She is afebrile without any complaints at this time. Objective - Vital Signs/Intake and Output Vital Signs (last 24 hours): Temp Pulse Resp BP Pulse Ox 98.2 F 75 18 141/69 98 09/07/18 14:00 09/07/18 14:00 09/07/18 14:00 09/07/18 14:00 09/07/18 14:00 - Medications Medications: Current Medications Aspirin (Aspirin Chewable) 81 mg PO DAILY [facility] Last Admin: 09/05/18 09:48 Dose: Not Given Atorvastatin Calcium (Lipitor) 40 mg PO DIN [facility] Last Admin: 09/07/18 18:17 Dose: 40 mg Carvedilol (Coreg) 25 mg PO BID [facility] Last Admin: 09/07/18 18:21 Dose: Not Given Famotidine (Pepcid) 10 mg PO 1000,2200 [facility] Last Admin: 09/07/18 22:05 Dose: 10 mg Furosemide (Lasix) 20 mg PO DAILY [facility] Last Admin: 09/04/18 09:37 Dose: 20 mg Gabapentin (Neurontin) 200 mg PO TID [facility]; Protocol Last Admin: 09/07/18 18:17 Dose: 200 mg Heparin Sodium (Porcine) (Heparin) 5,000 units SC Q8 [facility]; Protocol Last Admin: 09/06/18 14:58 Dose: Not Given Hydralazine HCl (Apresoline) 10 mg PO QID PRN PRN Reason: Systolic Blood Pressure Last Admin: 09/04/18 17:13 Dose: 10 mg Piperacillin Sod/Tazobactam Sod (Zosyn 3.375 In Ns 100ml) 100 mls @ 25 mls/hr IVPB Q8 [facility]; Protocol Stop: 09/13/18 14:01 Last Admin: 09/07/18 22:05 Dose: 25 mls/hr Insulin Human Regular (Humulin R Med) 0 units SC ACHS [facility]; Protocol Last Admin: 09/07/18 22:03 Dose: Not Given Lactulose (Enulose) 10 gm PO DAILY PRN PRN Reason: Constipation Lisinopril (Zestril) 20 mg PO DAILY [facility] - Labs Labs: 09/07/18 07:20 09/07/18 07:20 PT 12.3 SECONDS (9.4-12.5) 09/02/18 09:00 INR 1.07 09/02/18 09:00 APTT 42.4 Seconds (25.1-36.5) H 09/02/18 09:00 - Constitutional Appears: No Acute Distress - Head Exam Head Exam: ATRAUMATIC, NORMAL INSPECTION, NORMOCEPHALIC - Eye Exam Eye Exam: Normal appearance, PERRL Pupil Exam: NORMAL ACCOMODATION, PERRL - ENT Exam ENT Exam: Mucous Membranes Moist - Respiratory Exam Respiratory Exam: Clear to Ausculation Bilateral, NORMAL BREATHING PATTERN. absent: Rales, Rhonchi, Wheezes - Cardiovascular Exam Cardiovascular Exam: REGULAR RHYTHM, +S1, +S2. absent: Gallop, Rubs, Murmur - GI/Abdominal Exam GI & Abdominal Exam: Soft, Normal Bowel Sounds. absent: Rigid, Tenderness, Mass, Rebound - Extremities Exam Extremities Exam: absent: Calf Tenderness, Pedal Edema Additional comments: L foot dressing in place- clean and dry - Neurological Exam Neurological Exam: Alert, Awake, CN II-XII Intact, Oriented x3 - Psychiatric Exam Psychiatric exam: Normal Affect, Normal Mood - Skin Skin Exam: Dry, Warm Assessment and Plan - Assessment and Plan (Free Text) Assessment: 1. Osteomyelitis of 1st toe stump - XR showed osteo and is clinically osteomyelitis 2. UTI- asymptomatic 3. IDDM 4. HTN 5. Dilated cardiomyopathy 6. CKD IIIb Plan: Continue Zosyn and Zyvox. Patient awaiting OR this week. Will de-escalate antibiotics once we have pathology and cultures from OR. Will continue to monitor clinically. Case seen, discussed and reviewed with Dr. Deb Wing PGY3 <Navarro Boyd - Last Filed: 09/08/18 19:54> Objective - Vital Signs/Intake and Output Vital Signs (last 24 hours): Temp Pulse Resp BP Pulse Ox 99.2 F 78 20 126/60 97 09/08/18 14:56 09/08/18 17:53 09/08/18 14:56 09/08/18 17:53 09/08/18 14:56 - Medications Medications: Current Medications Aspirin (Aspirin Chewable) 81 mg PO DAILY [facility] Last Admin: 09/05/18 09:48 Dose: Not Given Atorvastatin Calcium (Lipitor) 40 mg PO DIN [facility] Last Admin: 09/08/18 17:52 Dose: 40 mg Carvedilol (Coreg) 12.5 mg PO BID [facility] Last Admin: 09/08/18 17:53 Dose: 12.5 mg Famotidine (Pepcid) 10 mg PO 1000,2200 [facility] Last Admin: 09/08/18 10:40 Dose: 10 mg Furosemide (Lasix) 20 mg PO DAILY [facility] Last Admin: 09/04/18 09:37 Dose: 20 mg Gabapentin (Neurontin) 200 mg PO TID [facility]; Protocol Last Admin: 09/08/18 17:52 Dose: 200 mg Heparin Sodium (Porcine) (Heparin) 5,000 units SC Q8 [facility]; Protocol Last Admin: 09/06/18 14:58 Dose: Not Given Hydralazine HCl (Apresoline) 10 mg PO QID PRN PRN Reason: Systolic Blood Pressure Last Admin: 09/04/18 17:13 Dose: 10 mg Piperacillin Sod/Tazobactam Sod (Zosyn 3.375 In Ns 100ml) 100 mls @ 25 mls/hr IVPB Q8 [facility]; Protocol Stop: 09/13/18 14:01 Last Admin: 09/08/18 13:40 Dose: 25 mls/hr Insulin Human Regular (Humulin R Med) 0 units SC ACHS [facility]; Protocol Last Admin: 09/08/18 16:48 Dose: 3 units Lactulose (Enulose) 10 gm PO DAILY PRN PRN Reason: Constipation Last Admin: 09/08/18 12:03 Dose: 10 gm Lisinopril (Zestril) 20 mg PO DAILY [facility] Last Admin: 09/08/18 10:40 Dose: 20 mg - Labs Labs: 09/08/18 07:00 09/08/18 07:00 PT 12.3 SECONDS (9.4-12.5) 09/02/18 09:00 INR 1.07 09/02/18 09:00 APTT 42.4 Seconds (25.1-36.5) H 11/07/18 09:00 Assessment and Plan - Assessment and Plan (Free Text) Plan: Infectious Diseases Attending Physician Attestation Patient seen and examined, discussed with medical social worker. I have reviewed the patient's history of present illness, past medical, family and social histories, personal history, physical exam, lab findings and imaging studies. I agree with the above findings, assessment and plan. In addition, continue Zyvox and Zosyn for left foot 1st toe stump infection with probable clinical osteomyelitis. For OR tomorrow and will follow up findings and cultures.
[2018-09-08] MEDS: Insulin Reg-MEDIUM-Coverage SC SCH ×3 (07:34→16:48)
[2018-09-08 07:40] LABS: ALB/GLOB RATIO 0.8 (1.1-1.8); ALBUMIN 3.2 g/dL (3.0-4.8); CALCIUM 8.7 mg/dL (8.4-10.5)
--- NOTE | 2018-09-08 10:28 | CP.PCM.PN ---
<Poncho Carolina - Last Filed: 09/08/18 12:37> Subjective - Date & Time of Evaluation Date of Evaluation: 09/08/18 Time of Evaluation: 10:21 - Subjective Subjective: Nephrology Progress Note for Dr. Redding Patient seen and examined at bedside. No acute overnight events. Patient states that Coreg gives her a headache, but would be willing to try a lower dose. Patient denies CP, SOB, n/v/d, abdominal pain, fever, chills. Objective - Vital Signs/Intake and Output Vital Signs (last 24 hours): Temp Pulse Resp BP Pulse Ox 98.4 F 81 20 156/71 H 98 09/08/18 08:00 09/08/18 08:00 09/08/18 08:00 09/08/18 08:00 09/08/18 08:00 - Medications Medications: Current Medications Aspirin (Aspirin Chewable) 81 mg PO DAILY [facility] Last Admin: 09/05/18 09:48 Dose: Not Given Atorvastatin Calcium (Lipitor) 40 mg PO DIN [facility] Last Admin: 09/07/18 18:17 Dose: 40 mg Carvedilol (Coreg) 25 mg PO BID [facility] Last Admin: 09/07/18 18:21 Dose: Not Given Famotidine (Pepcid) 10 mg PO 1000,2200 [facility] Last Admin: 09/07/18 22:05 Dose: 10 mg Furosemide (Lasix) 20 mg PO DAILY [facility] Last Admin: 09/04/18 09:37 Dose: 20 mg Gabapentin (Neurontin) 200 mg PO TID [facility]; Protocol Last Admin: 09/07/18 18:17 Dose: 200 mg Heparin Sodium (Porcine) (Heparin) 5,000 units SC Q8 [facility]; Protocol Last Admin: 09/06/18 14:58 Dose: Not Given Hydralazine HCl (Apresoline) 10 mg PO QID PRN PRN Reason: Systolic Blood Pressure Last Admin: 09/04/18 17:13 Dose: 10 mg Piperacillin Sod/Tazobactam Sod (Zosyn 3.375 In Ns 100ml) 100 mls @ 25 mls/hr IVPB Q8 [facility]; Protocol Stop: 09/13/18 14:01 Last Admin: 09/07/18 22:05 Dose: 25 mls/hr Insulin Human Regular (Humulin R Med) 0 units SC ACHS [facility]; Protocol Last Admin: 09/08/18 07:34 Dose: Not Given Lactulose (Enulose) 10 gm PO DAILY PRN PRN Reason: Constipation Lisinopril (Zestril) 20 mg PO DAILY [facility] - Labs Labs: 09/08/18 07:00 09/08/18 07:00 PT 12.3 SECONDS (9.4-12.5) 09/02/18 09:00 INR 1.07 09/02/18 09:00 APTT 42.4 Seconds (25.1-36.5) H 09/02/18 09:00 - Constitutional Appears: No Acute Distress - Head Exam Head Exam: NORMAL INSPECTION - Eye Exam Eye Exam: Normal appearance Pupil Exam: NORMAL ACCOMODATION - ENT Exam ENT Exam: Mucous Membranes Moist, Normal Exam - Neck Exam Neck Exam: Normal Inspection - Respiratory Exam Respiratory Exam: Clear to Ausculation Bilateral. absent: Rales, Rhonchi, Wheezes - Cardiovascular Exam Cardiovascular Exam: RRR, +S1, +S2. absent: Gallop, Rubs, Murmur - GI/Abdominal Exam GI & Abdominal Exam: Soft. absent: Distended, Guarding, Tenderness, Rebound - Back Exam Additional comments: left foot dressings c/d/i - Neurological Exam Neurological Exam: Alert, Awake, Oriented x3 - Psychiatric Exam Psychiatric exam: Normal Affect - Skin Skin Exam: Normal Color Assessment and Plan - Assessment and Plan (Free Text) Assessment: 52 yo F with PMH of left hallux amputation, uncontrolled DM, severe dilated cardiomyopathy, CHFrEF (33%), CKD IIIB, PAD s/p stents LLE, and HTN admitted to [facility] for failed outpatient antibiotic therapy for left hallux osteomyelitis. Nephrology consulted for acute renal failure. Plan: 1. CKD stage IIIB - Cont to hold Lasix - Creatinine at baseline, will continue to monitor - Will assess for CKD mineral bone disease; PTH, phos, vitamin D ordered - Avoid nephrotoxic agents 2. LLE osteomyelitis - Surgery rescheduled for tomorrow - Abx per ID - ID and podiatry following 3. Hyperkalemia, resolved - Likely 2/2 to increased dose of Lisinopril - Low K diet - Cont to monitor 4. Hypertensive CKD - Lowered Coreg dose to 12.5 mg BID due to ARITA; encouraged patient to take me dication - Cont Lisinopril 5. IDDM - A1c 9% - Cont medical management per primary 6. CHFrEF - Currently holding lasix - Euvolemic on exam - Cardiology following 7. Anemia of Renal Disease - Iron studies consistent with chronic disease - Hemoglobin stable - Will give one dose of Aranesp once BP is more control as it can increase BP Patient discussed in detail with attending. Jez Carolina, DO PGY2 <Ke Redding - Last Filed: 09/09/18 08:30> Objective - Vital Signs/Intake and Output Vital Signs (last 24 hours): Temp Pulse Resp BP Pulse Ox 98.3 F 74 18 161/72 H 97 09/08/18 23:22 09/08/18 23:22 09/08/18 23:22 09/08/18 23:22 09/08/18 23:22 Intake and Output: 09/09/18 09/09/18 06:59 18:59 Intake Total 480 Balance 480 - Medications Medications: Current Medications Aspirin (Aspirin Chewable) 81 mg PO DAILY [facility] Last Admin: 09/05/18 09:48 Dose: Not Given Atorvastatin Calcium (Lipitor) 40 mg PO DIN [facility] Last Admin: 09/08/18 17:52 Dose: 40 mg Carvedilol (Coreg) 12.5 mg PO BID [facility] Last Admin: 09/08/18 17:53 Dose: 12.5 mg Famotidine (Pepcid) 10 mg PO 1000,2200 [facility] Last Admin: 09/08/18 21:47 Dose: 10 mg Furosemide (Lasix) 20 mg PO DAILY [facility] Last Admin: 09/04/18 09:37 Dose: 20 mg Gabapentin (Neurontin) 200 mg PO TID [facility]; Protocol Last Admin: 09/08/18 17:52 Dose: 200 mg Heparin Sodium (Porcine) (Heparin) 5,000 units SC Q8 [facility]; Protocol Last Admin: 09/06/18 14:58 Dose: Not Given Hydralazine HCl (Apresoline) 10 mg PO QID PRN PRN Reason: Systolic Blood Pressure Last Admin: 09/04/18 17:13 Dose: 10 mg Piperacillin Sod/Tazobactam Sod (Zosyn 3.375 In Ns 100ml) 100 mls @ 25 mls/hr IVPB Q8 [facility]; Protocol Stop: 09/13/18 14:01 Last Admin: 09/09/18 06:10 Dose: 25 mls/hr Insulin Human Regular (Humulin R Med) 0 units SC ACHS [facility]; Protocol Last Admin: 09/08/18 16:48 Dose: 3 units Lactulose (Enulose) 10 gm PO DAILY PRN PRN Reason: Constipation Last Admin: 09/08/18 12:03 Dose: 10 gm Lisinopril (Zestril) 20 mg PO DAILY [facility] Last Admin: 09/08/18 10:40 Dose: 20 mg - Labs Labs: 09/09/18 06:45 09/09/18 06:45 PT 12.3 SECONDS (9.4-12.5) 09/02/18 09:00 INR 1.07 09/02/18 09:00 APTT 42.4 Seconds (25.1-36.5) H 09/02/18 09:00 Attending/Attestation - Attestation I have personally seen and examined this patient.: Yes I have fully participated in the care of the patient.: Yes I have reviewed all pertinent clinical information, including history, physical exam and plan: Yes Notes (Text): Patient seen and examined; I agree with the resident's note as above with the following additions/edits: Patient with history of uncontrolled dm, htn, CHF w/ severe systolic dysfunction, CKD IIIB, PAD admitted with L foot infection, awaiting partial ray resection today; Renal function close to baseline; 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
--- NOTE | 2018-09-08 11:17 | CP.PCM.PN ---
<Guy Hester - Last Filed: 09/08/18 11:12> Subjective - Date & Time of Evaluation Date of Evaluation: 09/08/18 Time of Evaluation: 11:12 - Subjective Subjective: Podiatry progress note for Dr. Laboy 52 yo female seen and evaluated at bedside. Resting comfortably. No acute events overnight. States she knows not to eat after midnight tonight. Denies N/V/F/C/SOB/CP. Has no other pedal complaints at this time. Objective - Vital Signs/Intake and Output Vital Signs (last 24 hours): Temp Pulse Resp BP Pulse Ox 98.4 F 88 20 170/79 H 98 09/08/18 08:00 09/08/18 10:42 09/08/18 08:00 09/08/18 10:42 09/08/18 08:00 - Medications Medications: Current Medications Aspirin (Aspirin Chewable) 81 mg PO DAILY [facility] Last Admin: 09/05/18 09:48 Dose: Not Given Atorvastatin Calcium (Lipitor) 40 mg PO DIN [facility] Last Admin: 09/07/18 18:17 Dose: 40 mg Carvedilol (Coreg) 25 mg PO BID [facility] Last Admin: 09/08/18 10:42 Dose: 25 mg Famotidine (Pepcid) 10 mg PO 1000,2200 [facility] Last Admin: 09/08/18 10:40 Dose: 10 mg Furosemide (Lasix) 20 mg PO DAILY [facility] Last Admin: 09/04/18 09:37 Dose: 20 mg Gabapentin (Neurontin) 200 mg PO TID [facility]; Protocol Last Admin: 09/08/18 10:39 Dose: 200 mg Heparin Sodium (Porcine) (Heparin) 5,000 units SC Q8 [facility]; Protocol Last Admin: 09/06/18 14:58 Dose: Not Given Hydralazine HCl (Apresoline) 10 mg PO QID PRN PRN Reason: Systolic Blood Pressure Last Admin: 09/04/18 17:13 Dose: 10 mg Piperacillin Sod/Tazobactam Sod (Zosyn 3.375 In Ns 100ml) 100 mls @ 25 mls/hr IVPB Q8 [facility]; Protocol Stop: 09/13/18 14:01 Last Admin: 09/07/18 22:05 Dose: 25 mls/hr Insulin Human Regular (Humulin R Med) 0 units SC ACHS [facility]; Protocol Last Admin: 09/08/18 07:34 Dose: Not Given Lactulose (Enulose) 10 gm PO DAILY PRN PRN Reason: Constipation Lisinopril (Zestril) 20 mg PO DAILY [facility] Last Admin: 09/08/18 10:40 Dose: 20 mg - Labs Labs: 09/08/18 07:00 09/08/18 07:00 PT 12.3 SECONDS (9.4-12.5) 09/02/18 09:00 INR 1.07 09/02/18 09:00 APTT 42.4 Seconds (25.1-36.5) H 09/02/18 09:00 - Constitutional Appears: Well, Non-toxic, No Acute Distress - Head Exam Head Exam: ATRAUMATIC, NORMOCEPHALIC - Extremities Exam Additional comments: LLE focused exam: Vasc: DP/PT pulses palpable. Temp gradient warm to cool from proximal to distal, Cap refill < 3 seconds to all remaining digits, no edema noted to surgical site. Neuro: Gross sensation diminished, protective sensation diminished/absent Derm: hallux amputation site shows evidence of dehiscence, 100% fibrotic with purulent discharge and slough present, Mild erythema present periwound with no streaking present, probe to bone positive, no tunneling or tracking noted. No malodor as well MSK: Left hallux amputation, no tenderness upon calf compression, mild tenderness upon palpation of surgical site. Muscle power intact 5/5 to all groups. - Neurological Exam Neurological Exam: Alert, Awake, Oriented x3 - Psychiatric Exam Psychiatric exam: Normal Affect, Normal Mood Assessment and Plan - Assessment and Plan (Free Text) Assessment: 52 yo female evaluated for left foot diabetic ulceration and surgical site dehiscence Plan: Patient seen and evaluated at bedside Plan discussed with attending Dr. Laboy Charts and labs reviewed - afebrile, absent leukocytosis Medicine team aware Plan for OR tomorrow 09/08 in AM for revision of left partial 1st ray resection NPO after dinner tonight, patient aware Cardiac clearance maintained Wound cleansed with sterile saline and dressed with betadine and DSD Can weight bear to LLE in a surgical shoe ASA put on hold (09/05) Heparin ASA put on hold (09/06) Podiatry will continue to follow up the patient while in house <Jamison Laboy Last Filed: 09/09/18 09:42> Objective - Vital Signs/Intake and Output Vital Signs (last 24 hours): Temp Pulse Resp BP Pulse Ox 98.6 F 77 20 188/75 H 95 09/09/18 08:32 09/09/18 08:32 09/09/18 08:32 09/09/18 08:32 09/09/18 08:32 Intake and Output: 09/09/18 09/09/18 06:59 18:59 Intake Total 480 Balance 480 - Medications Medications: Current Medications Aspirin (Aspirin Chewable) 81 mg PO DAILY [facility] Last Admin: 09/05/18 09:48 Dose: Not Given Atorvastatin Calcium (Lipitor) 40 mg PO DIN [facility] Last Admin: 09/08/18 17:52 Dose: 40 mg Carvedilol (Coreg) 12.5 mg PO BID [facility] Last Admin: 09/08/18 17:53 Dose: 12.5 mg Ergocalciferol (Drisdol 50,000 Intl Units Cap) 1 cap PO Q7D [facility] Famotidine (Pepcid) 10 mg PO 1000,2200 [facility] Last Admin: 09/08/18 21:47 Dose: 10 mg Furosemide (Lasix) 20 mg PO DAILY [facility] Last Admin: 09/04/18 09:37 Dose: 20 mg Gabapentin (Neurontin) 200 mg PO TID [facility]; Protocol Last Admin: 09/08/18 17:52 Dose: 200 mg Heparin Sodium (Porcine) (Heparin) 5,000 units SC Q8 [facility]; Protocol Last Admin: 09/06/18 14:58 Dose: Not Given Hydralazine HCl (Apresoline) 10 mg PO QID PRN PRN Reason: Systolic Blood Pressure Last Admin: 09/04/18 17:13 Dose: 10 mg Piperacillin Sod/Tazobactam Sod (Zosyn 3.375 In Ns 100ml) 100 mls @ 25 mls/hr IVPB Q8 [facility]; Protocol Stop: 09/13/18 14:01 Last Admin: 09/09/18 06:10 Dose: 25 mls/hr Insulin Human Regular (Humulin R Med) 0 units SC ACHS [facility]; Protocol Last Admin: 09/09/18 08:57 Dose: Not Given Lactulose (Enulose) 10 gm PO DAILY PRN PRN Reason: Constipation Last Admin: 09/08/18 12:03 Dose: 10 gm Lisinopril (Zestril) 20 mg PO DAILY [facility] Last Admin: 09/08/18 10:40 Dose: 20 mg - Labs Labs: 09/09/18 06:45 09/09/18 06:45 PT 12.3 SECONDS (9.4-12.5) 09/02/18 09:00 INR 1.07 09/02/18 09:00 APTT 42.4 Seconds (25.1-36.5) H 09/02/18 09:00 Attending/Attestation - Attestation I have personally seen and examined this patient.: Yes I have fully participated in the care of the patient.: Yes I have reviewed all pertinent clinical information, including history, physical exam and plan: Yes
[2018-09-08] MEDS: Piperacillin/Tazobact 3.375 gm 100 ML IVPB SCH ×2 (13:40→21:48)
--- NOTE | 2018-09-08 15:04 | PN ---
DATE: 09/08/2018 CARDIOLOGY FOLLOWUP SUBJECTIVE: The patient's surgery was canceled today reasons. PHYSICAL EXAMINATION: VITAL SIGNS: Blood pressure varies from 156-170, heart rate is in the 80s. NECK: Negative JVD. LUNGS: Without rales. HEART: Reveals S1, S2. EXTREMITIES: Bandage in the feet. LABORATORY DATA: Hemoglobin is 9.3. Chemistries: BUN and creatinine are 20 and 1.7. IMPRESSION: 1. Foot ulcers. 2. Hypertension. 3. Diabetes mellitus. 4. Anemia. PLAN: Given these findings, the blood pressure medications will be suggested by renal. The patient is at increased risk for planned surgery. However, her cardiopulmonary status is at its optimum. Rodney Caldwell MD
--- NOTE | 2018-09-08 18:35 | CP.PCM.PN ---
<Cyril Del Cid - Last Filed: 09/08/18 18:32> Subjective - Date & Time of Evaluation Date of Evaluation: 09/08/18 Time of Evaluation: 18:32 - Subjective Subjective: Resident Cyril Del Cid DO PGY-1 Hospitalist Progress Note for Dr. Cesar: Pt was seen and examined this morning at bedside. She denies any acute overnight events. She states that she is currently not having any chest pain, fevers, chil ls, n/v, c/d, abd pain, dysuria, hematuria, frequency or L foot pain. She states that her pins and needles sensation is improved since being on the gabapentin. She will be going to OR tomorrow (09/09) in the AM because pt had breakfast. Pt placed NPO at midnight and re-inforced not to have a meal in the AM. Objective - Vital Signs/Intake and Output Vital Signs (last 24 hours): Temp Pulse Resp BP Pulse Ox 99.2 F 78 20 126/60 97 09/08/18 14:56 09/08/18 17:53 09/08/18 14:56 09/08/18 17:53 09/08/18 14:56 - Medications Medications: Current Medications Aspirin (Aspirin Chewable) 81 mg PO DAILY [facility] Last Admin: 09/05/18 09:48 Dose: Not Given Atorvastatin Calcium (Lipitor) 40 mg PO DIN [facility] Last Admin: 09/08/18 17:52 Dose: 40 mg Carvedilol (Coreg) 12.5 mg PO BID [facility] Last Admin: 09/08/18 17:53 Dose: 12.5 mg Famotidine (Pepcid) 10 mg PO 1000,2200 [facility] Last Admin: 09/08/18 10:40 Dose: 10 mg Furosemide (Lasix) 20 mg PO DAILY [facility] Last Admin: 09/04/18 09:37 Dose: 20 mg Gabapentin (Neurontin) 200 mg PO TID [facility]; Protocol Last Admin: 09/08/18 17:52 Dose: 200 mg Heparin Sodium (Porcine) (Heparin) 5,000 units SC Q8 [facility]; Protocol Last Admin: 09/06/18 14:58 Dose: Not Given Hydralazine HCl (Apresoline) 10 mg PO QID PRN PRN Reason: Systolic Blood Pressure Last Admin: 09/04/18 17:13 Dose: 10 mg Piperacillin Sod/Tazobactam Sod (Zosyn 3.375 In Ns 100ml) 100 mls @ 25 mls/hr IVPB Q8 [facility]; Protocol Stop: 09/13/18 14:01 Last Admin: 09/08/18 13:40 Dose: 25 mls/hr Insulin Human Regular (Humulin R Med) 0 units SC ACHS [facility]; Protocol Last Admin: 09/08/18 16:48 Dose: 3 units Lactulose (Enulose) 10 gm PO DAILY PRN PRN Reason: Constipation Last Admin: 09/08/18 12:03 Dose: 10 gm Lisinopril (Zestril) 20 mg PO DAILY [facility] Last Admin: 09/08/18 10:40 Dose: 20 mg - Labs Labs: 09/08/18 07:00 09/08/18 07:00 PT 12.3 SECONDS (9.4-12.5) 09/02/18 09:00 INR 1.07 09/02/18 09:00 APTT 42.4 Seconds (25.1-36.5) H 09/02/18 09:00 - Constitutional Appears: Well, Non-toxic, No Acute Distress - Head Exam Head Exam: ATRAUMATIC, NORMAL INSPECTION, NORMOCEPHALIC - Eye Exam Eye Exam: EOMI, Normal appearance, PERRL - Respiratory Exam Respiratory Exam: Clear to Ausculation Bilateral, NORMAL BREATHING PATTERN. absent: Accessory Muscle Use, Decreased Breath Sounds, Rales, Rhonchi, Wheezes, Respiratory Distress, Stridor - Cardiovascular Exam Cardiovascular Exam: RRR, +S1, +S2. absent: Gallop, Rubs - GI/Abdominal Exam GI & Abdominal Exam: Soft, Normal Bowel Sounds. absent: Firm, Rigid, Tenderness - Extremities Exam Additional comments: Pt has covering over L foot and is s/p L transmetatarsal amputation, no edema noted at ankle and dressing shows yellow discoloration and odor 2/2 discharge. - Back Exam Back Exam: NORMAL INSPECTION. absent: CVA tenderness (L), CVA tenderness (R) - Neurological Exam Neurological Exam: Alert, Awake, Oriented x3 - Psychiatric Exam Psychiatric exam: Normal Affect, Normal Mood - Skin Skin Exam: Dry, Intact (Except where noted above.), Normal Color, Warm Assessment and Plan - Assessment and Plan (Free Text) Assessment: Ms Enaje, 52 F, PMHx uncontrolled diabetes s/p left great toe amputation, severe cardiomyopathy on life vest since December 2017, CKD 3, peripheral artery disease s/p recent JAMES(s) placement at [facility] admitted for nonhealing surgical wound s/p left great toe amputation (Jul 2018) possibly due to uncontrolled diabetes and poor circulation secondary to PAD. She will require IV antibiotics & I&D for cellulitis. L foot XR came back probable for osteo in the head of the 1st metatarsal. Will undergo surgery per podiatry tomorrow 09/09. Pt is placed NPO at midnight. Plan: 1. LLE Cellulitis R/O osteomyelitis with leukocytosis s/p L transmetatarsal surgery - Nirav and marc on board - ID consult - Follow on blood culture - Trend WBC. WBC is 8.2 now - L Foot XR: Probable osteo at head of 1st metatarsal - Arterial doppler of L lower extremity shows improvement compared to prior ute dies. - As per cardio pt is high risk given her cardiac and pulm issues, but is optimized at this time for OR. - OR for debridement tomorrow 09/09 in AM per podiatry 2. Non-healing wound possibly due to poor circulation - Extermity US: report states that L SURJIT is improved from previous ones on record. - IR: Dr. Morin consulted 3. Severe Cardiomyopathy on life vest - Dr. 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 HTN: - Continue home lisinopril, lasix 6.PAD s/p recent JAMES stents: - d/c plavix for surgery 7. CKD stage 3 - Cr clearance 38 - Continue to trend creatinine - If creatinine decreases, will consult nephro 8. Uncontrolled DM: - A1C 9 - ISSS - Diabetic education - Dietitian consult 9. Constipation - Pt responded to lactulose, will D/C other bowel regiment but lactulose 10. Hyperkalemia: Improved - K 4.4 - Will recheck cmp tomorrow. 11. PPX: DVT: heparin SC GI: pepcid BID Case seen and discussed with Dr. Arsenio Del Cid DO Internal Medicine Resident PGY-1 <Ihsan Cesar - Last Filed: 09/08/18 18:46> Objective - Vital Signs/Intake and Output Vital Signs (last 24 hours): Temp Pulse Resp BP Pulse Ox 99.2 F 78 20 126/60 97 09/08/18 14:56 09/08/18 17:53 09/08/18 14:56 09/08/18 17:53 09/08/18 14:56 - Medications Medications: Current Medications Aspirin (Aspirin Chewable) 81 mg PO DAILY [facility] Last Admin: 09/05/18 09:48 Dose: Not Given Atorvastatin Calcium (Lipitor) 40 mg PO DIN [facility] Last Admin: 09/08/18 17:52 Dose: 40 mg Carvedilol (Coreg) 12.5 mg PO BID [facility] Last Admin: 09/08/18 17:53 Dose: 12.5 mg Famotidine (Pepcid) 10 mg PO 1000,2200 [facility] Last Admin: 09/08/18 10:40 Dose: 10 mg Furosemide (Lasix) 20 mg PO DAILY [facility] Last Admin: 09/04/18 09:37 Dose: 20 mg Gabapentin (Neurontin) 200 mg PO TID [facility]; Protocol Last Admin: 09/08/18 17:52 Dose: 200 mg Heparin Sodium (Porcine) (Heparin) 5,000 units SC Q8 [facility]; Protocol Last Admin: 09/06/18 14:58 Dose: Not Given Hydralazine HCl (Apresoline) 10 mg PO QID PRN PRN Reason: Systolic Blood Pressure Last Admin: 09/04/18 17:13 Dose: 10 mg Piperacillin Sod/Tazobactam Sod (Zosyn 3.375 In Ns 100ml) 100 mls @ 25 mls/hr IVPB Q8 [facility]; Protocol Stop: 09/13/18 14:01 Last Admin: 09/08/18 13:40 Dose: 25 mls/hr Insulin Human Regular (Humulin R Med) 0 units SC ACHS [facility]; Protocol Last Admin: 09/08/18 16:48 Dose: 3 units Lactulose (Enulose) 10 gm PO DAILY PRN PRN Reason: Constipation Last Admin: 09/08/18 12:03 Dose: 10 gm Lisinopril (Zestril) 20 mg PO DAILY [facility] Last Admin: 09/08/18 10:40 Dose: 20 mg - Labs Labs: 09/08/18 07:00 09/08/18 07:00 PT 12.3 SECONDS (9.4-12.5) 09/02/18 09:00 INR 1.07 09/02/18 09:00 APTT 42.4 Seconds (25.1-36.5) H 09/02/18 09:00 Attending/Attestation - Attestation I have personally seen and examined this patient.: Yes I have fully participated in the care of the patient.: Yes I have reviewed all pertinent clinical information, including history, physical exam and plan: Yes Notes (Text): Pt is scheduled for OR tomorrow. Keep NPO PMN c/w empiric antibiotics Pain meds PRN ID and Podiatry on board 09/08/18 18:45
[2018-09-09] MEDS: Piperacillin/Tazobact 3.375 gm 100 ML IVPB SCH ×3 (06:10→22:06)
--- NOTE | 2018-09-09 07:05 | CP.PCM.PN ---
<Shabnam Wing - Last Filed: 09/09/18 10:37> Subjective - Date & Time of Evaluation Date of Evaluation: 09/09/18 Time of Evaluation: 07:00 - Subjective Subjective: Infectious Disease Progress Note for Anabela Covarrubias PGY3 Patient seen and examined at bedside. Patient is afebrile and resting comfortable in bed. She has no complaints at this time. She is planned to go to OR this AM. Objective - Vital Signs/Intake and Output Vital Signs (last 24 hours): Temp Pulse Resp BP Pulse Ox 98.3 F 74 18 161/72 H 97 09/08/18 23:22 09/08/18 23:22 09/08/18 23:22 09/08/18 23:22 09/08/18 23:22 Intake and Output: 09/09/18 09/09/18 06:59 18:59 Intake Total 480 Balance 480 - Medications Medications: Current Medications Aspirin (Aspirin Chewable) 81 mg PO DAILY [facility] Last Admin: 09/05/18 09:48 Dose: Not Given Atorvastatin Calcium (Lipitor) 40 mg PO DIN [facility] Last Admin: 09/08/18 17:52 Dose: 40 mg Carvedilol (Coreg) 12.5 mg PO BID [facility] Last Admin: 09/08/18 17:53 Dose: 12.5 mg Famotidine (Pepcid) 10 mg PO 1000,2200 [facility] Last Admin: 09/08/18 21:47 Dose: 10 mg Furosemide (Lasix) 20 mg PO DAILY [facility] Last Admin: 09/04/18 09:37 Dose: 20 mg Gabapentin (Neurontin) 200 mg PO TID [facility]; Protocol Last Admin: 09/08/18 17:52 Dose: 200 mg Heparin Sodium (Porcine) (Heparin) 5,000 units SC Q8 [facility]; Protocol Last Admin: 09/06/18 14:58 Dose: Not Given Hydralazine HCl (Apresoline) 10 mg PO QID PRN PRN Reason: Systolic Blood Pressure Last Admin: 09/04/18 17:13 Dose: 10 mg Piperacillin Sod/Tazobactam Sod (Zosyn 3.375 In Ns 100ml) 100 mls @ 25 mls/hr IVPB Q8 [facility]; Protocol Stop: 09/13/18 14:01 Last Admin: 09/09/18 06:10 Dose: 25 mls/hr Insulin Human Regular (Humulin R Med) 0 units SC ACHS [facility]; Protocol Last Admin: 09/08/18 16:48 Dose: 3 units Lactulose (Enulose) 10 gm PO DAILY PRN PRN Reason: Constipation Last Admin: 09/08/18 12:03 Dose: 10 gm Lisinopril (Zestril) 20 mg PO DAILY [facility] Last Admin: 09/08/18 10:40 Dose: 20 mg - Labs Labs: 09/08/18 07:00 09/08/18 07:00 PT 12.3 SECONDS (9.4-12.5) 09/02/18 09:00 INR 1.07 09/02/18 09:00 APTT 42.4 Seconds (25.1-36.5) H 09/02/18 09:00 - Constitutional Appears: No Acute Distress - Head Exam Head Exam: ATRAUMATIC, NORMAL INSPECTION, NORMOCEPHALIC - Eye Exam Eye Exam: Normal appearance, PERRL Pupil Exam: NORMAL ACCOMODATION, PERRL - ENT Exam ENT Exam: Mucous Membranes Moist - Respiratory Exam Respiratory Exam: Clear to Ausculation Bilateral, NORMAL BREATHING PATTERN. absent: Rales, Rhonchi, Wheezes - Cardiovascular Exam Cardiovascular Exam: REGULAR RHYTHM, +S1, +S2, Murmur. absent: Gallop, Rubs - GI/Abdominal Exam GI & Abdominal Exam: Soft, Normal Bowel Sounds. absent: Rigid, Tenderness, Mass, Rebound - Extremities Exam Extremities Exam: absent: Calf Tenderness, Pedal Edema Additional comments: L foot dressing in place- clean and dry - Neurological Exam Neurological Exam: Alert, Awake, CN II-XII Intact - Psychiatric Exam Psychiatric exam: Normal Affect, Normal Mood - Skin Skin Exam: Dry, Warm Assessment and Plan - Assessment and Plan (Free Text) Assessment: 1. Osteomyelitis of 1st toe stump - XR showed osteo and is clinically osteomyelitis 2. UTI- asymptomatic 3. IDDM 4. HTN 5. Dilated cardiomyopathy 6. CKD IIIb Plan: Will continue Zyvox and Zosyn. Will make further recommendations after cultures and pathology from OR. Will continue to monitor clinically. Case seen, discussed and reviewed with Dr. Deb Wing PGY3 <Navarro Boyd - Last Filed: 09/09/18 17:26> Objective - Vital Signs/Intake and Output Vital Signs (last 24 hours): Temp Pulse Resp BP Pulse Ox 98 F 81 20 173/75 H 97 09/09/18 14:00 09/09/18 14:00 09/09/18 14:00 09/09/18 14:00 09/09/18 14:00 Intake and Output: 09/09/18 09/09/18 06:59 18:59 Intake Total 480 Balance 480 - Medications Medications: Current Medications Acetaminophen (Tylenol 325mg Tab) 650 mg PO Q4H PRN PRN Reason: Pain, Mild (1-3) Aspirin (Aspirin Chewable) 81 mg PO DAILY [facility] Last Admin: 09/05/18 09:48 Dose: Not Given Atorvastatin Calcium (Lipitor) 40 mg PO DIN [facility] Last Admin: 09/08/18 17:52 Dose: 40 mg Carvedilol (Coreg) 12.5 mg PO BID [facility] Last Admin: 09/09/18 13:43 Dose: 12.5 mg Clopidogrel Bisulfate (Plavix) 75 mg PO DAILY [facility] Ergocalciferol (Drisdol 50,000 Intl Units Cap) 1 cap PO Q7D [facility] Last Admin: 09/09/18 13:40 Dose: 1 cap Famotidine (Pepcid) 10 mg PO 1000,2200 [facility] Last Admin: 09/09/18 13:41 Dose: 10 mg Furosemide (Lasix) 20 mg PO DAILY [facility] Last Admin: 09/09/18 13:42 Dose: 20 mg Gabapentin (Neurontin) 200 mg PO TID [facility]; Protocol Last Admin: 09/09/18 13:41 Dose: 200 mg Heparin Sodium (Porcine) (Heparin) 5,000 units SC Q8 [facility]; Protocol Last Admin: 09/09/18 14:52 Dose: 5,000 units Hydralazine HCl (Apresoline) 10 mg PO QID PRN PRN Reason: Systolic Blood Pressure Last Admin: 09/04/18 17:13 Dose: 10 mg Piperacillin Sod/Tazobactam Sod (Zosyn 3.375 In Ns 100ml) 100 mls @ 25 mls/hr IVPB Q8 [facility]; Protocol Stop: 09/13/18 14:01 Last Admin: 09/09/18 13:45 Dose: 25 mls/hr Insulin Human Regular (Humulin R Med) 0 units SC ACHS [facility]; Protocol Last Admin: 09/09/18 13:44 Dose: 1 units Lactulose (Enulose) 10 gm PO DAILY PRN PRN Reason: Constipation Last Admin: 09/08/18 12:03 Dose: 10 gm Lisinopril (Zestril) 20 mg PO DAILY [facility] Last Admin: 09/09/18 13:43 Dose: 20 mg - Labs Labs: 09/09/18 11:00 09/09/18 06:45 PT 12.3 SECONDS (9.4-12.5) 09/02/18 09:00 INR 1.07 09/02/18 09:00 APTT 42.4 Seconds (25.1-36.5) H 09/02/18 09:00 Assessment and Plan - Assessment and Plan (Free Text) Plan: Infectious Diseases Attending Physician Attestation Patient seen and examined, discussed with certified medical aide. I have reviewed the patient's history of present illness, past medical, family and social histories, personal history, physical exam, lab findings and imaging studies. I agree with the above findings, assessment and plan. In addition, continue Zyvox and Zosyn for left foot stump skin / skin structure infection with clinical osteomyelitis. Went for surgery today and will follow up findings, OR cultures.
[2018-09-09 07:09] LABS: BASO # 0.11 K/mm3 (0.0-2.0); BASO % 1.3 % (0.0-3.0); EOS # 0.4 (0.0-0.7); EOS % 5.1 % (1.5-5.0); GRAN # 6.15 (1.4-6.5); GRAN % 71.1 % (50.0-68.0); HEMOGLOBIN 8.8 g/dL (12.0-16.0); LYMPH # 1.5 (1.2-3.4); LYMPH % 17.5 % (22.0-35.0); MEAN CELL VOLUME 88.9 fl (80.0-105.0); MEAN CORPUSCULAR HEMOGLOBIN 27.9 pg (25.0-35.0); MEAN CORPUSCULAR HGB CONC 31.4 g/dl (31.0-37.0); MEAN PLATELET VOLUME 8.3 fl (7.0-11.0); MONO # 0.4 (0.1-0.6); RBC 3.15 10^6/uL (3.5-6.1); RED CELL DISTRIBUTION WIDTH 14.5 % (11.5-14.5); WHITE BLOOD COUNT 8.6 10^3/uL (4.5-11.0)
[2018-09-09 07:33] LABS: ALB/GLOB RATIO 0.9 (1.1-1.8); ALBUMIN 3.1 g/dL (3.0-4.8); CALCIUM 8.4 mg/dL (8.4-10.5)
[2018-09-09] MEDS ORDERED: Ergocalciferol 50,000 Intl Units Cap PO SCH (08:45)
[2018-09-09] MEDS: Insulin Reg-MEDIUM-Coverage SC SCH ×4 (08:57→17:40)
[2018-09-09] MEDS ORDERED: Midazolam 2 MG/2 ML VIAL ONE (09:09)
--- NOTE | 2018-09-09 09:15 | CP.PCM.PN ---
Subjective - Date & Time of Evaluation Date of Evaluation: 09/09/18 Time of Evaluation: 09:15 - Subjective Subjective: Resident Cyril Del Cid DO PGY-1 Hospitalist Progress Note for Dr. Doss: Pt was seen and examined this morning at bedside. She denies any acute overnight events. She states that she is currently not having any chest pain, fevers, chills, n/v, c/d, abd pain, dysuria, hematuria, frequency or L foot pain. She states that her pins and needles sensation is improved since being on the gabapentin. She will be going to OR today (09/09) in the AM. Pt reports being NPO since earlier than midnight. Objective - Vital Signs/Intake and Output Vital Signs (last 24 hours): Temp Pulse Resp BP Pulse Ox 98.6 F 77 20 188/75 H 95 09/09/18 08:32 09/09/18 08:32 09/09/18 08:32 09/09/18 08:32 09/09/18 08:32 Intake and Output: 09/09/18 09/09/18 06:59 18:59 Intake Total 480 Balance 480 - Medications Medications: Current Medications Aspirin (Aspirin Chewable) 81 mg PO DAILY [facility] Last Admin: 09/05/18 09:48 Dose: Not Given Atorvastatin Calcium (Lipitor) 40 mg PO DIN [facility] Last Admin: 09/08/18 17:52 Dose: 40 mg Carvedilol (Coreg) 12.5 mg PO BID [facility] Last Admin: 09/08/18 17:53 Dose: 12.5 mg Ergocalciferol (Drisdol 50,000 Intl Units Cap) 1 cap PO Q7D [facility] Famotidine (Pepcid) 10 mg PO 1000,2200 [facility] Last Admin: 09/08/18 21:47 Dose: 10 mg Furosemide (Lasix) 20 mg PO DAILY [facility] Last Admin: 09/04/18 09:37 Dose: 20 mg Gabapentin (Neurontin) 200 mg PO TID [facility]; Protocol Last Admin: 09/08/18 17:52 Dose: 200 mg Heparin Sodium (Porcine) (Heparin) 5,000 units SC Q8 [facility]; Protocol Last Admin: 09/06/18 14:58 Dose: Not Given Hydralazine HCl (Apresoline) 10 mg PO QID PRN PRN Reason: Systolic Blood Pressure Last Admin: 09/04/18 17:13 Dose: 10 mg Piperacillin Sod/Tazobactam Sod (Zosyn 3.375 In Ns 100ml) 100 mls @ 25 mls/hr IVPB Q8 [facility]; Protocol Stop: 09/13/18 14:01 Last Admin: 09/09/18 06:10 Dose: 25 mls/hr Insulin Human Regular (Humulin R Med) 0 units SC ACHS [facility]; Protocol Last Admin: 09/09/18 08:57 Dose: Not Given Lactulose (Enulose) 10 gm PO DAILY PRN PRN Reason: Constipation Last Admin: 09/08/18 12:03 Dose: 10 gm Lisinopril (Zestril) 20 mg PO DAILY [facility] Last Admin: 09/08/18 10:40 Dose: 20 mg - Labs Labs: 09/09/18 06:45 09/09/18 06:45 PT 12.3 SECONDS (9.4-12.5) 09/02/18 09:00 INR 1.07 09/02/18 09:00 APTT 42.4 Seconds (25.1-36.5) H 09/02/18 09:00 - Constitutional Appears: Well, Non-toxic, No Acute Distress - Head Exam Head Exam: ATRAUMATIC, NORMAL INSPECTION, NORMOCEPHALIC - Eye Exam Eye Exam: EOMI, Normal appearance, PERRL - Respiratory Exam Respiratory Exam: Clear to Ausculation Bilateral, NORMAL BREATHING PATTERN. absent: Accessory Muscle Use, Decreased Breath Sounds, Rales, Rhonchi, Wheezes, Respiratory Distress, Stridor - Cardiovascular Exam Cardiovascular Exam: RRR, +S1, +S2. absent: Gallop, Rubs - GI/Abdominal Exam GI & Abdominal Exam: Soft, Normal Bowel Sounds. absent: Tenderness - Extremities Exam Additional comments: Pt has covering over L foot and is s/p L transmetatarsal amputation, no edema noted at ankle and dressing shows yellow discoloration and odor 2/2 discharge. - Back Exam Back Exam: NORMAL INSPECTION. absent: CVA tenderness (L), CVA tenderness (R) - Neurological Exam Neurological Exam: Alert, Awake, Oriented x3 - Psychiatric Exam Psychiatric exam: Normal Affect, Normal Mood - Skin Skin Exam: Dry, Intact, Normal Color, Warm Assessment and Plan - Assessment and Plan (Free Text) Assessment: Ms Hernandez, 52 F, PMHx uncontrolled diabetes s/p left great toe amputation, severe cardiomyopathy on life vest since December 2017, CKD 3, peripheral artery disease s/p recent JAMES(s) placement at [facility] admitted for nonhealing surgical wound s/p left great toe amputation (Jul 2018) possibly due to uncontrolled diabetes and poor circulation secondary to PAD. She will require IV antibiotics & I&D for cellulitis. L foot XR came back probable for osteo in the head of the 1st metatarsal. Will undergo surgery per podiatry today 09/09. Pt has been NPO since midnight. Plan: 1. LLE Cellulitis R/O osteomyelitis with leukocytosis s/p L transmetatarsal surgery - Nirav and marc on board - ID consult - Follow on blood culture - Trend WBC. WBC is 8.2 now - L Foot XR: Probable osteo at head of 1st metatarsal - Arterial doppler of L lower extremity shows improvement compared to prior studies. - As per cardio pt is high risk given her cardiac and pulm issues, but is optimized at this time for OR. - OR for debridement today 09/09 in AM per podiatry - Will follow up wound culture results from OR, will follow ID recs upon results from culture. 2. Non-healing wound possibly due to poor circulation - Extermity US: report states that L SURJIT is improved from previous ones on record. - IR: Dr. Morin consulted 3. Severe Cardiomyopathy on life vest - Dr. Caldwell: D/tiffanie life vest, consulted for [facility] risk assessment for surgery - Telemetry 4. 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 HTN: - Continue home lisinopril, lasix 6.PAD s/p recent JAMES stents: - d/c plavix for surgery 7. CKD stage 3 - Cr clearance 38 - Continue to trend creatinine - If creatinine decreases, will consult nephro 8. Uncontrolled DM: - A1C 9 - ISSS - Diabetic education - Dietitian consult 9. Constipation - Pt responded to lactulose, will D/C other bowel regiment but lactulose 10. Hyperkalemia: Improved - K 4.6 - Will recheck cmp tomorrow. 11. PPX: DVT: heparin SC GI: pepcid BID Case seen and discussed with Dr. Romario Del Cid DO Internal Medicine Resident PGY-1
[2018-09-09] MEDS ORDERED: Lidocaine 2% Inj (20ml) IJ ONE (09:22)
[2018-09-09] MEDS ORDERED: Bupivacaine 0.5% Inj(30mL) IJ ONE (09:22)
--- NOTE | 2018-09-09 10:38 | PCM.SURG1 ---
Surgeon's Initial Post Op Note - Surgeon's Notes Surgeon: Dr. Murray DPM Choir Teacher: Dr. Hester PGY1 Type of Anesthesia: IV Sedation, Local Anesthesia Administered By: Myron Pre-Operative Diagnosis: left foot diabetic wound with infection and dehiscence of previous first ray amputation Operative Findings: see dictation. I: 8cc 1:1 mix 2% lidocaine plain and 0.5 cc marcaine plain. M: 2-0 vicryl, 2-0 3-0 vicryl, adaptic DSD NOEMÍ Post-Operative Diagnosis: same Operation Performed: left foot revision of partial first ray amputation Specimen/Specimens Removed: left first metatarsal bone, soft tissue culture Estimated Blood Loss: EBL {In ML}: 20 Blood Products Given: N/A Drains Used: No Drains Post-Op Condition: Good Date of Surgery/Procedure: 09/09/18 Time of Surgery/Procedure: 10:38
[2018-09-09] MEDS ORDERED: Sodium Chloride 0.9% 1,000 ML IV SCH (10:45)
[2018-09-09] MEDS ORDERED: Linezolid 600 mg in D5W 300 ml 600 MG/300 ML BAG IVPB SCH (10:45)
[2018-09-09 11:10] LABS: HEMOGLOBIN 8.3 g/dL (12.0-16.0)
[2018-09-09] MEDS ORDERED: Darbepoetin Alfa 60 mcg/ml Inj SC ONE (11:10)
--- NOTE | 2018-09-09 12:07 | CP.PCM.PN ---
Subjective - Date & Time of Evaluation Date of Evaluation: 09/09/18 Time of Evaluation: 12:01 - Subjective Subjective: Nephrology Progress Note for Dr. Redding Patient seen and examined at bedside after surgical debridement. No acute overnight events. Patient tolerated decreased dose of Coreg. Patient denies CP, SOB, n/v/d, abdominal pain, fever, chills, ARITA, or dizziness. Objective - Vital Signs/Intake and Output Vital Signs (last 24 hours): Temp Pulse Resp BP Pulse Ox 98.6 F 75 16 147/52 L 100 09/09/18 11:19 09/09/18 11:19 09/09/18 11:19 09/09/18 11:19 09/09/18 11:19 Intake and Output: 09/09/18 09/09/18 06:59 18:59 Intake Total 480 Balance 480 - Medications Medications: Current Medications Acetaminophen (Tylenol 325mg Tab) 650 mg PO Q4H PRN PRN Reason: Pain, Mild (1-3) Aspirin (Aspirin Chewable) 81 mg PO DAILY [facility] Last Admin: 09/05/18 09:48 Dose: Not Given Atorvastatin Calcium (Lipitor) 40 mg PO DIN [facility] Last Admin: 09/08/18 17:52 Dose: 40 mg Carvedilol (Coreg) 12.5 mg PO BID [facility] Last Admin: 09/08/18 17:53 Dose: 12.5 mg Ergocalciferol (Drisdol 50,000 Intl Units Cap) 1 cap PO Q7D [facility] Famotidine (Pepcid) 10 mg PO 1000,2200 [facility] Last Admin: 09/08/18 21:47 Dose: 10 mg Furosemide (Lasix) 20 mg PO DAILY [facility] Last Admin: 09/04/18 09:37 Dose: 20 mg Gabapentin (Neurontin) 200 mg PO TID [facility]; Protocol Last Admin: 09/08/18 17:52 Dose: 200 mg Heparin Sodium (Porcine) (Heparin) 5,000 units SC Q8 [facility]; Protocol Last Admin: 09/06/18 14:58 Dose: Not Given Hydralazine HCl (Apresoline) 10 mg PO QID PRN PRN Reason: Systolic Blood Pressure Last Admin: 09/04/18 17:13 Dose: 10 mg Piperacillin Sod/Tazobactam Sod (Zosyn 3.375 In Ns 100ml) 100 mls @ 25 mls/hr IVPB Q8 [facility]; Protocol Stop: 09/13/18 14:01 Last Admin: 09/09/18 06:10 Dose: 25 mls/hr Linezolid (Zyvox 600mg/300ml D5w) 600 mg in 300 mls @ 200 mls/hr IVPB Q12 [facility]; Protocol Stop: 09/09/18 12:14 Sodium Chloride (Sodium Chloride 0.9%) 1,000 mls @ 40 mls/hr IV .Q24H [facility] Stop: 09/09/18 12:46 Insulin Human Regular (Humulin R Med) 0 units SC ACHS [facility]; Protocol Last Admin: 09/09/18 08:57 Dose: Not Given Lactulose (Enulose) 10 gm PO DAILY PRN PRN Reason: Constipation Last Admin: 09/08/18 12:03 Dose: 10 gm Lisinopril (Zestril) 20 mg PO DAILY [facility] Last Admin: 09/08/18 10:40 Dose: 20 mg - Labs Labs: 09/09/18 11:00 09/09/18 06:45 PT 12.3 SECONDS (9.4-12.5) 09/02/18 09:00 INR 1.07 09/02/18 09:00 APTT 42.4 Seconds (25.1-36.5) H 09/02/18 09:00 - Constitutional Appears: No Acute Distress - Head Exam Head Exam: NORMAL INSPECTION - Eye Exam Eye Exam: Normal appearance - ENT Exam ENT Exam: Mucous Membranes Moist, Normal Exam - Neck Exam Neck Exam: Normal Inspection - Respiratory Exam Respiratory Exam: Clear to Ausculation Bilateral. absent: Rales, Rhonchi, Wheezes - Cardiovascular Exam Cardiovascular Exam: RRR. absent: Gallop, Rubs, Murmur - GI/Abdominal Exam GI & Abdominal Exam: Soft. absent: Distended, Guarding, Tenderness, Rebound - Extremities Exam Additional comments: left LLE dressings c/d/i - Back Exam Back Exam: NORMAL INSPECTION - Neurological Exam Neurological Exam: Alert, Awake, Oriented x3 - Skin Skin Exam: Normal Color Assessment and Plan - Assessment and Plan (Free Text) Assessment: 52 yo F with PMH of left hallux amputation, uncontrolled DM, severe dilated cardiomyopathy, CHFrEF (33%), CKD IIIB, PAD s/p stents LLE, and HTN admitted to [facility] for failed outpatient antibiotic therapy for left hallux osteomyelitis. Nephrology consulted for acute renal failure. Plan: 1. CKD stage IIIB - Creatinine at baseline, will continue to monitor - Avoid nephrotoxic agents 2. Hypertensive CKD - Cont Lisinopril 20 mg daily and Coreg 12.5 mg BID 3. Vitamin D Deficiency - PTH WNL - Vitamin D low - Ergocalciferol ordered 4. Anemia of Renal Disease - Iron studies consistent with chronic disease - Hemoglobin stable - One dose of Aranesp given 5. LLE osteomyelitis - POD#0 LLE surgical debridement - Abx per ID - ID and podiatry following 6. CHFrEF - Cont Lasix - Euvolemic on exam - Cardiology following 7. Hyperkalemia, resolved - Likely 2/2 to increased dose of Lisinopril - Low K diet - Cont to monitor Patient discussed in detail with attending. Jez Carolina DO PGY2
--- NOTE | 2018-09-09 14:03 | RAD ---
Date of service: 09/09/2018 PROCEDURE: Left Foot Radiographs. HISTORY: s/p left foot revision of first ray partial amp COMPARISON: Preoperative study 09/01/2018. FINDINGS: BONES: Postoperative findings related to resection 1st metatarsal. JOINTS: Normal. SOFT TISSUES: Normal. OTHER FINDINGS: None. IMPRESSION: Satisfactory postoperative status.
[2018-09-10] MEDS: Piperacillin/Tazobact 3.375 gm 100 ML IVPB SCH ×3 (05:14→21:52)
[2018-09-10] MEDS: Insulin Reg-MEDIUM-Coverage SC SCH ×5 (06:30→21:46)
[2018-09-10 07:19] LABS: BASO # 0.08 K/mm3 (0.0-2.0); BASO % 0.8 % (0.0-3.0); EOS # 0.5 (0.0-0.7); GRAN # 6.75 (1.4-6.5); GRAN % 68.3 % (50.0-68.0); HEMOGLOBIN 8.1 g/dL (12.0-16.0); LYMPH # 1.8 (1.2-3.4); LYMPH % 18.5 % (22.0-35.0); MEAN CELL VOLUME 88.2 fl (80.0-105.0); MEAN CORPUSCULAR HEMOGLOBIN 28.1 pg (25.0-35.0); MEAN CORPUSCULAR HGB CONC 31.9 g/dl (31.0-37.0); MEAN PLATELET VOLUME 8.2 fl (7.0-11.0); MONO # 0.7 (0.1-0.6); MONO % 7.4 % (1.0-6.0); RBC 2.88 10^6/uL (3.5-6.1); RED CELL DISTRIBUTION WIDTH 14.5 % (11.5-14.5); WHITE BLOOD COUNT 9.9 10^3/uL (4.5-11.0)
[2018-09-10 08:42] LABS: ALB/GLOB RATIO 0.9 (1.1-1.8); CALCIUM 8.2 mg/dL (8.4-10.5)
--- NOTE | 2018-09-10 10:40 | CP.PCM.PN ---
<Cyril Del Cid - Last Filed: 09/10/18 16:15> Subjective - Date & Time of Evaluation Date of Evaluation: 09/10/18 Time of Evaluation: 10:36 - Subjective Subjective: Resident Cyril Del Cid DO PGY-1 Hospitalist Progress Note for Dr. Tiburcio Greenwood: Pt was seen and examined this morning at bedside. She denies any acute overnight events. She states that she is currently not having any chest pain, fevers, chills, n/v, c/d, abd pain, dysuria, hematuria, or frequency. She states that her pins and needles sensation is improved since being on the gabapentin. She states that she is not having any pain in the L foot s/p L foot revision of partial first ray amputation. Pt denies any other acute complaints at this time. Objective - Vital Signs/Intake and Output Vital Signs (last 24 hours): Temp Pulse Resp BP Pulse Ox 98.5 F 81 20 139/83 99 09/10/18 06:00 09/10/18 06:00 09/10/18 06:00 09/10/18 06:00 09/10/18 06:00 Intake and Output: 09/10/18 09/10/18 06:59 18:59 Intake Total 480 Balance 480 - Medications Medications: Current Medications Acetaminophen (Tylenol 325mg Tab) 650 mg PO Q4H PRN PRN Reason: Pain, Mild (1-3) Amlodipine Besylate (Norvasc) 5 mg PO DAILY [facility] Aspirin (Aspirin Chewable) 81 mg PO DAILY [facility] Last Admin: 09/05/18 09:48 Dose: Not Given Atorvastatin Calcium (Lipitor) 40 mg PO DIN [facility] Last Admin: 09/09/18 17:37 Dose: 40 mg Carvedilol (Coreg) 12.5 mg PO BID [facility] Last Admin: 09/09/18 13:43 Dose: 12.5 mg Clopidogrel Bisulfate (Plavix) 75 mg PO DAILY [facility] Ergocalciferol (Drisdol 50,000 Intl Units Cap) 1 cap PO Q7D [facility] Last Admin: 09/09/18 13:40 Dose: 1 cap Famotidine (Pepcid) 10 mg PO 1000,2200 [facility] Last Admin: 09/09/18 22:05 Dose: 10 mg Furosemide (Lasix) 20 mg PO DAILY [facility] Last Admin: 09/09/18 13:42 Dose: 20 mg Gabapentin (Neurontin) 200 mg PO TID [facility]; Protocol Last Admin: 09/09/18 17:40 Dose: 200 mg Heparin Sodium (Porcine) (Heparin) 5,000 units SC Q8 [facility]; Protocol Last Admin: 09/10/18 05:16 Dose: 5,000 units Hydralazine HCl (Apresoline) 10 mg PO QID PRN PRN Reason: Systolic Blood Pressure Last Admin: 09/04/18 17:13 Dose: 10 mg Piperacillin Sod/Tazobactam Sod (Zosyn 3.375 In Ns 100ml) 100 mls @ 25 mls/hr IVPB Q8 [facility]; Protocol Stop: 09/13/18 14:01 Last Admin: 09/10/18 05:14 Dose: 25 mls/hr Insulin Human Regular (Humulin R Med) 0 units SC ACHS [facility]; Protocol Last Admin: 09/10/18 08:32 Dose: 1 units Lactulose (Enulose) 10 gm PO DAILY PRN PRN Reason: Constipation Last Admin: 09/08/18 12:03 Dose: 10 gm Lisinopril (Zestril) 20 mg PO DAILY [facility] Last Admin: 09/09/18 13:43 Dose: 20 mg - Labs Labs: 09/10/18 07:00 09/10/18 07:00 PT 12.3 SECONDS (9.4-12.5) 09/02/18 09:00 INR 1.07 09/02/18 09:00 APTT 42.4 Seconds (25.1-36.5) H 09/02/18 09:00 - Constitutional Appears: Well, Non-toxic, No Acute Distress - Head Exam Head Exam: ATRAUMATIC, NORMAL INSPECTION, NORMOCEPHALIC - Eye Exam Eye Exam: EOMI, Normal appearance, PERRL - Respiratory Exam Respiratory Exam: Clear to Ausculation Bilateral, NORMAL BREATHING PATTERN. absent: Accessory Muscle Use, Decreased Breath Sounds, Rales, Rhonchi, Wheezes, Respiratory Distress, Stridor - Cardiovascular Exam Cardiovascular Exam: Gallop (S3), RRR, +S1, +S2. absent: Rubs - GI/Abdominal Exam GI & Abdominal Exam: Soft, Normal Bowel Sounds. absent: Tenderness - Extremities Exam Additional comments: Pt has covering over L foot, no edema noted at L ankle and LLE dressings c/d/i - Back Exam Back Exam: NORMAL INSPECTION. absent: CVA tenderness (L), CVA tenderness (R) - Neurological Exam Neurological Exam: Alert, Awake, Oriented x3 - Psychiatric Exam Psychiatric exam: Normal Affect, Normal Mood - Skin Skin Exam: Dry, Intact (except where noted above.), Normal Color, Warm Assessment and Plan - Assessment and Plan (Free Text) Assessment: Ms Hernandez, 52 F, PMHx uncontrolled diabetes s/p left great toe amputation, severe cardiomyopathy on life vest since December 2017, CKD 3, peripheral artery disease s/p recent JAMES(s) placement at E admitted for nonhealing surgical wound s/p left great toe amputation (Jul 2018) possibly due to uncontrolled diabetes and poor circulation secondary to PAD. She will require IV antibiotics & I&D for cellulitis. L foot XR came back probable for osteo in the head of the 1st metatarsal. Pt is now s/p left foot revision of partial first ray amputation which was done yesterday (09/09). Awaiting cultures so we can get ID recs regarding abx and duration. Plan: 1. LLE Cellulitis R/O osteomyelitis with leukocytosis s/p L foot revision of partial first ray amputation - Zyvoc and marc on board - ID consult - Blood cultures: (-) - Trend WBC. WBC is 9.9 now - L Foot XR: Probable osteo at head of 1st metatarsal - Arterial doppler of L lower extremity shows improvement compared to prior studies. - As per cardio pt is high risk given her cardiac and pulm issues, but is optimized at this time for OR. - Will follow up wound culture results from OR, will follow ID recs upon results from culture. 2. Non-healing wound possibly due to poor circulation - Extermity US: report states that L SURJIT is improved from previous ones on record. - IR: Dr. Morin consulted 3. Severe Cardiomyopathy on life vest - Dr. Caldwell: D/tiffanie life vest, consulted for [facility] risk assessment for surgery - Telemetry 4. 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 HTN: - Continue home lisinopril, lasix 6.PAD s/p recent JAMES stents: - Plavix 75 PO QD 7. CKD stage 3 - Cr clearance 38 - Continue to trend creatinine - If creatinine decreases, will consult nephro 8. Uncontrolled DM: - A1C 9 - ISSS - Diabetic education - Dietitian consult 9. Constipation - Pt responded to lactulose, will D/C other bowel regiment but lactulose 10. Hyperkalemia: Improved - K 4.4 - Will recheck cmp tomorrow. 11. PPX: DVT: heparin SC GI: pepcid BID Further recs per Dr. Tiburcio Del Cid DO Internal Medicine Resident PGY-1 <Tessy Greenwood R - Last Filed: 09/10/18 23:59> Objective - Vital Signs/Intake and Output Vital Signs (last 24 hours): Temp Pulse Resp BP Pulse Ox 98.1 F 75 18 148/66 96 09/10/18 23:02 09/10/18 23:02 09/10/18 23:02 09/10/18 23:02 09/10/18 23:02 Intake and Output: 09/10/18 09/11/18 18:59 06:59 Intake Total 480 Balance 480 - Medications Medications: Current Medications Acetaminophen (Tylenol 325mg Tab) 650 mg PO Q4H PRN PRN Reason: Pain, Mild (1-3) Amlodipine Besylate (Norvasc) 5 mg PO DAILY [facility] Last Admin: 09/10/18 11:03 Dose: 5 mg Aspirin (Aspirin Chewable) 81 mg PO DAILY [facility] Last Admin: 09/10/18 11:02 Dose: 81 mg Atorvastatin Calcium (Lipitor) 40 mg PO DIN [facility] Last Admin: 09/10/18 17:04 Dose: 40 mg Carvedilol (Coreg) 6.25 mg PO BID [facility] Last Admin: 09/10/18 20:47 Dose: Not Given Clopidogrel Bisulfate (Plavix) 75 mg PO DAILY [facility] Last Admin: 09/10/18 11:02 Dose: 75 mg Ergocalciferol (Drisdol 50,000 Intl Units Cap) 1 cap PO Q7D [facility] Last Admin: 09/09/18 13:40 Dose: 1 cap Famotidine (Pepcid) 10 mg PO 1000,2200 [facility] Last Admin: 09/10/18 21:52 Dose: 10 mg Furosemide (Lasix) 20 mg PO DAILY [facility] Last Admin: 09/10/18 11:04 Dose: 20 mg Gabapentin (Neurontin) 200 mg PO TID [facility]; Protocol Last Admin: 09/10/18 20:48 Dose: Not Given Heparin Sodium (Porcine) (Heparin) 5,000 units SC Q8 [facility]; Protocol Last Admin: 09/10/18 21:52 Dose: 5,000 units Hydralazine HCl (Apresoline) 10 mg PO QID PRN PRN Reason: Systolic Blood Pressure Last Admin: 09/04/18 17:13 Dose: 10 mg Piperacillin Sod/Tazobactam Sod (Zosyn 3.375 In Ns 100ml) 100 mls @ 25 mls/hr IVPB Q8 [facility]; Protocol Stop: 09/13/18 14:01 Last Admin: 09/10/18 21:52 Dose: 25 mls/hr Insulin Human Regular (Humulin R Med) 0 units SC ACHS [facility]; Protocol Last Admin: 09/10/18 21:46 Dose: Not Given Lactulose (Enulose) 10 gm PO DAILY PRN PRN Reason: Constipation Last Admin: 09/08/18 12:03 Dose: 10 gm Lisinopril (Zestril) 20 mg PO DAILY [facility] Last Admin: 09/10/18 11:03 Dose: 20 mg - Labs Labs: 09/10/18 07:00 09/10/18 07:00 PT 12.3 SECONDS (9.4-12.5) 09/02/18 09:00 INR 1.07 09/02/18 09:00 APTT 42.4 Seconds (25.1-36.5) H 09/02/18 09:00 Attending/Attestation - Attestation I have personally seen and examined this patient.: Yes I have fully participated in the care of the patient.: Yes I have reviewed all pertinent clinical information, including history, physical exam and plan: Yes Notes (Text): Patient seen and examined by me with resident at 11:40 AM on 09/10/18. Case including HPI, physical exam, and assessment and plan discussed with resident. Agree with above with following additions/corrections. 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 Murray, for a nonhealing wound of the left great toe. Patient states she is feeling ok. States she wants to go home. Patient denies any pain in her left foot. States thet ingling and numbness is still there but much improved with gabapentin. Patient states she is having bowel movements. No chest pain or shortness of breath. No nausea, vomiting, or abdominal pain. No headaches or dizziness. No fevers or chills. No dysuria. Physical exam: General: Awake and alert lying in bed in no acute distress HEENT: Normocephalic, atraumatic. Extraocular muscles intact, pupils equal and reactive, no scleral icterus. Oropharynx is pink and moist. Neck is supple. Cardiovascular: Regular rhythm. Normal S1 and S2. Positive S3. No murmurs, rubs, or gallops appreciated Pulmonary: Normal respiratory effort. No rhonchi, rales, or wheezing appreciated. Gastrointestinal: Soft, nondistended. Nontender. Positive bowel sounds all 4 quadrants. No guarding. Musculoskeletal: Moves all extremities. No calf tenderness. No CVA tenderness. Positive LLE edema. Positive left foot dressing clean, dry, and intact. Central nervous system: AAO x3, CN 2-12 grossly intact. Dermatologic: Skin warm and dry. Assessment and plan: Patient is a 52-year-old female with past medical history significant for diabetes and left great toe amputation, insulin-dependent type 2 diabetes, severe cardiomyopathy with LifeVest, systolic CHF, hypertension, chronic kidney disease stage III, and peripheral artery disease status post stents of left lower extremity that presented to the emergency room after being sent in by her warehouse insulation worker, Dr. Murray, for a nonhealing wound of the left great toe. 1. Nonhealing wound of left great toe. Left foot diabetic wound with infection and dehiscence of previous first ray amputation. Patient s/p left foot revision of partial first ray amputation on 09/09/2018. Podiatry following, recommendations appreciated. ID following, recommendations appreciated. Wound cultures from OR pending. ID following, recommendations appreciated. Wound cultures from 09/08/2018 positive for Enterobacter Cloacae and staph aureus. Continue Zosyn. Continue gabapentin for neuropathic pain. Patient afebrile. No leukocytosis. Left foot xray per radiologist showed probable osteomyelitis in the head of the first metatarsal. Arterial Doppler of left lower extremity per radiologist showed left resting SURJIT and distal waveforms are much improved from preintervention images in 2018. Interventional radiologist, Dr. Morin, following, recommendations appreciated. Blood cultures with no growth to date. 2. Thrombocytosis. Likely reactive secondary to infection. Resolved. Continue to monitor. 3. Leukocytosis. Likely secondary to #1. Resolved. Blood cultures with no growth to date. Urine culture positive for E. Coli. Status post treatment. Continue to monitor. 4. PAD S/P stent placement. Continue lipitor. ASA and Plavix restarted. 5. Severe cardiomyopathy. Chronic systolic CHF. LifeVest stopped by cardiology Dr. Caldwell. Continue home Coreg, Lipitor, and Lisinopril. Continue Lasix. Continue to monitor on telemetry 6. Insulin-dependent type 2 diabetes. Continue insulin sliding scale. Continue to monitor accuchecks 7. CKD Stage 3. Creatinine stable. Nephrology following, recommendations appreciated. Continue to monitor. 8. Constipation. Continue Lactulose as needed. Continue to monitor 9. Essential Hypertnsion. Continue Coreg, lisinopril, and Norvasc. Continue Lasix. 10. GI/DVT prophylaxis. Pepcid/Heparin 11. Patient is a full code. Case was discussed in detail with the patient regarding current diagnosis and treatment plan. All questions answered.
--- NOTE | 2018-09-10 11:58 | CP.PCM.PN ---
Subjective - Date & Time of Evaluation Date of Evaluation: 09/10/18 Time of Evaluation: 11:54 - Subjective Subjective: Podiatry progress note for Dr. Murray 52 yo female seen and evaluated at bedside with Dr. Murray. Resting comfortably. No acute events overnight. Dressing appears clean dry and intact. Denies N/V/F/C/SOB/CP. Has no pain to her surgical site. Has no other pedal complaints at this time. Objective - Vital Signs/Intake and Output Vital Signs (last 24 hours): Temp Pulse Resp BP Pulse Ox 98.5 F 81 20 139/83 99 09/10/18 06:00 09/10/18 06:00 09/10/18 06:00 09/10/18 06:00 09/10/18 06:00 Intake and Output: 09/10/18 09/10/18 06:59 18:59 Intake Total 480 Balance 480 - Medications Medications: Current Medications Acetaminophen (Tylenol 325mg Tab) 650 mg PO Q4H PRN PRN Reason: Pain, Mild (1-3) Amlodipine Besylate (Norvasc) 5 mg PO DAILY [facility] Last Admin: 09/10/18 11:03 Dose: 5 mg Aspirin (Aspirin Chewable) 81 mg PO DAILY [facility] Last Admin: 09/10/18 11:02 Dose: 81 mg Atorvastatin Calcium (Lipitor) 40 mg PO DIN [facility] Last Admin: 09/09/18 17:37 Dose: 40 mg Carvedilol (Coreg) 12.5 mg PO BID [facility] Last Admin: 09/10/18 11:06 Dose: Not Given Clopidogrel Bisulfate (Plavix) 75 mg PO DAILY [facility] Last Admin: 09/10/18 11:02 Dose: 75 mg Ergocalciferol (Drisdol 50,000 Intl Units Cap) 1 cap PO Q7D [facility] Last Admin: 09/09/18 13:40 Dose: 1 cap Famotidine (Pepcid) 10 mg PO 1000,2200 [facility] Last Admin: 09/10/18 11:03 Dose: 10 mg Furosemide (Lasix) 20 mg PO DAILY [facility] Last Admin: 09/10/18 11:04 Dose: 20 mg Gabapentin (Neurontin) 200 mg PO TID [facility]; Protocol Last Admin: 09/10/18 11:02 Dose: 200 mg Heparin Sodium (Porcine) (Heparin) 5,000 units SC Q8 [facility]; Protocol Last Admin: 09/10/18 05:16 Dose: 5,000 units Hydralazine HCl (Apresoline) 10 mg PO QID PRN PRN Reason: Systolic Blood Pressure Last Admin: 09/04/18 17:13 Dose: 10 mg Piperacillin Sod/Tazobactam Sod (Zosyn 3.375 In Ns 100ml) 100 mls @ 25 mls/hr IVPB Q8 [facility]; Protocol Stop: 09/13/18 14:01 Last Admin: 09/10/18 05:14 Dose: 25 mls/hr Insulin Human Regular (Humulin R Med) 0 units SC ACHS [facility]; Protocol Last Admin: 09/10/18 11:52 Dose: 1 units Lactulose (Enulose) 10 gm PO DAILY PRN PRN Reason: Constipation Last Admin: 09/08/18 12:03 Dose: 10 gm Lisinopril (Zestril) 20 mg PO DAILY [facility] Last Admin: 09/10/18 11:03 Dose: 20 mg - Labs Labs: 09/10/18 07:00 09/10/18 07:00 PT 12.3 SECONDS (9.4-12.5) 09/02/18 09:00 INR 1.07 09/02/18 09:00 APTT 42.4 Seconds (25.1-36.5) H 09/02/18 09:00 - Constitutional Appears: Well, Non-toxic, No Acute Distress - Head Exam Head Exam: ATRAUMATIC, NORMOCEPHALIC - Extremities Exam Additional comments: LLE focused exam: Vasc: DP/PT pulses palpable. Temp gradient warm to cool from proximal to distal, Cap refill < 3 seconds to all remaining digits, no edema noted to surgical site. Neuro: Gross sensation diminished, protective sensation diminished/absent Derm: surgical site appears well coapted, sutures intact, no maceration noted, mild sanguinous drainage appreciated, no pus or purulent discharge noted, no malodor, mild periwound erythema appreciate, no streaking or clinical signs of infection MSK: Left hallux amputation, no tenderness upon calf compression, mild ten derness upon palpation of surgical site. Muscle power intact 5/5 to all groups. - Neurological Exam Neurological Exam: Alert, Awake, Oriented x3 - Psychiatric Exam Psychiatric exam: Normal Affect, Normal Mood Assessment and Plan - Assessment and Plan (Free Text) Assessment: 52 yo female POD 1 revision of left first ray partial amputation Plan: Patient seen and evaluated at bedside with Dr. Murray Charts and labs reviewed - afebrile, absent leukocytosis Surgical site cleansed with normal sterile saline 1/2" packing inserted into wound, dressed with adaptic, DSD, ABD, kerlix, and NOEMÍ lightly Will leave dressing intact tomorrow, pull packing friday and leave out PT told she can partial weight bear to heel LLE in surgical shoe ASA restarted Plavix restarted Heparin restarted Podiatry will continue to follow up the patient while in house
--- NOTE | 2018-09-10 22:14 | PN ---
DATE: 09/10/2018 SUBJECTIVE: The patient is seen earlier today in 571. No fevers. No chills.. OBJECTIVE: VITAL SIGNS: Temperature is 97, blood pressure is 160/70, and respiratory rate of 20. HEENT: Unremarkable. NECK: Supple. LUNGS: Have decreased breath sounds. HEART: Normal S1 and S2. ABDOMEN: Soft. LABORATORY DATA: Reveals a white count of 9.9 and hemoglobin of 8. BUN of 24 and creatinine of . Blood cultures are noted. Urine cultures reveal E. coli. Review of orders reveals the patient is on Zosyn, which requires renewal, which I will do so. ASSESSMENT AND PLAN: This is a 52-year-old with osteomyelitis of the first toe stump. X-rays show osteo, diabetic, asymptomatic urinary tract infection, and hypertension, on Zyvox and Zosyn. The Staphylococcus aureus is sensitive to oxacillin and the Enterobacter is sensitive to Zosyn which is piperacillin and tazobactam. Currently on Zosyn alone. We will follow with you. The patient is tolerating the antibiotic well. Janusz Sparks MD
[2018-09-11] MEDS: Piperacillin/Tazobact 3.375 gm 100 ML IVPB SCH ×2 (05:14→14:32)
[2018-09-11 06:44] LABS: BASO # 0.11 K/mm3 (0.0-2.0); BASO % 1.1 % (0.0-3.0); EOS # 0.7 (0.0-0.7); EOS % 7.4 % (1.5-5.0); GRAN # 6.29 (1.4-6.5); GRAN % 65.6 % (50.0-68.0); HEMOGLOBIN 8.2 g/dL (12.0-16.0); LYMPH # 1.8 (1.2-3.4); LYMPH % 18.7 % (22.0-35.0); MEAN CELL VOLUME 87.8 fl (80.0-105.0); MEAN CORPUSCULAR HEMOGLOBIN 28.5 pg (25.0-35.0); MEAN CORPUSCULAR HGB CONC 32.4 g/dl (31.0-37.0); MEAN PLATELET VOLUME 8.3 fl (7.0-11.0); MONO # 0.7 (0.1-0.6); MONO % 7.2 % (1.0-6.0); RBC 2.88 10^6/uL (3.5-6.1); RED CELL DISTRIBUTION WIDTH 14.4 % (11.5-14.5); WHITE BLOOD COUNT 9.6 10^3/uL (4.5-11.0)
--- NOTE | 2018-09-11 06:51 | CP.PCM.PN ---
<Shabnam Wing - Last Filed: 09/11/18 11:20> Subjective - Date & Time of Evaluation Date of Evaluation: 09/11/18 Time of Evaluation: 07:00 - Subjective Subjective: Infectious Disease Progress Note for Anabela Covarrubias PGY3 Patient seen and examined at bedside. Patient is resting in bed. She feels well today and is afebrile. She has no complaints. Objective - Vital Signs/Intake and Output Vital Signs (last 24 hours): Temp Pulse Resp BP Pulse Ox 98.1 F 75 18 148/66 96 09/10/18 23:02 09/10/18 23:02 09/10/18 23:02 09/10/18 23:02 09/10/18 23:02 Intake and Output: 09/10/18 09/11/18 18:59 06:59 Intake Total 800 Balance 800 - Medications Medications: Current Medications Acetaminophen (Tylenol 325mg Tab) 650 mg PO Q4H PRN PRN Reason: Pain, Mild (1-3) Amlodipine Besylate (Norvasc) 5 mg PO DAILY [facility] Last Admin: 09/10/18 11:03 Dose: 5 mg Aspirin (Aspirin Chewable) 81 mg PO DAILY [facility] Last Admin: 09/10/18 11:02 Dose: 81 mg Atorvastatin Calcium (Lipitor) 40 mg PO DIN [facility] Last Admin: 09/10/18 17:04 Dose: 40 mg Carvedilol (Coreg) 6.25 mg PO BID [facility] Last Admin: 09/10/18 20:47 Dose: Not Given Clopidogrel Bisulfate (Plavix) 75 mg PO DAILY [facility] Last Admin: 09/10/18 11:02 Dose: 75 mg Ergocalciferol (Drisdol 50,000 Intl Units Cap) 1 cap PO Q7D [facility] Last Admin: 09/09/18 13:40 Dose: 1 cap Famotidine (Pepcid) 10 mg PO 1000,2200 [facility] Last Admin: 09/10/18 21:52 Dose: 10 mg Furosemide (Lasix) 20 mg PO DAILY [facility] Last Admin: 09/10/18 11:04 Dose: 20 mg Gabapentin (Neurontin) 200 mg PO TID [facility]; Protocol Last Admin: 09/10/18 20:48 Dose: Not Given Heparin Sodium (Porcine) (Heparin) 5,000 units SC Q8 [facility]; Protocol Last Admin: 09/11/18 05:14 Dose: 5,000 units Hydralazine HCl (Apresoline) 10 mg PO QID PRN PRN Reason: Systolic Blood Pressure Last Admin: 09/04/18 17:13 Dose: 10 mg Piperacillin Sod/Tazobactam Sod (Zosyn 3.375 In Ns 100ml) 100 mls @ 25 mls/hr IVPB Q8 [facility]; Protocol Stop: 09/13/18 14:01 Last Admin: 09/11/18 05:14 Dose: 25 mls/hr Insulin Human Regular (Humulin R Med) 0 units SC ACHS [facility]; Protocol Last Admin: 09/10/18 21:46 Dose: Not Given Lactulose (Enulose) 10 gm PO DAILY PRN PRN Reason: Constipation Last Admin: 09/08/18 12:03 Dose: 10 gm Lisinopril (Zestril) 20 mg PO DAILY [facility] Last Admin: 09/10/18 11:03 Dose: 20 mg - Labs Labs: 09/11/18 06:00 09/10/18 07:00 PT 12.3 SECONDS (9.4-12.5) 09/02/18 09:00 INR 1.07 09/02/18 09:00 APTT 42.4 Seconds (25.1-36.5) H 09/02/18 09:00 - Constitutional Appears: No Acute Distress - Head Exam Head Exam: ATRAUMATIC, NORMAL INSPECTION, NORMOCEPHALIC - Eye Exam Eye Exam: Normal appearance, PERRL Pupil Exam: NORMAL ACCOMODATION, PERRL - ENT Exam ENT Exam: Mucous Membranes Moist - Respiratory Exam Respiratory Exam: Clear to Ausculation Bilateral, NORMAL BREATHING PATTERN. absent: Rales, Rhonchi, Wheezes - Cardiovascular Exam Cardiovascular Exam: REGULAR RHYTHM, +S1, +S2. absent: Gallop, Rubs, Murmur - GI/Abdominal Exam GI & Abdominal Exam: Soft, Normal Bowel Sounds. absent: Rigid, Tenderness, Ma ss, Rebound - Extremities Exam Extremities Exam: absent: Calf Tenderness, Pedal Edema Additional comments: L foot dressing in place- clean and dry - Neurological Exam Neurological Exam: Alert, Awake, CN II-XII Intact, Oriented x3 - Psychiatric Exam Psychiatric exam: Normal Affect, Normal Mood - Skin Skin Exam: Dry, Warm Assessment and Plan - Assessment and Plan (Free Text) Assessment: 1. Osteomyelitis of 1st toe stump - XR showed osteo and is clinically osteomyelitis - s/p OR debridement and metatarsal removal 2. UTI- asymptomatic 3. IDDM 4. HTN 5. Dilated cardiomyopathy 6. CKD IIIb Plan: Will continue Zosyn and Zyvox. Awaiting OR pathology of bone and cultures to determine length of antibiotics. Will continue to monitor clinically. Case seen, discussed and reviewed with Dr. Deb Wing PGY3 <Navarro Boyd - Last Filed: 09/11/18 20:44> Objective - Vital Signs/Intake and Output Vital Signs (last 24 hours): Temp Pulse Resp BP Pulse Ox 98.0 F 67 20 145/65 96 09/11/18 14:33 09/11/18 20:12 09/11/18 14:33 09/11/18 20:12 09/11/18 14:33 Intake and Output: 09/11/18 09/12/18 18:59 06:59 Intake Total 480 Balance 480 - Medications Medications: Current Medications Acetaminophen (Tylenol 325mg Tab) 650 mg PO Q4H PRN PRN Reason: Pain, Mild (1-3) Amlodipine Besylate (Norvasc) 5 mg PO DAILY [facility] Last Admin: 09/11/18 10:42 Dose: 5 mg Aspirin (Aspirin Chewable) 81 mg PO DAILY [facility] Last Admin: 09/11/18 10:43 Dose: 81 mg Atorvastatin Calcium (Lipitor) 40 mg PO DIN [facility] Last Admin: 09/11/18 20:12 Dose: 40 mg Carvedilol (Coreg) 6.25 mg PO BID [facility] Last Admin: 09/11/18 20:12 Dose: 6.25 mg Clopidogrel Bisulfate (Plavix) 75 mg PO DAILY [facility] Last Admin: 09/11/18 10:42 Dose: 75 mg Ergocalciferol (Drisdol 50,000 Intl Units Cap) 1 cap PO Q7D [facility] Last Admin: 09/09/18 13:40 Dose: 1 cap Famotidine (Pepcid) 10 mg PO 1000,2200 [facility] Last Admin: 09/11/18 10:42 Dose: 10 mg Gabapentin (Neurontin) 200 mg PO TID [facility]; Protocol Last Admin: 09/11/18 20:12 Dose: 200 mg Heparin Sodium (Porcine) (Heparin) 5,000 units SC Q8 [facility]; Protocol Last Admin: 09/11/18 14:30 Dose: Not Given Hydralazine HCl (Apresoline) 10 mg PO QID PRN PRN Reason: Systolic Blood Pressure Last Admin: 09/04/18 17:13 Dose: 10 mg Piperacillin Sod/Tazobactam Sod (Zosyn 3.375 In Ns 100ml) 100 mls @ 25 mls/hr IVPB Q8 [facility]; Protocol Stop: 09/13/18 14:01 Last Admin: 09/11/18 14:32 Dose: 25 mls/hr Linezolid (Zyvox 600mg/300ml D5w) 600 mg in 300 mls @ 200 mls/hr IVPB Q12 [facility]; Protocol Stop: 09/18/18 10:01 Last Admin: 09/11/18 10:45 Dose: 200 mls/hr Insulin Human Lispro (Humalog High) 0 units SC ACHS [facility]; Protocol Last Admin: 09/11/18 16:49 Dose: Not Given Lactulose (Enulose) 10 gm PO DAILY PRN PRN Reason: Constipation Last Admin: 09/11/18 10:45 Dose: 10 gm Lisinopril (Zestril) 20 mg PO DAILY [facility] Last Admin: 09/11/18 10:40 Dose: 20 mg - Labs Labs: 09/11/18 06:00 09/11/18 06:00 PT 12.3 SECONDS (9.4-12.5) 09/02/18 09:00 INR 1.07 09/02/18 09:00 APTT 42.4 Seconds (25.1-36.5) H 09/02/18 09:00 Assessment and Plan - Assessment and Plan (Free Text) Plan: Infectious Diseases Attending Physician Attestation Patient seen and examined, discussed with nuclear medicine medical director. I have reviewed the patient's history of present illness, past medical, family and social histories, personal history, physical exam, lab findings and imaging studies. I agree with the above findings, assessment and plan. In addition, continue Zyvox and Zosyn for left foot stump skin / skin structure infection with clinical osteomyelitis S/P partial 1st ray amputation. Follow up OR cultures and pathology.
[2018-09-11 08:03] LABS: ALB/GLOB RATIO 0.9 (1.1-1.8); ALBUMIN 3.1 g/dL (3.0-4.8); CALCIUM 8.7 mg/dL (8.4-10.5)
[2018-09-11] MEDS: Insulin Reg-MEDIUM-Coverage SC SCH ×2 (08:48→11:57)
[2018-09-11] MEDS: Linezolid 600 mg in D5W 300 ml 600 MG/300 ML BAG IVPB SCH ×2 (10:45→22:22)
--- NOTE | 2018-09-11 11:08 | PN ---
DATE: 09/11/2018 CARDIOLOGY FOLLOWUP SUBJECTIVE: The patient is without complaint other than wanting to go home. PHYSICAL EXAMINATION: VITAL SIGNS: Blood pressure is 148/66, heart rates in the 80s. NECK: Negative JVD. LUNGS: Without rales. HEART: S1 and S2. EXTREMITIES: Lower extremities are bandaged. LABORATORY DATA: Hemoglobin is 8.2. Chemistries: BUN and creatinine is 25 and 1.9. IMPRESSION: 1. Foot ulcers. 2. Sepsis. 3. Hypertension. 4. Diabetes mellitus. 5. Anemia. PLAN: Given these findings, the patient's cardiac status is stable. Awaiting for Infectious Disease to make determinations for IV antibiotics. Rodney Caldwell MD
[2018-09-11] MEDS: Insulin Lispro (HUMAlog) HIGH Coverage SC SCH ×2 (16:49→22:03)
--- NOTE | 2018-09-11 17:23 | CP.PCM.PN ---
<Cyril Del Cid - Last Filed: 09/11/18 17:20> Subjective - Date & Time of Evaluation Date of Evaluation: 09/11/18 Time of Evaluation: 17:20 - Subjective Subjective: Cyril Del Cid DO PGY-1 Hospitalist Progress Note for Dr. Livingston: Pt was seen and examined this morning at bedside. She denies any acute overnight events. She states that she is currently not having any chest pain, fevers, chills, n/v, c/d, abd pain, dysuria, hematuria, or frequency. She states that her pins and needles sensation is improved since being on the gabapentin. She states that she is not having any pain in the L foot s/p L foot revision of partial first ray amputation. Pt denies any other acute complaints at this time. Objective - Vital Signs/Intake and Output Vital Signs (last 24 hours): Temp Pulse Resp BP Pulse Ox 98.0 F 74 20 117/58 L 96 09/11/18 14:33 09/11/18 14:33 09/11/18 14:33 09/11/18 14:33 09/11/18 14:33 Intake and Output: 09/11/18 09/11/18 06:59 18:59 Intake Total 800 Balance 800 - Medications Medications: Current Medications Acetaminophen (Tylenol 325mg Tab) 650 mg PO Q4H PRN PRN Reason: Pain, Mild (1-3) Amlodipine Besylate (Norvasc) 5 mg PO DAILY [facility] Last Admin: 09/11/18 10:42 Dose: 5 mg Aspirin (Aspirin Chewable) 81 mg PO DAILY [facility] Last Admin: 09/11/18 10:43 Dose: 81 mg Atorvastatin Calcium (Lipitor) 40 mg PO DIN [facility] Last Admin: 09/10/18 17:04 Dose: 40 mg Carvedilol (Coreg) 6.25 mg PO BID [facility] Last Admin: 09/11/18 10:50 Dose: 6.25 mg Clopidogrel Bisulfate (Plavix) 75 mg PO DAILY [facility] Last Admin: 09/11/18 10:42 Dose: 75 mg Ergocalciferol (Drisdol 50,000 Intl Units Cap) 1 cap PO Q7D [facility] Last Admin: 09/09/18 13:40 Dose: 1 cap Famotidine (Pepcid) 10 mg PO 1000,2200 [facility] Last Admin: 09/11/18 10:42 Dose: 10 mg Gabapentin (Neurontin) 200 mg PO TID [facility]; Protocol Last Admin: 09/11/18 14:31 Dose: 200 mg Heparin Sodium (Porcine) (Heparin) 5,000 units SC Q8 [facility]; Protocol Last Admin: 09/11/18 14:30 Dose: Not Given Hydralazine HCl (Apresoline) 10 mg PO QID PRN PRN Reason: Systolic Blood Pressure Last Admin: 09/04/18 17:13 Dose: 10 mg Piperacillin Sod/Tazobactam Sod (Zosyn 3.375 In Ns 100ml) 100 mls @ 25 mls/hr IVPB Q8 [facility]; Protocol Stop: 09/13/18 14:01 Last Admin: 09/11/18 14:32 Dose: 25 mls/hr Linezolid (Zyvox 600mg/300ml D5w) 600 mg in 300 mls @ 200 mls/hr IVPB Q12 [facility]; Protocol Stop: 09/18/18 10:01 Last Admin: 09/11/18 10:45 Dose: 200 mls/hr Insulin Human Lispro (Humalog High) 0 units SC ACHS [facility]; Protocol Last Admin: 09/11/18 16:49 Dose: Not Given Lactulose (Enulose) 10 gm PO DAILY PRN PRN Reason: Constipation Last Admin: 09/11/18 10:45 Dose: 10 gm Lisinopril (Zestril) 20 mg PO DAILY [facility] Last Admin: 09/11/18 10:40 Dose: 20 mg - Labs Labs: 09/11/18 06:00 09/11/18 06:00 PT 12.3 SECONDS (9.4-12.5) 09/02/18 09:00 INR 1.07 09/02/18 09:00 APTT 42.4 Seconds (25.1-36.5) H 09/02/18 09:00 - Constitutional Appears: Well, Non-toxic, No Acute Distress - Head Exam Head Exam: ATRAUMATIC, NORMAL INSPECTION, NORMOCEPHALIC - Eye Exam Eye Exam: EOMI, Normal appearance, PERRL - Respiratory Exam Respiratory Exam: Clear to Ausculation Bilateral, NORMAL BREATHING PATTERN. absent: Accessory Muscle Use, Decreased Breath Sounds, Rales, Rhonchi, Wheezes, Respiratory Distress, Stridor - Cardiovascular Exam Cardiovascular Exam: RRR, +S1, +S2. absent: Gallop, Rubs - GI/Abdominal Exam GI & Abdominal Exam: Soft, Normal Bowel Sounds. absent: Tenderness - Extremities Exam Additional comments: Pt has covering over L foot, no edema noted at L ankle and LLE dressings c/d/i - Back Exam Back Exam: NORMAL INSPECTION. absent: CVA tenderness (L), CVA tenderness (R) - Neurological Exam Neurological Exam: Alert, Awake, Oriented x3 - Psychiatric Exam Psychiatric exam: Normal Affect, Normal Mood - Skin Skin Exam: Dry, Intact (except where noted above.), Normal Color, Warm Assessment and Plan - Assessment and Plan (Free Text) Assessment: Ms Hernandez, 52 F, PMHx uncontrolled diabetes s/p left great toe amputation, severe cardiomyopathy on life vest since December 2017, CKD 3, peripheral artery disease s/p recent JAMES(s) placement at [facility] admitted for nonhealing surgical wound s/p left great toe amputation (Jul 2018) possibly due to uncontrolled diabetes and poor circulation secondary to PAD. She will require IV antibiotics & I&D for cellulitis. L foot XR came back probable for osteo in the head of the 1st metatarsal. Pt is now s/p left foot revision of partial first ray amputation which was done yesterday (09/09). Awaiting cultures so we can get ID recs regarding abx and duration. Plan: 1. LLE Cellulitis R/O osteomyelitis with leukocytosis s/p L foot revision of partial first ray amputation - Nirav and marc on board - ID consult - Blood cultures: (-) - Trend WBC. WBC is 9.9 now - L Foot XR: Probable osteo at head of 1st metatarsal - Arterial doppler of L lower extremity shows improvement compared to prior studies. - As per cardio pt is high risk given her cardiac and pulm issues, but is optimized at this time for OR. - Will follow up wound culture results from OR, will follow ID recs upon results from culture. 2. Non-healing wound possibly due to poor circulation - Extermity US: report states that L SURJIT is improved from previous ones on record. - IR: Dr. Morin consulted 3. Severe Cardiomyopathy on life vest - Dr. 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 HTN: - Continue home lisinopril, lasix 6.PAD s/p recent JAMES stents: - Plavix 75 PO QD 7. CKD stage 3 - Cr clearance 38 - Continue to trend creatinine - If creatinine decreases, will consult nephro 8. Uncontrolled DM: - A1C 9 - ISSS - Diabetic education - Dietitian consult 9. Constipation - Pt responded to lactulose, will D/C other bowel regiment but lactulose 10. Hyperkalemia: Improved - K 4.4 - Will recheck cmp tomorrow. 11. PPX: DVT: heparin SC GI: pepcid BID Further recs per Dr. Yara Del Cid DO Internal Medicine Resident PGY-1 <Robi Livingston - Last Filed: 09/12/18 06:45> Objective - Vital Signs/Intake and Output Vital Signs (last 24 hours): Temp Pulse Resp BP Pulse Ox 98.0 F 67 20 145/65 96 09/11/18 14:33 09/11/18 20:12 09/11/18 14:33 09/11/18 20:12 09/11/18 14:33 Intake and Output: 09/11/18 09/12/18 18:59 06:59 Intake Total 600 Balance 600 - Medications Medications: Current Medications Acetaminophen (Tylenol 325mg Tab) 650 mg PO Q4H PRN PRN Reason: Pain, Mild (1-3) Amlodipine Besylate (Norvasc) 5 mg PO DAILY [facility] Last Admin: 09/11/18 10:42 Dose: 5 mg Aspirin (Aspirin Chewable) 81 mg PO DAILY [facility] Last Admin: 09/11/18 10:43 Dose: 81 mg Atorvastatin Calcium (Lipitor) 40 mg PO DIN [facility] Last Admin: 09/11/18 20:12 Dose: 40 mg Carvedilol (Coreg) 6.25 mg PO BID [facility] Last Admin: 09/11/18 20:12 Dose: 6.25 mg Clopidogrel Bisulfate (Plavix) 75 mg PO DAILY [facility] Last Admin: 09/11/18 10:42 Dose: 75 mg Ergocalciferol (Drisdol 50,000 Intl Units Cap) 1 cap PO Q7D [facility] Last Admin: 09/09/18 13:40 Dose: 1 cap Famotidine (Pepcid) 10 mg PO 1000,2200 [facility] Last Admin: 09/11/18 22:23 Dose: 10 mg Gabapentin (Neurontin) 200 mg PO TID [facility]; Protocol Last Admin: 09/11/18 20:12 Dose: 200 mg Heparin Sodium (Porcine) (Heparin) 5,000 units SC Q8 [facility]; Protocol Last Admin: 09/11/18 22:23 Dose: 5,000 units Hydralazine HCl (Apresoline) 10 mg PO QID PRN PRN Reason: Systolic Blood Pressure Last Admin: 09/04/18 17:13 Dose: 10 mg Piperacillin Sod/Tazobactam Sod (Zosyn 3.375 In Ns 100ml) 100 mls @ 25 mls/hr IVPB Q8 [facility]; Protocol Stop: 09/13/18 14:01 Last Admin: 09/12/18 05:50 Dose: 25 mls/hr Linezolid (Zyvox 600mg/300ml D5w) 600 mg in 300 mls @ 200 mls/hr IVPB Q12 [facility]; Protocol Stop: 09/18/18 10:01 Last Admin: 09/11/18 22:22 Dose: 200 mls/hr Insulin Human Lispro (Humalog High) 0 units SC ACHS [facility]; Protocol Last Admin: 09/11/18 22:03 Dose: Not Given Lactulose (Enulose) 10 gm PO DAILY PRN PRN Reason: Constipation Last Admin: 09/11/18 10:45 Dose: 10 gm Lisinopril (Zestril) 20 mg PO DAILY [facility] Last Admin: 09/11/18 10:40 Dose: 20 mg - Labs Labs: 09/11/18 06:00 09/11/18 06:00 PT 12.3 SECONDS (9.4-12.5) 09/02/18 09:00 INR 1.07 09/02/18 09:00 APTT 42.4 Seconds (25.1-36.5) H 09/02/18 09:00 Attending/Attestation - Attestation I have personally seen and examined this patient.: Yes I have fully participated in the care of the patient.: Yes I have reviewed all pertinent clinical information, including history, physical exam and plan: Yes
--- NOTE | 2018-09-11 18:57 | CP.PCM.PN ---
Subjective - Date & Time of Evaluation Date of Evaluation: 09/11/18 Time of Evaluation: 10:00 - Subjective Subjective: Patient again has been refusing coreg due to headache that she says occurred even at half dose; otherwise feeling well; tolerating diet; urinating well; Objective - Vital Signs/Intake and Output Vital Signs (last 24 hours): Temp Pulse Resp BP Pulse Ox 98.0 F 74 20 117/58 L 96 09/11/18 14:33 09/11/18 14:33 09/11/18 14:33 09/11/18 14:33 09/11/18 14:33 Intake and Output: 09/11/18 09/11/18 06:59 18:59 Intake Total 800 Balance 800 - Medications Medications: Current Medications Acetaminophen (Tylenol 325mg Tab) 650 mg PO Q4H PRN PRN Reason: Pain, Mild (1-3) Amlodipine Besylate (Norvasc) 5 mg PO DAILY [facility] Last Admin: 09/11/18 10:42 Dose: 5 mg Aspirin (Aspirin Chewable) 81 mg PO DAILY [facility] Last Admin: 09/11/18 10:43 Dose: 81 mg Atorvastatin Calcium (Lipitor) 40 mg PO DIN [facility] Last Admin: 09/10/18 17:04 Dose: 40 mg Carvedilol (Coreg) 6.25 mg PO BID [facility] Last Admin: 09/11/18 10:50 Dose: 6.25 mg Clopidogrel Bisulfate (Plavix) 75 mg PO DAILY [facility] Last Admin: 09/11/18 10:42 Dose: 75 mg Ergocalciferol (Drisdol 50,000 Intl Units Cap) 1 cap PO Q7D [facility] Last Admin: 09/09/18 13:40 Dose: 1 cap Famotidine (Pepcid) 10 mg PO 1000,2200 [facility] Last Admin: 09/11/18 10:42 Dose: 10 mg Gabapentin (Neurontin) 200 mg PO TID [facility]; Protocol Last Admin: 09/11/18 14:31 Dose: 200 mg Heparin Sodium (Porcine) (Heparin) 5,000 units SC Q8 [facility]; Protocol Last Admin: 09/11/18 14:30 Dose: Not Given Hydralazine HCl (Apresoline) 10 mg PO QID PRN PRN Reason: Systolic Blood Pressure Last Admin: 09/04/18 17:13 Dose: 10 mg Piperacillin Sod/Tazobactam Sod (Zosyn 3.375 In Ns 100ml) 100 mls @ 25 mls/hr IVPB Q8 [facility]; Protocol Stop: 09/13/18 14:01 Last Admin: 09/11/18 14:32 Dose: 25 mls/hr Linezolid (Zyvox 600mg/300ml D5w) 600 mg in 300 mls @ 200 mls/hr IVPB Q12 [facility]; Protocol Stop: 09/18/18 10:01 Last Admin: 09/11/18 10:45 Dose: 200 mls/hr Insulin Human Lispro (Humalog High) 0 units SC ACHS [facility]; Protocol Last Admin: 09/11/18 16:49 Dose: Not Given Lactulose (Enulose) 10 gm PO DAILY PRN PRN Reason: Constipation Last Admin: 09/11/18 10:45 Dose: 10 gm Lisinopril (Zestril) 20 mg PO DAILY [facility] Last Admin: 09/11/18 10:40 Dose: 20 mg - Labs Labs: 09/11/18 06:00 09/11/18 06:00 PT 12.3 SECONDS (9.4-12.5) 09/02/18 09:00 INR 1.07 09/02/18 09:00 APTT 42.4 Seconds (25.1-36.5) H 09/02/18 09:00 - Constitutional Appears: Non-toxic, No Acute Distress - Eye Exam Eye Exam: Normal appearance Additional comments: pallor present; - Respiratory Exam Respiratory Exam: Clear to Ausculation Bilateral. absent: Respiratory Distress - Cardiovascular Exam Cardiovascular Exam: RRR, +S1, +S2 - GI/Abdominal Exam GI & Abdominal Exam: Soft. absent: Distended, Tenderness - Extremities Exam Additional comments: no leg edema; - Neurological Exam Neurological Exam: Alert, Awake - Psychiatric Exam Psychiatric exam: Normal Mood. absent: Agitated - Skin Skin Exam: Warm. absent: Cyanosis Assessment and Plan (1) Acute kidney injury Assessment & Plan: Likely just hemodynamic fluctuations of serum creatinine rather than true RADHA; could have some degree of intravascular volume depletion with uncontrolled BP; lasix held by primary team today, should resumed on d/c; Status: Acute (2) Anemia of renal disease Assessment & Plan: Hgb below goal, will give another dose of aranesp before d/c; Status: Acute (3) CHF (congestive heart failure) Assessment & Plan: With systolic dysfunction; currently appears euvolemic; explained to patient that she needs B-cam; agrees to try further reduced dose of coreg (6.25 mg bid); Status: Chronic (4) Hypertensive CKD (chronic kidney disease) Assessment & Plan: Still above goal (<130/80 for proteinuric kidney disease); continue current med s; will seek to increase lisinopril to 40 mg as outpatient (will need to be on concomitant potassium lowering med veltassa); Status: Chronic (5) CKD (chronic kidney disease), stage III Assessment & Plan: 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 NSAIDS, phosphate enema); Status: Chronic
--- NOTE | 2018-09-11 22:45 | OP ---
PROCEDURE DATE: 09/09/2018 PREOPERATIVE DIAGNOSIS: Left foot diabetic wound with infection and dehiscence of previous first ray amputation. POSTOPERATIVE DIAGNOSIS: Left foot diabetic wound with infection and dehiscence of previous first ray amputation. PROCEDURE: Left foot revision of partial first ray amputation. SURGEON: Reshma Murray DPM. USPS LETTER CARRIER: Guy Hester, PGY-1. TYPE OF ANESTHESIA: IV sedation with local. ANESTHESIA ADMINISTERED BY: Dr. Sanches. INDICATIONS: The patient is a 52-year-old female with the above diagnosis. The patient has exhausted all conservative treatments at this time and now requires surgical intervention. The patient signed a consent after careful explanation of risks, benefits, complications, and alternatives for surgical procedure. No guarantees were given nor implied. PREPARATION: The patient was brought into the operating room and kept in the hospital bed in a supine position. A time-out was performed for identification of the correct patient and procedure. After induction of IV sedation, 8 cc of a 1:1 mixture of 2% lidocaine plain and 0.5% Marcaine plain was injected in a Anaya block fashion to the left foot. The left foot was then prepped and draped in a normal sterile manner and the procedure began. DESCRIPTION OF PROCEDURE: Attention was then directed to the left partial first ray amputation site where a necrotic and nonviable tissue was incised with a #15 blade, an incision was then made over the first metatarsal proximally to expose the bone and was extended deep to bone. Periosteum was resected off bone using a delaney elevator and a #15 blade and with an Adson pickup. Once all necrotic and nonviable tissue was debrided from the wound site, a sagittal saw was used to resect the distal aspect of metatarsal bone to aid in closure, as well as gather clean margin. The specimen was passed off the field and sent for pathology to assess for clean margin. The surgical site was then irrigated with copious amounts of normal sterile saline mixed with antibiotic. The subcutaneous layers were re-approximated with 2-0 Vicryl and skin layers were re-approximated with 3-0 nylon in a simple suture and horizontal mattress technique. The site was packed with 1/4-inch iodoform packing and the left foot was dressed with Adaptic, TST and Steve. POSTOPERATIVE CONDITION: The patient tolerated the anesthesia and procedure well and was escorted to the floor with vital signs stable and neurovascular status intact to the left foot. Podiatry will continue to follow the patient while in-house and the patient will follow up with Dr. Murray upon discharge. Guy Hester DPM Reshma Murray DPM
[2018-09-12] MEDS: Piperacillin/Tazobact 3.375 gm 100 ML IVPB SCH ×4 (00:49→21:34)
[2018-09-12 07:22] LABS: BASO # 0.1 K/mm3 (0.0-2.0); BASO % 1.3 % (0.0-3.0); EOS # 0.6 (0.0-0.7); EOS % 7.7 % (1.5-5.0); GRAN # 4.96 (1.4-6.5); GRAN % 62.1 % (50.0-68.0); HEMOGLOBIN 8.2 g/dL (12.0-16.0); LYMPH # 1.7 (1.2-3.4); LYMPH % 20.7 % (22.0-35.0); MEAN CORPUSCULAR HGB CONC 32.2 g/dl (31.0-37.0); MEAN PLATELET VOLUME 8.5 fl (7.0-11.0); MONO # 0.7 (0.1-0.6); MONO % 8.2 % (1.0-6.0); RBC 2.93 10^6/uL (3.5-6.1); RED CELL DISTRIBUTION WIDTH 14.4 % (11.5-14.5)
[2018-09-12 07:45] LABS: ALB/GLOB RATIO 0.8 (1.1-1.8); ALBUMIN 3.2 g/dL (3.0-4.8); CALCIUM 8.6 mg/dL (8.4-10.5)
[2018-09-12] MEDS: Insulin Lispro (HUMAlog) HIGH Coverage SC SCH (07:55)
--- NOTE | 2018-09-12 09:10 | CP.PCM.PN ---
<Lovely Garcia - Last Filed: 09/12/18 09:08> Subjective - Date & Time of Evaluation Date of Evaluation: 09/12/18 Time of Evaluation: 09:08 - Subjective Subjective: Podiatry progress note for Dr. Laboy 52 yo female seen and evaluated at bedside with Dr. Laboy. Patient is Resting comfortably. No acute events overnight. Dressing appears clean dry and intact. Denies N/V/F/C/SOB/CP. Has no pain to her surgical site. Has no other pedal complaints at this time. Objective - Vital Signs/Intake and Output Vital Signs (last 24 hours): Temp Pulse Resp BP Pulse Ox 98.0 F 67 20 145/65 96 09/11/18 14:33 09/11/18 20:12 09/11/18 14:33 09/11/18 20:12 09/11/18 14:33 Intake and Output: 09/12/18 09/12/18 06:59 18:59 Intake Total 600 Balance 600 - Medications Medications: Current Medications Acetaminophen (Tylenol 325mg Tab) 650 mg PO Q4H PRN PRN Reason: Pain, Mild (1-3) Amlodipine Besylate (Norvasc) 5 mg PO DAILY [facility] Last Admin: 09/11/18 10:42 Dose: 5 mg Aspirin (Aspirin Chewable) 81 mg PO DAILY [facility] Last Admin: 09/11/18 10:43 Dose: 81 mg Atorvastatin Calcium (Lipitor) 40 mg PO DIN [facility] Last Admin: 09/11/18 20:12 Dose: 40 mg Carvedilol (Coreg) 6.25 mg PO BID [facility] Last Admin: 09/11/18 20:12 Dose: 6.25 mg Clopidogrel Bisulfate (Plavix) 75 mg PO DAILY [facility] Last Admin: 09/11/18 10:42 Dose: 75 mg Ergocalciferol (Drisdol 50,000 Intl Units Cap) 1 cap PO Q7D [facility] Last Admin: 09/09/18 13:40 Dose: 1 cap Famotidine (Pepcid) 10 mg PO 1000,2200 [facility] Last Admin: 09/11/18 22:23 Dose: 10 mg Gabapentin (Neurontin) 200 mg PO TID [facility]; Protocol Last Admin: 09/11/18 20:12 Dose: 200 mg Heparin Sodium (Porcine) (Heparin) 5,000 units SC Q8 [facility]; Protocol Last Admin: 09/12/18 08:29 Dose: Not Given Hydralazine HCl (Apresoline) 10 mg PO QID PRN PRN Reason: Systolic Blood Pressure Last Admin: 09/04/18 17:13 Dose: 10 mg Piperacillin Sod/Tazobactam Sod (Zosyn 3.375 In Ns 100ml) 100 mls @ 25 mls/hr IVPB Q8 [facility]; Protocol Stop: 09/13/18 14:01 Last Admin: 09/12/18 05:50 Dose: 25 mls/hr Linezolid (Zyvox 600mg/300ml D5w) 600 mg in 300 mls @ 200 mls/hr IVPB Q12 [facility]; Protocol Stop: 09/18/18 10:01 Last Admin: 09/11/18 22:22 Dose: 200 mls/hr Insulin Human Lispro (Humalog High) 0 units SC ACHS [facility]; Protocol Last Admin: 09/12/18 07:55 Dose: 2 units Lactulose (Enulose) 10 gm PO DAILY PRN PRN Reason: Constipation Last Admin: 09/11/18 10:45 Dose: 10 gm Lisinopril (Zestril) 20 mg PO DAILY [facility] Last Admin: 09/11/18 10:40 Dose: 20 mg - Labs Labs: 09/12/18 06:00 09/12/18 06:00 PT 12.3 SECONDS (9.4-12.5) 09/02/18 09:00 INR 1.07 09/02/18 09:00 APTT 42.4 Seconds (25.1-36.5) H 09/02/18 09:00 - Constitutional Appears: Well, Non-toxic, No Acute Distress - Head Exam Head Exam: ATRAUMATIC, NORMOCEPHALIC - Extremities Exam Additional comments: LLE focused exam: Vasc: DP/PT pulses palpable. Temp gradient warm to cool from proximal to distal, Cap refill < 3 seconds to all remaining digits, no edema noted to surgical site. Neuro: Gross sensation diminished, protective sensation diminished/absent Derm: surgical site appears well coapted, sutures intact, minimal maceration noted, mild sanguinous drainage appreciated, no pus or purulent discharge noted, no malodor, mild periwound erythema appreciate, no streaking or clinical signs of infection MSK: Left hallux amputation, no tenderness upon calf compression, mild tenderness upon palpation of surgical site. Muscle power intact 5/5 to all groups. - Neurological Exam Neurological Exam: Alert, Awake, Oriented x3 - Psychiatric Exam Psychiatric exam: Normal Affect, Normal Mood Assessment and Plan - Assessment and Plan (Free Text) Assessment: 52 yo female POD 3 revision of left first ray partial amputation Plan: Patient seen and evaluated at bedside with Dr. Laboy Charts and labs reviewed - afebrile, absent leukocytosis Surgical site cleansed with normal sterile saline packing removed, dressed with adaptic, maxorb, DSD, ABD, kerlix, and NOEMÍ lightly Ordered PT consult, patient to weight bear in fore-foor wedge offloading shoe Podiatry will continue to follow up the patient while in house <Jamison Laboy - Last Filed: 09/15/18 13:01> Objective - Vital Signs/Intake and Output Vital Signs (last 24 hours): Temp Pulse Resp BP Pulse Ox 98.2 F 68 20 165/68 H 97 09/15/18 06:00 09/15/18 09:48 09/15/18 06:00 09/15/18 09:48 09/15/18 06:00 Intake and Output: 09/15/18 09/15/18 06:59 18:59 Intake Total 900 Balance 900 - Medications Medications: Current Medications Acetaminophen (Tylenol 325mg Tab) 650 mg PO Q4H PRN PRN Reason: Pain, Mild (1-3) Last Admin: 09/12/18 16:57 Dose: 650 mg Amlodipine Besylate (Norvasc) 5 mg PO DAILY [facility] Last Admin: 09/15/18 09:46 Dose: 5 mg Aspirin (Aspirin Chewable) 81 mg PO DAILY [facility] Last Admin: 09/15/18 09:48 Dose: 81 mg Atorvastatin Calcium (Lipitor) 40 mg PO DIN [facility] Last Admin: 09/14/18 17:00 Dose: 40 mg Clopidogrel Bisulfate (Plavix) 75 mg PO DAILY [facility] Last Admin: 09/15/18 09:48 Dose: 75 mg Ergocalciferol (Drisdol 50,000 Intl Units Cap) 1 cap PO Q7D [facility] Last Admin: 09/09/18 13:40 Dose: 1 cap Famotidine (Pepcid) 10 mg PO 1000,2200 [facility] Last Admin: 09/15/18 09:47 Dose: 10 mg Gabapentin (Neurontin) 200 mg PO TID [facility]; Protocol Last Admin: 09/15/18 09:47 Dose: 200 mg Heparin Sodium (Porcine) (Heparin) 5,000 units SC Q8 [facility]; Protocol Last Admin: 09/15/18 05:19 Dose: 5,000 units Hydralazine HCl (Apresoline) 10 mg PO QID PRN PRN Reason: Systolic Blood Pressure Last Admin: 09/04/18 17:13 Dose: 10 mg Linezolid (Zyvox 600mg/300ml D5w) 600 mg in 300 mls @ 200 mls/hr IVPB Q12 [facility]; Protocol Stop: 09/18/18 10:01 Last Admin: 09/15/18 09:40 Dose: 200 mls/hr Piperacillin Sod/Tazobactam Sod (Zosyn 2.25 Gm In 0.9% 100 Ml) 2.25 gm in 100 mls @ 100 mls/hr IVPB Q8 [facility]; Protocol Last Admin: 09/15/18 05:19 Dose: 100 mls/hr Insulin Detemir (Levemir) 10 unit SC BID [facility] Last Admin: 09/15/18 09:41 Dose: 10 unit Insulin Human Lispro (Humalog Med) 0 units SC ACHS [facility]; Protocol Last Admin: 09/15/18 11:58 Dose: 5 unit Lactulose (Enulose) 10 gm PO DAILY PRN PRN Reason: Constipation Last Admin: 09/11/18 10:45 Dose: 10 gm Lisinopril (Zestril) 20 mg PO DAILY [facility] Last Admin: 09/15/18 09:48 Dose: 20 mg Metoprolol Succinate (Toprol Xl) 25 mg PO BRK [facility] Last Admin: 09/15/18 08:28 Dose: 25 mg - Labs Labs: 09/15/18 07:00 09/15/18 07:00 PT 12.3 SECONDS (9.4-12.5) 09/02/18 09:00 INR 1.07 09/02/18 09:00 APTT 42.4 Seconds (25.1-36.5) H 09/02/18 09:00 Attending/Attestation - Attestation I have personally seen and examined this patient.: Yes I have fully participated in the care of the patient.: Yes I have reviewed all pertinent clinical information, including history, physical exam and plan: Yes
[2018-09-12] MEDS: Linezolid 600 mg in D5W 300 ml 600 MG/300 ML BAG IVPB SCH ×2 (10:31→21:35)
[2018-09-12] MEDS: Insulin Lispro (humaLOG) MEDIUM Coverage SC SCH ×3 (12:08→23:30)
--- NOTE | 2018-09-12 12:38 | CP.PCM.PN ---
Subjective - Date & Time of Evaluation Date of Evaluation: 09/12/18 Time of Evaluation: 08:20 - Subjective Subjective: No fevers, no nausea, no diarrhea, no increase in pain in the left foot. Objective - Vital Signs/Intake and Output Vital Signs (last 24 hours): Temp Pulse Resp BP Pulse Ox 98.0 F 67 20 145/65 96 09/11/18 14:33 09/11/18 20:12 09/11/18 14:33 09/11/18 20:12 09/11/18 14:33 Intake and Output: 09/11/18 09/12/18 18:59 06:59 Intake Total 480 Balance 480 - Medications Medications: Current Medications Acetaminophen (Tylenol 325mg Tab) 650 mg PO Q4H PRN PRN Reason: Pain, Mild (1-3) Amlodipine Besylate (Norvasc) 5 mg PO DAILY [facility] Last Admin: 09/11/18 10:42 Dose: 5 mg Aspirin (Aspirin Chewable) 81 mg PO DAILY [facility] Last Admin: 09/11/18 10:43 Dose: 81 mg Atorvastatin Calcium (Lipitor) 40 mg PO DIN [facility] Last Admin: 09/11/18 20:12 Dose: 40 mg Carvedilol (Coreg) 6.25 mg PO BID [facility] Last Admin: 09/11/18 20:12 Dose: 6.25 mg Clopidogrel Bisulfate (Plavix) 75 mg PO DAILY [facility] Last Admin: 09/11/18 10:42 Dose: 75 mg Ergocalciferol (Drisdol 50,000 Intl Units Cap) 1 cap PO Q7D [facility] Last Admin: 09/09/18 13:40 Dose: 1 cap Famotidine (Pepcid) 10 mg PO 1000,2200 [facility] Last Admin: 09/11/18 10:42 Dose: 10 mg Gabapentin (Neurontin) 200 mg PO TID [facility]; Protocol Last Admin: 09/11/18 20:12 Dose: 200 mg Heparin Sodium (Porcine) (Heparin) 5,000 units SC Q8 [facility]; Protocol Last Admin: 09/11/18 14:30 Dose: Not Given Hydralazine HCl (Apresoline) 10 mg PO QID PRN PRN Reason: Systolic Blood Pressure Last Admin: 09/04/18 17:13 Dose: 10 mg Piperacillin Sod/Tazobactam Sod (Zosyn 3.375 In Ns 100ml) 100 mls @ 25 mls/hr IVPB Q8 [facility]; Protocol Stop: 09/13/18 14:01 Last Admin: 09/11/18 14:32 Dose: 25 mls/hr Linezolid (Zyvox 600mg/300ml D5w) 600 mg in 300 mls @ 200 mls/hr IVPB Q12 [facility]; Protocol Stop: 09/18/18 10:01 Last Admin: 09/11/18 10:45 Dose: 200 mls/hr Insulin Human Lispro (Humalog High) 0 units SC ACHS [facility]; Protocol Last Admin: 09/11/18 16:49 Dose: Not Given Lactulose (Enulose) 10 gm PO DAILY PRN PRN Reason: Constipation Last Admin: 09/11/18 10:45 Dose: 10 gm Lisinopril (Zestril) 20 mg PO DAILY [facility] Last Admin: 09/11/18 10:40 Dose: 20 mg - Labs Labs: 09/11/18 06:00 09/11/18 06:00 PT 12.3 SECONDS (9.4-12.5) 09/02/18 09:00 INR 1.07 09/02/18 09:00 APTT 42.4 Seconds (25.1-36.5) H 09/02/18 09:00 - Constitutional Appears: Chronically Ill - Head Exam Head Exam: NORMAL INSPECTION - Respiratory Exam Respiratory Exam: Decreased Breath Sounds - Cardiovascular Exam Cardiovascular Exam: +S1, +S2 - GI/Abdominal Exam GI & Abdominal Exam: Soft. absent: Tenderness - Extremities Exam Additional comments: left foot with dressings in place Assessment and Plan - Assessment and Plan (Free Text) Plan: Assessment left first toe stump cellulitis with clinical osteomyelitis S/P 1st ray amputation again history of sepsis due to left hallux cellulitis / gangrene with methicillin- resistant Staph aureus bacteremia, toe growing MSSA and now also Enterobactere with osteomyelitis S/P amputation cardiomyopathy with EF 35-40% DM HTN dyslipdemia Plan continue Zyvox and Zosyn Follow up OR cx and OR pathology will continue to monitor clinically
--- NOTE | 2018-09-12 15:18 | CP.PCM.PN ---
<Cyril Del Cid - Last Filed: 09/12/18 16:43> Subjective - Date & Time of Evaluation Date of Evaluation: 09/12/18 Time of Evaluation: 15:16 - Subjective Subjective: Cyril Del Cid DO PGY-1 Hospitalist Progress Note for Dr. Stevenson: Pt was seen and examined this morning at bedside. She denies any acute overnight events. She states that she is currently not having any chest pain, fevers, chills, n/v, c/d, abd pain, dysuria, hematuria, or frequency. She states that her pins and needles sensation is improved since being on the gabapentin. She states that she is not having any pain in the L foot s/p L foot revision of partial first ray amputation. Pt denies any other acute complaints at this time. Objective - Vital Signs/Intake and Output Vital Signs (last 24 hours): Temp Pulse Resp BP Pulse Ox 97.4 F L 72 18 155/72 H 98 09/12/18 06:00 09/12/18 10:39 09/12/18 06:00 09/12/18 10:39 09/12/18 06:00 Intake and Output: 09/12/18 09/12/18 06:59 18:59 Intake Total 600 Balance 600 - Medications Medications: Current Medications Acetaminophen (Tylenol 325mg Tab) 650 mg PO Q4H PRN PRN Reason: Pain, Mild (1-3) Amlodipine Besylate (Norvasc) 5 mg PO DAILY [facility] Last Admin: 09/12/18 10:38 Dose: 5 mg Aspirin (Aspirin Chewable) 81 mg PO DAILY [facility] Last Admin: 09/12/18 10:38 Dose: 81 mg Atorvastatin Calcium (Lipitor) 40 mg PO DIN [facility] Last Admin: 09/11/18 20:12 Dose: 40 mg Carvedilol (Coreg) 6.25 mg PO BID [facility] Last Admin: 09/12/18 10:39 Dose: 6.25 mg Clopidogrel Bisulfate (Plavix) 75 mg PO DAILY [facility] Last Admin: 09/12/18 10:38 Dose: 75 mg Ergocalciferol (Drisdol 50,000 Intl Units Cap) 1 cap PO Q7D [facility] Last Admin: 09/09/18 13:40 Dose: 1 cap Famotidine (Pepcid) 10 mg PO 1000,2200 [facility] Last Admin: 09/12/18 10:38 Dose: 10 mg Gabapentin (Neurontin) 200 mg PO TID [facility]; Protocol Last Admin: 09/12/18 14:01 Dose: 200 mg Heparin Sodium (Porcine) (Heparin) 5,000 units SC Q8 [facility]; Protocol Last Admin: 09/12/18 14:01 Dose: 5,000 units Hydralazine HCl (Apresoline) 10 mg PO QID PRN PRN Reason: Systolic Blood Pressure Last Admin: 09/04/18 17:13 Dose: 10 mg Piperacillin Sod/Tazobactam Sod (Zosyn 3.375 In Ns 100ml) 100 mls @ 25 mls/hr IVPB Q8 [facility]; Protocol Stop: 09/13/18 14:01 Last Admin: 09/12/18 14:03 Dose: 25 mls/hr Linezolid (Zyvox 600mg/300ml D5w) 600 mg in 300 mls @ 200 mls/hr IVPB Q12 [facility]; Protocol Stop: 09/18/18 10:01 Last Admin: 09/12/18 10:31 Dose: 200 mls/hr Insulin Detemir (Levemir) 5 unit SC BID [facility] Insulin Human Lispro (Humalog Med) 0 units SC ACHS [facility]; Protocol Last Admin: 09/12/18 12:08 Dose: 7 unit Lactulose (Enulose) 10 gm PO DAILY PRN PRN Reason: Constipation Last Admin: 09/11/18 10:45 Dose: 10 gm Lisinopril (Zestril) 20 mg PO DAILY [facility] Last Admin: 09/12/18 10:37 Dose: 20 mg - Labs Labs: 09/12/18 06:00 09/12/18 06:00 PT 12.3 SECONDS (9.4-12.5) 09/02/18 09:00 INR 1.07 09/02/18 09:00 APTT 42.4 Seconds (25.1-36.5) H 09/02/18 09:00 - Constitutional Appears: Well, Non-toxic, No Acute Distress - Head Exam Head Exam: ATRAUMATIC, NORMAL INSPECTION, NORMOCEPHALIC - Eye Exam Eye Exam: EOMI, Normal appearance, PERRL - Respiratory Exam Respiratory Exam: Clear to Ausculation Bilateral, NORMAL BREATHING PATTERN. absent: Accessory Muscle Use, Decreased Breath Sounds, Rales, Rhonchi, Wheezes, Respiratory Distress, Stridor - Cardiovascular Exam Cardiovascular Exam: RRR, +S1, +S2. absent: Gallop, Rubs - GI/Abdominal Exam GI & Abdominal Exam: Soft, Normal Bowel Sounds. absent: Firm, Rigid, Tenderness - Extremities Exam Additional comments: Pt has covering over L foot, no edema noted at L ankle and LLE dressings c/d/i - Back Exam Back Exam: NORMAL INSPECTION. absent: CVA tenderness (L), CVA tenderness (R) - Neurological Exam Neurological Exam: Alert, Awake, Oriented x3 - Psychiatric Exam Psychiatric exam: Normal Affect, Normal Mood - Skin Skin Exam: Dry, Intact (Except where noted above), Normal Color, Warm Assessment and Plan - Assessment and Plan (Free Text) Assessment: Ms Hernandez, 52 F, PMHx uncontrolled diabetes s/p left great toe amputation, severe cardiomyopathy on life vest since December 2017, CKD 3, peripheral artery disease s/p recent JAMES(s) placement at E admitted for nonhealing surgical wound s/p left great toe amputation (Jul 2018) possibly due to uncontrolled diabetes and poor circulation secondary to PAD. She will require IV antibiotics & I&D for cellulitis. L foot XR came back probable for osteo in the head of the 1st metatarsal. Pt is now s/p left foot revision of partial first ray amputation which was done yesterday (09/09). Awaiting cultures so we can get ID recs regarding abx and duration. Plan: 1. E Cellulitis R/O osteomyelitis with leukocytosis s/p L foot revision of partial first ray amputation - Kavitha on board - ID consult - Blood cultures: (-) - Trend WBC. WBC is 9.9 now - L Foot XR: Probable osteo at head of 1st metatarsal - Arterial doppler of L lower extremity shows improvement compared to prior studies. - As per cardio pt is high risk given her cardiac and pulm issues, but is optimized at this time for OR. - Will follow up wound culture results from OR, will follow ID recs upon results from culture. 2. Non-healing wound possibly due to poor circulation - Extermity US: report states that L SURJIT is improved from previous ones on record. - IR: Dr. Morin consulted 3. Severe Cardiomyopathy on life vest - Dr. Caldwell: D/tiffanie life vest, consulted for cardic risk assessment for surgery - Telemetry 4. 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 HTN: - Continue home lisinopril, lasix 6.PAD s/p recent JAMES stents: - Plavix 75 PO QD 7. CKD stage 3 - Cr clearance 38 - Continue to trend creatinine - If creatinine decreases, will consult nephro 8. Uncontrolled DM: - A1C 9 - ISSS - Levamir 5 units BID - Diabetic education - Dietitian consult 9. Constipation - Pt responded to lactulose, will D/C other bowel regiment but lactulose 10. Hyperkalemia: Improved - K 4.4 - Will recheck cmp tomorrow. 11. PPX: DVT: heparin SC GI: pepcid BID Case seen and discussed with Dr. Elva Del Cid DO Internal Medicine Resident PGY-1 <Yi Stevenson - Last Filed: 09/15/18 08:59> Objective - Vital Signs/Intake and Output Vital Signs (last 24 hours): Temp Pulse Resp BP Pulse Ox 98.2 F 64 20 140/65 97 09/15/18 06:00 09/15/18 08:28 09/15/18 06:00 09/15/18 08:28 09/15/18 06:00 Intake and Output: 09/15/18 09/15/18 06:59 18:59 Intake Total 900 Balance 900 - Medications Medications: Current Medications Acetaminophen (Tylenol 325mg Tab) 650 mg PO Q4H PRN PRN Reason: Pain, Mild (1-3) Last Admin: 09/12/18 16:57 Dose: 650 mg Amlodipine Besylate (Norvasc) 5 mg PO DAILY [facility] Last Admin: 09/14/18 09:42 Dose: 5 mg Aspirin (Aspirin Chewable) 81 mg PO DAILY [facility] Last Admin: 09/14/18 09:42 Dose: 81 mg Atorvastatin Calcium (Lipitor) 40 mg PO DIN [facility] Last Admin: 09/14/18 17:00 Dose: 40 mg Clopidogrel Bisulfate (Plavix) 75 mg PO DAILY [facility] Last Admin: 09/14/18 09:42 Dose: 75 mg Ergocalciferol (Drisdol 50,000 Intl Units Cap) 1 cap PO Q7D [facility] Last Admin: 09/09/18 13:40 Dose: 1 cap Famotidine (Pepcid) 10 mg PO 1000,2200 [facility] Last Admin: 09/14/18 22:07 Dose: 10 mg Gabapentin (Neurontin) 200 mg PO TID [facility]; Protocol Last Admin: 09/14/18 17:03 Dose: 200 mg Heparin Sodium (Porcine) (Heparin) 5,000 units SC Q8 [facility]; Protocol Last Admin: 09/15/18 05:19 Dose: 5,000 units Hydralazine HCl (Apresoline) 10 mg PO QID PRN PRN Reason: Systolic Blood Pressure Last Admin: 09/04/18 17:13 Dose: 10 mg Linezolid (Zyvox 600mg/300ml D5w) 600 mg in 300 mls @ 200 mls/hr IVPB Q12 [facility]; Protocol Stop: 09/18/18 10:01 Last Admin: 09/14/18 23:16 Dose: 200 mls/hr Piperacillin Sod/Tazobactam Sod (Zosyn 2.25 Gm In 0.9% 100 Ml) 2.25 gm in 100 mls @ 100 mls/hr IVPB Q8 [facility]; Protocol Last Admin: 09/15/18 05:19 Dose: 100 mls/hr Insulin Detemir (Levemir) 10 unit SC BID [facility] Last Admin: 09/14/18 17:05 Dose: 10 unit Insulin Human Lispro (Humalog Med) 0 units SC ACHS [facility]; Protocol Last Admin: 09/15/18 07:27 Dose: Not Given Lactulose (Enulose) 10 gm PO DAILY PRN PRN Reason: Constipation Last Admin: 09/11/18 10:45 Dose: 10 gm Lisinopril (Zestril) 20 mg PO DAILY [facility] Last Admin: 09/14/18 09:42 Dose: 20 mg Metoprolol Succinate (Toprol Xl) 25 mg PO BRK [facility] Last Admin: 09/15/18 08:28 Dose: 25 mg - Labs Labs: 09/15/18 07:00 09/15/18 07:00 PT 12.3 SECONDS (9.4-12.5) 09/02/18 09:00 INR 1.07 09/02/18 09:00 APTT 42.4 Seconds (25.1-36.5) H 09/02/18 09:00 Attending/Attestation - Attestation I have personally seen and examined this patient.: Yes I have fully participated in the care of the patient.: Yes I have reviewed all pertinent clinical information, including history, physical exam and plan: Yes Notes (Text): 09/15/18 08:59 Medical record note made by the resident after discussion with my direction and input after the patient was personally seen and examined by me. I have reviewed the chart and agree that the record accurately reflects by personal performance of the history, physical exam, data review, and medical decision-making, in the course for the patient. I have also personally directed the plan of care.
[2018-09-12] MEDS: Insulin Detemir 100 units/ml Vial (Levemir) SC SCH (16:58)
[2018-09-13] MEDS: Piperacillin/Tazobact 3.375 gm 100 ML IVPB SCH ×2 (06:03→13:43)
[2018-09-13 07:26] LABS: BASO # 0.12 K/mm3 (0.0-2.0); BASO % 1.4 % (0.0-3.0); EOS # 0.6 (0.0-0.7); GRAN # 5.9 (1.4-6.5); GRAN % 66.5 % (50.0-68.0); HEMOGLOBIN 8.6 g/dL (12.0-16.0); LYMPH # 1.6 (1.2-3.4); LYMPH % 17.9 % (22.0-35.0); MEAN CELL VOLUME 87.8 fl (80.0-105.0); MEAN CORPUSCULAR HEMOGLOBIN 28.3 pg (25.0-35.0); MEAN CORPUSCULAR HGB CONC 32.2 g/dl (31.0-37.0); MEAN PLATELET VOLUME 8.5 fl (7.0-11.0); MONO # 0.6 (0.1-0.6); MONO % 7.2 % (1.0-6.0); RBC 3.04 10^6/uL (3.5-6.1); RED CELL DISTRIBUTION WIDTH 14.5 % (11.5-14.5); WHITE BLOOD COUNT 8.9 10^3/uL (4.5-11.0)
[2018-09-13 07:42] LABS: ALB/GLOB RATIO 0.9 (1.1-1.8); ALBUMIN 3.3 g/dL (3.0-4.8)
[2018-09-13] MEDS: Insulin Lispro (humaLOG) MEDIUM Coverage SC SCH ×4 (08:50→22:47)
--- NOTE | 2018-09-13 10:17 | CP.PCM.PN ---
Subjective - Date & Time of Evaluation Date of Evaluation: 09/13/18 Time of Evaluation: 10:16 - Subjective Subjective: Podiatry progress note for Dr. Murray 52 yo female seen and evaluated s/p POD4 revision of left first ray partial amputation. Patient is Resting comfortably. No acute events overnight. Dressing appears clean dry and intact. Denies N/V/F/C/SOB/CP. Has no pain to her surgical site. Has no other pedal complaints at this time. Objective - Vital Signs/Intake and Output Vital Signs (last 24 hours): Temp Pulse Resp BP Pulse Ox 98.3 F 72 19 147/69 96 09/13/18 06:00 09/13/18 06:00 09/13/18 06:00 09/13/18 06:00 09/13/18 06:00 Intake and Output: 09/13/18 09/13/18 06:59 18:59 Intake Total 0 Balance 0 - Medications Medications: Current Medications Acetaminophen (Tylenol 325mg Tab) 650 mg PO Q4H PRN PRN Reason: Pain, Mild (1-3) Last Admin: 09/12/18 16:57 Dose: 650 mg Amlodipine Besylate (Norvasc) 5 mg PO DAILY [facility] Last Admin: 09/12/18 10:38 Dose: 5 mg Aspirin (Aspirin Chewable) 81 mg PO DAILY [facility] Last Admin: 09/12/18 10:38 Dose: 81 mg Atorvastatin Calcium (Lipitor) 40 mg PO DIN [facility] Last Admin: 09/12/18 16:58 Dose: 40 mg Carvedilol (Coreg) 6.25 mg PO BID [facility] Last Admin: 09/12/18 17:49 Dose: Not Given Clopidogrel Bisulfate (Plavix) 75 mg PO DAILY [facility] Last Admin: 09/12/18 10:38 Dose: 75 mg Ergocalciferol (Drisdol 50,000 Intl Units Cap) 1 cap PO Q7D [facility] Last Admin: 09/09/18 13:40 Dose: 1 cap Famotidine (Pepcid) 10 mg PO 1000,2200 [facility] Last Admin: 09/12/18 21:33 Dose: 10 mg Gabapentin (Neurontin) 200 mg PO TID [facility]; Protocol Last Admin: 09/12/18 17:50 Dose: 200 mg Heparin Sodium (Porcine) (Heparin) 5,000 units SC Q8 [facility]; Protocol Last Admin: 09/13/18 06:02 Dose: 5,000 units Hydralazine HCl (Apresoline) 10 mg PO QID PRN PRN Reason: Systolic Blood Pressure Last Admin: 09/04/18 17:13 Dose: 10 mg Piperacillin Sod/Tazobactam Sod (Zosyn 3.375 In Ns 100ml) 100 mls @ 25 mls/hr IVPB Q8 [facility]; Protocol Stop: 09/13/18 14:01 Last Admin: 09/13/18 06:03 Dose: 25 mls/hr Linezolid (Zyvox 600mg/300ml D5w) 600 mg in 300 mls @ 200 mls/hr IVPB Q12 [facility]; Protocol Stop: 09/18/18 10:01 Last Admin: 09/12/18 21:35 Dose: 200 mls/hr Insulin Detemir (Levemir) 5 unit SC BID [facility] Last Admin: 09/12/18 16:58 Dose: Not Given Insulin Human Lispro (Humalog Med) 0 units SC ACHS [facility]; Protocol Last Admin: 09/13/18 08:50 Dose: 3 unit Lactulose (Enulose) 10 gm PO DAILY PRN PRN Reason: Constipation Last Admin: 09/11/18 10:45 Dose: 10 gm Lisinopril (Zestril) 20 mg PO DAILY [facility] Last Admin: 09/12/18 10:37 Dose: 20 mg - Labs Labs: 09/13/18 07:00 09/13/18 07:00 PT 12.3 SECONDS (9.4-12.5) 09/02/18 09:00 INR 1.07 09/02/18 09:00 APTT 42.4 Seconds (25.1-36.5) H 09/02/18 09:00 - Constitutional Appears: Well, Non-toxic, No Acute Distress - Head Exam Head Exam: ATRAUMATIC, NORMOCEPHALIC - Extremities Exam Additional comments: LLE focused exam: Vasc: DP/PT pulses palpable. Temp gradient warm to cool from proximal to distal, Cap refill < 3 seconds to all remaining digits, no edema noted to surgical site. Neuro: Gross sensation diminished, protective sensation diminished/absent Derm: surgical site appears well coapted, sutures intact, minimal maceration not ed, mild sanguinous drainage appreciated, no pus or purulent discharge noted, no malodor, mild periwound erythema appreciate, no streaking or clinical signs of infection MSK: Left hallux amputation, no tenderness upon calf compression, mild tenderness upon palpation of surgical site. Muscle power intact 5/5 to all groups. - Neurological Exam Neurological Exam: Alert, Awake, Oriented x3 - Psychiatric Exam Psychiatric exam: Normal Affect, Normal Mood Assessment and Plan - Assessment and Plan (Free Text) Assessment: 52 yo female POD 4 revision of left first ray partial amputation Plan: Patient seen and evaluated at bedside for Dr Murray Charts and labs reviewed - afebrile, absent leukocytosis Surgical site cleansed with normal sterile saline packing removed, dressed with adaptic, maxorb, DSD, ABD, kerlix, and NOEMÍ lightly Ordered PT consult, patient to weight bear in fore-foor wedge offloading shoe Podiatry will continue to follow up the patient while in house
[2018-09-13] MEDS: Linezolid 600 mg in D5W 300 ml 600 MG/300 ML BAG IVPB SCH ×2 (10:36→21:50)
[2018-09-13] MEDS: Insulin Detemir 100 units/ml Vial (Levemir) SC SCH ×2 (10:41→17:22)
--- NOTE | 2018-09-13 11:42 | CP.PCM.PN ---
Subjective - Date & Time of Evaluation Date of Evaluation: 09/13/18 Time of Evaluation: 09:05 - Subjective Subjective: Resting comfortably in bed, no fevers. Objective - Vital Signs/Intake and Output Vital Signs (last 24 hours): Temp Pulse Resp BP Pulse Ox 97.4 F L 72 18 155/72 H 98 09/12/18 06:00 09/12/18 10:39 09/12/18 06:00 09/12/18 10:39 09/12/18 06:00 Intake and Output: 09/12/18 09/12/18 06:59 18:59 Intake Total 600 Balance 600 - Medications Medications: Current Medications Acetaminophen (Tylenol 325mg Tab) 650 mg PO Q4H PRN PRN Reason: Pain, Mild (1-3) Amlodipine Besylate (Norvasc) 5 mg PO DAILY [facility] Last Admin: 09/12/18 10:38 Dose: 5 mg Aspirin (Aspirin Chewable) 81 mg PO DAILY [facility] Last Admin: 09/12/18 10:38 Dose: 81 mg Atorvastatin Calcium (Lipitor) 40 mg PO DIN [facility] Last Admin: 09/11/18 20:12 Dose: 40 mg Carvedilol (Coreg) 6.25 mg PO BID [facility] Last Admin: 09/12/18 10:39 Dose: 6.25 mg Clopidogrel Bisulfate (Plavix) 75 mg PO DAILY [facility] Last Admin: 09/12/18 10:38 Dose: 75 mg Ergocalciferol (Drisdol 50,000 Intl Units Cap) 1 cap PO Q7D [facility] Last Admin: 09/09/18 13:40 Dose: 1 cap Famotidine (Pepcid) 10 mg PO 1000,2200 [facility] Last Admin: 09/12/18 10:38 Dose: 10 mg Gabapentin (Neurontin) 200 mg PO TID [facility]; Protocol Last Admin: 09/12/18 10:39 Dose: 200 mg Heparin Sodium (Porcine) (Heparin) 5,000 units SC Q8 [facility]; Protocol Last Admin: 09/12/18 08:29 Dose: Not Given Hydralazine HCl (Apresoline) 10 mg PO QID PRN PRN Reason: Systolic Blood Pressure Last Admin: 09/04/18 17:13 Dose: 10 mg Piperacillin Sod/Tazobactam Sod (Zosyn 3.375 In Ns 100ml) 100 mls @ 25 mls/hr IVPB Q8 [facility]; Protocol Stop: 09/13/18 14:01 Last Admin: 09/12/18 05:50 Dose: 25 mls/hr Linezolid (Zyvox 600mg/300ml D5w) 600 mg in 300 mls @ 200 mls/hr IVPB Q12 [facility]; Protocol Stop: 09/18/18 10:01 Last Admin: 09/12/18 10:31 Dose: 200 mls/hr Insulin Detemir (Levemir) 5 unit SC BID [facility] Insulin Human Lispro (Humalog Med) 0 units SC ACHS [facility]; Protocol Last Admin: 09/12/18 12:08 Dose: 7 unit Lactulose (Enulose) 10 gm PO DAILY PRN PRN Reason: Constipation Last Admin: 09/11/18 10:45 Dose: 10 gm Lisinopril (Zestril) 20 mg PO DAILY [facility] Last Admin: 09/12/18 10:37 Dose: 20 mg - Labs Labs: 09/12/18 06:00 09/12/18 06:00 PT 12.3 SECONDS (9.4-12.5) 09/02/18 09:00 INR 1.07 09/02/18 09:00 APTT 42.4 Seconds (25.1-36.5) H 09/02/18 09:00 - Constitutional Appears: Chronically Ill - Head Exam Head Exam: NORMAL INSPECTION - Respiratory Exam Respiratory Exam: Decreased Breath Sounds - Cardiovascular Exam Cardiovascular Exam: +S1, +S2 - GI/Abdominal Exam GI & Abdominal Exam: Soft. absent: Tenderness - Extremities Exam Additional comments: left foot with dressings in place Assessment and Plan - Assessment and Plan (Free Text) Plan: Assessment left first toe stump cellulitis with clinical osteomyelitis S/P 1st ray amputation again history of sepsis due to left hallux cellulitis / gangrene with methicillin- resistant Staph aureus bacteremia, toe growing MSSA and now also Enterobactere with osteomyelitis S/P amputation cardiomyopathy with EF 35-40% DM HTN dyslipdemia Plan continue Zyvox and Zosyn Follow up OR cx and OR pathology will continue to follow clinically
--- NOTE | 2018-09-13 15:29 | CP.PCM.PN ---
<Cyril Del Cid - Last Filed: 09/13/18 16:22> Subjective - Date & Time of Evaluation Date of Evaluation: 09/13/18 Time of Evaluation: 15:24 - Subjective Subjective: Cyril Del Cid DO PGY-1 Hospitalist Progress Note for Dr. Stevenson: Pt was seen and examined this morning at bedside. She denies any acute overnight events. She states that she is currently not having any chest pain, fevers, chills, n/v, c/d, abd pain, dysuria, hematuria, or frequency. She states that her pins and needles sensation is improved since being on the gabapentin. She states that she is not having any pain in the L foot s/p L foot revision of partial first ray amputation. Pt denies any other acute complaints at this time. Objective - Vital Signs/Intake and Output Vital Signs (last 24 hours): Temp Pulse Resp BP Pulse Ox 98.3 F 72 19 147/75 96 09/13/18 06:00 09/13/18 10:40 09/13/18 06:00 09/13/18 10:40 09/13/18 06:00 Intake and Output: 09/13/18 09/13/18 06:59 18:59 Intake Total 0 Balance 0 - Medications Medications: Current Medications Acetaminophen (Tylenol 325mg Tab) 650 mg PO Q4H PRN PRN Reason: Pain, Mild (1-3) Last Admin: 09/12/18 16:57 Dose: 650 mg Amlodipine Besylate (Norvasc) 5 mg PO DAILY [facility] Last Admin: 09/13/18 10:39 Dose: 5 mg Aspirin (Aspirin Chewable) 81 mg PO DAILY [facility] Last Admin: 09/13/18 10:37 Dose: 81 mg Atorvastatin Calcium (Lipitor) 40 mg PO DIN [facility] Last Admin: 09/12/18 16:58 Dose: 40 mg Carvedilol (Coreg) 6.25 mg PO BID [facility] Last Admin: 09/13/18 10:38 Dose: 6.25 mg Clopidogrel Bisulfate (Plavix) 75 mg PO DAILY [facility] Last Admin: 09/13/18 10:40 Dose: 75 mg Ergocalciferol (Drisdol 50,000 Intl Units Cap) 1 cap PO Q7D [facility] Last Admin: 09/09/18 13:40 Dose: 1 cap Famotidine (Pepcid) 10 mg PO 1000,2200 [facility] Last Admin: 09/13/18 10:39 Dose: 10 mg Gabapentin (Neurontin) 200 mg PO TID [facility]; Protocol Last Admin: 09/13/18 13:43 Dose: 200 mg Heparin Sodium (Porcine) (Heparin) 5,000 units SC Q8 [facility]; Protocol Last Admin: 09/13/18 13:43 Dose: 5,000 units Hydralazine HCl (Apresoline) 10 mg PO QID PRN PRN Reason: Systolic Blood Pressure Last Admin: 09/04/18 17:13 Dose: 10 mg Linezolid (Zyvox 600mg/300ml D5w) 600 mg in 300 mls @ 200 mls/hr IVPB Q12 [facility]; Protocol Stop: 09/18/18 10:01 Last Admin: 09/13/18 10:36 Dose: 200 mls/hr Insulin Detemir (Levemir) 5 unit SC BID [facility] Last Admin: 09/13/18 10:41 Dose: 5 unit Insulin Human Lispro (Humalog Med) 0 units SC ACHS [facility]; Protocol Last Admin: 09/13/18 11:35 Dose: 7 unit Lactulose (Enulose) 10 gm PO DAILY PRN PRN Reason: Constipation Last Admin: 09/11/18 10:45 Dose: 10 gm Lisinopril (Zestril) 20 mg PO DAILY [facility] Last Admin: 09/13/18 10:40 Dose: 20 mg - Labs Labs: 09/13/18 07:00 09/13/18 07:00 PT 12.3 SECONDS (9.4-12.5) 09/02/18 09:00 INR 1.07 09/02/18 09:00 APTT 42.4 Seconds (25.1-36.5) H 09/02/18 09:00 - Constitutional Appears: Well, Non-toxic, No Acute Distress - Head Exam Head Exam: ATRAUMATIC, NORMAL INSPECTION, NORMOCEPHALIC - Eye Exam Eye Exam: EOMI, Normal appearance, PERRL - Respiratory Exam Respiratory Exam: Clear to Ausculation Bilateral, NORMAL BREATHING PATTERN. absent: Accessory Muscle Use, Decreased Breath Sounds, Rales, Rhonchi, Wheezes, Respiratory Distress, Stridor - Cardiovascular Exam Cardiovascular Exam: RRR, +S1, +S2. absent: Gallop, Rubs - GI/Abdominal Exam GI & Abdominal Exam: Soft, Normal Bowel Sounds. absent: Tenderness - Extremities Exam Additional comments: Pt has covering over L foot, no edema noted at L ankle and LLE dressings c/d/i - Back Exam Back Exam: NORMAL INSPECTION. absent: CVA tenderness (L), CVA tenderness (R) - Neurological Exam Neurological Exam: Alert, Awake, Oriented x3 - Psychiatric Exam Psychiatric exam: Normal Affect, Normal Mood - Skin Skin Exam: Dry, Intact (except where noted above.), Normal Color, Warm Assessment and Plan - Assessment and Plan (Free Text) Assessment: Ms Hernandez, 52 F, PMHx uncontrolled diabetes s/p left great toe amputation, severe cardiomyopathy on life vest since December 2017, CKD 3, peripheral artery disease s/p recent JAMES(s) placement at [facility] admitted for nonhealing surgical wound s/p l eft great toe amputation (Jul 2018) possibly due to uncontrolled diabetes and poor circulation secondary to PAD. She will require IV antibiotics & I&D for cellulitis. L foot XR came back probable for osteo in the head of the 1st metatarsal. Pt is now s/p left foot revision of partial first ray amputation which was done yesterday (09/09). Awaiting bone path report so we can get ID recs regarding abx and duration. Plan: 1. LLE Cellulitis R/O osteomyelitis with leukocytosis s/p L foot revision of partial first ray amputation - Zyvoc and zosyn on board - ID consult - Blood cultures: (-) - Trend WBC. WBC is 9.9 now - L Foot XR: Probable osteo at head of 1st metatarsal - Arterial doppler of L lower extremity shows improvement compared to prior studies. - As per cardio pt is high risk given her cardiac and pulm issues, but is optimized at this time for OR. - Will follow up wound culture results from OR, will follow ID recs upon results from bone path. 2. Non-healing wound possibly due to poor circulation - Extermity US: report states that L SURJIT is improved from previous ones on record. - IR: Dr. Morin consulted 3. Severe Cardiomyopathy on life vest - Dr. Caldwell: D/tiffanie life vest, consulted for [facility] risk assessment for surgery - Telemetry 4. 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 HTN: - Continue home lisinopril, lasix 6.PAD s/p recent JAMES stents: - Plavix 75 PO QD 7. CKD stage 3 - Cr clearance 38 - Continue to trend creatinine - If creatinine decreases, will consult nephro 8. Uncontrolled DM: - A1C 9 - ISSS - Levamir 5 units BID - Diabetic education - Dietitian consult 9. Constipation - Pt responded to lactulose, will D/C other bowel regiment but lactulose 10. Hyperkalemia: Improved - K 4.4 - Will recheck cmp tomorrow. 11. PPX: DVT: heparin SC GI: pepcid BID Case seen and discussed with Dr. Elva Del Cid DO Internal Medicine Resident PGY-1 <Yi Stevenson - Last Filed: 09/15/18 08:58> Objective - Vital Signs/Intake and Output Vital Signs (last 24 hours): Temp Pulse Resp BP Pulse Ox 98.2 F 64 20 140/65 97 09/15/18 06:00 09/15/18 08:28 09/15/18 06:00 09/15/18 08:28 09/15/18 06:00 Intake and Output: 09/15/18 09/15/18 06:59 18:59 Intake Total 900 Balance 900 - Medications Medications: Current Medications Acetaminophen (Tylenol 325mg Tab) 650 mg PO Q4H PRN PRN Reason: Pain, Mild (1-3) Last Admin: 09/12/18 16:57 Dose: 650 mg Amlodipine Besylate (Norvasc) 5 mg PO DAILY [facility] Last Admin: 09/14/18 09:42 Dose: 5 mg Aspirin (Aspirin Chewable) 81 mg PO DAILY [facility] Last Admin: 09/14/18 09:42 Dose: 81 mg Atorvastatin Calcium (Lipitor) 40 mg PO DIN [facility] Last Admin: 09/14/18 17:00 Dose: 40 mg Clopidogrel Bisulfate (Plavix) 75 mg PO DAILY [facility] Last Admin: 09/14/18 09:42 Dose: 75 mg Ergocalciferol (Drisdol 50,000 Intl Units Cap) 1 cap PO Q7D [facility] Last Admin: 09/09/18 13:40 Dose: 1 cap Famotidine (Pepcid) 10 mg PO 1000,2200 [facility] Last Admin: 09/14/18 22:07 Dose: 10 mg Gabapentin (Neurontin) 200 mg PO TID [facility]; Protocol Last Admin: 09/14/18 17:03 Dose: 200 mg Heparin Sodium (Porcine) (Heparin) 5,000 units SC Q8 [facility]; Protocol Last Admin: 09/15/18 05:19 Dose: 5,000 units Hydralazine HCl (Apresoline) 10 mg PO QID PRN PRN Reason: Systolic Blood Pressure Last Admin: 09/04/18 17:13 Dose: 10 mg Linezolid (Zyvox 600mg/300ml D5w) 600 mg in 300 mls @ 200 mls/hr IVPB Q12 [facility]; Protocol Stop: 09/18/18 10:01 Last Admin: 09/14/18 23:16 Dose: 200 mls/hr Piperacillin Sod/Tazobactam Sod (Zosyn 2.25 Gm In 0.9% 100 Ml) 2.25 gm in 100 mls @ 100 mls/hr IVPB Q8 [facility]; Protocol Last Admin: 09/15/18 05:19 Dose: 100 mls/hr Insulin Detemir (Levemir) 10 unit SC BID [facility] Last Admin: 09/14/18 17:05 Dose: 10 unit Insulin Human Lispro (Humalog Med) 0 units SC ACHS [facility]; Protocol Last Admin: 09/15/18 07:27 Dose: Not Given Lactulose (Enulose) 10 gm PO DAILY PRN PRN Reason: Constipation Last Admin: 09/11/18 10:45 Dose: 10 gm Lisinopril (Zestril) 20 mg PO DAILY [facility] Last Admin: 09/14/18 09:42 Dose: 20 mg Metoprolol Succinate (Toprol Xl) 25 mg PO BRK [facility] Last Admin: 09/15/18 08:28 Dose: 25 mg - Labs Labs: 09/15/18 07:00 09/15/18 07:00 PT 12.3 SECONDS (9.4-12.5) 09/02/18 09:00 INR 1.07 09/02/18 09:00 APTT 42.4 Seconds (25.1-36.5) H 09/02/18 09:00 Attending/Attestation - Attestation I have personally seen and examined this patient.: Yes I have fully participated in the care of the patient.: Yes I have reviewed all pertinent clinical information, including history, physical exam and plan: Yes
[2018-09-14] MEDS: Insulin Lispro (humaLOG) MEDIUM Coverage SC SCH ×4 (07:52→22:00)
[2018-09-14 07:59] LABS: BASO # 0.15 K/mm3 (0.0-2.0); BASO % 1.8 % (0.0-3.0); EOS # 0.6 (0.0-0.7); EOS % 7.2 % (1.5-5.0); GRAN # 4.94 (1.4-6.5); GRAN % 58.9 % (50.0-68.0); HEMOGLOBIN 8.5 g/dL (12.0-16.0); LYMPH # 1.9 (1.2-3.4); LYMPH % 22.6 % (22.0-35.0); MEAN CORPUSCULAR HEMOGLOBIN 28.2 pg (25.0-35.0); MEAN CORPUSCULAR HGB CONC 32.1 g/dl (31.0-37.0); MEAN PLATELET VOLUME 8.1 fl (7.0-11.0); MONO # 0.8 (0.1-0.6); MONO % 9.5 % (1.0-6.0); RBC 3.01 10^6/uL (3.5-6.1); WHITE BLOOD COUNT 8.4 10^3/uL (4.5-11.0)
[2018-09-14 08:18] LABS: ALB/GLOB RATIO 0.9 (1.1-1.8); ALBUMIN 3.3 g/dL (3.0-4.8); CALCIUM 8.9 mg/dL (8.4-10.5)
[2018-09-14] MEDS: Insulin Detemir 100 units/ml Vial (Levemir) SC SCH ×2 (09:40→17:05)
[2018-09-14] MEDS: Linezolid 600 mg in D5W 300 ml 600 MG/300 ML BAG IVPB SCH ×2 (09:44→23:16)
--- NOTE | 2018-09-14 10:44 | CP.PCM.PN ---
Subjective - Date & Time of Evaluation Date of Evaluation: 09/14/18 Time of Evaluation: 10:41 - Subjective Subjective: Podiatry progress note for Dr. Murray 52 yo female seen and evaluated s/p POD5 revision of left first ray partial amputation. Patient is Resting comfortably. No acute events overnight. Dressing appears clean dry and intact. Denies N/V/F/C/SOB/CP. Has no pain to her surgical site. Has no other pedal complaints at this time. Objective - Vital Signs/Intake and Output Vital Signs (last 24 hours): Temp Pulse Resp BP Pulse Ox 98.3 F 73 19 140/70 96 09/14/18 06:00 09/14/18 09:45 09/14/18 06:00 09/14/18 09:45 09/14/18 06:00 Intake and Output: 09/14/18 09/14/18 06:59 18:59 Intake Total 480 Output Total 400 Balance 80 - Medications Medications: Current Medications Acetaminophen (Tylenol 325mg Tab) 650 mg PO Q4H PRN PRN Reason: Pain, Mild (1-3) Last Admin: 09/12/18 16:57 Dose: 650 mg Amlodipine Besylate (Norvasc) 5 mg PO DAILY [facility] Last Admin: 09/14/18 09:42 Dose: 5 mg Aspirin (Aspirin Chewable) 81 mg PO DAILY [facility] Last Admin: 09/14/18 09:42 Dose: 81 mg Atorvastatin Calcium (Lipitor) 40 mg PO DIN [facility] Last Admin: 09/13/18 17:23 Dose: 40 mg Carvedilol (Coreg) 6.25 mg PO BID [facility] Last Admin: 09/14/18 09:45 Dose: Not Given Clopidogrel Bisulfate (Plavix) 75 mg PO DAILY [facility] Last Admin: 09/14/18 09:42 Dose: 75 mg Ergocalciferol (Drisdol 50,000 Intl Units Cap) 1 cap PO Q7D [facility] Last Admin: 09/09/18 13:40 Dose: 1 cap Famotidine (Pepcid) 10 mg PO 1000,2200 [facility] Last Admin: 09/14/18 09:41 Dose: 10 mg Gabapentin (Neurontin) 200 mg PO TID [facility]; Protocol Last Admin: 09/14/18 09:41 Dose: 200 mg Heparin Sodium (Porcine) (Heparin) 5,000 units SC Q8 [facility]; Protocol Last Admin: 09/14/18 06:08 Dose: 5,000 units Hydralazine HCl (Apresoline) 10 mg PO QID PRN PRN Reason: Systolic Blood Pressure Last Admin: 09/04/18 17:13 Dose: 10 mg Linezolid (Zyvox 600mg/300ml D5w) 600 mg in 300 mls @ 200 mls/hr IVPB Q12 [facility]; Protocol Stop: 09/18/18 10:01 Last Admin: 09/14/18 09:44 Dose: 200 mls/hr Insulin Detemir (Levemir) 5 unit SC BID [facility] Last Admin: 09/14/18 09:40 Dose: 5 unit Insulin Human Lispro (Humalog Med) 0 units SC ACHS [facility]; Protocol Last Admin: 09/14/18 07:52 Dose: Not Given Lactulose (Enulose) 10 gm PO DAILY PRN PRN Reason: Constipation Last Admin: 09/11/18 10:45 Dose: 10 gm Lisinopril (Zestril) 20 mg PO DAILY [facility] Last Admin: 09/14/18 09:42 Dose: 20 mg - Labs Labs: 09/14/18 07:45 09/14/18 07:45 PT 12.3 SECONDS (9.4-12.5) 09/02/18 09:00 INR 1.07 09/02/18 09:00 APTT 42.4 Seconds (25.1-36.5) H 09/02/18 09:00 - Constitutional Appears: Well, Non-toxic, No Acute Distress - Head Exam Head Exam: ATRAUMATIC, NORMOCEPHALIC - Extremities Exam Additional comments: LLE focused exam: Vasc: DP/PT pulses palpable. Temp gradient warm to cool from proximal to distal, Cap refill < 3 seconds to all remaining digits, no edema noted to surgical site. Neuro: Gross sensation diminished, protective sensation diminished/absent Derm: surgical site appears well coapted, sutures intact, minimal maceration noted, no sanguinous drainage appreciated, no pus or purulent discharge noted, no malodor, mild periwound erythema appreciate, no streaking or clinical signs of infection MSK: Left hallux amputation, no tenderness upon calf compression, mild tender ness upon palpation of surgical site. Muscle power intact 5/5 to all groups. - Neurological Exam Neurological Exam: Alert, Awake, Oriented x3 - Psychiatric Exam Psychiatric exam: Normal Affect, Normal Mood Assessment and Plan - Assessment and Plan (Free Text) Assessment: 52 y/o female POD5 revision of left first ray partial amputation Plan: Patient seen and evaluated at bedside for Dr Murray Charts and labs reviewed - afebrile, absent leukocytosis Surgical site cleansed with normal sterile saline Wound dressed with adaptic, maxorb, DSD, ABD, kerlix, and NOEMÍ lightly Patient to discontinue forefoot wedge shoe as she feels unstable in the shoe Patient to continue wearing the surgical shoe Podiatry will continue to follow up the patient while in house
--- NOTE | 2018-09-14 12:12 | CP.PCM.PN ---
Subjective - Date & Time of Evaluation Date of Evaluation: 09/14/18 Time of Evaluation: 08:25 - Subjective Subjective: No fevers, no increased pain in the left foot, no nausea. Objective - Vital Signs/Intake and Output Vital Signs (last 24 hours): Temp Pulse Resp BP Pulse Ox 98.3 F 72 19 147/75 96 09/13/18 06:00 09/13/18 10:40 09/13/18 06:00 09/13/18 10:40 09/13/18 06:00 Intake and Output: 09/13/18 09/13/18 06:59 18:59 Intake Total 0 Balance 0 - Medications Medications: Current Medications Acetaminophen (Tylenol 325mg Tab) 650 mg PO Q4H PRN PRN Reason: Pain, Mild (1-3) Last Admin: 09/12/18 16:57 Dose: 650 mg Amlodipine Besylate (Norvasc) 5 mg PO DAILY [facility] Last Admin: 09/13/18 10:39 Dose: 5 mg Aspirin (Aspirin Chewable) 81 mg PO DAILY [facility] Last Admin: 09/13/18 10:37 Dose: 81 mg Atorvastatin Calcium (Lipitor) 40 mg PO DIN [facility] Last Admin: 09/12/18 16:58 Dose: 40 mg Carvedilol (Coreg) 6.25 mg PO BID [facility] Last Admin: 09/13/18 10:38 Dose: 6.25 mg Clopidogrel Bisulfate (Plavix) 75 mg PO DAILY [facility] Last Admin: 09/13/18 10:40 Dose: 75 mg Ergocalciferol (Drisdol 50,000 Intl Units Cap) 1 cap PO Q7D [facility] Last Admin: 09/09/18 13:40 Dose: 1 cap Famotidine (Pepcid) 10 mg PO 1000,2200 [facility] Last Admin: 09/13/18 10:39 Dose: 10 mg Gabapentin (Neurontin) 200 mg PO TID [facility]; Protocol Last Admin: 09/13/18 10:38 Dose: 200 mg Heparin Sodium (Porcine) (Heparin) 5,000 units SC Q8 [facility]; Protocol Last Admin: 09/13/18 06:02 Dose: 5,000 units Hydralazine HCl (Apresoline) 10 mg PO QID PRN PRN Reason: Systolic Blood Pressure Last Admin: 09/04/18 17:13 Dose: 10 mg Piperacillin Sod/Tazobactam Sod (Zosyn 3.375 In Ns 100ml) 100 mls @ 25 mls/hr IVPB Q8 [facility]; Protocol Stop: 09/13/18 14:01 Last Admin: 09/13/18 06:03 Dose: 25 mls/hr Linezolid (Zyvox 600mg/300ml D5w) 600 mg in 300 mls @ 200 mls/hr IVPB Q12 [facility]; Protocol Stop: 09/18/18 10:01 Last Admin: 09/13/18 10:36 Dose: 200 mls/hr Insulin Detemir (Levemir) 5 unit SC BID [facility] Last Admin: 09/13/18 10:41 Dose: 5 unit Insulin Human Lispro (Humalog Med) 0 units SC ACHS [facility]; Protocol Last Admin: 09/13/18 11:35 Dose: 7 unit Lactulose (Enulose) 10 gm PO DAILY PRN PRN Reason: Constipation Last Admin: 09/11/18 10:45 Dose: 10 gm Lisinopril (Zestril) 20 mg PO DAILY [facility] Last Admin: 09/13/18 10:40 Dose: 20 mg - Labs Labs: 09/13/18 07:00 09/13/18 07:00 PT 12.3 SECONDS (9.4-12.5) 09/02/18 09:00 INR 1.07 09/02/18 09:00 APTT 42.4 Seconds (25.1-36.5) H 09/02/18 09:00 - Constitutional Appears: No Acute Distress, Chronically Ill - Head Exam Head Exam: NORMAL INSPECTION - Respiratory Exam Respiratory Exam: Decreased Breath Sounds - Cardiovascular Exam Cardiovascular Exam: +S1, +S2 - GI/Abdominal Exam GI & Abdominal Exam: Soft. absent: Tenderness - Extremities Exam Additional comments: left foot with dressings in place Assessment and Plan - Assessment and Plan (Free Text) Plan: Assessment left first toe stump cellulitis with clinical osteomyelitis S/P 1st ray amputation again POD #5 history of sepsis due to left hallux cellulitis / gangrene with methicillin- resistant Staph aureus bacteremia, toe growing MSSA and now also Enterobactere with osteomyelitis S/P amputation cardiomyopathy with EF 35-40% DM HTN dyslipdemia Plan continue Zyvox and Zosyn Follow up OR cx and OR pathology to determined duration of therapy will continue to follow clinically
--- NOTE | 2018-09-14 12:19 | PN ---
DATE: 09/14/2018 SUBJECTIVE: The patient is without complaint. PHYSICAL EXAMINATION: VITAL SIGNS: Blood pressure is 140/70 and heart rate in the 70s. NECK: Negative JVD. LUNGS: Without rales. HEART: S1 and S2. EXTREMITIES: Bandaged. LABORATORY Hemoglobin is 8.5. Chemistries; BUN and creatinine 21 and 1.8. IMPRESSION: 1. Foot ulcers. 2. Sepsis. 3. Hypertension. 4. Diabetes mellitus. 5. Cardiomyopathy. Given these findings, the patient is stable from a cardiovascular point of view. The patient is currently receiving IV antibiotics. Rodney Caldwell MD
--- NOTE | 2018-09-14 13:09 | CP.PCM.PN ---
<Tano Guillermo - Last Filed: 09/14/18 14:43> Subjective - Date & Time of Evaluation Date of Evaluation: 09/14/18 Time of Evaluation: 13:09 - Subjective Subjective: PGY1 medicine Progress Note for Dr. Stevenson Patient was seen and evaluated at bedside this morning. No complaints overnight. Patient able to move from bed to chair with assistance. Patient states she is eager to go home for thanksgiving, patient states she was visited by Dr. Boyd (ID). Patient tolerating diet without issue. Patient denies fever, chills, nausea, vomiting, dizziness, chest pain, headache, abdominal pain, and/or shortness of breath. Objective - Vital Signs/Intake and Output Vital Signs (last 24 hours): Temp Pulse Resp BP Pulse Ox 98.3 F 73 19 140/70 96 09/14/18 06:00 09/14/18 09:45 09/14/18 06:00 09/14/18 09:45 09/14/18 06:00 Intake and Output: 09/14/18 09/14/18 06:59 18:59 Intake Total 480 Output Total 400 Balance 80 - Medications Medications: Current Medications Acetaminophen (Tylenol 325mg Tab) 650 mg PO Q4H PRN PRN Reason: Pain, Mild (1-3) Last Admin: 09/12/18 16:57 Dose: 650 mg Amlodipine Besylate (Norvasc) 5 mg PO DAILY [facility] Last Admin: 09/14/18 09:42 Dose: 5 mg Aspirin (Aspirin Chewable) 81 mg PO DAILY [facility] Last Admin: 09/14/18 09:42 Dose: 81 mg Atorvastatin Calcium (Lipitor) 40 mg PO DIN [facility] Last Admin: 09/13/18 17:23 Dose: 40 mg Clopidogrel Bisulfate (Plavix) 75 mg PO DAILY [facility] Last Admin: 09/14/18 09:42 Dose: 75 mg Ergocalciferol (Drisdol 50,000 Intl Units Cap) 1 cap PO Q7D [facility] Last Admin: 09/09/18 13:40 Dose: 1 cap Famotidine (Pepcid) 10 mg PO 1000,2200 [facility] Last Admin: 09/14/18 09:41 Dose: 10 mg Gabapentin (Neurontin) 200 mg PO TID [facility]; Protocol Last Admin: 09/14/18 09:41 Dose: 200 mg Heparin Sodium (Porcine) (Heparin) 5,000 units SC Q8 [facility]; Protocol Last Admin: 09/14/18 06:08 Dose: 5,000 units Hydralazine HCl (Apresoline) 10 mg PO QID PRN PRN Reason: Systolic Blood Pressure Last Admin: 09/04/18 17:13 Dose: 10 mg Linezolid (Zyvox 600mg/300ml D5w) 600 mg in 300 mls @ 200 mls/hr IVPB Q12 [facility]; Protocol Stop: 09/18/18 10:01 Last Admin: 09/14/18 09:44 Dose: 200 mls/hr Piperacillin Sod/Tazobactam Sod (Zosyn 2.25 Gm In 0.9% 100 Ml) 2.25 gm in 100 mls @ 100 mls/hr IVPB Q8 [facility]; Protocol Insulin Detemir (Levemir) 5 unit SC BID [facility] Last Admin: 09/14/18 09:40 Dose: 5 unit Insulin Human Lispro (Humalog Med) 0 units SC ACHS [facility]; Protocol Last Admin: 09/14/18 11:54 Dose: 7 unit Lactulose (Enulose) 10 gm PO DAILY PRN PRN Reason: Constipation Last Admin: 09/11/18 10:45 Dose: 10 gm Lisinopril (Zestril) 20 mg PO DAILY [facility] Last Admin: 09/14/18 09:42 Dose: 20 mg Metoprolol Succinate (Toprol Xl) 25 mg PO BRK [facility] - Labs Labs: 09/14/18 07:45 09/14/18 07:45 PT 12.3 SECONDS (9.4-12.5) 09/02/18 09:00 INR 1.07 09/02/18 09:00 APTT 42.4 Seconds (25.1-36.5) H 09/02/18 09:00 - Additional Findings Additional findings: - Constitutional Appears: Well, Non-toxic, No Acute Distress - Head Exam Head Exam: ATRAUMATIC, NORMAL INSPECTION, NORMOCEPHALIC - Eye Exam Eye Exam: EOMI, Normal appearance, PERRL - Respiratory Exam Respiratory Exam: Clear to Ausculation Bilateral, NORMAL BREATHING PATTERN. absent: Accessory Muscle Use, Decreased Breath Sounds, Rales, Rhonchi, Wheezes, Respiratory Distress, Stridor - Cardiovascular Exam Cardiovascular Exam: RRR, +S1, +S2. absent: Gallop, Rubs - GI/Abdominal Exam GI & Abdominal Exam: Soft, Normal Bowel Sounds. absent: Tenderness - Extremities Exam Additional comments: Pt has covering over L foot, no edema noted at L ankle and LLE dressings c/d/i Vasc: DP/PT pulses palpable. Temp gradient warm to cool from proximal to distal, Cap refill < 3 seconds to all remaining digits, no edema noted to surgical site. Neuro: Gross sensation diminished, protective sensation diminished/absent - Back Exam Back Exam: NORMAL INSPECTION. absent: CVA tenderness (L), CVA tenderness (R) - Neurological Exam Neurological Exam: Alert, Awake, Oriented x3 - Psychiatric Exam Psychiatric exam: Normal Affect, Normal Mood - Skin Skin Exam: Dry, Intact (except where noted above.), Normal Color, Warm Assessment and Plan - Assessment and Plan (Free Text) Assessment: Ms Hernandez, 52 F, PMHx uncontrolled diabetes s/p left great toe amputation, severe cardiomyopathy on life vest since December 2017, CKD 3, peripheral artery disease s/p recent JAMES(s) placement at [facility] admitted for nonhealing surgical wound s/p left great toe amputation (Jul 2018) possibly due to uncontrolled diabetes and poor circulation secondary to PAD. She will require IV antibiotics & I&D for cellulitis. L foot XR came back probable for osteo in the head of the 1st metatarsal. Pt is now s/p left foot revision of partial first ray amputation which was done yesterday POD#5. Awaiting bone path report so we can get ID recs regarding abx and duration. Plan: 1. LLE Cellulitis R/O osteomyelitis with leukocytosis s/p L foot revision of partial first ray amputation - Continue antibiotics: Zyvoc 600mg IVPB Q12H and Zosyn 2.25 IVPB Q8H - ID consult (Dr. Boyd); recommendations appreciated - Blood cultures: (-) - Trend WBC; WBC=8.4 - L Foot XR: Probable osteo at head of 1st metatarsal - Arterial doppler of L lower extremity shows improvement compared to prior studies. - As per cardio pt is high risk given her cardiac and pulm issues, but is optimi zed at this time for OR. - Will follow up wound culture results from OR, will follow ID recs upon results from bone path. 2. Non-healing wound possibly due to poor circulation - Extermity US: report states that L SURJIT is improved from previous ones on record. - IR: Dr. Morin consulted 3. Severe Cardiomyopathy on life vest - Dr. Caldwell: D/tiffanie life vest, consulted for cardic risk assessment for surgery - Telemetry 4. 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 HTN: - Continue home lisinopril, lasix 6.PAD s/p recent JAMES stents: - Continue plavix 75 PO QD 7. CKD stage 3 - Cr clearance 38 - Continue to trend creatinine - Cr=1.8 8. Uncontrolled DM: - A1C 9 - ISSS - Levamir increased to 10 units BID - Diabetic education - Dietitian consult 9. Constipation - Pt responded to lactulose, will D/C other bowel regiment but lactulose 10. Hyperkalemia: Resolved - K+=4.3 - Will recheck cmp tomorrow. 11. PPX: DVT: heparin SC GI: pepcid BID Patient seen and case discussed in detail with Dr. Elva Guillermo PGY1 <Yi Stevenson - Last Filed: 09/14/18 16:11> Objective - Vital Signs/Intake and Output Vital Signs (last 24 hours): Temp Pulse Resp BP Pulse Ox 98.5 F 82 18 149/74 96 09/14/18 14:00 09/14/18 15:24 09/14/18 14:00 09/14/18 15:24 09/14/18 14:00 Intake and Output: 09/14/18 09/14/18 06:59 18:59 Intake Total 480 Output Total 400 Balance 80 - Medications Medications: Current Medications Acetaminophen (Tylenol 325mg Tab) 650 mg PO Q4H PRN PRN Reason: Pain, Mild (1-3) Last Admin: 09/12/18 16:57 Dose: 650 mg Amlodipine Besylate (Norvasc) 5 mg PO DAILY [facility] Last Admin: 09/14/18 09:42 Dose: 5 mg Aspirin (Aspirin Chewable) 81 mg PO DAILY [facility] Last Admin: 09/14/18 09:42 Dose: 81 mg Atorvastatin Calcium (Lipitor) 40 mg PO DIN [facility] Last Admin: 09/13/18 17:23 Dose: 40 mg Clopidogrel Bisulfate (Plavix) 75 mg PO DAILY [facility] Last Admin: 09/14/18 09:42 Dose: 75 mg Ergocalciferol (Drisdol 50,000 Intl Units Cap) 1 cap PO Q7D [facility] Last Admin: 09/09/18 13:40 Dose: 1 cap Famotidine (Pepcid) 10 mg PO 1000,2200 [facility] Last Admin: 09/14/18 09:41 Dose: 10 mg Gabapentin (Neurontin) 200 mg PO TID [facility]; Protocol Last Admin: 09/14/18 15:22 Dose: 200 mg Heparin Sodium (Porcine) (Heparin) 5,000 units SC Q8 [facility]; Protocol Last Admin: 09/14/18 06:08 Dose: 5,000 units Hydralazine HCl (Apresoline) 10 mg PO QID PRN PRN Reason: Systolic Blood Pressure Last Admin: 09/04/18 17:13 Dose: 10 mg Linezolid (Zyvox 600mg/300ml D5w) 600 mg in 300 mls @ 200 mls/hr IVPB Q12 [facility]; Protocol Stop: 09/18/18 10:01 Last Admin: 09/14/18 09:44 Dose: 200 mls/hr Piperacillin Sod/Tazobactam Sod (Zosyn 2.25 Gm In 0.9% 100 Ml) 2.25 gm in 100 mls @ 100 mls/hr IVPB Q8 [facility]; Protocol Last Admin: 09/14/18 15:25 Dose: 100 mls/hr Insulin Detemir (Levemir) 10 unit SC BID [facility] Insulin Human Lispro (Humalog Med) 0 units SC ACHS [facility]; Protocol Last Admin: 09/14/18 11:54 Dose: 7 unit Lactulose (Enulose) 10 gm PO DAILY PRN PRN Reason: Constipation Last Admin: 09/11/18 10:45 Dose: 10 gm Lisinopril (Zestril) 20 mg PO DAILY [facility] Last Admin: 09/14/18 09:42 Dose: 20 mg Metoprolol Succinate (Toprol Xl) 25 mg PO BRK [facility] Last Admin: 09/14/18 15:24 Dose: 25 mg - Labs Labs: 09/14/18 07:45 09/14/18 07:45 PT 12.3 SECONDS (9.4-12.5) 09/02/18 09:00 INR 1.07 09/02/18 09:00 APTT 42.4 Seconds (25.1-36.5) H 09/02/18 09:00 Attending/Attestation - Attestation I have personally seen and examined this patient.: Yes I have fully participated in the care of the patient.: Yes I have reviewed all pertinent clinical information, including history, physical exam and plan: Yes Notes (Text): 09/14/18 16:09 Medical record note made by the resident after discussion with my direction and input after the patient was personally seen and examined by me. I have reviewed the chart and agree that the record accurately reflects by personal performance of the history, physical exam, data review, and medical decision-making, in the course for the patient. I have also personally directed the plan of care. 52-year-old female with past medical history significant for diabetes and left great toe amputation, insulin-dependent type 2 diabetes, severe cardiomyopathy with LifeVest, systolic CHF, hypertension, chronic kidney disease stage III, and peripheral artery disease status post stents of left lower extremity that presented to the emergency room after being sent in by her hay stacker, Dr. Murray, for a nonhealing wound of the left great toe. Foot XR came back probable for osteo in the head of the 1st metatarsal. Patient s/p left foot revision of partial first ray amputation on 09/09/2018.Wound cultures are growing MSSA and now also Enterobactere. Pathology report is pending.Continue IV aNTIBIOTICS PER id. CHronic systolic Heart Failure EF , Patient is euvolemic. CKD, Creatinin is 1.8, stable at base line.
[2018-09-14] MEDS: Metoprolol Succinate 25 mg XL Tab PO SCH (15:24)
[2018-09-14] MEDS: Piperacillin/Tazobact 2.25gm 2.25 GM/100 ML BAG IVPB SCH ×2 (15:25→22:07)
--- NOTE | 2018-09-14 15:51 | CP.PCM.PN ---
Subjective - Date & Time of Evaluation Date of Evaluation: 09/14/18 Time of Evaluation: 15:46 - Subjective Subjective: Nephrology progress note: Ciara, PGY - 2 Patient seen and examined at bedside. No acute overnight events. This AM, patient refused to take her carvedilol. She is otherwise doing well, denies any shortness of breath, chest pain, dysuria. Objective - Vital Signs/Intake and Output Vital Signs (last 24 hours): Temp Pulse Resp BP Pulse Ox 98.5 F 82 18 149/74 96 09/14/18 14:00 09/14/18 15:24 09/14/18 14:00 09/14/18 15:24 09/14/18 14:00 Intake and Output: 09/14/18 09/14/18 06:59 18:59 Intake Total 480 Output Total 400 Balance 80 - Medications Medications: Current Medications Acetaminophen (Tylenol 325mg Tab) 650 mg PO Q4H PRN PRN Reason: Pain, Mild (1-3) Last Admin: 09/12/18 16:57 Dose: 650 mg Amlodipine Besylate (Norvasc) 5 mg PO DAILY [facility] Last Admin: 09/14/18 09:42 Dose: 5 mg Aspirin (Aspirin Chewable) 81 mg PO DAILY [facility] Last Admin: 09/14/18 09:42 Dose: 81 mg Atorvastatin Calcium (Lipitor) 40 mg PO DIN [facility] Last Admin: 09/13/18 17:23 Dose: 40 mg Clopidogrel Bisulfate (Plavix) 75 mg PO DAILY [facility] Last Admin: 09/14/18 09:42 Dose: 75 mg Ergocalciferol (Drisdol 50,000 Intl Units Cap) 1 cap PO Q7D [facility] Last Admin: 09/09/18 13:40 Dose: 1 cap Famotidine (Pepcid) 10 mg PO 1000,2200 [facility] Last Admin: 09/14/18 09:41 Dose: 10 mg Gabapentin (Neurontin) 200 mg PO TID [facility]; Protocol Last Admin: 09/14/18 15:22 Dose: 200 mg Heparin Sodium (Porcine) (Heparin) 5,000 units SC Q8 [facility]; Protocol Last Admin: 09/14/18 06:08 Dose: 5,000 units Hydralazine HCl (Apresoline) 10 mg PO QID PRN PRN Reason: Systolic Blood Pressure Last Admin: 09/04/18 17:13 Dose: 10 mg Linezolid (Zyvox 600mg/300ml D5w) 600 mg in 300 mls @ 200 mls/hr IVPB Q12 [facility]; Protocol Stop: 09/18/18 10:01 Last Admin: 09/14/18 09:44 Dose: 200 mls/hr Piperacillin Sod/Tazobactam Sod (Zosyn 2.25 Gm In 0.9% 100 Ml) 2.25 gm in 100 mls @ 100 mls/hr IVPB Q8 [facility]; Protocol Last Admin: 09/14/18 15:25 Dose: 100 mls/hr Insulin Detemir (Levemir) 10 unit SC BID [facility] Insulin Human Lispro (Humalog Med) 0 units SC ACHS [facility]; Protocol Last Admin: 09/14/18 11:54 Dose: 7 unit Lactulose (Enulose) 10 gm PO DAILY PRN PRN Reason: Constipation Last Admin: 09/11/18 10:45 Dose: 10 gm Lisinopril (Zestril) 20 mg PO DAILY [facility] Last Admin: 09/14/18 09:42 Dose: 20 mg Metoprolol Succinate (Toprol Xl) 25 mg PO BRK [facility] Last Admin: 09/14/18 15:24 Dose: 25 mg - Labs Labs: 09/14/18 07:45 09/14/18 07:45 PT 12.3 SECONDS (9.4-12.5) 09/02/18 09:00 INR 1.07 09/02/18 09:00 APTT 42.4 Seconds (25.1-36.5) H 09/02/18 09:00 - Constitutional Appears: Well - Head Exam Head Exam: ATRAUMATIC, NORMAL INSPECTION, NORMOCEPHALIC - Eye Exam Eye Exam: EOMI, Normal appearance, PERRL Pupil Exam: NORMAL ACCOMODATION, PERRL - ENT Exam ENT Exam: Mucous Membranes Moist, Normal Exam - Neck Exam Neck Exam: Full ROM, Normal Inspection. absent: Lymphadenopathy - Respiratory Exam Respiratory Exam: Clear to Ausculation Bilateral, NORMAL BREATHING PATTERN - Cardiovascular Exam Cardiovascular Exam: REGULAR RHYTHM, +S1, +S2. absent: Murmur - GI/Abdominal Exam GI & Abdominal Exam: Soft, Normal Bowel Sounds. absent: Tenderness - Extremities Exam Extremities Exam: Full ROM, Normal Capillary Refill, Normal Inspection. absent: Joint Swelling, Pedal Edema Additional comments: 1st left toe amputation. - Back Exam Back Exam: NORMAL INSPECTION - Neurological Exam Neurological Exam: Alert, Awake, CN II-XII Intact, Normal Gait, Oriented x3 - Psychiatric Exam Psychiatric exam: Normal Affect, Normal Mood - Skin Skin Exam: Dry, Intact, Normal Color, Warm Assessment and Plan - Assessment and Plan (Free Text) Assessment: 52 year old female s/p L 1st toe TMA presenting with infection of the same. Laboratory revealed RADHA on CKD, Hgb below goal, and proteinuric kidney disease. Plan RADHA on CKD, likely 2/2 volume depletion - Continue Lasix on discharge Anemia of Renal Dz - Give dose of Aranesp before d/c CHF - Change Coreg to Toprol XL 25 CKD Stage III - Continue adequate BP and anti-proteinuric measures - Avoid nephrotoxic agents
[2018-09-15] MEDS: Piperacillin/Tazobact 2.25gm 2.25 GM/100 ML BAG IVPB SCH ×3 (05:19→21:12)
[2018-09-15 07:21] LABS: BASO # 0.09 K/mm3 (0.0-2.0); BASO % 1.3 % (0.0-3.0); EOS # 0.5 (0.0-0.7); EOS % 6.9 % (1.5-5.0); GRAN # 4.04 (1.4-6.5); HEMOGLOBIN 8.6 g/dL (12.0-16.0); LYMPH # 1.7 (1.2-3.4); LYMPH % 24.5 % (22.0-35.0); MEAN CELL VOLUME 88.5 fl (80.0-105.0); MEAN CORPUSCULAR HEMOGLOBIN 28.2 pg (25.0-35.0); MEAN CORPUSCULAR HGB CONC 31.9 g/dl (31.0-37.0); MEAN PLATELET VOLUME 8.4 fl (7.0-11.0); MONO # 0.6 (0.1-0.6); MONO % 8.3 % (1.0-6.0); RBC 3.05 10^6/uL (3.5-6.1); RED CELL DISTRIBUTION WIDTH 15.8 % (11.5-14.5); WHITE BLOOD COUNT 6.9 10^3/uL (4.5-11.0)
[2018-09-15] MEDS: Insulin Lispro (humaLOG) MEDIUM Coverage SC SCH ×4 (07:27→21:14)
[2018-09-15 07:34] LABS: ALB/GLOB RATIO 0.9 (1.1-1.8); ALBUMIN 3.2 g/dL (3.0-4.8); CALCIUM 8.9 mg/dL (8.4-10.5)
[2018-09-15] MEDS: Metoprolol Succinate 25 mg XL Tab PO SCH (08:28)
[2018-09-15] MEDS: Linezolid 600 mg in D5W 300 ml 600 MG/300 ML BAG IVPB SCH ×2 (09:40→21:13)
[2018-09-15] MEDS: Insulin Detemir 100 units/ml Vial (Levemir) SC SCH ×2 (09:41→17:22)
--- NOTE | 2018-09-15 12:59 | CP.PCM.PN ---
Subjective - Date & Time of Evaluation Date of Evaluation: 09/15/18 Time of Evaluation: 12:53 - Subjective Subjective: PGY1 Medicine Progress Note for Dr. Stevenson Patient was seen and evaluated at bedside this morning. No complaints overnight. Patient able to move from bed to chair with assistance. Patient tolerating diet without issue. Patient denies fever, chills, nausea, vomiting, dizziness, chest pain, headache, abdominal pain, and/or shortness of breath. Objective - Vital Signs/Intake and Output Vital Signs (last 24 hours): Temp Pulse Resp BP Pulse Ox 98.2 F 68 20 165/68 H 97 09/15/18 06:00 09/15/18 09:48 09/15/18 06:00 09/15/18 09:48 09/15/18 06:00 Intake and Output: 09/15/18 09/15/18 06:59 18:59 Intake Total 900 Balance 900 - Medications Medications: Current Medications Acetaminophen (Tylenol 325mg Tab) 650 mg PO Q4H PRN PRN Reason: Pain, Mild (1-3) Last Admin: 09/12/18 16:57 Dose: 650 mg Amlodipine Besylate (Norvasc) 5 mg PO DAILY [facility] Last Admin: 09/15/18 09:46 Dose: 5 mg Aspirin (Aspirin Chewable) 81 mg PO DAILY [facility] Last Admin: 09/15/18 09:48 Dose: 81 mg Atorvastatin Calcium (Lipitor) 40 mg PO DIN [facility] Last Admin: 09/14/18 17:00 Dose: 40 mg Clopidogrel Bisulfate (Plavix) 75 mg PO DAILY [facility] Last Admin: 09/15/18 09:48 Dose: 75 mg Ergocalciferol (Drisdol 50,000 Intl Units Cap) 1 cap PO Q7D [facility] Last Admin: 09/09/18 13:40 Dose: 1 cap Famotidine (Pepcid) 10 mg PO 1000,2200 [facility] Last Admin: 09/15/18 09:47 Dose: 10 mg Gabapentin (Neurontin) 200 mg PO TID [facility]; Protocol Last Admin: 09/15/18 09:47 Dose: 200 mg Heparin Sodium (Porcine) (Heparin) 5,000 units SC Q8 [facility]; Protocol Last Admin: 09/15/18 05:19 Dose: 5,000 units Hydralazine HCl (Apresoline) 10 mg PO QID PRN PRN Reason: Systolic Blood Pressure Last Admin: 09/04/18 17:13 Dose: 10 mg Linezolid (Zyvox 600mg/300ml D5w) 600 mg in 300 mls @ 200 mls/hr IVPB Q12 [facility]; Protocol Stop: 09/18/18 10:01 Last Admin: 09/15/18 09:40 Dose: 200 mls/hr Piperacillin Sod/Tazobactam Sod (Zosyn 2.25 Gm In 0.9% 100 Ml) 2.25 gm in 100 mls @ 100 mls/hr IVPB Q8 [facility]; Protocol Last Admin: 09/15/18 05:19 Dose: 100 mls/hr Insulin Detemir (Levemir) 10 unit SC BID [facility] Last Admin: 09/15/18 09:41 Dose: 10 unit Insulin Human Lispro (Humalog Med) 0 units SC ACHS [facility]; Protocol Last Admin: 09/15/18 11:58 Dose: 5 unit Lactulose (Enulose) 10 gm PO DAILY PRN PRN Reason: Constipation Last Admin: 09/11/18 10:45 Dose: 10 gm Lisinopril (Zestril) 20 mg PO DAILY [facility] Last Admin: 09/15/18 09:48 Dose: 20 mg Metoprolol Succinate (Toprol Xl) 25 mg PO BRK [facility] Last Admin: 09/15/18 08:28 Dose: 25 mg - Labs Labs: 09/15/18 07:00 09/15/18 07:00 PT 12.3 SECONDS (9.4-12.5) 09/02/18 09:00 INR 1.07 09/02/18 09:00 APTT 42.4 Seconds (25.1-36.5) H 09/02/18 09:00 - Additional Findings Additional findings: - Constitutional Appears: Well, Non-toxic, No Acute Distress - Head Exam Head Exam: ATRAUMATIC, NORMAL INSPECTION, NORMOCEPHALIC - Eye Exam Eye Exam: EOMI, Normal appearance, PERRL - Respiratory Exam Respiratory Exam: Clear to Ausculation Bilateral, NORMAL BREATHING PATTERN. absent: Accessory Muscle Use, Decreased Breath Sounds, Rales, Rhonchi, Wheezes, Respiratory Distress, Stridor - Cardiovascular Exam Cardiovascular Exam: RRR, +S1, +S2. absent: Gallop, Rubs - GI/Abdominal Exam GI & Abdominal Exam: Soft, Normal Bowel Sounds. absent: Tenderness - Extremities Exam Additional comments: Pt has covering over L foot, no edema noted at L ankle and LLE dressings c/d/i Vasc: DP/PT pulses palpable. Temp gradient warm to cool from proximal to distal, Cap refill < 3 seconds to all remaining digits, no edema noted to surgical site. Neuro: Gross sensation diminished, protective sensation diminished/absent - Back Exam Back Exam: NORMAL INSPECTION. absent: CVA tenderness (L), CVA tenderness (R) - Neurological Exam Neurological Exam: Alert, Awake, Oriented x3 - Psychiatric Exam Psychiatric exam: Normal Affect, Normal Mood - Skin Skin Exam: Dry, Intact (except where noted above.), Normal Color, Warm Assessment and Plan - Assessment and Plan (Free Text) Assessment: Ms Hernandez, 52 F, PMHx uncontrolled diabetes s/p left great toe amputation, severe cardiomyopathy on life vest since December 2017, CKD 3, peripheral artery disease s/p recent JAMES(s) placement at [facility] admitted for non-healing surgical wound s/p left great toe amputation (Jul 2018) possibly due to uncontrolled diabetes and poor circulation secondary to PAD. She will require IV antibiotics & I&D for cellulitis. L foot XR came back probable for osteo in the head of the 1st metatarsal. Patient is now status-post left foot revision of partial first ray amputation which was done yesterday POD#5. Awaiting bone path report so we can get ID recs regarding abx and duration. Plan: 1. LLE Cellulitis R/O Osteomyelitis with Leukocytosis s/p L foot revision of partial first ray amputation - Continue antibiotics: Zyvoc 600mg IVPB Q12H and Zosyn 2.25 IVPB Q8H - ID consult (Dr. Boyd); recommendations appreciated - Blood cultures: negative - Trend WBC; WBC=8.4 - L Foot XR: Probable osteo at head of 1st metatarsal - Arterial doppler of L lower extremity shows improvement compared to prior studies. - As per cardio pt is high risk given her cardiac and pulm issues, but is optimized at this time for OR. - Pathology was obtained: benign bone showing acute osteomyelitis, patchy hemorrhage and reactive/reparative changes. Both margins are positive for acute osteomyelitis. Surrounding soft tissue showing granulation tissue reaction and hemorrhage. - Will follow up with ID regarding antibiotics - PICC line ordered 2. Non-healing wound possibly due to poor circulation - Extermity US: report states that L SURJIT is improved from previous ones on record. - IR: Dr. Morin consulted 3. Severe Cardiomyopathy on life vest - Dr. Caldwell: D/tiffanie life vest, consulted for cardic risk assessment for surgery - Telemetry 4. 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 HTN: - Continue home lisinopril, lasix 6.PAD s/p recent JAMES stents: - Continue plavix 75 PO QD 7. CKD stage 3 - Cr clearance 38 - Continue to trend creatinine - Cr=1.8 8. Uncontrolled DM: - A1C 9 - ISSS - Levamir increased to 10 units BID - Diabetic education - Dietitian consult 9. Constipation - Pt responded to lactulose, will D/C other bowel regiment but lactulose 10. Hyperkalemia: Resolved - K+=4.4 - Will recheck cmp tomorrow. 11. PPX: DVT: heparin SC GI: pepcid BID Patient seen and case discussed in detail with Dr. Elva Guillermo PGY1
--- NOTE | 2018-09-15 13:52 | CP.PCM.PN ---
Subjective - Date & Time of Evaluation Date of Evaluation: 09/15/18 Time of Evaluation: 13:49 - Subjective Subjective: Nephrology progress note - Ciara PGY - 2 Patient seen and examined at bedside. No acute events overnight. Patient states that she tolerated the Toprol XL much better than the Coreg and agrees to continue it from now on. Objective - Vital Signs/Intake and Output Vital Signs (last 24 hours): Temp Pulse Resp BP Pulse Ox 98.2 F 68 20 165/68 H 97 09/15/18 06:00 09/15/18 09:48 09/15/18 06:00 09/15/18 09:48 09/15/18 06:00 Intake and Output: 09/15/18 09/15/18 06:59 18:59 Intake Total 900 Balance 900 - Medications Medications: Current Medications Acetaminophen (Tylenol 325mg Tab) 650 mg PO Q4H PRN PRN Reason: Pain, Mild (1-3) Last Admin: 09/12/18 16:57 Dose: 650 mg Amlodipine Besylate (Norvasc) 5 mg PO DAILY [facility] Last Admin: 09/15/18 09:46 Dose: 5 mg Aspirin (Aspirin Chewable) 81 mg PO DAILY [facility] Last Admin: 09/15/18 09:48 Dose: 81 mg Atorvastatin Calcium (Lipitor) 40 mg PO DIN [facility] Last Admin: 09/14/18 17:00 Dose: 40 mg Clopidogrel Bisulfate (Plavix) 75 mg PO DAILY [facility] Last Admin: 09/15/18 09:48 Dose: 75 mg Ergocalciferol (Drisdol 50,000 Intl Units Cap) 1 cap PO Q7D [facility] Last Admin: 09/09/18 13:40 Dose: 1 cap Famotidine (Pepcid) 10 mg PO 1000,2200 [facility] Last Admin: 09/15/18 09:47 Dose: 10 mg Gabapentin (Neurontin) 200 mg PO TID [facility]; Protocol Last Admin: 09/15/18 13:11 Dose: 200 mg Heparin Sodium (Porcine) (Heparin) 5,000 units SC Q8 [facility]; Protocol Last Admin: 09/15/18 13:11 Dose: 5,000 units Hydralazine HCl (Apresoline) 10 mg PO QID PRN PRN Reason: Systolic Blood Pressure Last Admin: 09/04/18 17:13 Dose: 10 mg Linezolid (Zyvox 600mg/300ml D5w) 600 mg in 300 mls @ 200 mls/hr IVPB Q12 [facility]; Protocol Stop: 09/18/18 10:01 Last Admin: 09/15/18 09:40 Dose: 200 mls/hr Piperacillin Sod/Tazobactam Sod (Zosyn 2.25 Gm In 0.9% 100 Ml) 2.25 gm in 100 mls @ 100 mls/hr IVPB Q8 [facility]; Protocol Last Admin: 09/15/18 13:10 Dose: 100 mls/hr Insulin Detemir (Levemir) 10 unit SC BID [facility] Last Admin: 09/15/18 09:41 Dose: 10 unit Insulin Human Lispro (Humalog Med) 0 units SC ACHS [facility]; Protocol Last Admin: 09/15/18 11:58 Dose: 5 unit Lactulose (Enulose) 10 gm PO DAILY PRN PRN Reason: Constipation Last Admin: 09/11/18 10:45 Dose: 10 gm Lisinopril (Zestril) 20 mg PO DAILY [facility] Last Admin: 09/15/18 09:48 Dose: 20 mg Metoprolol Succinate (Toprol Xl) 25 mg PO BRK [facility] Last Admin: 09/15/18 08:28 Dose: 25 mg - Labs Labs: 09/15/18 07:00 09/15/18 07:00 PT 12.3 SECONDS (9.4-12.5) 09/02/18 09:00 INR 1.07 09/02/18 09:00 APTT 42.4 Seconds (25.1-36.5) H 09/02/18 09:00 - Constitutional Appears: Well - Head Exam Head Exam: ATRAUMATIC, NORMAL INSPECTION, NORMOCEPHALIC - Eye Exam Eye Exam: EOMI, Normal appearance, PERRL Pupil Exam: NORMAL ACCOMODATION, PERRL - ENT Exam ENT Exam: Mucous Membranes Moist, Normal Exam - Neck Exam Neck Exam: Full ROM, Normal Inspection. absent: Lymphadenopathy - Respiratory Exam Respiratory Exam: Clear to Ausculation Bilateral, NORMAL BREATHING PATTERN - Cardiovascular Exam Cardiovascular Exam: REGULAR RHYTHM, +S1, +S2. absent: Murmur - GI/Abdominal Exam GI & Abdominal Exam: Soft, Normal Bowel Sounds. absent: Tenderness - Rectal Exam Rectal Exam: NORMAL INSPECTION - Extremities Exam Extremities Exam: Full ROM, Normal Capillary Refill, Normal Inspection. absent: Joint Swelling, Pedal Edema Additional comments: L great toe TMA - Back Exam Back Exam: NORMAL INSPECTION - Neurological Exam Neurological Exam: Alert, Awake, CN II-XII Intact, Normal Gait, Oriented x3 - Psychiatric Exam Psychiatric exam: Normal Affect, Normal Mood - Skin Skin Exam: Dry, Intact, Normal Color, Warm Assessment and Plan - Assessment and Plan (Free Text) Assessment: 52 year old female s/p L 1st toe TMA presenting with infection of the same. Laboratory revealed RADHA on CKD, Hgb below goal, and proteinuric kidney disease. Plan RADHA on CKD, likely 2/2 volume depletion - Continue Lasix on discharge Anemia of Renal Dz - Give dose of Aranesp before d/c CHF - Continue Toprol XL 25 CKD Stage III - Continue adequate BP and anti-proteinuric measures - Avoid nephrotoxic agents
--- NOTE | 2018-09-15 14:47 | CP.PCM.PN ---
<Lovely Garcia - Last Filed: 09/15/18 14:45> Subjective - Date & Time of Evaluation Date of Evaluation: 09/15/18 Time of Evaluation: 14:45 - Subjective Subjective: Podiatry progress note for Dr. Laboy 52 yo female seen and evaluated s/p POD6 revision of left first ray partial amputation. Patient is Resting comfortably. No acute events overnight. Dressing appears clean dry and intact. Denies N/V/F/C/SOB/CP. Has no pain to her surgical site. Has no other pedal complaints at this time. Patient states she is likely going home tomorrow. Objective - Vital Signs/Intake and Output Vital Signs (last 24 hours): Temp Pulse Resp BP Pulse Ox 98.2 F 68 20 165/68 H 97 09/15/18 06:00 09/15/18 09:48 09/15/18 06:00 09/15/18 09:48 09/15/18 06:00 Intake and Output: 09/15/18 09/15/18 06:59 18:59 Intake Total 900 Balance 900 - Medications Medications: Current Medications Acetaminophen (Tylenol 325mg Tab) 650 mg PO Q4H PRN PRN Reason: Pain, Mild (1-3) Last Admin: 09/12/18 16:57 Dose: 650 mg Amlodipine Besylate (Norvasc) 5 mg PO DAILY [facility] Last Admin: 09/15/18 09:46 Dose: 5 mg Aspirin (Aspirin Chewable) 81 mg PO DAILY [facility] Last Admin: 09/15/18 09:48 Dose: 81 mg Atorvastatin Calcium (Lipitor) 40 mg PO DIN [facility] Last Admin: 09/14/18 17:00 Dose: 40 mg Clopidogrel Bisulfate (Plavix) 75 mg PO DAILY [facility] Last Admin: 09/15/18 09:48 Dose: 75 mg Ergocalciferol (Drisdol 50,000 Intl Units Cap) 1 cap PO Q7D [facility] Last Admin: 09/09/18 13:40 Dose: 1 cap Famotidine (Pepcid) 10 mg PO 1000,2200 [facility] Last Admin: 09/15/18 09:47 Dose: 10 mg Gabapentin (Neurontin) 200 mg PO TID [facility]; Protocol Last Admin: 09/15/18 13:11 Dose: 200 mg Heparin Sodium (Porcine) (Heparin) 5,000 units SC Q8 [facility]; Protocol Last Admin: 09/15/18 13:11 Dose: 5,000 units Hydralazine HCl (Apresoline) 10 mg PO QID PRN PRN Reason: Systolic Blood Pressure Last Admin: 09/04/18 17:13 Dose: 10 mg Linezolid (Zyvox 600mg/300ml D5w) 600 mg in 300 mls @ 200 mls/hr IVPB Q12 [facility]; Protocol Stop: 09/18/18 10:01 Last Admin: 09/15/18 09:40 Dose: 200 mls/hr Piperacillin Sod/Tazobactam Sod (Zosyn 2.25 Gm In 0.9% 100 Ml) 2.25 gm in 100 mls @ 100 mls/hr IVPB Q8 [facility]; Protocol Last Admin: 09/15/18 13:10 Dose: 100 mls/hr Insulin Detemir (Levemir) 10 unit SC BID [facility] Last Admin: 09/15/18 09:41 Dose: 10 unit Insulin Human Lispro (Humalog Med) 0 units SC ACHS [facility]; Protocol Last Admin: 09/15/18 11:58 Dose: 5 unit Lactulose (Enulose) 10 gm PO DAILY PRN PRN Reason: Constipation Last Admin: 09/11/18 10:45 Dose: 10 gm Lisinopril (Zestril) 20 mg PO DAILY [facility] Last Admin: 09/15/18 09:48 Dose: 20 mg Metoprolol Succinate (Toprol Xl) 25 mg PO BRK [facility] Last Admin: 09/15/18 08:28 Dose: 25 mg - Labs Labs: 09/15/18 07:00 09/15/18 07:00 PT 12.3 SECONDS (9.4-12.5) 09/02/18 09:00 INR 1.07 09/02/18 09:00 APTT 42.4 Seconds (25.1-36.5) H 09/02/18 09:00 - Constitutional Appears: Well, Non-toxic, No Acute Distress - Head Exam Head Exam: ATRAUMATIC, NORMOCEPHALIC - Extremities Exam Additional comments: LLE focused exam: Vasc: DP/PT pulses palpable. Temp gradient warm to cool from proximal to distal, Cap refill < 3 seconds to all remaining digits, no edema noted to surgical site. Neuro: Gross sensation diminished, protective sensation diminished/absent Derm: surgical site appears well coapted, sutures intact, minimal maceration noted, no sanguinous drainage appreciated, no pus or purulent discharge noted, no malodor, mild periwound erythema appreciate, no streaking or clinical signs of infection MSK: Left hallux amputation, no tenderness upon calf compression, mild tenderness upon palpation of surgical site. Muscle power intact 5/5 to all groups. - Neurological Exam Neurological Exam: Alert, Awake, Oriented x3 - Psychiatric Exam Psychiatric exam: Normal Affect, Normal Mood Assessment and Plan - Assessment and Plan (Free Text) Assessment: 52 y/o female POD6 revision of left first ray partial amputation Plan: Patient seen and evaluated at bedside for Dr Laboy Charts and labs reviewed - afebrile, absent leukocytosis Surgical site cleansed with normal sterile saline Wound dressed with adaptic, maxorb, DSD, ABD, kerlix, and NOEMÍ lightly Patient to discontinue forefoot wedge shoe as she feels unstable in the shoe Patient to continue wearing the surgical shoe Podiatry will continue to follow up the patient while in house <Jamison Laboy - Last Filed: 09/15/18 15:13> Objective - Vital Signs/Intake and Output Vital Signs (last 24 hours): Temp Pulse Resp BP Pulse Ox 98.2 F 68 20 165/68 H 97 09/15/18 06:00 09/15/18 09:48 09/15/18 06:00 09/15/18 09:48 09/15/18 06:00 Intake and Output: 09/15/18 09/15/18 06:59 18:59 Intake Total 900 Balance 900 - Medications Medications: Current Medications Acetaminophen (Tylenol 325mg Tab) 650 mg PO Q4H PRN PRN Reason: Pain, Mild (1-3) Last Admin: 09/12/18 16:57 Dose: 650 mg Amlodipine Besylate (Norvasc) 10 mg PO DAILY [facility] Aspirin (Aspirin Chewable) 81 mg PO DAILY [facility] Last Admin: 09/15/18 09:48 Dose: 81 mg Atorvastatin Calcium (Lipitor) 40 mg PO DIN [facility] Last Admin: 09/14/18 17:00 Dose: 40 mg Clopidogrel Bisulfate (Plavix) 75 mg PO DAILY [facility] Last Admin: 09/15/18 09:48 Dose: 75 mg Ergocalciferol (Drisdol 50,000 Intl Units Cap) 1 cap PO Q7D [facility] Last Admin: 09/09/18 13:40 Dose: 1 cap Famotidine (Pepcid) 10 mg PO 1000,2200 [facility] Last Admin: 09/15/18 09:47 Dose: 10 mg Gabapentin (Neurontin) 200 mg PO TID [facility]; Protocol Last Admin: 09/15/18 13:11 Dose: 200 mg Heparin Sodium (Porcine) (Heparin) 5,000 units SC Q8 [facility]; Protocol Last Admin: 09/15/18 13:11 Dose: 5,000 units Hydralazine HCl (Apresoline) 10 mg PO QID PRN PRN Reason: Systolic Blood Pressure Last Admin: 09/04/18 17:13 Dose: 10 mg Linezolid (Zyvox 600mg/300ml D5w) 600 mg in 300 mls @ 200 mls/hr IVPB Q12 [facility]; Protocol Stop: 09/18/18 10:01 Last Admin: 09/15/18 09:40 Dose: 200 mls/hr Piperacillin Sod/Tazobactam Sod (Zosyn 2.25 Gm In 0.9% 100 Ml) 2.25 gm in 100 mls @ 100 mls/hr IVPB Q8 [facility]; Protocol Last Admin: 09/15/18 13:10 Dose: 100 mls/hr Insulin Detemir (Levemir) 10 unit SC BID [facility] Last Admin: 09/15/18 09:41 Dose: 10 unit Insulin Human Lispro (Humalog Med) 0 units SC ACHS [facility]; Protocol Last Admin: 09/15/18 11:58 Dose: 5 unit Lactulose (Enulose) 10 gm PO DAILY PRN PRN Reason: Constipation Last Admin: 09/11/18 10:45 Dose: 10 gm Lisinopril (Zestril) 20 mg PO DAILY [facility] Last Admin: 09/15/18 09:48 Dose: 20 mg Metoprolol Succinate (Toprol Xl) 25 mg PO BRK [facility] Last Admin: 09/15/18 08:28 Dose: 25 mg - Labs Labs: 09/15/18 07:00 09/15/18 07:00 PT 12.3 SECONDS (9.4-12.5) 09/02/18 09:00 INR 1.07 09/02/18 09:00 APTT 42.4 Seconds (25.1-36.5) H 09/02/18 09:00 Attending/Attestation - Attestation I have personally seen and examined this patient.: Yes I have fully participated in the care of the patient.: Yes I have reviewed all pertinent clinical information, including history, physical exam and plan: Yes
--- NOTE | 2018-09-15 23:05 | PN ---
DATE: 09/15/2018 SUBJECTIVE: The patient is in bed, in no acute distress, nontoxic. OBJECTIVE: VITAL SIGNS: Temperature is 98, blood pressure is 165/60, respiratory rate of 20, and heart rate of 64. HEENT: Unremarkable. NECK: Supple. LUNGS: Have decreased breath sounds. HEART: Normal S1 and S2. ABDOMEN: Soft. LABORATORY EXAMINATION: Reveals a white count of 6.9 and hemoglobin of 8. Creatinine is 1.7. Urinalysis is noted. Microbiology reveals Enterobacter cloacae and a sensitive Staph aureus and that is from the 13. Urine culture initially has E. coli, also sensitive mostly to cephalosporins. Pathology of the bone is reviewed, consistent with osteomyelitis. ASSESSMENT AND PLAN: This is a 52-year-old female with first toe stump cellulitis, clinical osteomyelitis, status post first ray amputation, postprocedure day #6 with history of methicillin-resistant Staphylococcus aureus bacteremia, not growing methicillin-susceptible Staphylococcus aureus and Enterobacter with osteomyelitis, status post amputation, and on Zyvox and Zosyn. The pathology report from the OR from the bone on 09/09/2018 reveals a margins that have osteomyelitis. Bone margins are positive for osteomyelitis and would require weekly. CBC, SMA-18, sed rate, C-reactive protein, once weekly. Unfortunately unable to find deep tissue and bone cultures at this time. We will follow with you. Janusz Sparks MD
[2018-09-15 23:06] VITALS: RESP 18
[2018-09-16] MEDS: Piperacillin/Tazobact 2.25gm 2.25 GM/100 ML BAG IVPB SCH ×2 (05:53→14:02)
[2018-09-16 07:30] LABS: BASO # 0.09 K/mm3 (0.0-2.0); BASO % 1.4 % (0.0-3.0); EOS # 0.5 (0.0-0.7); EOS % 7.1 % (1.5-5.0); GRAN # 4.01 (1.4-6.5); GRAN % 62.2 % (50.0-68.0); HEMOGLOBIN 8.6 g/dL (12.0-16.0); LYMPH # 1.4 (1.2-3.4); LYMPH % 20.9 % (22.0-35.0); MEAN CELL VOLUME 89.7 fl (80.0-105.0); MEAN CORPUSCULAR HEMOGLOBIN 28.7 pg (25.0-35.0); MEAN PLATELET VOLUME 8.3 fl (7.0-11.0); MONO # 0.5 (0.1-0.6); MONO % 8.4 % (1.0-6.0); RED CELL DISTRIBUTION WIDTH 16.2 % (11.5-14.5); WHITE BLOOD COUNT 6.5 10^3/uL (4.5-11.0)
[2018-09-16] MEDS: Insulin Lispro (humaLOG) MEDIUM Coverage SC SCH (07:30)
[2018-09-16 07:52] LABS: ALB/GLOB RATIO 0.9 (1.1-1.8); ALBUMIN 3.2 g/dL (3.0-4.8); CALCIUM 8.5 mg/dL (8.4-10.5)
--- NOTE | 2018-09-16 08:09 | PN ---
PROCEDURE DATE: 09/15/2018 CARDIOLOGY FOLLOWUP SUBJECTIVE: The patient is asymptomatic. PHYSICAL EXAMINATION: VITAL SIGNS: Blood pressure 165/68, heart rate is in the 60s. NECK: Negative JVD. LUNGS: Without rales. HEART: S1 and S2. EXTREMITIES: Bandage in the lower extremities. LABORATORY DATA: Hemoglobin is at 8.6. Chemistries; BUN and creatinine 17 and 1.7. IMPRESSION: 1. Foot ulcers. 2. Hypertension. 3. Diabetes mellitus. 4. Peripheral vascular disease. PLAN: Given these findings, we will increase her Norvasc to 10 mg for better blood pressure control. Rodney Caldwell MD
[2018-09-16] MEDS: Insulin Detemir 100 units/ml Vial (Levemir) SC SCH (09:58)
[2018-09-16] MEDS: Metoprolol Succinate 25 mg XL Tab PO SCH (09:59)
--- NOTE | 2018-09-16 10:26 | CP.PCM.PN ---
Subjective - Date & Time of Evaluation Date of Evaluation: 09/16/18 Time of Evaluation: 10:23 - Subjective Subjective: Podiatry progress note for Dr. Murray 52 yo female seen and evaluated s/p POD7 revision of left first ray partial amputation. Patient is Resting comfortably. No acute events overnight. Dressing appears clean dry and intact. Denies N/V/F/C/SOB/CP. Has no pain to her surgical site. Has no other pedal complaints at this time. Patient states she is likely going home today Objective - Vital Signs/Intake and Output Vital Signs (last 24 hours): Temp Pulse Resp BP Pulse Ox 98 F 68 18 130/68 98 09/16/18 06:00 09/16/18 10:00 09/16/18 06:00 09/16/18 10:00 09/16/18 06:00 Intake and Output: 09/16/18 09/16/18 06:59 18:59 Intake Total 1040 Balance 1040 - Medications Medications: Current Medications Acetaminophen (Tylenol 325mg Tab) 650 mg PO Q4H PRN PRN Reason: Pain, Mild (1-3) Last Admin: 09/12/18 16:57 Dose: 650 mg Amlodipine Besylate (Norvasc) 10 mg PO DAILY [facility] Last Admin: 09/16/18 10:00 Dose: 10 mg Aspirin (Aspirin Chewable) 81 mg PO DAILY [facility] Last Admin: 09/16/18 10:00 Dose: 81 mg Atorvastatin Calcium (Lipitor) 40 mg PO DIN [facility] Last Admin: 09/15/18 17:23 Dose: 40 mg Clopidogrel Bisulfate (Plavix) 75 mg PO DAILY [facility] Last Admin: 09/16/18 09:59 Dose: 75 mg Ergocalciferol (Drisdol 50,000 Intl Units Cap) 1 cap PO Q7D [facility] Last Admin: 09/09/18 13:40 Dose: 1 cap Famotidine (Pepcid) 10 mg PO 1000,2200 [facility] Last Admin: 09/16/18 09:59 Dose: 10 mg Gabapentin (Neurontin) 200 mg PO TID [facility]; Protocol Last Admin: 09/16/18 09:59 Dose: 200 mg Heparin Sodium (Porcine) (Heparin) 5,000 units SC Q8 [facility]; Protocol Last Admin: 09/16/18 05:53 Dose: 5,000 units Hydralazine HCl (Apresoline) 10 mg PO QID PRN PRN Reason: Systolic Blood Pressure Last Admin: 09/04/18 17:13 Dose: 10 mg Piperacillin Sod/Tazobactam Sod (Zosyn 2.25 Gm In 0.9% 100 Ml) 2.25 gm in 100 mls @ 100 mls/hr IVPB Q8 [facility]; Protocol Last Admin: 09/16/18 05:53 Dose: 100 mls/hr Insulin Detemir (Levemir) 10 unit SC BID [facility] Last Admin: 09/16/18 09:58 Dose: 10 unit Insulin Human Lispro (Humalog Med) 0 units SC ACHS [facility]; Protocol Last Admin: 09/16/18 07:30 Dose: Not Given Lactulose (Enulose) 10 gm PO DAILY PRN PRN Reason: Constipation Last Admin: 09/11/18 10:45 Dose: 10 gm Lisinopril (Zestril) 20 mg PO DAILY [facility] Last Admin: 09/16/18 10:00 Dose: 20 mg Metoprolol Succinate (Toprol Xl) 25 mg PO BRK [facility] Last Admin: 09/16/18 09:59 Dose: 25 mg - Labs Labs: 09/16/18 07:00 09/16/18 07:00 PT 12.3 SECONDS (9.4-12.5) 09/02/18 09:00 INR 1.07 09/02/18 09:00 APTT 42.4 Seconds (25.1-36.5) H 09/02/18 09:00 - Constitutional Appears: Well, Non-toxic, No Acute Distress - Head Exam Head Exam: ATRAUMATIC, NORMOCEPHALIC - Extremities Exam Additional comments: LLE focused exam: Vasc: DP/PT pulses palpable. Temp gradient warm to cool from proximal to distal, Cap refill < 3 seconds to all remaining digits, no edema noted to surgical site. Neuro: Gross sensation diminished, protective sensation diminished/absent Derm: surgical site appears well coapted- well healing, sutures intact, no maceration noted, no sanguinous drainage appreciated, no pus or purulent discharge noted, no malodor, mild periwound erythema appreciate, no streaking or clinical signs of infection MSK: Left hallux amputation, no tenderness upon calf compression, mild tenderness upon palpation of surgical site. Muscle power intact 5/5 to all groups. - Neurological Exam Neurological Exam: Alert, Awake, Oriented x3 - Psychiatric Exam Psychiatric exam: Normal Affect, Normal Mood Assessment and Plan - Assessment and Plan (Free Text) Assessment: 52 y/o female POD7 revision of left first ray partial amputation Plan: Patient seen and evaluated at bedside with Dr. Murray Chart and labs reviewed- afebrile, absent leukocytosis Surgical site cleansed with normal sterile saline Wound dressed with adaptic, DSD, ABD, kerlix, and tubigrip Patient to discontinue forefoot wedge shoe as she feels unstable in the shoe Patient to continue wearing the surgical shoe Patient to keep dressing intact until visit to Wound care center Podiatry will continue to follow up the patient while in house
[2018-09-16] MEDS: Linezolid 600 mg in D5W 300 ml 600 MG/300 ML BAG IVPB SCH (10:36)
--- NOTE | 2018-09-16 10:47 | PN ---
DATE: 09/16/2018 SUBJECTIVE: The patient is without shortness of breath, without chest pain. PHYSICAL EXAMINATION: VITAL SIGNS: Stable. NECK: Negative JVD. LUNGS: Without rales. HEART: S1, S2. EXTREMITIES: Without edema. LABORATORY DATA: Hemoglobin is 8.6. Chemistries unchanged. IMPRESSION: 1. Foot ulcers. 2. Sepsis. 3. Renal insufficiency. 4. Diabetes mellitus. 5. Peripheral vascular disease. Given these findings, the patient's blood pressure is much better on her increased Norvasc. The patient has a PICC line today and probable discharge today. Rodney Caldwell MD
[2018-09-16] MEDS ORDERED: Darbepoetin Alfa 60 mcg/ml Inj SC ONE (12:41)
--- NOTE | 2018-09-16 15:42 | CP.PCM.DIS ---
Provider - Provider Date of Admission: 09/01/18 15:07 Attending physician: Tessy Greenwood DO Primary care physician: Diana Armas V Consults: Cardiology: Dr. Caldwell ID: Dr. Boyd Podiatry: Dr. Murray IR: Dr. Morin Nephro: Dr. Redding Time Spent in preparation of Discharge (in minutes): 45 Hospital Course - Lab Results Lab Results: Micro Results 09/09/18 14:00 Foot - Left Anaerobic Culture - Final NO ANAEROBES ISOLATED. 09/08/18 07:30 Leg - Left Gram Stain - Final 09/08/18 07:30 Leg - Left Wound Culture - Final Enterobacter Cloacae Ssp Cloac Staphylococcus Aureus 09/07/18 13:54 Naris MRSA Culture (Admit) - Final MRSA NOT DETECTED 09/01/18 14:30 Blood Blood Culture - Final NO GROWTH AFTER 5 DAYS 09/01/18 14:30 Blood Gram Stain - Final TEST NOT PERFORMED 09/01/18 12:52 Blood Blood Culture - Final NO GROWTH AFTER 5 DAYS 09/01/18 12:52 Blood Gram Stain - Final TEST NOT PERFORMED 09/01/18 14:40 Urine Urine Culture - Final Escherichia Coli Most Recent Lab Values WBC 6.5 10^3/uL (4.5-11.0) 09/16/18 07:00 RBC 3.00 10^6/uL (3.5-6.1) L 09/16/18 07:00 Hgb 8.6 g/dL (12.0-16.0) L 09/16/18 07:00 Hct 26.9 % (36.0-48.0) L 09/16/18 07:00 MCV 89.7 fl (80.0-105.0) 09/16/18 07:00 MCH 28.7 pg (25.0-35.0) 09/16/18 07:00 MCHC 32.0 g/dl (31.0-37.0) 09/16/18 07:00 RDW 16.2 % (11.5-14.5) H 09/16/18 07:00 Plt Count 383 10^3/uL (120.0-450.0) 09/16/18 07:00 MPV 8.3 fl (7.0-11.0) 09/16/18 07:00 Gran % 62.2 % (50.0-68.0) 09/16/18 07:00 Lymph % (Auto) 20.9 % (22.0-35.0) L 09/16/18 07:00 [place] % (Auto) 8.4 % (1.0-6.0) H 09/16/18 07:00 Eos % (Auto) 7.1 % (1.5-5.0) H 09/16/18 07:00 Baso % (Auto) 1.4 % (0.0-3.0) 09/16/18 07:00 Gran # 4.01 (1.4-6.5) 09/16/18 07:00 Lymph # (Auto) 1.4 (1.2-3.4) 09/16/18 07:00 [place] # (Auto) 0.5 (0.1-0.6) 09/16/18 07:00 Eos # (Auto) 0.5 (0.0-0.7) 09/16/18 07:00 Baso # (Auto) 0.09 K/mm3 (0.0-2.0) 09/16/18 07:00 ESR 104 mm/hr (0.0-20.0) H 09/02/18 06:50 PT 12.3 SECONDS (9.4-12.5) 09/02/18 09:00 INR 1.07 09/02/18 09:00 APTT 42.4 Seconds (25.1-36.5) H 09/02/18 09:00 Sodium 141 mmol/L (132-148) 09/16/18 07:00 Potassium 4.3 mmol/L (3.6-5.0) 09/16/18 07:00 Chloride 110 mmol/L (98-107) H 09/16/18 07:00 Carbon Dioxide 27 mmol/L (21-33) 09/16/18 07:00 Anion Gap 9 (10-20) L 09/16/18 07:00 BUN 19 mg/dL (7-21) 09/16/18 07:00 Creatinine 1.7 mg/dl (0.7-1.2) H 09/16/18 07:00 Est GFR ( Amer) 38 09/16/18 07:00 Est GFR (Non-Af Amer) 31 09/16/18 07:00 POC Glucose (mg/dL) 177 mg/dL (65-110) H 09/16/18 10:44 Random Glucose 83 mg/dL (70-110) 09/16/18 07:00 Hemoglobin A1c 9.6 % (4.2-6.5) H 09/13/18 11:15 Calcium 8.5 mg/dL (8.4-10.5) 09/16/18 07:00 Phosphorus 3.6 mg/dL (2.5-4.5) 09/14/18 07:45 Magnesium 2.2 mg/dL (1.7-2.2) 09/14/18 07:45 Iron 90 ug/dL (45-180) 09/06/18 07:00 TIBC 196 ug/dL (265-497) L 09/06/18 07:00 % Saturation 46 % (20-55) 09/06/18 07:00 Ferritin 251.0 ng/mL 09/06/18 07:00 Total Bilirubin 0.3 mg/dL (0.2-1.3) 09/16/18 07:00 AST 24 U/L (14-36) 09/16/18 07:00 ALT 22 U/L (7-56) 09/16/18 07:00 Alkaline Phosphatase 78 U/L (38-126) 09/16/18 07:00 C-Reactive Protein 16.10 mg/L (0.0-9.9) H 09/02/18 05:00 Total Protein 6.8 g/dL (5.8-8.3) 09/16/18 07:00 Albumin 3.2 g/dL (3.0-4.8) 09/16/18 07:00 Globulin 3.7 gm/dL 09/16/18 07:00 Albumin/Globulin Ratio 0.9 (1.1-1.8) L 09/16/18 07:00 25-OH Vitamin D Total < 12.8 NG/ML (30.0-100.0) L 09/08/18 07:00 PTH Intact Whole [place] 57 pg/mL (14-64) 09/07/18 13:10 Urine Color Yellow (YELLOW) 09/01/18 14:40 Urine Appearance Clear (CLEAR) 09/01/18 14:40 Urine pH 6.5 (4.7-8.0) 09/01/18 14:40 Ur Specific [place] 1.020 (1.005-1.035) 09/01/18 14:40 Urine Protein 100 mg/dL (<30 mg/dL) H 09/01/18 14:40 Urine Glucose (UA) >=1000 mg/dL (NEGATIVE) 09/01/18 14:40 Urine Ketones Negative mg/dL (NEGATIVE) 09/01/18 14:40 Urine Blood Small (NEGATIVE) H 09/01/18 14:40 Urine Nitrate Positive (NEGATIVE) H 09/01/18 14:40 Urine Bilirubin Negative (NEGATIVE) 09/01/18 14:40 Urine Urobilinogen 0.2 E.U./dL (<1 E.U./dL) 09/01/18 14:40 Ur Leukocyte Esterase Trace Estefanía/uL (NEGATIVE) H 09/01/18 14:40 Urine RBC 10 - 15 /hpf (0-2) 09/01/18 14:40 Urine WBC 5 - 10 /hpf (0-6) 09/01/18 14:40 Ur Epithelial Cells 4 - 5 /hpf (0-5) 09/01/18 14:40 Urine Bacteria Large (NEG) 09/01/18 14:40 Urine Other Uyeast 09/01/18 14:40 Blood Type AB POSITIVE 09/09/18 11:00 Antibody Screen Negative 09/09/18 11:00 BBK History Checked Patient has bt 09/09/18 11:00 - Hospital Course Hospital Course: PGY1 Discharge Summary and Hospital Course History of Present Illness Patient is a 52-year-old Female with past medical history of Type 2 Diabetes Mellitus (uncontrolled) and complicated by left great toe amputation, severe cardiomyopathy on life vest, CKD stage 3, PAD status-post stents in left lower extremity, recently sent in by Dr. Murray for non-healing wound to the left great toe. Patient sustained a minor cut on L toe in Jun 2018, which subsequently turned gangrene. Was treated with Daptomycin for 4 weeks. However, her L great toe got reinfected, failed daptomycin, and she was admitted to hospital again in Jul 2018 for MSSA with wound culture. She had L toe amputation in Jul 2018. She was discharged without any antibiotics per ID and OR culture. She has been following up with Dr Murray, podiatry, for 1 month. The wound has not healed well. For the past 3 days, she noticed heavy drainage from the wound with increased smell. Today she visited Dr Murray for routine dressing change, and Dr Murray sent her to hospital for surgical wound infection. Patient was subsequently admitted to medical-surgical floor for treatment. Please see chart for detail. Patient underwent x-ray of left foot which revealed possible osteomyelitis in the head of the 1st metatarsal. Lower extremity arterial duplex was obtained and revealed left resting SURJIT and distal waveforms are much improved from pre- intervention images in 2018. Podiatry was consulted. Interventional Radiology was consulted and per report, recommended that revision of the amputation site and conservative treatment would be appropriate at this time. Please see report for detail. Patient subsequently (09/10) underwent left foot revision of partial first ray amputation. Left first metatarsal bone, soft tissue culture were removed. Furthermore, biopsy was obtained to check for osteomyelitis. Per pathology report: Benign bone showing acute osteomyelitis, patchy hemorrhage and reactive/repearative changes, with both margins positive for acute osteomyelitis. ID was consulted and recommended 4 weeks of Zosyn and Zyvox. Patient was recommended to be discharged to acute rahab facility, but patient refused. Thus, a PICC line was placed on day of discharge, and patient was discharged to home in hemodynamically stable condition. Patient has no new complaints. Patient was hemodynamically stable and medically optimized for discharge. Consultants on the case agreed. Patient was instructed to follow-up with primary care physician within 3-5 days. Patient given both verbal and written instructions. All instructions explained to the patient in detail. Patient both understand and agree to all instructions. Please see full chart for more detail. Discharge Instructions provided to patient prior to discharge: Please follow up with your primary care doctor, Dr. Armas, within 3-5 days of being discharged from the hospital. Please discuss all medical issues addressed during your admission and any new medications that you have been started on. You have been given a two week supply of all of your medications and Dr. Armas will need to refill these medications at your appointment. Please follow up with your truck mechanic apprentice (kidney doctor), Dr. Redding, as an outpatient within one week of discharge from the hospital. Please discuss all medical issues addressed during your admission and any new medications that you have been started on. His contact information has been provided in this paperwork. Please follow up with your wood crew supervisor, Dr. Murray, as an outpatient upon discharge as previously scheduled. Please discuss all medical issues addressed during your admission and any new medications that you have been started on. Please follow up with your mobile marketing manager and cordwainer as an outpatient as previously scheduled. Please discuss all medical issues addressed during your admission and any new medications that you have been started on. You have been started on the following new medications: 1. Norvasc 10mg once daily (blood pressure pill) 2. Metoprolol 25mg once in the morning with breakfast every day (blood pressure pill) 3. Lipitor 10mg once daily (cholesterol pill) 4. Gabapentin 200mg three times per day (nerve pain pill) The following changes have been made to your home medications: 1. PLEASE STOP TAKING COREG (carvedilol). THIS HAS BEEN REPLACED WITH PREVIOUSLY MENTIONED METOPROLOL 2. Your Lasix dosage has been decreased to 20mg daily 3. Your Lisinopril dosage has been increased to 20mg daily Please continue taking all other home medications as previously prescribed. Please take all antibiotic therapy as prescribed to completion through your PICC line. You will have weekly bloodwork that will be sent to your primary care doctor for monitoring on your antibiotics. Please care for your PICC line as instructed. Please use offloading shoe and all other medical equipment (Wheelchair, Commode and Walker) as instructed. Should your symptoms return, please seek emergency medical attention immediately Patient seen and case discussed in detail with Dr. Tiburcio Guillermo PGY1 Discharge Exam - Skin Additional comments: - Constitutional Appears: Well, Non-toxic, No Acute Distress - Head Exam Head Exam: ATRAUMATIC, NORMAL INSPECTION, NORMOCEPHALIC - Eye Exam Eye Exam: EOMI, Normal appearance, PERRL - Respiratory Exam Respiratory Exam: Clear to Ausculation Bilateral, NORMAL BREATHING PATTERN. absent: Accessory Muscle Use, Decreased Breath Sounds, Rales, Rhonchi, Wheezes, Respiratory Distress, Stridor - Cardiovascular Exam Cardiovascular Exam: RRR, +S1, +S2. absent: Gallop, Rubs - GI/Abdominal Exam GI & Abdominal Exam: Soft, Normal Bowel Sounds. absent: Tenderness - Extremities Exam Additional comments: Pt has covering over L foot, no edema noted at L ankle and LLE dressings c/d/i Vasc: DP/PT pulses palpable. Temp gradient warm to cool from proximal to distal, Cap refill < 3 seconds to all remaining digits, no edema noted to surgical site. Neuro: Gross sensation diminished, protective sensation diminished/absent - Back Exam Back Exam: NORMAL INSPECTION. absent: CVA tenderness (L), CVA tenderness (R) - Neurological Exam Neurological Exam: Alert, Awake, Oriented x3 - Psychiatric Exam Psychiatric exam: Normal Affect, Normal Mood - Skin Skin Exam: Dry, Intact (except where noted above.), Normal Color, Warm Discharge Plan - Discharge Medications Prescriptions: amLODIPine [Norvasc] 10 mg PO DAILY #14 tab Aspirin [Aspirin Chewable] 81 mg PO DAILY #14 chew Atorvastatin [Lipitor] 40 mg PO DIN #14 tab Clopidogrel [Plavix] 75 mg PO DAILY #14 tab Ergocalciferol [Drisdol 50,000 Intl Units Cap] 1 cap PO Q7D #2 cap Famotidine [Pepcid] 40 mg PO HS #14 tab Furosemide [Lasix] 20 mg PO DAILY #14 tab Gabapentin [Neurontin] 200 mg PO TID #42 cap hydrALAZINE [Apresoline] 10 mg PO TID #42 tab Lisinopril [Zestril] 20 mg PO DAILY #14 tab Metoprolol Succinate XL [Toprol XL] 25 mg PO BRK #14 tab - Follow Up Plan Condition: FAIR Disposition: HOME/ ROUTINE Instructions: Diabetic Foot Ulcer (DC), High Blood Pressure (DC), Osteomyelitis (DC), Peripherally-Inserted Central Catheter (DC), Diabetes and Infections, Foot Care for Diabetics Additional Instructions: Please follow up with your primary care doctor, Dr. Armas, within 3-5 days of being discharged from the hospital. Please discuss all medical issues addressed during your admission and any new medications that you have been started on. You have been given a two week supply of all of your medications and Dr. Armas will need to refill these medications at your appointment. Please follow up with your truck mechanic apprentice (kidney doctor), Dr. Redding, as an outpatient within one week of discharge from the hospital. Please discuss all medical issues addressed during your admission and any new medications that you have been started on. His contact information has been provided in this paperwork. Please follow up with your wood crew supervisor, Dr. Murray, as an outpatient upon discharge as previously scheduled. Please discuss all medical issues addressed during your admission and any new medications that you have been started on. Please follow up with your mobile marketing manager and cordwainer as an outpatient as previously scheduled. Please discuss all medical issues addressed during your admission and any new medications that you have been started on. You have been started on the following new medications: 1. Norvasc 10mg once daily (blood pressure pill) 2. Metoprolol 25mg once in the morning with breakfast every day (blood pressure pill) 3. Lipitor 10mg once daily (cholesterol pill) 4. Gabapentin 200mg three times per day (nerve pain pill) The following changes have been made to your home medications: 1. PLEASE STOP TAKING COREG (carvedilol). THIS HAS BEEN REPLACED WITH PREVIOUSLY MENTIONED METOPROLOL 2. Your Lasix dosage has been decreased to 20mg daily 3. Your Lisinopril dosage has been increased to 20mg daily Please continue taking all other home medications as previously prescribed. Please take all antibiotic therapy as prescribed to completion through your PICC line. You will have weekly bloodwork that will be sent to your primary care doctor for monitoring on your antibiotics. Please care for your PICC line as instructed. Please use offloading shoe and all other medical equipment (Wheelchair, Commode and Walker) as instructed. Should your symptoms return, please seek emergency medical attention immediately. Referrals: Reshma Murray DPM [Staff Provider] - Ke Redding MD [Staff Provider] - Diana rAmas DO [Family Provider] - Rodney Caldwell MD [Staff Provider] -
[2018-09-16 16:07] VITALS: BP 138/53; PULSE 100; TEMP 98.2; O2SAT 95
--- NOTE | 2018-09-16 16:35 | CP.PCM.PN ---
Subjective - Date & Time of Evaluation Date of Evaluation: 09/16/18 Time of Evaluation: 16:34 - Subjective Subjective: Nephrology progress note - Ciara, PGY - 2 Patient seen and examined at bedside. No acute overnight events. Patient's blood pressure has normalized on her new medication and she is tolerating it well (Toprol XL). Patient was getting PICC line when we examined her. Denies any new complaints and denies chest pain, shortness of breath. Objective - Vital Signs/Intake and Output Vital Signs (last 24 hours): Temp Pulse Resp BP Pulse Ox 98.2 F 100 H 18 138/53 L 95 09/16/18 14:00 09/16/18 14:00 09/16/18 14:00 09/16/18 14:00 09/16/18 14:00 Intake and Output: 09/16/18 09/16/18 06:59 18:59 Intake Total 1040 Balance 1040 - Medications Medications: Current Medications Acetaminophen (Tylenol 325mg Tab) 650 mg PO Q4H PRN PRN Reason: Pain, Mild (1-3) Last Admin: 09/12/18 16:57 Dose: 650 mg Amlodipine Besylate (Norvasc) 10 mg PO DAILY [facility] Last Admin: 09/16/18 10:00 Dose: 10 mg Aspirin (Aspirin Chewable) 81 mg PO DAILY [facility] Last Admin: 09/16/18 10:00 Dose: 81 mg Atorvastatin Calcium (Lipitor) 40 mg PO DIN [facility] Last Admin: 09/15/18 17:23 Dose: 40 mg Clopidogrel Bisulfate (Plavix) 75 mg PO DAILY [facility] Last Admin: 09/16/18 09:59 Dose: 75 mg Ergocalciferol (Drisdol 50,000 Intl Units Cap) 1 cap PO Q7D [facility] Last Admin: 09/09/18 13:40 Dose: 1 cap Famotidine (Pepcid) 10 mg PO 1000,2200 [facility] Last Admin: 09/16/18 09:59 Dose: 10 mg Gabapentin (Neurontin) 200 mg PO TID [facility]; Protocol Last Admin: 09/16/18 14:10 Dose: 200 mg Heparin Sodium (Porcine) (Heparin) 5,000 units SC Q8 [facility]; Protocol Last Admin: 09/16/18 14:11 Dose: 5,000 units Hydralazine HCl (Apresoline) 10 mg PO QID PRN PRN Reason: Systolic Blood Pressure Last Admin: 09/04/18 17:13 Dose: 10 mg Piperacillin Sod/Tazobactam Sod (Zosyn 2.25 Gm In 0.9% 100 Ml) 2.25 gm in 100 mls @ 100 mls/hr IVPB Q8 [facility]; Protocol Last Admin: 09/16/18 14:02 Dose: 100 mls/hr Insulin Detemir (Levemir) 10 unit SC BID [facility] Last Admin: 09/16/18 09:58 Dose: 10 unit Insulin Human Lispro (Humalog Med) 0 units SC ACHS [facility]; Protocol Last Admin: 09/16/18 07:30 Dose: Not Given Lactulose (Enulose) 10 gm PO DAILY PRN PRN Reason: Constipation Last Admin: 09/11/18 10:45 Dose: 10 gm Lisinopril (Zestril) 20 mg PO DAILY [facility] Last Admin: 09/16/18 10:00 Dose: 20 mg Metoprolol Succinate (Toprol Xl) 25 mg PO BRK [facility] Last Admin: 09/16/18 09:59 Dose: 25 mg - Labs Labs: 09/16/18 07:00 09/16/18 07:00 PT 12.3 SECONDS (9.4-12.5) 09/02/18 09:00 INR 1.07 09/02/18 09:00 APTT 42.4 Seconds (25.1-36.5) H 09/02/18 09:00 - Constitutional Appears: Well - Head Exam Head Exam: ATRAUMATIC, NORMAL INSPECTION, NORMOCEPHALIC - Eye Exam Eye Exam: EOMI, Normal appearance, PERRL Pupil Exam: NORMAL ACCOMODATION, PERRL - ENT Exam ENT Exam: Mucous Membranes Moist, Normal Exam - Neck Exam Neck Exam: Full ROM, Normal Inspection. absent: Lymphadenopathy - Respiratory Exam Respiratory Exam: Clear to Ausculation Bilateral, NORMAL BREATHING PATTERN - Cardiovascular Exam Cardiovascular Exam: REGULAR RHYTHM, +S1, +S2. absent: Murmur - GI/Abdominal Exam GI & Abdominal Exam: Soft, Normal Bowel Sounds. absent: Tenderness - Extremities Exam Extremities Exam: Full ROM, Normal Capillary Refill, Normal Inspection. absent: Joint Swelling, Pedal Edema - Back Exam Back Exam: NORMAL INSPECTION - Neurological Exam Neurological Exam: Alert, Awake, CN II-XII Intact, Normal Gait, Oriented x3 - Psychiatric Exam Psychiatric exam: Normal Affect, Normal Mood - Skin Skin Exam: Dry, Intact, Normal Color, Warm Assessment and Plan - Assessment and Plan (Free Text) Assessment: 52 year old female s/p L 1st toe TMA presenting with infection of the same. Laboratory revealed RADHA on CKD, Hgb below goal, and proteinuric kidney disease. Plan RADHA on CKD, likely 2/2 volume depletion - Continue Lasix on discharge Anemia of Renal Dz - Give dose of Aranesp before d/c CHF - Continue Toprol XL 25 CKD Stage III - Continue adequate BP and anti-proteinuric measures - Avoid nephrotoxic agents
--- NOTE | 2018-09-17 00:56 | PN ---
DATE: 09/16/2018 SUBJECTIVE: The patient is in bed in no acute distress, nontoxic. OBJECTIVE: VITALS: On exam, temperature is 98, blood pressure is 138/50, respiratory rate of 18. HEENT: Unremarkable. NECK: Supple. LUNGS: Have decreased breath sounds. HEART: Normal S1, S2. ABDOMEN: Soft. LABORATORY DATA: Examination reveals a white count of 6.5, hemoglobin of 8, platelets of 383. BUN of 19, creatinine of 1.7. Urinalysis is noted. Microbiology is noted. ASSESSMENT AND PLAN: A 52-year-old female who was seen early this morning in Room 570, bed 2 with first toe stump cellulitis, clinical osteomyelitis. status post first ray amputation, postprocedure day #7, with an MRSA and bacteremia by history. Now with sensitive Staphylococcus aureus, Enterobacter with osteomyelitis, status post amputation, on Zyvox and Zosyn, will need osteomyelitis therapy with a weekly CBC, SMA-18, sed rate, C-reactive protein followup of the bone marrow because of the Zyvox, and local wound care. The patient to follow up as outpatient, understands, and will do so. Janusz Sparks MD
== END 2018-09-16 19:06 | disposition home or self-care (01) | DRG 559 ==
LOC: ED 11:12 → ERH 15:07 → 2RNO 22:49 → 5RNO 09-04 01:09 → 5RSO 09-05 15:26
PROVIDERS: ADMIT Hospitalist; ATTEND Hospitalist
PROC: 0QTP0ZZ Resection of Left Metatarsal, Open Approach (ICD-10-PCS; principal; 2018-09-09 08:45)
PROC: 02HV33Z Insertion of Infusion Device into Superior Vena Cava, Percutaneous Approach (ICD-10-PCS; 2018-09-16)
PROC: B51M1ZA Fluoroscopy of Right Upper Extremity Veins using Low Osmolar Contrast, Guidance (ICD-10-PCS; 2018-09-16)
DX: T87.44 Infection of amputation stump, left lower extremity (principal); I50.22 Chronic systolic (congestive) heart failure; M86.172 Other acute osteomyelitis, left ankle and foot; N17.0 Acute kidney failure with tubular necrosis; I13.0 Hypertensive heart and chronic kidney disease with heart failure and stage 1 through stage 4 chronic kidney disease, or unspecified chronic kidney disease; E11.22 Type 2 diabetes mellitus with diabetic chronic kidney disease; N18.3 Chronic kidney disease, stage 3 (moderate); E11.21 Type 2 diabetes mellitus with diabetic nephropathy; E11.40 Type 2 diabetes mellitus with diabetic neuropathy, unspecified; E11.51 Type 2 diabetes mellitus with diabetic peripheral angiopathy without gangrene; N39.0 Urinary tract infection, site not specified; E11.621 Type 2 diabetes mellitus with foot ulcer; L97.529 Non-pressure chronic ulcer of other part of left foot with unspecified severity; E11.65 Type 2 diabetes mellitus with hyperglycemia; I42.0 Dilated cardiomyopathy; E87.5 Hyperkalemia; E86.9 Volume depletion, unspecified; T87.81 Dehiscence of amputation stump; B96.89 Other specified bacterial agents as the cause of diseases classified elsewhere; B95.61 Methicillin susceptible Staphylococcus aureus infection as the cause of diseases classified elsewhere; Y83.5 Amputation of limb(s) as the cause of abnormal reaction of the patient, or of later complication, without mention of misadventure at the time of the procedure; B96.20 Unspecified Escherichia coli [E. coli] as the cause of diseases classified elsewhere; D63.1 Anemia in chronic kidney disease; E11.69 Type 2 diabetes mellitus with other specified complication; K21.9 Gastro-esophageal reflux disease without esophagitis; L03.032 Cellulitis of left toe; I27.20 Pulmonary hypertension, unspecified; K59.00 Constipation, unspecified; E78.00 Pure hypercholesterolemia, unspecified; Z79.4 Long term (current) use of insulin; Z79.82 Long term (current) use of aspirin; Z95.820 Peripheral vascular angioplasty status with implants and grafts; Z86.14 Personal history of Methicillin resistant Staphylococcus aureus infection